=== PATIENT | male | born 1990 | race Two or more races ===

== ENCOUNTER 2020-09-04 03:28 | Emergency (ER) | payer OTHER, SELFPAY ==
[2020-09-04 03:35] VITALS: BP 167/95; PULSE 101; RESP 18; TEMP 37.1; O2SAT 99; BMI 34.0
[2020-09-04 03:52] LABS: MANUAL DIFF FLAG NO
[2020-09-04 03:53] LABS: Basophils Absolute Auto 0.1 X10*3/uL (0.0-0.2); Basophils Percent Auto 0.5 % (0-2); Eosinophils Absolute Auto 0.2 X10*3/uL (0.0-0.4); Eosinophils Percent Auto 1.3 % (0-4); Hematocrit 45.2 % (42-52); Hemoglobin 15.5 g/dl (14.0-18.0); Imm Gran Abs Auto 0.04 X10*3/uL (0.00-0.03); Imm Gran Pct Auto 0.3 % (0.0-0.4); Lymphocytes Absolute Auto 4.5 X10*3/uL (1.2-4.9); Lymphocytes Percent Auto 38.8 % (20-40); Mean Corpuscular HGB Conc 34.3 g/dl (31.0-36.0); Mean Corpuscular Hemoglobin 31.6 pg (27.0-33.0); Mean Corpuscular Volume 92.2 fL (80-98); Mean Platelet Volume 8.8 fL (9.4-12.4); Monocytes Absolute Auto 1.1 X10*3/uL (0.1-1.2); Monocytes Percent Auto 9.4 % (2-11); Neutrophils Absolute Auto 5.7 X10*3/uL (2.0-8.3); Neutrophils Percent Auto 49.7 % (45-73); Platelet Count 388 X10*3/uL (160-400); Red Cell Distribution Width 13.1 % (11.0-16.0); White Blood Count 11.5 X10*3/uL (4.8-10.8)
[2020-09-04 04:01] LABS: Glucose Urine UA NEG (NEG); Leukocyte Esterase Urine NEG (NEG); Nitrite Urine NEG (NEG); PH 6.5 (5.0-8.0); Urine Blood TRACE (NEG); Urine Ketones 5 MG/DL (NEG); Urine Protein TRACE MG/DL (NEG-TRACE)
[2020-09-04 04:02] LABS: Appearance Urine CLEAR; Color Urine YELLOW
[2020-09-04 04:17] LABS: Alanine Aminotransferase 21 U/L (0-40); Albumin Level 4.3 g/dL (3.5-5.0); Alkaline Phosphatase 73 U/L (39-117); Anion Gap 14 (12-20); Aspartate Amino Transferase 12 U/L (5-37); Bilirubin Total 0.3 mg/dL (0.0-1.0); Blood Urea Nitrogen 10 mg/dL (9-16); Calcium 9.5 mg/dL (8.4-10.2); Carbon Dioxide 25 mmol/L (22-29); Chloride 103 mmol/L (96-108); Creatinine Clr Calc Pharmacy 125.9; Estimated Glomerular Filt Rate > 60; Glucose Random 114 mg/dL (60-115); Lipase 47 U/L (8-78); Potassium 3.9 mmol/l (3.3-5.1); Sodium 138 mmol/L (135-145); Total Protein 7.6 g/dL (6.5-8.0)
[2020-09-04 04:20] LABS: Hyaline Casts Urine 0-2 /LPF; Mucus Urine TRACE /LPF; Squamous Epithelial Cell Urine TRACE /LPF; WBC Urine 0 /HPF (0-4)
--- NOTE | 2020-09-04 05:48 | ED_ITS ---
HPI - Abdominal Pain General Chief Complaint: Abdominal Pain Stated Complaint: BLOOD IN STOOL AND VOMIT Time Seen by Provider: 09/04/20 05:47 History of Present Illness HPI narrative: This is a 30-year-old male who presents with sharpand stabbing epigastric discomfort in nature that was relieved by food until he began vomiting. The pain started Thursday evening and was associated with some nausea and then had a few episodes of vomiting with some associated nonbloody diarrhea. Otherwise, he denies any fevers, chills, urinary pain/ burning / frequency. patient's history as reported by him is significant for HIV, but he is followed regularly and states that his counts are normal . Related Data Previous Rx's Medication Instructions Recorded ondansetron HCl [Zofran] 4 mg PO Q8H PRN #7 tab 09/04/20 Allergies Allergy/AdvReac Type Severity Reaction Status Date / Time lorazepam [From ATIVAN] Allergy Unknown SEIZURES Verified 09/04/20 03:35 Review of Systems Review of Systems pertinent positives and negatives as stated in HPI 10 point review of systems is otherwise negative Physical Exam Vital Signs and I&O and Narrative: Vital Signs and I&O: Vital Signs Temp 98.8 F 09/04/20 03:35 Pulse 101 H 09/04/20 03:35 Resp 18 09/04/20 03:35 BP 167/95 H 09/04/20 03:35 Pulse Ox 99 09/04/20 03:35 Intake & Output 09/03/20 09/03/20 09/04/20 06:59 18:59 06:59 Weight 104.326 kg Body Mass Index 34.0 VITAL SIGNS: Reviewed. GENERAL: Well developed, well nourished, in no acute distress. HEAD: Normocephalic/atraumatic, Posterior oropharynx was without edema, erythema or exudate. EYES: PERRLA, Pupils <>, EOMI intact without pain, no nystagmus/pallor/icterus noted EARS: Ext canals without abnormality, TMs non-bulging and non-erythematous NOSE: Nares patent bilateral OROPHARYNX: no oral lesions noted, posterior pharynx clear and non-erythematous without noted tonsillar enlargement/erythema/exudates NECK: Supple, no adenopathy LUNGS: Normal breath sounds. No adventitious sounds or accessory muscle use. SpO2<> CARDIOVASCULAR: Regular rate and rhythm without noted murmurs, no JVD or lower extremity edema. ABDOMEN: obese, Soft, mild tenderness to palpation over the epigastric, non-distended with bowel sounds. No rigidity. No guarding. No palpable masses or hernias noted MUSCULOSKELETAL: No tenderness, deformities, or effusions noted on gross inspection. EXTREMITIES: No cyanosis, clubbing or edema. SKIN: Inspection of the skin reveals no rashes, ulcerations, jaundice, pallor, or petechiae. NEUROLOGIC: Alert and oriented x 3. Strength and sensation to light touch were grossly intact x 4. Course Course Course Narrative: This is a 30-year-old male with history and clinical present ation consistent with likely gastroenteritis versus less likely pancreatitis or cholecystitis. On review of all investigations this patient has a mild leukocytosis which is likely attributable to stress response from nausea and vomiting and electrolytes are within normal limits. Review of CT scan results negative for acute intra- abdominal findings. All results and findings were discussed with patient at bedside and he will be discharged with a script for Zofran and provided a GI cocktail here in the emergency department. MDM - Abdominal Pain Lab Data Result diagrams: 09/04/20 03:45 09/04/20 03:45 Labs: Lab Results 09/04/20 09/04/20 09/04/20 Range/Units 03:45 03:45 03:45 WBC 11.5 H (4.8-10.8) X10*3/uL RBC 4.90 (4.60-5.80) X10*6/uL Hgb 15.5 (14.0-18.0) g/dl Hct 45.2 (42-52) % MCV 92.2 (80-98) fL MCH 31.6 (27.0-33.0) pg MCHC 34.3 (31.0-36.0) g/dl RDW 13.1 (11.0-16.0) % Plt Count 388 (160-400) X10*3/uL MPV 8.8 L (9.4-12.4) fL Immature Gran % (Auto) 0.3 (0.0-0.4) % Neut % (Auto) 49.7 (45-73) % Lymph % (Auto) 38.8 (20-40) % [place] % (Auto) 9.4 (2-11) % Eos % (Auto) 1.3 (0-4) % Baso % (Auto) 0.5 (0-2) % Neut # (Auto) 5.7 (2.0-8.3) X10*3/uL Lymph # (Auto) 4.5 (1.2-4.9) X10*3/uL [place] # (Auto) 1.1 (0.1-1.2) X10*3/uL Eos # (Auto) 0.2 (0.0-0.4) X10*3/uL Baso # (Auto) 0.1 (0.0-0.2) X10*3/uL Abs Immat Gran (auto) 0.04 H (0.00-0.03) X10*3/uL Absolute Nucleated RBC 0.000 (0.0-0.012) X10*3/uL Nucleated RBC % (auto) 0.0 (0.0-0.2) /100WBC Hold Blue Top SEE NOTE Sodium (135-145) mmol/L Potassium (3.3-5.1) mmol/l Chloride (96-108) mmol/L Carbon Dioxide (22-29) mmol/L Anion Gap (12-20) BUN (9-16) mg/dL Creatinine (0.5-1.4) mg/dL Estim Creat Clear Calc Estimated GFR Random Glucose (60-115) mg/dL Calcium (8.4-10.2) mg/dL Total Bilirubin (0.0-1.0) mg/dL AST (5-37) U/L ALT (0-40) U/L Alkaline Phosphatase (39-117) U/L Total Protein (6.5-8.0) g/dL Albumin (3.5-5.0) g/dL Lipase (8-78) U/L Urine Color YELLOW Urine Appearance CLEAR Urine pH 6.5 (5.0-8.0) Ur Specific [place] 1.020 (1.005-1.025) Urine Protein TRACE (NEG-TRACE) MG/DL Urine Glucose (UA) NEG (NEG) MG/DL Urine Ketones 5 (NEG) MG/DL Urine Blood TRACE (NEG) Urine Nitrite NEG (NEG) Ur Leukocyte Esterase NEG (NEG) Urine RBC 5-9 H (0) /HPF Urine WBC 0 (0-4) /HPF Ur Squamous Epith Cells TRACE /LPF Urine Bacteria NONE /LPF Hyaline Casts 0-2 /LPF Urine Mucus TRACE /LPF 09/04/20 Range/Units 03:45 WBC (4.8-10.8) X10*3/uL RBC (4.60-5.80) X10*6/uL Hgb (14.0-18.0) g/dl Hct (42-52) % MCV (80-98) fL MCH (27.0-33.0) pg MCHC (31.0-36.0) g/dl RDW (11.0-16.0) % Plt Count (160-400) X10*3/uL MPV (9.4-12.4) fL Immature Gran % (Auto) (0.0-0.4) % Neut % (Auto) (45-73) % Lymph % (Auto) (20-40) % [place] % (Auto) (2-11) % Eos % (Auto) (0-4) % Baso % (Auto) (0-2) % Neut # (Auto) (2.0-8.3) X10*3/uL Lymph # (Auto) (1.2-4.9) X10*3/uL [place] # (Auto) (0.1-1.2) X10*3/uL Eos # (Auto) (0.0-0.4) X10*3/uL Baso # (Auto) (0.0-0.2) X10*3/uL Abs Immat Gran (auto) (0.00-0.03) X10*3/uL Absolute Nucleated RBC (0.0-0.012) X10*3/uL Nucleated RBC % (auto) (0.0-0.2) /100WBC Hold Blue Top Sodium 138 (135-145) mmol/L Potassium 3.9 (3.3-5.1) mmol/l Chloride 103 (96-108) mmol/L Carbon Dioxide 25 (22-29) mmol/L Anion Gap 14 (12-20) BUN 10 (9-16) mg/dL Creatinine 1.03 (0.5-1.4) mg/dL Estim Creat Clear Calc 125.9 Estimated GFR > 60 Random Glucose 114 (60-115) mg/dL Calcium 9.5 (8.4-10.2) mg/dL Total Bilirubin 0.3 (0.0-1.0) mg/dL AST 12 (5-37) U/L ALT 21 (0-40) U/L Alkaline Phosphatase 73 (39-117) U/L Total Protein 7.6 (6.5-8.0) g/dL Albumin 4.3 (3.5-5.0) g/dL Lipase 47 (8-78) U/L Urine Color Urine Appearance Urine pH (5.0-8.0) Ur Specific [place] (1.005-1.025) Urine Protein (NEG-TRACE) MG/DL Urine Glucose (UA) (NEG) MG/DL Urine Ketones (NEG) MG/DL Urine Blood (NEG) Urine Nitrite (NEG) Ur Leukocyte Esterase (NEG) Urine RBC (0) /HPF Urine WBC (0-4) /HPF Ur Squamous Epith Cells /LPF Urine Bacteria /LPF Hyaline Casts /LPF Urine Mucus /LPF Discharge Plan Discharge Clinical Impression: Gastroenteritis Patient Disposition: Home, Self-Care Instructions: Gastroenteritis (ED) Additional Instructions: resume all home medications as prescribed. Increase fluid intake, especially water. The patient and/or family acknowledge understanding of results (as applicable), diagnosis, treatment plan, need for follow up, and symptoms that should prompt a return to the emergency room. Prescriptions: New ondansetron HCl [Zofran] 4 mg tablet 4 mg PO Q8H PRN (Reason: nausea and vomiting) Qty: 7 RF: 0 Referrals: Pearl Reyna MD [Primary Care Provider] - 2 days ( for further follow-up regarding your gastroenteritis) [facility] Past Medical History Source: nursing notes reviewed Social History Social History Advance Directives: No Advance Directives Information Provided: No
--- NOTE | 2020-09-04 05:55 | CT_ITS ---
EXAMINATION: CT ABDOMEN AND PELVIS WITHOUT CONTRAST CLINICAL INFORMATION: Abdominal pain COMPARISON: Report from 05/11/2020 TECHNIQUE: Multidetector volumetric imaging was performed from the superior aspect of the liver through the pubic symphysis. Sagittal and coronal reformatted images were obtained on the technologist's workstation. This CT examination was performed using dose optimization techniques as appropriate, variously including the following: *Automated exposure control *Adjustment of mA and/or kV according to patient size (this includes techniques or standardized protocols for targeted exams where dose is matched to indication/reason for exam; i.e. extremities or head) *Use of iterative reconstruction technique DLP: 797 mGy-cm FINDINGS: LUNG BASES: The visualized lung bases are unremarkable. LIVER, GALLBLADDER, AND BILIARY TREE: The liver is normal in size, shape, and attenuation. No focal hepatic lesion or biliary ductal dilatation is present. The gallbladder is unremarkable with no evidence of radiopaque gallstones, gallbladder wall thickening, or obvious pericholecystic inflammatory changes. PANCREAS: Unremarkable. SPLEEN: Unremarkable. ADRENAL GLANDS: Unremarkable. KIDNEYS AND URETERS: The kidneys are normal in size, shape, and attenuation. No hydronephrosis or hydroureter. There is a left lower pole 0.2 cm calculus is 10 cm from the posterior axillary line. No perinephric stranding. BLADDER: Decompressed and not well assessed. GASTROINTESTINAL TRACT: The stomach is distended without wall thickening. Normal caliber small bowel. No obstruction. The appendix is not seen. No colonic wall thickening or inflammatory change. No free air or free fluid. ABDOMINAL WALL: No significant hernia is appreciated. LYMPH NODES: Normal. VASCULAR: Unremarkable. PELVIC VISCERA: The prostate and seminal vesicles are unremarkable. OSSEOUS STRUCTURES: No acute or suspicious osseous abnormality. IMPRESSION: No acute finding of the abdomen or pelvis. No inflammatory changes. No hydronephrosis. Tiny nonobstructing left lower pole renal calculus.
[2020-09-04] MEDS: 0.9 % Sodium Chloride 1,000 ML 999 ML IVCONT (06:22)
[2020-09-04 07:24] VITALS: BP 136/84; PULSE 85; RESP 16; O2SAT 99
== END 2020-09-04 07:25 | disposition home or self-care (01) ==
PROVIDERS: Emergency Provider Student in an Organized Health Care Education/Training Program; PCP Internal Medicine
DX: K52.9 Noninfective gastroenteritis and colitis, unspecified (principal); Z79.899 Other long term (current) drug therapy
CPT/HCPCS: 36415; 74176; 80053; 81001; 81003; 83690; 85025; 99283; 99284

== ENCOUNTER 2020-11-20 11:55 | Observation (INO) | payer OTHER, SELFPAY ==
--- NOTE | 2020-11-20 12:00 | ED.NEUROSD ---
HPI - Neuro Symptoms/Deficit General Chief Complaint: Weakness Stated Complaint: facial numbness and droop Time Seen by Provider: 11/20/20 12:00 Source: patient Mode of arrival: ambulatory Limitations: no limitations History of Present Illness HPI Narrative: 30-year-old male with a past medical history of HIV on Biktarvy, high cholesterol, hypertension (not on medications), CVA here with right sided facial numbness, weakness and PUCKETT. Patient tells me yesterday he had a generalized headache all day but otherwise felt well. He went to bed at 04:00 this morning. When he woke up at 09:00 he noticed right-sided facial weakness and right-sided facial numbness, and right tongue numbness. The patient tells me several years ago in [place] he had a cva with right-sided weakness in his arm and leg only. He tells me he was admitted to the hospital for approximately 2 weeks. He tells me they could not find out what caused the stroke. He did have residual weakness for 6-7 months which improved with physical therapy. He does still have some residual weakness although very mild. He told me that he thinks that the weakness on his right side might be slightly worsened today but he is unsure. No vision changes, photophobia, nausea, vomiting, dizziness, speech difficulty. He denies h/o migranes. of note, the patient tells me he does have a history of HIV and is intermittently compliant with his Biktarvy. He tells me he has had some sinus congestion and pressure for the last few weeks with nasal drainage. He did have a URI 3 weeks ago and had a low grade temp (max 100F) during this time. Tested negative for COVID. Still has sinus pressure/congestion/pain, no recent fever. No trauma or injury. Onset (ago): hour(s) Last Observed Normal: 04:00 Location: right face Severity: mild Quality: weak and numb Relieving factors: none Exacerbating factors: none Context: sudden onset On Anticoagulants: No Associated symptoms: headaches Treatments Prior to Arrival: none Related Data Home Medications Medication Instructions Recorded Confirmed albuterol sulfate [ProAir HFA] 2 puff INHALATION QID PRN 11/20/20 11/20/20 azelastine 2 spray INTRANASAL BID 11/20/20 11/20/20 [id number] ala 1 tab PO DAILY 11/20/20 11/20/20 cetirizine 10 mg PO DAILY PRN 11/20/20 11/20/20 fluticasone propionate [Flonase] 2 spray INTRANASAL DAILY 11/20/20 11/20/20 pantoprazole [Protonix] 40 mg PO BID 11/20/20 11/20/20 sumatriptan succinate 25 mg PO Q2-4H PRN 11/20/20 11/20/20 valacyclovir 1,000 mg PO DAILY 11/20/20 11/20/20 Allergies Allergy/AdvReac Type Severity Reaction Status Date / Time lorazepam [From ATIVAN] Allergy Unknown SEIZURES Verified 09/04/20 03:35 Review of Systems Review of Systems: Yes all other systems are reviewed and are negative Constitutional: Constitutional: Reports no additional constitutional complaints, Denies body ache(s), Denies chills, Denies fever(s), Reports headache(s) and Reports weakness Eyes: Eyes: Reports no additional eye complaints and Denies change in vision ENT: Reports system reviewed and no additional complaints, except as documented, Denies dizziness, Reports headache(s), Denies nasal congestion, Denies nasal discharge, Denies neck pain, Reports sinus pain and Reports sinus pressure Cardiovascular: Cardiovascular: Reports no additional cardiovascular complaints, Denies chest pain, Denies leg edema and Denies dyspnea Respiratory: Respiratory: Reports no additional respiratory complaints, Denies cough and Denies dyspnea Gastrointestinal: Gastrointestinal: Reports no additional gastrointestinal complaints, Denies abdominal pain, Denies diarrhea, Denies nausea and Denies vomiting Genitourinary: Genitourinary: Denies urinary incontinence Musculoskeletal: Musculoskeletal: Reports no additional musculoskeletal complaints, Denies back pain, Denies arthralgias, Denies joint swelling, Denies neck pain, Denies numbness and Denies tingling Integumentary/Breasts: Skin/Breast: Reports system reviewed and no additional complaints, except as docu and Denies rash Neurologic: Reports system reviewed and no additional complaints, except as documented, Denies Abnormal speech present, Denies dizziness, Reports headache(s), Denies numbness, Denies tingling and Reports weakness PMFSH Past Medical History Attestation statement: The following information was validated with the patient. Medical History (Updated 11/20/20 @ 15:52 by Lori Parekh NP) CVA (cerebral vascular accident) High cholesterol Hypertension Social History Social History Alcohol intake: never Smoking Status: Current every day smoker Smoked in Last 30 Days: Yes Use of substances other than those prescribed or required for medical reasons: No Advance Directives: No Advance Directives Information Provided: Yes Physical Exam Vital Signs: Vital Signs: Last Vital Signs Temp 98.1 F 11/20/20 18:00 Pulse 80 11/20/20 18:00 Resp 18 11/20/20 18:00 BP 143/85 H 11/20/20 18:00 Pulse Ox 97 11/20/20 18:00 Body Mass Index 35.4 Const: General: cooperative, healthy appearing, comfortable and no acute distress Orientation/consciousness: patient oriented x3 Limitations: no limitations HENMT: Head: Yes normal to inspection Ears: hearing grossly normal bilaterally General nose exam: Normal external nose present Face and sinus: Yes normal facial exam Mouth: Normal oral and palatal mucosa present Throat: Yes posterior oropharynx normal Eyes: General: appearance normal, both eyes and all related structures Visual Mayer: normal visual mayer by confrontation Alignment and Position: alignment normal Periorbital: periorbital findings normal Eyelids: Yes eyelids normal Conjunctivae: conjunctivae normal Sclerae: sclerae normal Corneas: corneas normal Pupils: Equal, round and reactive pupils present EOM: EOMs intact bilaterally Neck: Neck: Yes normal visual inspection Chest: Chest palpation & inspection: normal inspection of the chest Resp: Effort & Inspection: normal respiratory effort Auscultation: clear to auscultation bilaterally Cardio: Rate: regular rate Rhythm: regular rhythm Peripheral pulses: Peripheral pulses 2+ throughout GI: Inspection: Yes normal to inspection Palpation (GI): Soft to palpation and nontender Auscultation: normal bowel sounds Back/Spine/Pelvis: Thoracic/Lumbar Spine: thoracic and lumbar spine normal to inspection Skin: General skin exam: no rashes or lesions noted Neuro: Other: 5/5 strength in the upper extremities, 5/5 strength in LLE. 4/5 RLE. Normal sensation to all extremities. R sided facial droop, reported decreased sensation along V3 dermatome of the face. tongue is midline General: patient oriented x3 Cranial nerves: Yes Equal, round and reactive pupils present, Yes Bilaterally intact EOM present and Yes Midline tongue present Cognition (Neuro): normal cognition Speech: No Abnormal speech present Gait exam (Neuro): Normal gait present Deep tendon reflexes (DTR's): Right patellar reflex intensity grade: 3+, Left patellar reflex intensity grade: 3+, Right ankle reflex intensity grade: 3+ and Left ankle reflex intensity grade: 3+ Coordination: [id number] test normal, [id number] test normal and tandem gait normal Extrem: General: Yes normal to inspection Course Course Course Narrative: 30 yo male with past medical history of CVA with right sided weakness, HIV on biktarvey, HLD, HTN not on medications, tobacco use here generalized PUCKETT since yesterday and waking up at 9am with right sided facial/tongue numbness and weakness, right lower leg weakness (unsure if acute or chronic). Last known well normal 4am. NIH 3 on arrival. Outside of TPA window. Will need CT head, labs, EKG. Will likely need admission. 1330-Initial CT head negative. Discussed with attending Dr Brice. Will check CTA head/neck, plan for MRI and admission. 1545-CTA negative. Will need further imaging. MRI ordered. Due to history will need admission and likely Neurology consultation. D/w with Lilly CRESPO who accepted admission. MDM - Neuro Symptoms/Deficit MDM Narrative Medical decision making narrative: CVA, complex migraine, ICH vs mass, bells palsy Less likely ICH or mass with negative CT head. Could consider CVA however atypical symptoms (i.e associated headache). If CVA not TPA candidate as outside TPA window. May be complex migraine. Medical Records Attestation: I reviewed the patient's medical records. Lab Data Attestation: I reviewed the patient's lab results. Result diagrams: 11/20/20 12:47 11/20/20 12:47 Labs: Lab Results 11/20/20 11/20/20 11/20/20 Range/Units 12:30 12:47 12:47 WBC 10.2 (4.8-10.8) X10*3/uL RBC 4.80 (4.60-5.80) X10*6/uL Hgb 14.8 (14.0-18.0) g/dl Hct 43.9 (42-52) % MCV 91.5 (80-98) fL MCH 30.8 (27.0-33.0) pg MCHC 33.7 (31.0-36.0) g/dl RDW 12.9 (11.0-16.0) % Plt Count 358 (160-400) X10*3/uL MPV 9.0 L (9.4-12.4) fL Immature Gran % (Auto) 0.2 (0.0-0.4) % Neut % (Auto) 52.8 (45-73) % Lymph % (Auto) 37.2 (20-40) % Mellette % (Auto) 7.3 (2-11) % Eos % (Auto) 1.9 (0-4) % Baso % (Auto) 0.6 (0-2) % Lymph # (Auto) 3.8 (1.2-4.9) X10*3/uL Mellette # (Auto) 0.7 (0.1-1.2) X10*3/uL Eos # (Auto) 0.2 (0.0-0.4) X10*3/uL Baso # (Auto) 0.1 (0.0-0.2) X10*3/uL Abs Immat Gran (auto) 0.02 (0.00-0.03) X10*3/uL Absolute Neuts (auto) 5.4 (2.0-8.3) X10*3/uL Absolute Nucleated RBC 0.000 (0.0-0.012) X10*3/uL Nucleated RBC % (auto) 0.0 (0.0-0.2) /100WBC PT 12.8 (10.8-13.0) SEC INR 1.1 (0.9-1.1) APTT 35.5 (24.1-38.0) SEC Sodium (135-145) mmol/L Potassium (3.3-5.1) mmol/l Chloride (96-108) mmol/L Carbon Dioxide (22-29) mmol/L Anion Gap (12-20) BUN (9-16) mg/dL Creatinine (0.5-1.4) mg/dL Estim Creat Clear Calc Estimated GFR POC Glucose 98 (60-115) mg/dL Random Glucose (60-115) mg/dL Calcium (8.4-10.2) mg/dL Phosphorus (2.7-4.5) mg/dL Magnesium (1.6-2.6) mg/dL Total Creatine Kinase (38-174) U/L Troponin I High Sens (<3.5-35.0) ng/L COVID-19 ([facility]) (Negative) COVID-19 Clin Com 11/20/20 11/20/20 11/20/20 Range/Units 12:47 12:47 15:37 WBC (4.8-10.8) X10*3/uL RBC (4.60-5.80) X10*6/uL Hgb (14.0-18.0) g/dl Hct (42-52) % MCV (80-98) fL MCH (27.0-33.0) pg MCHC (31.0-36.0) g/dl RDW (11.0-16.0) % Plt Count (160-400) X10*3/uL MPV (9.4-12.4) fL Immature Gran % (Auto) (0.0-0.4) % Neut % (Auto) (45-73) % Lymph % (Auto) (20-40) % Mellette % (Auto) (2-11) % Eos % (Auto) (0-4) % Baso % (Auto) (0-2) % Lymph # (Auto) (1.2-4.9) X10*3/uL Mellette # (Auto) (0.1-1.2) X10*3/uL Eos # (Auto) (0.0-0.4) X10*3/uL Baso # (Auto) (0.0-0.2) X10*3/uL Abs Immat Gran (auto) (0.00-0.03) X10*3/uL Absolute Neuts (auto) (2.0-8.3) X10*3/uL Absolute Nucleated RBC (0.0-0.012) X10*3/uL Nucleated RBC % (auto) (0.0-0.2) /100WBC PT (10.8-13.0) SEC INR (0.9-1.1) APTT (24.1-38.0) SEC Sodium 142 (135-145) mmol/L Potassium 4.2 (3.3-5.1) mmol/l Chloride 107 (96-108) mmol/L Carbon Dioxide 27 (22-29) mmol/L Anion Gap 12 (12-20) BUN 10 (9-16) mg/dL Creatinine 0.92 (0.5-1.4) mg/dL Estim Creat Clear Calc 144.0 Estimated GFR > 60 POC Glucose (60-115) mg/dL Random Glucose 97 (60-115) mg/dL Calcium 9.3 (8.4-10.2) mg/dL Phosphorus 4.3 (2.7-4.5) mg/dL Magnesium 2.0 (1.6-2.6) mg/dL Total Creatine Kinase 64 (38-174) U/L Troponin I High Sens < 3.5 (<3.5-35.0) ng/L COVID-19 ([facility]) Negative (Negative) COVID-19 Clin Com See Note Imaging Data CT scan - head: Attestation: I personally reviewed and interpreted this imaging study as follows: Radiologist's impression: EXAMINATION: CT HEAD WITHOUT CONTRAST CLINICAL INFORMATION: Right-sided facial numbness/through COMPARISON: Previous exam November 2007 TECHNIQUE: Contiguous axial imaging was performed from the skull base to vertex without intravenous administration of contrast. This CT examination was performed using dose optimization techniques as appropriate, variously including the following: *Automated exposure control *Adjustment of mA and/or kV according to patient size (this includes techniques or standardized protocols for targeted exams where dose is matched to indication/reason for exam; i.e. extremities or head) *Use of iterative reconstruction technique DLP: 871 mGy-cm FINDINGS: There is no evidence of acute intracranial hemorrhage or territorial infarction. No abnormal mass effect or midline shift is seen. Haider to white matter differentiation is well preserved. No extra-axial fluid collections are identified. The ventricles are normal in size. There is no abnormal attenuation within the brain parenchyma. The osseous structures and soft tissues are normal. The mastoid air cells and visualized portions of the paranasal sinuses are well aerated. CT/CT head/brain wo con IMPRESSION: No acute intracranial pathology. cta head/neck : Attestation: I personally reviewed and interpreted this imaging study as follows: Radiologist's impression: EXAMINATION: CT ANGIOGRAM NECK WITH CONTRAST CT ANGIOGRAM BRAIN WITH CONTRAST CLINICAL INFORMATION: Right facial numbness/facial droop/headache. Rule out CVA. COMPARISON: Head CT performed just prior. TECHNIQUE: Test bolus sequences followed by intravenous administration 70 mL of Omnipaque 350. Helical imaging was performed in the axial plane from the thoracic inlet to the skull vertex. Delayed postcontrast imaging of the head was also performed. The data was processed at the radiologic technologist mammogram workstation for generation of MIP sequences. Angled MIPs and volume rendered reformatted images were also generated at an offline 3D workstation. Stenoses are assessed in accordance with NASCET criteria unless otherwise indicated. This CT examination was performed using dose optimization techniques as appropriate, variously including the following: *Automated exposure control *Adjustment of mA and/or kV according to patient size (this includes techniques or standardized protocols for targeted exams where dose is matched to indication/reason for exam; i.e. extremities or head) *Use of iterative reconstruction technique DLP: 1721 mGy-cm FINDINGS: Head CT: On the postcontrast images, there is no intracranial hemorrhage, extra-axial collection, mass effect, or territorial infarction. No enhancing lesion is seen. The dural venous sinuses demonstrate normal enhancement. The ventricles are normal in size without hydrocephalus. No extracranial abnormality is noted. Neck CTA: There is a three-vessel left-sided aortic arch with no significant stenosis of the great vessel origins. The common and internal carotid arteries are normal in course and caliber. Both vertebral arteries are widely patent throughout their extracranial cervical course. Head CTA: No intracranial aneurysm is seen. The intracranial internal carotid arteries appear normal. The anterior cerebral artery, anterior communicating artery, and middle cerebral arteries appear normal. The intradural vertebral arteries and basilar artery appear normal. The posterior cerebral arteries appear normal. There is a normal right posterior communicating artery. There is disposition of the left THERAPIST PHYSICAL. Non-vascular findings: The upper lungs are clear. No suspicious lymphadenopathy is seen within the neck. CT/CT angio head neck IMPRESSION: The major head or neck arteries appear patent without significant stenosis or occlusion. No acute intracranial abnormality is seen. ECG Data Attestation: I personally reviewed and interpreted this ECG as follows: ECG interpretation date: 11/20/20 ECG interpretation time: 12:30 Interpretation: Normal sinus rhythm with a rate of 83, normal MD, normal QRS, normal QT NIH Stroke Scale Internal: Initial- Upon Arrival Time: 12:00 Level of Consciousness: Alert Level of Consciousness Questions: Answers both questions correctly Level of Consciousness Commands: Performs both tasks correctly Best Gaze: Normal Visual: No visual loss Facial Palsy: Minor paralyis Motor Arm (Right): No drift Motor Arm (Left): No drift Motor Leg (Right): Drift Motor Leg (Left): No drift Limb Ataxia: Absent Sensory: Mild to moderate sensory loss Best Language: No aphasia Dysarthia: Normal Extinction and Inattention: No abnormality Score: 3 Discharge Plan Discharge Clinical Impression: Facial droop Patient Disposition: Admitted As Inpatient Interventions: Admission Worksheet (ED) Last Done: 11/20/20 17:50 Discharge Date/Time: 11/20/20 17:51
[2020-11-20 12:01] VITALS: BP 145/97; PULSE 90; RESP 16; TEMP 36.8; O2SAT 98; BMI 35.4
--- NOTE | 2020-11-20 12:11 | ECG_ITS ---
Test Reason : WEAKNESS Blood Pressure : / mmHG Vent. Rate : 083 BPM Atrial Rate : 083 BPM P-R Int : 156 ms QRS Dur : 084 ms QT Int : 374 ms P-R-T Axes : 042 035 019 degrees QTc Int : 439 ms Normal sinus rhythm Normal ECG When compared with ECG of 17-APR-2020 22:21, No significant change was found Referred By: Lori Parekh Electronically Signed By:JOHN BEGUM MD
--- NOTE | 2020-11-20 12:12 | CT_ITS ---
EXAMINATION: CT HEAD WITHOUT CONTRAST CLINICAL INFORMATION: Right-sided facial numbness/through COMPARISON: Previous exam November 2007 TECHNIQUE: Contiguous axial imaging was performed from the skull base to vertex without intravenous administration of contrast. This CT examination was performed using dose optimization techniques as appropriate, variously including the following: *Automated exposure control *Adjustment of mA and/or kV according to patient size (this includes techniques or standardized protocols for targeted exams where dose is matched to indication/reason for exam; i.e. extremities or head) *Use of iterative reconstruction technique DLP: 871 mGy-cm FINDINGS: There is no evidence of acute intracranial hemorrhage or territorial infarction. No abnormal mass effect or midline shift is seen. Haider to white matter differentiation is well preserved. No extra-axial fluid collections are identified. The ventricles are normal in size. There is no abnormal attenuation within the brain parenchyma. The osseous structures and soft tissues are normal. The mastoid air cells and visualized portions of the paranasal sinuses are well aerated. CT/CT head/brain wo con IMPRESSION: No acute intracranial pathology.
[2020-11-20 12:37] LABS: Glucose, Whole Blood 98 mg/dL (60-115)
[2020-11-20] MEDS: Metoclopramide HCl 10 MG/2 ML VIAL IVPUSH (12:48)
[2020-11-20] MEDS: diphenhydrAMINE HCL 50 MG/ML VIAL 25 MG IVPUSH (12:48)
[2020-11-20 12:54] LABS: Basophils Absolute Auto 0.1 X10*3/uL (0.0-0.2); Basophils Percent Auto 0.6 % (0-2); Eosinophils Absolute Auto 0.2 X10*3/uL (0.0-0.4); Eosinophils Percent Auto 1.9 % (0-4); Hematocrit 43.9 % (42-52); Hemoglobin 14.8 g/dl (14.0-18.0); Imm Gran Abs Auto 0.02 X10*3/uL (0.00-0.03); Imm Gran Pct Auto 0.2 % (0.0-0.4); Lymphocytes Absolute Auto 3.8 X10*3/uL (1.2-4.9); Lymphocytes Percent Auto 37.2 % (20-40); MANUAL DIFF FLAG NO; Mean Corpuscular HGB Conc 33.7 g/dl (31.0-36.0); Mean Corpuscular Hemoglobin 30.8 pg (27.0-33.0); Mean Corpuscular Volume 91.5 fL (80-98); Monocytes Absolute Auto 0.7 X10*3/uL (0.1-1.2); Monocytes Percent Auto 7.3 % (2-11); Neutrophils Absolute Auto 5.4 X10*3/uL (2.0-8.3); Neutrophils Percent Auto 52.8 % (45-73); Platelet Count 358 X10*3/uL (160-400); Red Cell Distribution Width 12.9 % (11.0-16.0); White Blood Count 10.2 X10*3/uL (4.8-10.8)
[2020-11-20 13:05] LABS: INTERNATIONAL NORM RATIO 1.1 (0.9-1.1); Prothrombin Time 12.8 SEC (10.8-13.0)
[2020-11-20 13:07] LABS: Partial Thromboplastin Time 35.5 SEC (24.1-38.0)
[2020-11-20 13:24] LABS: Anion Gap 12 (12-20); Blood Urea Nitrogen 10 mg/dL (9-16); Calcium 9.3 mg/dL (8.4-10.2); Carbon Dioxide 27 mmol/L (22-29); Chloride 107 mmol/L (96-108); Estimated Glomerular Filt Rate > 60; Glucose Random 97 mg/dL (60-115); Phosphorus 4.3 mg/dL (2.7-4.5); Potassium 4.2 mmol/l (3.3-5.1); Sodium 142 mmol/L (135-145)
[2020-11-20 13:30] LABS: Troponin-I High Sensitivity < 3.5 ng/L (<3.5-35.0)
--- NOTE | 2020-11-20 13:35 | CT_ITS ---
EXAMINATION: CT ANGIOGRAM NECK WITH CONTRAST CT ANGIOGRAM BRAIN WITH CONTRAST CLINICAL INFORMATION: Right facial numbness/facial droop/headache. Rule out CVA. COMPARISON: Head CT performed just prior. TECHNIQUE: Test bolus sequences followed by intravenous administration 70 mL of Omnipaque 350. Helical imaging was performed in the axial plane from the thoracic inlet to the skull vertex. Delayed postcontrast imaging of the head was also performed. The data was processed at the registered vascular technologist (rvt) workstation for generation of MIP sequences. Angled MIPs and volume rendered reformatted images were also generated at an offline 3D workstation. Stenoses are assessed in accordance with NASCET criteria unless otherwise indicated. This CT examination was performed using dose optimization techniques as appropriate, variously including the following: *Automated exposure control *Adjustment of mA and/or kV according to patient size (this includes techniques or standardized protocols for targeted exams where dose is matched to indication/reason for exam; i.e. extremities or head) *Use of iterative reconstruction technique DLP: 1721 mGy-cm FINDINGS: Head CT: On the postcontrast images, there is no intracranial hemorrhage, extra-axial collection, mass effect, or territorial infarction. No enhancing lesion is seen. The dural venous sinuses demonstrate normal enhancement. The ventricles are normal in size without hydrocephalus. No extracranial abnormality is noted. Neck CTA: There is a three-vessel left-sided aortic arch with no significant stenosis of the great vessel origins. The common and internal carotid arteries are normal in course and caliber. Both vertebral arteries are widely patent throughout their extracranial cervical course. Head CTA: No intracranial aneurysm is seen. The intracranial internal carotid arteries appear normal. The anterior cerebral artery, anterior communicating artery, and middle cerebral arteries appear normal. The intradural vertebral arteries and basilar artery appear normal. The posterior cerebral arteries appear normal. There is a normal right posterior communicating artery. There is disposition of the left ADAPTED PHYSICAL EDUCATION AIDE. Non-vascular findings: The upper lungs are clear. No suspicious lymphadenopathy is seen within the neck. CT/CT angio head neck IMPRESSION: The major head or neck arteries appear patent without significant stenosis or occlusion. No acute intracranial abnormality is seen.
[2020-11-20 14:17] VITALS: BP 140/90; PULSE 73; RESP 15; O2SAT 97
[2020-11-20] MEDS: iohexoL 350 MG/ML 100 ML INFUS..BTL IV (15:02)
--- NOTE | 2020-11-20 15:30 | MR_ITS ---
EXAMINATION: MR BRAIN WITHOUT CONTRAST CLINICAL INFORMATION: Right-sided facial droop. Right leg weakness. COMPARISON: CTA head and neck from 11/20/2020. TECHNIQUE: MRI of the brain was obtained using routine sequences without contrast. FINDINGS: No focal restricted diffusion is demonstrated to suggest acute or subacute cerebral ischemia. No evidence of acute or chronic hemorrhagic products on heme-sensitive imaging. Few nonspecific scattered T2 FLAIR hyperintensities within the bifrontal white matter. No additional parenchymal signal abnormalities. The ventricles are normal in morphology and size. No abnormal mass effect. No midline shift. Normal appearance of the pituitary gland. No abnormalities of the posterior fossa with normal appearance of the brainstem and cerebellum. Normal positioning of the cerebellar tonsils. Normal arterial and venous vascular flow voids are present. Normal, homogeneous marrow signal. Mild mucosal thickening of the paranasal sinuses. No signal abnormalities within the mastoids. MR/MR head/brain wo con IMPRESSION: 1. No acute intracranial abnormalities. 2. Minimal nonspecific white matter changes.
[2020-11-20 16:04] LABS: COVID-19 Test Negative (Negative)
[2020-11-20 16:37] VITALS: BP 132/95; PULSE 80; RESP 16; O2SAT 97
--- NOTE | 2020-11-20 17:21 | P.EN_ITS ---
Event Note Date of Service: 11/20/20 Event Note: Admission note the patient was seen and evaluated with Lilly Oseguera NP. I agree with her note, assessment and plan with the following. In summary, a 30 years old male with PMH of HIV on Biktarvy, HLD, HTN, migraine, reported HX of CVA who presents to the hospital complaining of right-sided facial numbness, weakness and droop. The patient reports that he has been going through sinus congestion for the last few days but starting yesterday he noticed significant headache that was not relieved by his home medications with no reported nausea, vomiting, fever, chills or photophobia. This morning he noticed some right-sided facial droop and numbness. In the emergency head CT scan, CTA of head and neck with no acute findings. He reports his symptoms improved when the emergency. Plan to do MRI Right-sided facial droop Could be secondary to migraine, Mota's palsy, less likely stroke Pending MRI next To get Neurology evaluation the morning depending on findings Rest of evaluations by FIRE CHIEF'S AIDE note.
[2020-11-20 18:00] VITALS: BP 143/85; PULSE 80; RESP 18; TEMP 36.7; O2SAT 97
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
[2020-11-20 19:31] VITALS: BP 152/90; PULSE 77; RESP 18; TEMP 36.8; O2SAT 96
[2020-11-20 19:54] VITALS: RESP 18
[2020-11-20] MEDS: Enoxaparin Sodium 40 MG/0.4 ML SYRINGE SUBCUT (20:15)
[2020-11-21] VITALS: BP 144/90; PULSE 86; RESP 20; TEMP 36.8; O2SAT 96
[2020-11-21] MEDS: 0.9 % Sodium Chloride Flush 3 ML SYRINGE IVFLUSH ×2 (00:47→08:44)
[2020-11-21] MEDS: SUMAtriptan succinate 25 MG TABLET PO (03:30)
[2020-11-21 03:54] VITALS: BP 146/80; PULSE 75; RESP 18; TEMP 36.8; O2SAT 99
[2020-11-21] MEDS: Omeprazole 20 MG CAPSULE.DR PO (05:51)
[2020-11-21 06:34] LABS: MANUAL DIFF FLAG NO
[2020-11-21 06:52] LABS: Basophils Absolute Auto 0.1 X10*3/uL (0.0-0.2); Basophils Percent Auto 0.7 % (0-2); Eosinophils Absolute Auto 0.2 X10*3/uL (0.0-0.4); Eosinophils Percent Auto 1.7 % (0-4); Hematocrit 44.6 % (42-52); Hemoglobin 14.8 g/dl (14.0-18.0); Imm Gran Abs Auto 0.03 X10*3/uL (0.00-0.03); Imm Gran Pct Auto 0.3 % (0.0-0.4); Lymphocytes Absolute Auto 4.6 X10*3/uL (1.2-4.9); Lymphocytes Percent Auto 46.3 % (20-40); Mean Corpuscular HGB Conc 33.2 g/dl (31.0-36.0); Mean Corpuscular Hemoglobin 30.7 pg (27.0-33.0); Mean Corpuscular Volume 92.5 fL (80-98); Mean Platelet Volume 9.7 fL (9.4-12.4); Monocytes Absolute Auto 0.8 X10*3/uL (0.1-1.2); Monocytes Percent Auto 7.8 % (2-11); Neutrophils Absolute Auto 4.3 X10*3/uL (2.0-8.3); Neutrophils Percent Auto 43.2 % (45-73); Platelet Count 386 X10*3/uL (160-400); Red Blood Count 4.82 X10*6/uL (4.60-5.80); Red Cell Distribution Width 12.8 % (11.0-16.0)
[2020-11-21 07:21] VITALS: BP 139/89; PULSE 73; RESP 18; TEMP 36.4; O2SAT 96
[2020-11-21 07:55] LABS: Anion Gap 15 (12-20); Blood Urea Nitrogen 11 mg/dL (9-16); Carbon Dioxide 25 mmol/L (22-29); Chloride 104 mmol/L (96-108); Cholesterol 220 mg/dL; Creatinine Clr Calc Pharmacy 142.5; Estimated Glomerular Filt Rate > 60; Glucose Random 78 mg/dL (60-115); Potassium 4.6 mmol/l (3.3-5.1); Sodium 139 mmol/L (135-145); Triglycerides 430 mg/dL
[2020-11-21 07:56] VITALS: BP 139/89; PULSE 73; O2SAT 96
[2020-11-21 08:11] LABS: HDL Cholesterol 25 mg/dL
[2020-11-21] MEDS: Acetaminophen 325 MG TABLET 650 MG PO (08:47)
--- NOTE | 2020-11-21 09:26 | P.CNNE_ITS ---
History of Present Illness Data of Consult Service Date: 11/21/20 Primary Care Provider: Pearl Reyna MD 30 years old man with underlying history of HIV disease and remote history of seizure disorder and also history of right-sided facial weakness in 2017 came to hospital stating that his facial weakness was worsening and he was having difficulty drinking with a straw. He was also having a headache. This morning he was feeling somewhat better. He denied any recent cold or flu-like illness for Review of Systems Constitutional: Constitutional: Reports headache(s) and Reports weakness ENT: Denies dizziness and Reports headache(s) Musculoskeletal: Musculoskeletal: Denies numbness and Denies tingling Neurologic: Reports system reviewed and no additional complaints, except as documented, Denies Abnormal speech present, Denies dizziness, Reports headache(s), Denies numbness, Denies tingling and Reports weakness PMFSH Past Medical History Medical History CVA (cerebral vascular accident) High cholesterol Hypertension Social History Social History Household Members: Friend(s) Housing: Apartment Do you presently have visiting nurse or other home services: No Alcohol intake: never Smoking Status: Current every day smoker Tobacco Type: Cigarette Packs Per Day: 0.5 Cigarettes Per Day: 10.0 Years Smoked: 14 Smoked in Last 30 Days: Yes Patient Interested in Nicotine Replacement: Yes Patient Given Instructions on How to Stop Smoking: Yes Date Education Initiated: 11/20/20 Second Hand Smoke Exposure: No Use of substances other than those prescribed or required for medical reasons: No Substance Use Type: Marijuana Substance Use Frequency: Occasionally Last Used Substance Other:: last month Currently Displaying Signs/Symptoms of Drug Intoxication Withdrawal: No Any prior treatment program specific to substance use: No Have you been hit, kicked, punched, or otherwise hurt by someone within the past year? If so, by whom?: No Do you feel safe in your current relationship?: Yes Is there a partner from a previous relationship who is making you feel unsafe no w?: No Are you made to feel afraid or neglected: No Advance Directives: No Advance Directives Information Provided: Yes Do you have thoughts of harming others: None Do you have a plan to hurt others: No Plan Recently lost weight without trying: No Meds Allergies Allergy/AdvReac Type Severity Reaction Status Date / Time lorazepam [From ATIVAN] Allergy Unknown SEIZURES Verified 09/04/20 03:35 Home Medications Medication Instructions Recorded Confirmed Type albuterol sulfate [ProAir HFA] 2 puff INHALATION QID PRN 11/20/20 11/20/20 History azelastine 2 spray INTRANASAL BID 11/20/20 11/20/20 History nxgspojkg-cjgsxrsq-wulavpz ala 1 tab PO DAILY 11/20/20 11/20/20 History cetirizine 10 mg PO DAILY PRN 11/20/20 11/20/20 History fluticasone propionate [Flonase] 2 spray INTRANASAL DAILY 11/20/20 11/20/20 History pantoprazole [Protonix] 40 mg PO BID 11/20/20 11/20/20 History sumatriptan succinate 25 mg PO Q2-4H PRN 11/20/20 11/20/20 History valacyclovir 1,000 mg PO DAILY 11/20/20 11/20/20 History Physical Exam Vital Signs: Vital Signs: Last Vital Signs Temp 97.5 F 11/21/20 07:21 Pulse 73 11/21/20 07:56 Resp 18 11/21/20 07:21 BP 139/89 11/21/20 07:56 Pulse Ox 96 11/21/20 07:56 Body Mass Index 35.4 He was alert and awake with normal spontaneity of speech fluency comprehension and affect. There was mild peripheral type right-sided facial weakness. Pupils were equal and reactive to light and extraocular muscles were intact. Visual golden are full to threat. There was no pronator drift. Deep tendon reflexes were absent with flexor plantars. He was moderately obese. Speech was normal. Neuro: Speech: No Abnormal speech present Results Labs CBC & Chem 7: 11/21/20 05:45 11/21/20 05:45 Labs: Short CBC 11/20/20 11/21/20 Range/Units 12:47 05:45 WBC 10.2 10.0 (4.8-10.8) X10*3/uL Hgb 14.8 14.8 (14.0-18.0) g/dl Hct 43.9 44.6 (42-52) % Plt Count 358 386 (160-400) X10*3/uL BMP 11/20/20 11/21/20 12:47 05:45 Sodium 142 139 Potassium 4.2 4.6 Chloride 107 104 Carbon Dioxide 27 25 BUN 10 11 Creatinine 0.92 0.93 Calcium 9.3 9.0 Cardiac Enzymes 11/20/20 Range/Units 12:47 Total Creatine Kinase 64 (38-174) U/L His CTA of brain and neck and MRI of brain did not reveal any significant pathology, acute or chronic. 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 He was educated about this condition and the fact that sometimes if patient was under stress weakness could seem worse. Otherwise I do not recommend any further intervention.
--- NOTE | 2020-11-21 10:06 | MHC.CM.PN ---
CM met with patient at the bedside who reports he is independent and lives with friends. Patient does not have a HCP and declines filling one out today after education. Discussed discharge plan, home no services. Patient has his own car in parking lot. OBS notice given. CM will continue to follow patient for discharge needs.
--- NOTE | 2020-11-21 11:27 | MHC.CM.PN ---
Patient will be discharging home today no services. Patient has his own car in parking lot. Nurse aware.
--- NOTE | 2020-12-15 12:12 | P.DS_ITS ---
DS: Providers Provider Date of Service: 12/15/20 Date of admission: 11/20/20 16:39 Primary care physician: Pearl Reyna MD Consults: 11/20/20 18:41 Consult to Neurology Routine Consulting Provider: [facility] Reason for consultation: FACIAL NUMBNESS, WEAKNESS Has provider been notified: No DS: Diagnosis Discharge Diagnosis (1) Facial droop: Status: Acute (2) H/O Mota's palsy: Status: Acute DS: Medications Discharge Medications Home Medications: Home Medications Medication Instructions Recorded Confirmed albuterol sulfate [ProAir HFA] 2 puff INHALATION QID PRN 11/20/20 11/20/20 azelastine 2 spray INTRANASAL BID 11/20/20 11/20/20 hsghavjqb-enjxcoho-paxdibn ala 1 tab PO DAILY 11/20/20 11/20/20 cetirizine 10 mg PO DAILY PRN 11/20/20 11/20/20 fluticasone propionate 2 spray INTRANASAL DAILY 11/20/20 11/20/20 pantoprazole [Protonix] 40 mg PO BID 11/20/20 11/20/20 sumatriptan succinate 25 mg PO Q2-4H PRN 11/20/20 11/20/20 valacyclovir 1,000 mg PO DAILY 11/20/20 11/20/20 Previous Rx's Medication Instructions Recorded gabapentin 200 mg PO BEDTIME #60 cap 11/21/20 DS: Summary Hospital Course Hospital Course: Admission note HPI A 30-year-old man presenting to the ER with complaints of right-sided weakness and facial droop. He reports that last evening he started to feel his face numb and felt like it was drooping. He went to bed and woke up and continued to feel the same symptoms, decided to come to the ER to be evaluated. He reports that in 2016 or 2016, he was told that he may have had a TIA or stroke while in [place]. Brain CT today does not show any previous stroke or acute infarction. He did state that during this hospitalization in [place] for a possible stroke, he was hospitalized for approximately 2 weeks and he had some residual weakness for 6 to 7 months, which he reported improved with physical therapy. He denied any chest pain, shortness of breath, visual changes, dizziness, syncope, fever, chills. He did report some headache that started last night and continued today and just reported that over the last for several days, he thought that he had a sinus infection. He does have a history of HIV and has not been completely compliant with his HIV medication. He tells me that he does not take it every day. Also has a history of smoking. In the ER, his labs are all within acceptable limits. COVID-19 negative. Vital signs have been stable. Head and neck CTA showed no significant stenosis or occlusion and no acute intracranial abnormalities seen. In the ER, he received a dose of Reglan and Benadryl. He will be admitted and will be placed on observation for question of TIA versus stroke. Hospital course The patient was admitted to the hospital and had a brain CT , I would CTA, brain MRI which all were negative for acute findings. He was evaluated by neurologist who believe his symptoms are secondary to chronic Mota's palsy and exacerbated with stress. No further investigation needed. Patient was discharged home on his current home medications. Time Spent with Patient Time attestation: Total time spent providing and/or coordinating discharge services: Discharge coordination time: Greater than 30 minutes Quality: Stroke Pt Provided Written Stroke Discharge Instructions: Patient given written information Physical Exam Vital Signs: Vital Signs: Last Vital Signs Temp 97.5 F 11/21/20 07:21 Pulse 73 11/21/20 07:56 Resp 18 11/21/20 07:21 BP 139/89 11/21/20 07:56 Pulse Ox 96 11/21/20 07:56 Body Mass Index 35.4 Constitutional : Alert, oriented, not in distress Neck : Normal inspection, Supple Cardiovascular : RRR, S1 S2, no lower extremity edema Respiratory : Good bilateral air entry, no crackles, wheezes or rhonchi Gastrointestinal: soft, lax, Normal bowel sounds, Non tender Skin : Warm/Dry, No rash Neurological : Alert & oriented x3, mild right-sided facial droop, no other focal findings DS: Data Data Completed and Pending Labs on day of discharge: Laboratory Tests 11/20/20 11/20/20 11/20/20 12:30 12:47 12:47 WBC 10.2 RBC 4.80 Hgb 14.8 Hct 43.9 MCV 91.5 MCH 30.8 MCHC 33.7 RDW 12.9 Plt Count 358 MPV 9.0 L Immature Gran % (Auto) 0.2 Neut % (Auto) 52.8 Lymph % (Auto) 37.2 [place] % (Auto) 7.3 Eos % (Auto) 1.9 Baso % (Auto) 0.6 Lymph # (Auto) 3.8 [place] # (Auto) 0.7 Eos # (Auto) 0.2 Baso # (Auto) 0.1 Abs Immat Gran (auto) 0.02 Absolute Neuts (auto) 5.4 Absolute Nucleated RBC 0.000 Nucleated RBC % (auto) 0.0 PT 12.8 INR 1.1 APTT 35.5 Sodium Potassium Chloride Carbon Dioxide Anion Gap BUN Creatinine Estim Creat Clear Calc Estimated GFR POC Glucose 98 Random Glucose Calcium Phosphorus Magnesium Total Creatine Kinase Troponin I High Sens Triglycerides Cholesterol LDL Cholesterol, Calc HDL Cholesterol COVID-19 ([facility]) COVID-19 Clin Com 11/20/20 11/20/20 11/20/20 12:47 12:47 15:37 WBC RBC Hgb Hct MCV MCH MCHC RDW Plt Count MPV Immature Gran % (Auto) Neut % (Auto) Lymph % (Auto) [place] % (Auto) Eos % (Auto) Baso % (Auto) Lymph # (Auto) [place] # (Auto) Eos # (Auto) Baso # (Auto) Abs Immat Gran (auto) Absolute Neuts (auto) Absolute Nucleated RBC Nucleated RBC % (auto) PT INR APTT Sodium 142 Potassium 4.2 Chloride 107 Carbon Dioxide 27 Anion Gap 12 BUN 10 Creatinine 0.92 Estim Creat Clear Calc 144.0 Estimated GFR > 60 POC Glucose Random Glucose 97 Calcium 9.3 Phosphorus 4.3 Magnesium 2.0 Total Creatine Kinase 64 Troponin I High Sens < 3.5 Triglycerides Cholesterol LDL Cholesterol, Calc HDL Cholesterol COVID-19 ([facility]) Negative COVID-19 Clin Com See Note 11/21/20 11/21/20 05:45 05:45 WBC 10.0 RBC 4.82 Hgb 14.8 Hct 44.6 MCV 92.5 MCH 30.7 MCHC 33.2 RDW 12.8 Plt Count 386 MPV 9.7 Immature Gran % (Auto) 0.3 Neut % (Auto) 43.2 L Lymph % (Auto) 46.3 H [place] % (Auto) 7.8 Eos % (Auto) 1.7 Baso % (Auto) 0.7 Lymph # (Auto) 4.6 [place] # (Auto) 0.8 Eos # (Auto) 0.2 Baso # (Auto) 0.1 Abs Immat Gran (auto) 0.03 Absolute Neuts (auto) 4.3 Absolute Nucleated RBC 0.000 Nucleated RBC % (auto) 0.0 PT INR APTT Sodium 139 Potassium 4.6 Chloride 104 Carbon Dioxide 25 Anion Gap 15 BUN 11 Creatinine 0.93 Estim Creat Clear Calc 142.5 Estimated GFR > 60 POC Glucose Random Glucose 78 Calcium 9.0 Phosphorus Magnesium Total Creatine Kinase Troponin I High Sens Triglycerides 430 Cholesterol 220 LDL Cholesterol, Calc TNP HDL Cholesterol 25 COVID-19 ([facility]) COVID-19 Clin Com Discharge Plan Discharge Patient Disposition: Home, Self-Care Referrals: Pearl Reyna MD [Primary Care Provider] - Discharge Medications: New gabapentin 100 mg capsule 200 mg PO BEDTIME Qty: 60 RF: 0 Continued cetirizine 10 mg Tablet 10 mg PO DAILY PRN (Reason: Allergic Symptoms) RF: 0 valacyclovir 1 gram Tablet 1,000 mg PO DAILY RF: 0 sumatriptan succinate 25 mg Tablet 25 mg PO Q2-4H PRN (Reason: Migraine Headache) RF: 0 pantoprazole [Protonix] 40 mg Tablet,Delayed Release (Dr/Ec) 40 mg PO BID RF: 0 pijbvsjzp-ohcismmj-kmofkxx ala 50-200-25 mg Tablet 1 tab PO DAILY RF: 0 albuterol sulfate [ProAir HFA] 90 mcg/actuation Hfa Aerosol Inhaler 2 puff INHALATION QID PRN (Reason: Shortness Of Breath) RF: 0 fluticasone propionate 50 mcg/actuation [place],Suspension 2 spray INTRANASAL DAILY RF: 0 azelastine 0.15 % (205.5 mcg) [place],Non-Aerosol 2 spray INTRANASAL BID RF: 0 Discharge Orders: Discharge Order (Routine); Ordered 11/21/20 Ordered By: Yamile Preciado Diet: advance to usual diet Activity on Discharge: As tolerated Discharge Date/Time: 11/21/20 11:40 Visit Report Forms: Patient Portal Discharge page Care Plan Goals: Read below Health Concerns: Read below Plan of Treatment: For evaluation of right-sided facial weakness and numbness. Images of your brain include CT scan, MRI were negative for any acute findings. You were evaluated by neurologist who recommended no further evaluation as it seems to be chronic and exacerbated by recent migraine attack and sinus infection. To use gabapentin at bedtime for the neuropathy pain
== END 2020-11-21 11:40 | disposition home or self-care (01) ==
LOC: HO.ED 15:52 → HO.IMC 18:06
PROVIDERS: Nurse Practitioner Acute Care; Nurse Practitioner Family; Admitting Provider Student in an Organized Health Care Education/Training Program; Emergency Provider Emergency Medicine; PCP Internal Medicine; Visit Provider Student in an Organized Health Care Education/Training Program
DX: R29.810 Facial weakness (principal); I63.9 Cerebral infarction, unspecified; R47.02 Dysphasia; G40.909 Epilepsy, unspecified, not intractable, without status epilepticus; B20 Human immunodeficiency virus [HIV] disease; R51.9 Headache, unspecified; E78.00 Pure hypercholesterolemia, unspecified; I10 Essential (primary) hypertension; F17.210 Nicotine dependence, cigarettes, uncomplicated; Z20.828 Contact with and (suspected) exposure to other viral communicable diseases; Z88.8 Allergy status to other drugs, medicaments and biological substances; Z79.899 Other long term (current) drug therapy
CPT/HCPCS: 36415; 70450; 70496; 70498; 70551; 80048; 80061; 82550; 82947; 83735; 84100; 84484; 85025; 85610; 85730; 87635; 93005; 96372; 96374; 96375; 97161; 97165; 99219; 99285; J1200; J1650; J2765; Q9967

== ENCOUNTER 2021-12-24 10:32 | Emergency (ER) | payer OTHER, SELFPAY ==
--- NOTE | 2021-12-24 10:33 | ECG_ITS ---
Test Reason : chest pain Blood Pressure : / mmHG Vent. Rate : 080 BPM Atrial Rate : 080 BPM P-R Int : 154 ms QRS Dur : 082 ms QT Int : 378 ms P-R-T Axes : 049 041 019 degrees QTc Int : 435 ms Normal sinus rhythm Normal ECG When compared with ECG of 20-NOV-2020 12:30, No significant change was found Referred By: Generic ED Physician Electronically Signed By:JOHN BEGUM MD
[2021-12-24 10:34] VITALS: BP 157/90; PULSE 79; RESP 19; TEMP 36.1; O2SAT 99; BMI 38.4
== END 2021-12-24 12:39 | disposition left against medical advice (07) ==
PROVIDERS: Emergency Provider Emergency Medicine
DX: R07.89 Other chest pain (principal); M79.601 Pain in right arm
CPT/HCPCS: 93005; 99283

== ENCOUNTER 2022-01-02 21:02 | Emergency (ER) | payer OTHER, SELFPAY ==
--- NOTE | ~2022-01-02 | CT_ITS ---
EXAMINATION: CT ABDOMEN AND PELVIS WITH CONTRAST CLINICAL INFORMATION: Right upper quadrant and epigastric pain COMPARISON: 09/04/2020 TECHNIQUE: Multidetector volumetric images were obtained from the superior aspect of the liver through the pubic symphysis following administration 85 mL of Omnipaque 350 intravenous contrast. Sagittal and coronal reformatted images were obtained on the technologist's workstation. Oral contrast: No This CT examination was performed using dose optimization techniques as appropriate, variously including the following: *Automated exposure control *Adjustment of mA and/or kV according to patient size (this includes techniques or standardized protocols for targeted exams where dose is matched to indication/reason for exam; i.e. extremities or head) *Use of iterative reconstruction technique DLP: 863 mGy-cm FINDINGS: LUNG BASES: The visualized lung bases are unremarkable. LIVER, GALLBLADDER, AND BILIARY TREE: The liver is normal in size, shape, and attenuation. No focal hepatic lesion or biliary ductal dilatation is present. Gallbladder appears somewhat contracted. PANCREAS: Unremarkable. SPLEEN: Unremarkable. ADRENAL GLANDS: Unremarkable. KIDNEYS AND URETERS: Bilateral nephrograms are symmetric. No hydronephrosis or obstructing calculus bilaterally. Tiny bilateral lower pole renal calculi are noted. BLADDER: Collapsed and not adequately evaluated. GASTROINTESTINAL TRACT: No evidence of bowel obstruction or significant wall thickening. The appendix is unremarkable. No free fluid or free air is seen. ABDOMINAL WALL: Small bilateral fat-containing inguinal hernias are noted. LYMPH NODES: Normal. VASCULAR: Unremarkable. PELVIC VISCERA: Unremarkable. OSSEOUS STRUCTURES: Unremarkable. CT/CT abdomen pelvis w con IMPRESSION: No acute findings identified in the abdomen/pelvis. Fleischner guidelines were followed.
[2022-01-02 21:10] VITALS: BP 140/85; PULSE 94; RESP 20; TEMP 35.8; O2SAT 96; BMI 39.2
--- NOTE | 2022-01-02 21:42 | ECG_ITS ---
Test Reason : abd pain Blood Pressure : / mmHG Vent. Rate : 088 BPM Atrial Rate : 088 BPM P-R Int : 152 ms QRS Dur : 086 ms QT Int : 354 ms P-R-T Axes : 106 034 -22 degrees QTc Int : 428 ms Normal sinus rhythm Inferior infarct , age undetermined Abnormal ECG When compared with ECG of 24-DEC-2021 10:32, T wave inversion more evident in Inferior leads Referred By: Halle Harris Electronically Signed By:CARY LONGO
--- NOTE | 2022-01-02 21:45 | ED_ITS ---
HPI - Abdominal Pain General Chief Complaint: Abdominal Pain Stated Complaint: Kidney stone pain Time Seen by Provider: 01/02/22 21:08 Source: patient Mode of arrival: ambulatory Limitations: no limitations History of Present Illness HPI narrative: Patient comes to emergency room complaining of right upper quadrant pain for about a week. Patient states that for the last 2 days, the pain has been getting much worse, drinking coca cola exacerbates the pain. Patient also c/o diarrhea, nausea, no vomiting. Related Data Home Medications Medication Instructions Recorded Confirmed albuterol sulfate 90 2 puff INHALATION QID PRN 11/20/20 11/20/20 mcg/actuation aerosol inhaler (ProAir HFA) azelastine 205.5 mcg (0.15 %) 2 spray INTRANASAL BID 11/20/20 11/20/20 nasal spray bictegravir 50 1 tab PO DAILY 11/20/20 11/20/20 mg-emtricitabine 200 mg-tenofovir alafenam 25 mg tablet cetirizine 10 mg tablet 10 mg PO DAILY PRN 11/20/20 11/20/20 fluticasone propionate 50 2 spray INTRANASAL DAILY 11/20/20 11/20/20 mcg/actuation nasal spray,suspension pantoprazole 40 mg 40 mg PO BID 11/20/20 11/20/20 tablet,delayed release (Protonix) sumatriptan succinate 25 mg 25 mg PO Q2-4H PRN 11/20/20 11/20/20 tablet valacyclovir 1 gram tablet 1,000 mg PO DAILY 11/20/20 11/20/20 Previous Rx's Medication Instructions Recorded gabapentin 100 mg capsule 200 mg PO BEDTIME #60 cap 11/21/20 sucralfate 1 gram tablet 1 g PO BID #60 tab 01/03/22 Allergies Allergy/AdvReac Type Severity Reaction Status Date / Time lorazepam [From ATIVAN] Allergy Unknown SEIZURES Verified 09/04/20 03:35 Review of Systems Review of Systems Constitutional : No Weight loss, No Fever, No Chills, No Night Sweats, No Fatigue, No Malaise ENT/Mouth : No Hearing loss, No Ear Pain, No Nasal Congestion, No Sinus Pain, No Hoarseness, No sore throat, No Rhinorrhea, No Swallowing Difficulty Eyes: No Eye Pain, No Swelling, No Redness, No Foreign Body, No Discharge, No Vision Changes Cardiovascular : No Chest Pain, No SOB, No Dyspnea on Exertion, No Orthopnea, No Edema, No Palpitations Respiratory : No Cough, No Sputum, No Wheezing, No Smoke Exposure, No Dyspnea Gastrointestinal : Complaining of Nausea, No Vomiting, complaining of diarrhea, complaining of right upper quadrant pain Genitourinary : no irregular bleeding, No Dysuria, No Urinary Frequency, No Hematuria, No Urinary Incontinence, No Urgency, No Flank Pain, No Urinary Flow Changes, No Hesitancy Musculoskeletal : No joint pain, No Myalgias, No Joint Swelling Skin : No Skin Lesions, No rash Neuro : No Weakness, No Numbness, No Paresthesias, No Loss of Consciousness, No Dizziness, No Headache Psych : No Anxiety/Panic, No Depression, No SI/HI/AH/VH, No Social Issues, Heme/Lymph: No Bruising, No Bleeding,No Lymphadenopathy Endocrine : No Polyuria, No Polydipsia, No Temperature Intolerance Physical Exam Verdana 4l Vital Signs: Verdana 4d Verdana 4d Vital Signs: Verdana 4d Verdana 4Bd Last Vital Signs Verdana 4d Sales Training Coordinator New 4d Sales Training Coordinator New 4d Temp 96.5 F L 01/02/22 21:10 Sales Training Coordinator New 4d Pulse 94 01/02/22 21:10 Sales Training Coordinator New 4d Resp 20 01/02/22 21:10 BP 140/85 H 01/02/22 21:10 Pulse Ox 96 01/02/22 21:10 BMI result Body Mass Index 39.2 Const: Other: Appearance: Alert. Oriented X3. No acute distress. Well-appearing Eyes: Pupils equal, round and reactive to light. ENT: Pharynx normal. Neck: Normal inspection. Neck supple. No lymph nodes noted. No crepitus CVS: Normal heart rate and rhythm. Pulses normal. Normal S1 and S2 Respiratory: No respiratory distress. Breath sounds normal. No Wheezing. No rales Abdomen: Soft , mild tenderness to palpation in epigastric and right upper quadrant, negative Anderson sign Skin: Skin warm and dry. Normal skin color. Normal skin turgor. Extremities: No lower extremity edema. No Lacerations. No Rash Neuro: Oriented X 3. No motor deficit. No sensory deficit. Moving all extermities. No slurred speech. Course Course Course Narrative: I discussed the labs and imaging with the patient, it is likely that patient has gastritis versus peptic ulcer disease versus duodenitis. Patient states that in the past he has had multiple treatments for gastritis. I discussed with the patient that he will likely need an upper endoscopy MDM - Abdominal Pain Lab Data Result diagrams: 01/02/22 21:54 01/02/22 21:54 Labs: Lab Results 01/02/22 01/02/22 01/02/22 Range/Units 21:54 21:54 21:54 WBC 9.8 (4.8-10.8) X10*3/uL RBC 4.71 (4.60-5.80) X10*6/uL Hgb 14.5 (14.0-18.0) g/dl Hct 42.6 (42.0-52.0) % MCV 90.4 (80.0-98.0) fL MCH 30.8 (27.0-33.0) pg MCHC 34.0 (31.0-36.0) g/dl RDW 13.3 (11.0-16.0) % Plt Count 363 (160-400) X10*3/uL MPV 9.1 L (9.4-12.4) fL Immature Gran % (Auto) 0.2 (0.0-0.4) % Neut % (Auto) 59.5 (45-73) % Lymph % (Auto) 32.3 (20-40) % Esmeralda % (Auto) 6.1 (2-11) % Eos % (Auto) 1.1 (0-4) % Baso % (Auto) 0.8 (0-2) % Lymph # (Auto) 3.2 (1.2-4.9) X10*3/uL Esmeralda # (Auto) 0.6 (0.1-1.2) X10*3/uL Eos # (Auto) 0.1 (0.0-0.4) X10*3/uL Baso # (Auto) 0.1 (0.0-0.2) X10*3/uL Abs Immat Gran (auto) 0.02 (0.00-0.03) X10*3/uL Absolute Neuts (auto) 5.8 (2.0-8.3) x10*3/uL Absolute Nucleated RBC 0.000 (0.0-0.012) X10*3/uL Nucleated RBC % (auto) 0.0 (0.0-0.2) /100WBC Sodium 142 (135-145) mmol/L Potassium 4.2 (3.3-5.1) mmol/L Chloride 110 H (96-108) mmol/L Carbon Dioxide 23 (22-29) mmol/L Anion Gap 13 (12-20) BUN 11 (9-16) mg/dL Creatinine 0.84 (0.5-1.4) mg/dL Estim Creat Clear Calc 164.6 Estimated GFR > 60 Random Glucose 88 (60-115) mg/dL Calcium 9.9 D (8.4-10.2) mg/dL Total Bilirubin 0.4 (0.0-1.0) mg/dL Direct Bilirubin 0.2 (0.0-0.5) mg/dL AST 26 D (5-37) U/L ALT 40 (0-40) U/L Alkaline Phosphatase 58 D (39-117) U/L Total Protein 7.9 (6.5-8.0) g/dL Albumin 4.4 (3.5-5.0) g/dL Lipase 25 (8-78) U/L Urine Color Urine Appearance Urine pH (5.0-8.0) Ur Specific [place] (1.005-1.025) Urine Protein (NEG-TRACE) MG/DL Urine Glucose (UA) (NEG) MG/DL Urine Ketones (NEG) MG/DL Urine Blood (NEG) Urine Nitrite (NEG) Ur Leukocyte Esterase (NEG) COVID-19 ([facility]) Negative (Negative) COVID-19 Clin Com See Note 01/02/22 Range/Units 21:54 WBC (4.8-10.8) X10*3/uL RBC (4.60-5.80) X10*6/uL Hgb (14.0-18.0) g/dl Hct (42.0-52.0) % MCV (80.0-98.0) fL MCH (27.0-33.0) pg MCHC (31.0-36.0) g/dl RDW (11.0-16.0) % Plt Count (160-400) X10*3/uL MPV (9.4-12.4) fL Immature Gran % (Auto) (0.0-0.4) % Neut % (Auto) (45-73) % Lymph % (Auto) (20-40) % Esmer[place]da % (Auto) (2-11) % Eos % (Auto) (0-4) % Baso % (Auto) (0-2) % Lymph # (Auto) (1.2-4.9) X10*3/uL [place] # (Auto) (0.1-1.2) X10*3/uL Eos # (Auto) (0.0-0.4) X10*3/uL Baso # (Auto) (0.0-0.2) X10*3/uL Abs Immat Gran (auto) (0.00-0.03) X10*3/uL Absolute Neuts (auto) (2.0-8.3) x10*3/uL Absolute Nucleated RBC (0.0-0.012) X10*3/uL Nucleated RBC % (auto) (0.0-0.2) /100WBC Sodium (135-145) mmol/L Potassium (3.3-5.1) mmol/L Chloride (96-108) mmol/L Carbon Dioxide (22-29) mmol/L Anion Gap (12-20) BUN (9-16) mg/dL Creatinine (0.5-1.4) mg/dL Estim Creat Clear Calc Estimated GFR Random Glucose (60-115) mg/dL Calcium (8.4-10.2) mg/dL Total Bilirubin (0.0-1.0) mg/dL Direct Bilirubin (0.0-0.5) mg/dL AST (5-37) U/L ALT (0-40) U/L Alkaline Phosphatase (39-117) U/L Total Protein (6.5-8.0) g/dL Albumin (3.5-5.0) g/dL Lipase (8-78) U/L Urine Color YELLOW Urine Appearance CLEAR Urine pH 6.0 (5.0-8.0) Ur Specific [place] >= 1.030 H (1.005-1.025) Urine Protein NEG (NEG-TRACE) MG/DL Urine Glucose (UA) NEG (NEG) MG/DL Urine Ketones NEG (NEG) MG/DL Urine Blood NEG (NEG) Urine Nitrite NEG (NEG) Ur Leukocyte Esterase NEG (NEG) COVID-19 ([facility]) (Negative) COVID-19 Clin Com ECG Data Attestation: I personally reviewed and interpreted this ECG as follows: (Normal sinus rhythm, heart rate 88, no ST segment depression or elevation, nonspecific T-wave inversion in lead 3, QTC 428) Discharge Plan Discharge Clinical Impression: Gastritis Patient Disposition: Home, Self-Care Instructions: Gastritis (ED), Diet for Stomach Ulcers and Gastritis (ED) Additional Instructions: Please follow-up with your primary care physician tomorrow. If you have any wor sening or new symptoms, please return to the emergency room or call 911 Prescriptions: New sucralfate 1 gram tablet 1 g PO BID Qty: 60 0RF No Action cetirizine 10 mg Tablet 10 mg PO DAILY PRN (Reason: Allergic Symptoms) 0RF valacyclovir 1 gram Tablet 1,000 mg PO DAILY 0RF Rx Instructions: LAST FILLED 10/15 sumatriptan succinate 25 mg Tablet 25 mg PO Q2-4H PRN (Reason: Migraine Headache) 0RF pantoprazole [Protonix] 40 mg Tablet,Delayed Release (Dr/Ec) 40 mg PO BID 0RF bfldbtctp-ssbimtfg-ghumsyy ala 50-200-25 mg Tablet 1 tab PO DAILY 0RF albuterol sulfate [ProAir HFA] 90 mcg/actuation Hfa Aerosol Inhaler 2 puff INHALATION QID PRN (Reason: Shortness Of Breath) 0RF fluticasone propionate 50 mcg/actuation [place],Suspension 2 spray INTRANASAL DAILY 0RF azelastine 0.15 % (205.5 mcg) [place],Non-Aerosol 2 spray INTRANASAL BID 0RF gabapentin 100 mg capsule 200 mg PO BEDTIME Qty: 60 0RF PMFSH Past Medical History Medical History (Updated 01/03/22 @ 00:10 by Halle Harris MD) CVA (cerebral vascular accident) H/O Mota's palsy High cholesterol HIV (human immunodeficiency virus infection) Hypertension Kidney stone Social History Social History Household Members: Friend(s) Housing: Apartment Do you presently have visiting nurse or other home services: No Alcohol intake: never Cigarette Packs Per Day: 0.5 Cigarettes Per Day: 10.0 Years Smoked: 14 Second Hand Smoke Exposure: No Substance Use Type: Marijuana Advance Directives: No Advance Directives Information Provided: Yes service: No Current occupational status: employed
[2022-01-02 22:11] LABS: Appearance Urine CLEAR; Color Urine YELLOW; Glucose Urine UA NEG (NEG); Leukocyte Esterase Urine NEG (NEG); Nitrite Urine NEG (NEG); Specific Gravity - Urine >= 1.030 (1.005-1.025); Urine Blood NEG (NEG); Urine Ketones NEG (NEG); Urine Protein NEG (NEG-TRACE)
[2022-01-02 22:15] LABS: MANUAL DIFF FLAG NO
[2022-01-02 22:17] LABS: Basophils Absolute Auto 0.1 X10*3/uL (0.0-0.2); Basophils Percent Auto 0.8 % (0-2); Eosinophils Absolute Auto 0.1 X10*3/uL (0.0-0.4); Eosinophils Percent Auto 1.1 % (0-4); Hematocrit 42.6 % (42.0-52.0); Hemoglobin 14.5 g/dl (14.0-18.0); Imm Gran Abs Auto 0.02 X10*3/uL (0.00-0.03); Imm Gran Pct Auto 0.2 % (0.0-0.4); Lymphocytes Absolute Auto 3.2 X10*3/uL (1.2-4.9); Lymphocytes Percent Auto 32.3 % (20-40); Mean Corpuscular Hemoglobin 30.8 pg (27.0-33.0); Mean Corpuscular Volume 90.4 fL (80.0-98.0); Mean Platelet Volume 9.1 fL (9.4-12.4); Monocytes Absolute Auto 0.6 X10*3/uL (0.1-1.2); Monocytes Percent Auto 6.1 % (2-11); Neutrophils Absolute Auto 5.8 x10*3/uL (2.0-8.3); Neutrophils Percent Auto 59.5 % (45-73); Platelet Count 363 X10*3/uL (160-400); Red Blood Count 4.71 X10*6/uL (4.60-5.80); Red Cell Distribution Width 13.3 % (11.0-16.0); White Blood Count 9.8 X10*3/uL (4.8-10.8)
[2022-01-02 22:24] LABS: COVID-19 Test Negative (Negative); IDNOW Serial# 55D5AD1C
[2022-01-02 22:40] LABS: Alanine Aminotransferase 40 U/L (0-40); Albumin Level 4.4 g/dL (3.5-5.0); Alkaline Phosphatase 58 U/L (39-117); Anion Gap 13 (12-20); Aspartate Amino Transferase 26 U/L (5-37); Bilirubin Direct 0.2 mg/dL (0.0-0.5); Bilirubin Total 0.4 mg/dL (0.0-1.0); Blood Urea Nitrogen 11 mg/dL (9-16); Calcium 9.9 mg/dL (8.4-10.2); Carbon Dioxide 23 mmol/L (22-29); Chloride 110 mmol/L (96-108); Creatinine Clr Calc Pharmacy 164.6; Estimated Glomerular Filt Rate > 60; Glucose Random 88 mg/dL (60-115); Lipase 25 U/L (8-78); Potassium 4.2 mmol/L (3.3-5.1); Sodium 142 mmol/L (135-145); Total Protein 7.9 g/dL (6.5-8.0)
[2022-01-02] MEDS: iohexoL 350 MG/ML 100 ML INFUS..BTL 85 ML IV (23:19)
[2022-01-03] MEDS: Calcium Carbonate 750 MG TAB.CHEW 1500 MG PO (00:28)
[2022-01-03] MEDS: Sucralfate 1 GM TABLET PO (00:29)
== END 2022-01-03 00:34 | disposition home or self-care (01) ==
PROVIDERS: Emergency Provider Emergency Medicine; PCP Internal Medicine
DX: K29.70 Gastritis, unspecified, without bleeding (principal); Z20.822 Contact with and (suspected) exposure to COVID-19; B20 Human immunodeficiency virus [HIV] disease; I10 Essential (primary) hypertension; E78.5 Hyperlipidemia, unspecified; F17.200 Nicotine dependence, unspecified, uncomplicated; F12.90 Cannabis use, unspecified, uncomplicated
CPT/HCPCS: 36415; 74177; 80048; 80076; 81003; 83690; 85025; 87635; 93005; 99283; 99284; Q9967

== ENCOUNTER 2022-03-25 01:10 | Emergency (ER) | payer OTHER, SELFPAY ==
--- NOTE | ~2022-03-25 | CT_ITS ---
EXAMINATION: CT HEAD WITHOUT CONTRAST (STROKE PROTOCOL) CLINICAL INFORMATION: Stroke protocol. Facial droop and word finding difficulty. COMPARISON: MRI brain 11/20/2020. CT head and CT angiography head 11/20/2020. TECHNIQUE: Contiguous axial imaging was performed from the skull base to vertex without intravenous administration of contrast. This CT examination was performed using dose optimization techniques as appropriate, variously including the following: *Automated exposure control *Adjustment of mA and/or kV according to patient size (this includes techniques or standardized protocols for targeted exams where dose is matched to indication/reason for exam; i.e. extremities or head) *Use of iterative reconstruction technique DLP: 862 mGy-cm FINDINGS: No intrarenal hemorrhage, tumors or acute infarcts are noted. The ventricles and sulci are normal in size and configuration. No focal parenchymal lesions of the brain identified. The orbits and globes are normal in appearance. CT/CT head for stroke IMPRESSION: No acute intracranial abnormalities. This critical result was discussed with Dr. Conroy at 1:37 AM hours on 03/25/2022.. It was ascertained that the content and urgency of the report was understood at the time of direct communication.
--- NOTE | ~2022-03-25 | CT_ITS ---
EXAMINATION: CTA NECK WITH CONTRAST (STROKE) CTA BRAIN WITH CONTRAST (STROKE) CLINICAL INFORMATION: Right facial weakness and difficulty word finding. COMPARISON: CT head 03/25/2022, MRI brain 11/20/2020, CT angiography head and neck 11/20/2020. TECHNIQUE: CTA of the head and neck was performed in the axial plane from the mediastinum to the skull vertex using 71 mL Omnipaque 350 intravenous contrast. Additional reformatted multiplanar images including maximum intensity projection MIP images are generated on the CT workstation. This CT examination was performed using dose optimization techniques as appropriate, variously including the following: *Automated exposure control *Adjustment of mA and/or kV according to patient size (this includes techniques or standardized protocols for targeted exams where dose is matched to indication/reason for exam; i.e. extremities or head) *Use of iterative reconstruction technique Stenoses are made with reference to the NASCET criteria unless otherwise specified. DLP: 786 mGy-cm FINDINGS: The degree of stenosis determined by criteria similar to NASCET. Brain: Delayed IV contrast-enhanced CT the head: The ventricles and sulci are normal in size and configuration. No intracranial hemorrhage, tumors or acute infarcts noted. No focal parenchymal lesions the brain visualized. No abnormal enhancement the brain parenchyma. Normal appearance of the orbits and globes. CT angiography neck: Conventional branching anatomy of the great vessels in relation to the transverse aorta is noted. The carotid bulbs are patent. The vertebral arteries are codominant. No occlusions, stenoses or dissections are noted within the visualized cervical carotid and vertebral artery systems. CT angiography head: type origin of the left posterior cerebral artery is noted. A right posterior communicating artery is identified. No large vessel intracranial occlusions are visualized. No intracranial aneurysms are noted. The visualized lung apices are clear. The thyroid is grossly normal. No gross cervical lymphadenopathy identified. No gross cervical arthropathic changes are noted. CT/CT angio head neck stroke IMPRESSION: IV contrast-enhanced CT the head: *No acute intracranial abnormalities. CT angiography head: *No large vessel intracranial occlusions. CT angiography neck: *Patent cervical carotid and vertebral artery systems. Patent carotid bulbs.
--- NOTE | 2022-03-25 01:13 | ED.WEAKNESS ---
HPI - Weakness General Chief complaint: Stroke Stated complaint: ?stroke Time Seen by Provider: 03/25/22 01:12 Source: patient Mode of arrival: ambulatory Limitations: no limitations History of Present Illness HPI Narrative: Patient with prior stroke. Now with facial palsy and difficulty speaking, arm heaviness. The symptoms started 17 hours ago. MD Complaint: focal weakness Onset (ago): hour(s) Duration: constant Location: RLE and face Severity: mild Quality: tingling and numbness Related Data Home Medications Medication Instructions Recorded Confirmed albuterol sulfate 90 mcg/actuation 2 puff INHALATION QID PRN 11/20/20 11/20/20 aerosol inhaler (ProAir HFA) azelastine 205.5 mcg (0.15 %) 2 spray INTRANASAL BID 11/20/20 11/20/20 nasal spray bictegravir 50 mg-emtricitabine 1 tab PO DAILY 11/20/20 11/20/20 200 mg-tenofovir alafenam 25 mg tablet cetirizine 10 mg tablet 10 mg PO DAILY PRN 11/20/20 11/20/20 fluticasone propionate 50 2 spray INTRANASAL DAILY 11/20/20 11/20/20 mcg/actuation nasal spray,suspension pantoprazole 40 mg tablet,delayed 40 mg PO BID 11/20/20 11/20/20 release (Protonix) sumatriptan succinate 25 mg tablet 25 mg PO Q2-4H PRN 11/20/20 11/20/20 valacyclovir 1 gram tablet 1,000 mg PO DAILY 11/20/20 11/20/20 Previous Rx's Medication Instructions Recorded gabapentin 100 mg capsule 200 mg PO BEDTIME #60 cap 11/21/20 sucralfate 1 gram tablet 1 g PO BID #60 tab 01/03/22 Allergies Allergy/AdvReac Type Severity Reaction Status Date / Time lorazepam [From ATIVAN] Allergy Unknown SEIZURES Verified 09/04/20 03:35 Review of Systems Neurologic: Denies Sensory deficit (Neuro) [facility] Past Medical History Medical History (Updated 03/25/22 @ 03:12 by Jose Conroy MD) CVA (cerebral vascular accident) H/O Mota's palsy High cholesterol HIV (human immunodeficiency virus infection) Hypertension Kidney stone Social History Social History Household Members: Friend(s) Housing: Apartment Do you presently have visiting nurse or other home services: No Alcohol intake: current Patient Tobacco Use Status: Former Tobacco user Cigarette Packs Per Day: 0.5 Cigarettes Per Day: 10.0 Years Smoked: 14 Second Hand Smoke Exposure: No Use of substances other than those prescribed or required for medical reasons: No Substance Use Type: Marijuana Advance Directives: No service: No Current occupational status: employed Physical Exam Vital Signs: Vital Signs: Last Vital Signs Temp 97.8 F 03/25/22 02:53 Pulse 86 03/25/22 02:53 Resp 17 03/25/22 02:53 BP 129/74 03/25/22 02:53 Pulse Ox 97 03/25/22 02:53 BMI result Body Mass Index 39.1 Const: General: healthy appearing Nutritional Appearance: average body habitus Orientation/consciousness: oriented to person and patient oriented x3 Limitations: no limitations HEENT: Head: Yes normal to inspection Ears: external ears normal General nose exam: Normal external nose present Mouth: Normal oral and palatal mucosa present and oropharynx normal Throat: Yes posterior oropharynx normal Eyes: General: appearance normal, both eyes and all related structures Neck: Other: supple Neck: Yes normal visual inspection Chest: Chest palpation & inspection: normal inspection of the chest Resp: Auscultation: clear to auscultation bilaterally Cardio: Jugular venous distension: no JVD Rate: regular rate Rhythm: regular rhythm Heart sounds: S1 normal heart sound present and S2 normal heart sound present GI: Inspection: Yes normal to inspection Palpation (GI): Soft to palpation, nontender and No hepatosplenomegaly present Auscultation: normal bowel sounds : General: Yes no CVA tenderness Back/Spine/Pelvis: Back: no CVA tenderness Skin: General skin exam: no rashes or lesions noted Neuro: Other: slight right facial General: oriented to person and patient oriented x3 Motor exam (neuro): 5/5 motor strength present throughout Sensory Exam: No Sensory deficit (Neuro) Extrem: General: Yes normal to inspection Psych: Appearance: grossly normal NIH Stroke Scale Internal: Initial- Upon Arrival Level of Consciousness: Alert Level of Consciousness Questions: Answers both questions correctly Level of Consciousness Commands: Performs both tasks correctly Best Gaze: Normal Visual: No visual loss Facial Palsy: Minor paralyis Motor Arm (Right): No drift Motor Arm (Left): No drift Motor Leg (Right): No drift Motor Leg (Left): No drift Limb Ataxia: Absent Sensory: Normal Best Language: Mild to moderate aphasia Dysarthia: Normal Extinction and Inattention: No abnormality Score: 2 Course Reevaluation(s) Reevaluation #1: old consult by Dr. Tran states that he has evidence of facial palsy but no old stroke. he had the same presentation in 2019 and there was no indication that he had a stroke. Today CTA and CT with no evidence of old stroke. Will dc home Time: 03:11 MDM - Weakness Lab Data Result diagrams: 03/25/22 01:43 03/25/22 01:43 Labs: Lab Results 03/25/22 03/25/22 03/25/22 Range/Units 01:43 01:43 01:43 WBC 9.3 (4.8-10.8) X10*3/uL RBC 4.94 (4.60-5.80) X10*6/uL Hgb 14.9 (14.0-18.0) g/dl Hct 43.9 (42.0-52.0) % MCV 88.9 (80.0-98.0) fL MCH 30.2 (27.0-33.0) pg MCHC 33.9 (31.0-36.0) g/dl RDW 13.3 (11.0-16.0) % Plt Count 409 H (160-400) X10*3/uL MPV 8.9 L (9.4-12.4) fL Immature Gran % (Auto) 0.2 (0.0-0.4) % Neut % (Auto) 44.0 L (45-73) % Lymph % (Auto) 45.4 H (20-40) % [place] % (Auto) 8.8 (2-11) % Eos % (Auto) 1.2 (0-4) % Baso % (Auto) 0.4 (0-2) % Lymph # (Auto) 4.2 (1.2-4.9) X10*3/uL [place] # (Auto) 0.8 (0.1-1.2) X10*3/uL Eos # (Auto) 0.1 (0.0-0.4) X10*3/uL Baso # (Auto) 0.0 (0.0-0.2) X10*3/uL Abs Immat Gran (auto) 0.02 (0.00-0.03) X10*3/uL Absolute Neuts (auto) 4.1 (2.0-8.3) x10*3/uL Absolute Nucleated RBC 0.000 (0.0-0.012) X10*3/uL Nucleated RBC % (auto) 0.0 (0.0-0.2) /100WBC PT 12.2 (9.9-13.0) SEC INR 1.1 (0.9-1.1) APTT 36.0 (24.1-38.0) SEC Sodium 140 (135-145) mmol/L Potassium 4.3 (3.3-5.1) mmol/L Chloride 106 (96-108) mmol/L Carbon Dioxide 26 (22-29) mmol/L Anion Gap 12 (12-20) BUN 12 (9-16) mg/dL Creatinine 1.06 (0.5-1.4) mg/dL Estim Creat Clear Calc 130.4 Estimated GFR > 60 POC Glucose (60-115) mg/dL Random Glucose 158 H D (60-115) mg/dL Calcium 9.6 (8.4-10.2) mg/dL Total Creatine Kinase 106 D (38-174) U/L Troponin I High Sens (<3.5-35.0) ng/L 03/25/22 03/25/22 Range/Units 01:43 01:58 WBC (4.8-10.8) X10*3/uL RBC (4.60-5.80) X10*6/uL Hgb (14.0-18.0) g/dl Hct (42.0-52.0) % MCV (80.0-98.0) fL MCH (27.0-33.0) pg MCHC (31.0-36.0) g/dl RDW (11.0-16.0) % Plt Count (160-400) X10*3/uL MPV (9.4-12.4) fL Immature Gran % (Auto) (0.0-0.4) % Neut % (Auto) (45-73) % Lymph % (Auto) (20-40) % [place] % (Auto) (2-11) % Eos % (Auto) (0-4) % Baso % (Auto) (0-2) % Lymph # (Auto) (1.2-4.9) X10*3/uL [place] # (Auto) (0.1-1.2) X10*3/uL Eos # (Auto) (0.0-0.4) X10*3/uL Baso # (Auto) (0.0-0.2) X10*3/uL Abs Immat Gran (auto) (0.00-0.03) X10*3/uL Absolute Neuts (auto) (2.0-8.3) x10*3/uL Absolute Nucleated RBC (0.0-0.012) X10*3/uL Nucleated RBC % (auto) (0.0-0.2) /100WBC PT (9.9-13.0) SEC INR (0.9-1.1) APTT (24.1-38.0) SEC Sodium (135-145) mmol/L Potassium (3.3-5.1) mmol/L Chloride (96-108) mmol/L Carbon Dioxide (22-29) mmol/L Anion Gap (12-20) BUN (9-16) mg/dL Creatinine (0.5-1.4) mg/dL Estim Creat Clear Calc Estimated GFR POC Glucose 157 H (60-115) mg/dL Random Glucose (60-115) mg/dL Calcium (8.4-10.2) mg/dL Total Creatine Kinase (38-174) U/L Troponin I High Sens < 3.5 (<3.5-35.0) ng/L Imaging Data CT scan - head: Radiologist's impression: no acute stroke seen on head CT CT angio head and neck: Radiologist's impression: CT/CT angio head? neck stroke IMPRESSION: IV contrast-enhanced CT the head: *No acute intracranial abnormalities. ? CT angiography head: *No large vessel intracranial occlusions. ? CT angiography neck: *Patent cervical carotid and vertebral artery systems. Patent carotid bulbs. ? Discharge Plan Discharge Clinical Impression: H/O Mota's palsy Patient Disposition: Home, Self-Care Instructions: Mota Palsy (ED) Prescriptions: No Action cetirizine 10 mg Tablet 10 mg PO DAILY PRN (Reason: Allergic Symptoms) 0RF valacyclovir 1 gram Tablet 1,000 mg PO DAILY 0RF Rx Instructions: LAST FILLED 10/15 sumatriptan succinate 25 mg Tablet 25 mg PO Q2-4H PRN (Reason: Migraine Headache) 0RF pantoprazole [Protonix] 40 mg Tablet,Delayed Release (Dr/Ec) 40 mg PO BID 0RF vvxltrntu-gqxiwopg-kniljvo ala 50-200-25 mg Tablet 1 tab PO DAILY 0RF albuterol sulfate [ProAir HFA] 90 mcg/actuation Hfa Aerosol Inhaler 2 puff INHALATION QID PRN (Reason: Shortness Of Breath) 0RF fluticasone propionate 50 mcg/actuation [place],Suspension 2 spray INTRANASAL DAILY 0RF azelastine 0.15 % (205.5 mcg) [place],Non-Aerosol 2 spray INTRANASAL BID 0RF gabapentin 100 mg capsule 200 mg PO BEDTIME Qty: 60 0RF sucralfate 1 gram tablet 1 g PO BID Qty: 60 0RF Referrals: Physician,Unknown J [Primary Care Provider] - 10 days
--- NOTE | 2022-03-25 01:15 | ECG_ITS ---
Test Reason : ?STROKE Blood Pressure : / mmHG Vent. Rate : 089 BPM Atrial Rate : 089 BPM P-R Int : 160 ms QRS Dur : 078 ms QT Int : 364 ms P-R-T Axes : 045 045 027 degrees QTc Int : 442 ms Normal sinus rhythm Normal ECG When compared with ECG of 02-JAN-2022 21:45, No significant changes seen Referred By: Jose Conroy Electronically Signed By:CARY LONGO
[2022-03-25 01:48] VITALS: BMI 39.1
[2022-03-25 01:56] LABS: Basophils Percent Auto 0.4 % (0-2); Eosinophils Absolute Auto 0.1 X10*3/uL (0.0-0.4); Eosinophils Percent Auto 1.2 % (0-4); Hematocrit 43.9 % (42.0-52.0); Hemoglobin 14.9 g/dl (14.0-18.0); Imm Gran Abs Auto 0.02 X10*3/uL (0.00-0.03); Imm Gran Pct Auto 0.2 % (0.0-0.4); Lymphocytes Absolute Auto 4.2 X10*3/uL (1.2-4.9); Lymphocytes Percent Auto 45.4 % (20-40); MANUAL DIFF FLAG NO; Mean Corpuscular HGB Conc 33.9 g/dl (31.0-36.0); Mean Corpuscular Hemoglobin 30.2 pg (27.0-33.0); Mean Corpuscular Volume 88.9 fL (80.0-98.0); Mean Platelet Volume 8.9 fL (9.4-12.4); Monocytes Absolute Auto 0.8 X10*3/uL (0.1-1.2); Monocytes Percent Auto 8.8 % (2-11); Neutrophils Absolute Auto 4.1 x10*3/uL (2.0-8.3); Platelet Count 409 X10*3/uL (160-400); Red Blood Count 4.94 X10*6/uL (4.60-5.80); Red Cell Distribution Width 13.3 % (11.0-16.0); White Blood Count 9.3 X10*3/uL (4.8-10.8)
[2022-03-25] MEDS: iohexoL 350 MG/ML 100 ML INFUS..BTL 70 ML IV (02:00)
[2022-03-25 02:03] LABS: INTERNATIONAL NORM RATIO 1.1 (0.9-1.1); Prothrombin Time 12.2 SEC (9.9-13.0)
[2022-03-25 02:05] LABS: Glucose, Whole Blood 157 mg/dL (60-115)
[2022-03-25 02:06] LABS: Stroke Lab Use COMPLETE
[2022-03-25 02:07] VITALS: BP 132/78
[2022-03-25 02:18] LABS: Anion Gap 12 (12-20); Blood Urea Nitrogen 12 mg/dL (9-16); Calcium 9.6 mg/dL (8.4-10.2); Carbon Dioxide 26 mmol/L (22-29); Chloride 106 mmol/L (96-108); Creatinine Clr Calc Pharmacy 130.4; Estimated Glomerular Filt Rate > 60; Glucose Random 158 mg/dL (60-115); Potassium 4.3 mmol/L (3.3-5.1); Sodium 140 mmol/L (135-145)
--- NOTE | 2022-03-25 02:18 | PC.NURSE ---
At 0109 pt walked into the ed waiting room while this rn was in the waiting area and pt was brought back to room 4. Dr Conroy informed that there was a potential stroke in room 4. rn made aware and tech. waiting further orders for stroke protocol by Dr Conroy.
[2022-03-25 02:21] LABS: Troponin-I High Sensitivity < 3.5 ng/L (<3.5-35.0)
[2022-03-25 02:22] VITALS: BP 128/72
[2022-03-25 02:53] VITALS: BP 129/74; PULSE 86; RESP 17; TEMP 36.6; O2SAT 97
--- NOTE | 2022-03-25 03:22 | PC.NURSE ---
Shayan arrived to bed 4 from the waiting room for evaluation of R sided facial droop, numbness to his tongue, weird feeling with ambulating and R sided headache. On arrival gait steady, he is alert and oriented x 3, he makes eye contact with RNDONA, speech clear and appropriate. There is mild R sided facial droop, speech seems mildly slurred. he ambulates independently and with steady gait. No nausea or vomiting. No unilateral weakness. Immediately upon arrival to bed 4 pt was greeted and assessed by Dr Conroy who ordered CT studies and pt then went direct to CT where, inbeween scans, I obtained IV access (and labs) and pt was able to have CTA. He returned to bed 4, remained alert and oriented x 3 and has been discharged. He verbalized an understanding of all DC orders and amulated out of the ED independently and with steady gait.
[2022-03-25 11:36] LABS: Prothrombin Time Whole Bld POC 13.2 sec (11.1-13.5); ~PT, ~INR - Anti Coag Clinic 1.1 (0.9-1.1)
== END 2022-03-25 03:37 | disposition home or self-care (01) ==
PROVIDERS: Emergency Provider Emergency Medicine
DX: G51.0 Bell's palsy (principal); I10 Essential (primary) hypertension; Z21 Asymptomatic human immunodeficiency virus [HIV] infection status; Z86.73 Personal history of transient ischemic attack (TIA), and cerebral infarction without residual deficits
CPT/HCPCS: 36415; 70450; 70496; 70498; 80048; 82550; 82947; 84484; 85025; 85610; 85730; 93005; 99285; Q9967

== ENCOUNTER 2022-05-13 00:25 | Emergency (ER) | payer OTHER, SELFPAY ==
[2022-05-13 00:27] VITALS: BP 187/138; PULSE 102; O2SAT 97
--- NOTE | 2022-05-13 00:28 | ED.SEIZURE ---
HPI - Seizure General Chief Complaint: Anxiety Stated Complaint: seizure Time Seen by Provider: 05/13/22 00:28 Source: patient Mode of arrival: ambulatory Limitations: no limitations History of Present Illness HPI Narrative: Patient history of anxiety disorder HIV with the anxiety induced seizures brought by ambulance for increased stress in similar episode of nonepileptic seizure lasted for few minutes no postictal no tongue bite no head injury Related Data Home Medications Medication Instructions Recorded Confirmed albuterol sulfate 90 mcg/actuation 2 puff inhalation QID PRN 11/20/20 11/20/20 aerosol inhaler (ProAir HFA) Shortness Of Breath azelastine 205.5 mcg (0.15 %) 2 spray intranasal BID 11/20/20 11/20/20 nasal spray bictegravir 50 mg-emtricitabine 1 tab PO DAILY 11/20/20 11/20/20 200 mg-tenofovir alafenam 25 mg tablet cetirizine 10 mg tablet 10 mg PO DAILY PRN Allergic 11/20/20 11/20/20 Symptoms fluticasone propionate 50 2 spray intranasal DAILY 11/20/20 11/20/20 mcg/actuation nasal spray,suspension pantoprazole 40 mg tablet,delayed 40 mg PO BID 11/20/20 11/20/20 release (Protonix) sumatriptan succinate 25 mg tablet 25 mg PO Q2-4H PRN Migraine 11/20/20 11/20/20 Headache valacyclovir 1 gram tablet 1,000 mg PO DAILY 11/20/20 11/20/20 Previous Rx's Medication Instructions Recorded gabapentin 100 mg capsule 200 mg PO BEDTIME #60 caps 11/21/20 sucralfate 1 gram tablet 1 g PO BID #60 tabs 01/03/22 lorazepam 1 mg tablet (Ativan) 1 mg PO DAILY PRN anxiety #14 tabs 05/13/22 Allergies Allergy/AdvReac Type Severity Reaction Status Date / Time No Known Allergies Allergy Verified 05/13/22 00:37 Review of Systems Review of Systems: Yes all other systems are reviewed and are negative PMFSH Past Medical History Medical History CVA (cerebral vascular accident) High cholesterol HIV (human immunodeficiency virus infection) Hypertension Kidney stone Social History Social History Household Members: Friend(s) Housing: Apartment Do you presently have visiting nurse or other home services: No Alcohol intake: current Patient Tobacco Use Status: Former Tobacco user Cigarette Packs Per Day: 0.5 Cigarettes Per Day: 10.0 Years Smoked: 14 Second Hand Smoke Exposure: No Substance Use Type: Marijuana Advance Directives: No service: No Current occupational status: employed Physical Exam Vital Signs: Vital Signs: Last Vital Signs Temp 97.6 F 05/13/22 00:38 Pulse 95 05/13/22 00:38 Resp 16 05/13/22 00:38 BP 158/97 H 05/13/22 00:38 Pulse Ox 95 05/13/22 00:38 O2 Del Method 05/13/22 00:38 BMI result Body Mass Index 36.9 Appearance: Alert. Oriented X3. Anxious Eyes: PERRLA, No Nystagmus ENT: Pharynx normal. Oral Mucosa moist no tongue bite Neck: Normal inspection. Neck supple. CVS: Normal heart rate and rhythm. Pulses normal. Respiratory: No respiratory distress. Equal air entry bilateral, no wheezing/rales/rhonchi Abdomen: Soft and nontender. Bowel sounds are present, no mass palpable, no CVA tenderness Skin: Skin warm and dry. Normal skin color. Normal skin turgor. Extremities: No lower extremity edema. No calf tenderness Neuro: Oriented X 3. No motor deficit. No sensory deficit.No cerebellar signs , cranial nerves II-XII intact MDM - Seizure MDM Narrative Medical decision making narrative: Patient feeling much better will discharge patient home for pseudoseizures secondary to anxiety Discharge Plan Discharge Clinical Impression: Psychogenic nonepileptic seizure Patient Disposition: Home, Self-Care Instructions: Nonepileptic Seizures (ED) Additional Instructions: Take Ativan for anxiety as prescribed and follow with PCP as needed Prescriptions: New lorazepam [Ativan] 1 mg tablet 1 mg PO DAILY PRN (Reason: anxiety) Qty: 14 0RF No Action cetirizine 10 mg Tablet 10 mg PO DAILY PRN (Reason: Allergic Symptoms) valacyclovir 1 gram Tablet 1,000 mg PO DAILY Rx Instructions: LAST FILLED 10/15 sumatriptan succinate 25 mg Tablet 25 mg PO Q2-4H PRN (Reason: Migraine Headache) pantoprazole [Protonix] 40 mg Tablet,Delayed Release (Dr/Ec) 40 mg PO BID lvxialmob-tpvuqkfx-hoyovuy ala 50-200-25 mg Tablet 1 tab PO DAILY albuterol sulfate [ProAir HFA] 90 mcg/actuation Hfa Aerosol Inhaler 2 puff INHALATION QID PRN (Reason: Shortness Of Breath) fluticasone propionate 50 mcg/actuation [place],Suspension 2 spray INTRANASAL DAILY azelastine 0.15 % (205.5 mcg) [place],Non-Aerosol 2 spray INTRANASAL BID gabapentin 100 mg capsule 200 mg PO BEDTIME Qty: 60 0RF sucralfate 1 gram tablet 1 g PO BID Qty: 60 0RF
[2022-05-13 00:38] VITALS: BP 158/97; PULSE 95; RESP 16; TEMP 36.4; O2SAT 95; BMI 36.9
[2022-05-13] MEDS: LORazepam 2 MG/ML VIAL IM (00:54)
== END 2022-05-13 02:18 | disposition home or self-care (01) ==
PROVIDERS: Emergency Provider Internal Medicine
DX: R56.9 Unspecified convulsions (principal); F41.9 Anxiety disorder, unspecified; B20 Human immunodeficiency virus [HIV] disease; I10 Essential (primary) hypertension; E78.5 Hyperlipidemia, unspecified; Z86.73 Personal history of transient ischemic attack (TIA), and cerebral infarction without residual deficits
CPT/HCPCS: 96372; 99282; 99284; J2060

== ENCOUNTER 2022-08-30 12:48 | Emergency (ER) | payer OTHER, SELFPAY ==
[2022-08-30 13:08] VITALS: BP 145/95; PULSE 93; RESP 18; TEMP 36.9; O2SAT 100; BMI 40.6
--- NOTE | 2022-08-30 13:16 | ECG_ITS ---
Test Reason : CHEST PAIN Blood Pressure : / mmHG Vent. Rate : 091 BPM Atrial Rate : 091 BPM P-R Int : 154 ms QRS Dur : 088 ms QT Int : 366 ms P-R-T Axes : 049 047 037 degrees QTc Int : 450 ms Normal sinus rhythm Normal ECG When compared with ECG of 25-MAR-2022 01:57, No significant change was found Referred By: Generic ED Physician Electronically Signed By:SARA GOMEZ
== END 2022-08-30 16:16 | disposition left against medical advice (07) ==
PROVIDERS: Emergency Provider Emergency Medicine; PCP Internal Medicine
DX: R07.9 Chest pain, unspecified (principal); B20 Human immunodeficiency virus [HIV] disease; Z86.69 Personal history of other diseases of the nervous system and sense organs
CPT/HCPCS: 93005; 99283

== ENCOUNTER 2022-12-31 08:07 | Emergency (ER) | payer OTHER, SELFPAY ==
--- NOTE | ~2022-12-31 | CT_ITS ---
EXAMINATION: CT SOFT TISSUE NECK WITH CONTRAST CLINICAL INFORMATION: Left dental infection, facial swelling COMPARISON: CTA head and neck 03/25/2022 TECHNIQUE: Following the administration of 70 mL of Omnipaque 350 intravenous contrast, helical imaging was performed in the axial plane with generation of coronal and sagittal reformatted images. This CT examination was performed using dose optimization techniques as appropriate, variously including the following: *Automated exposure control. *Adjustment of mA and/or kV according to patient size (this includes techniques or standardized protocols for targeted exams where dose is matched to indication/reason for exam; i.e. extremities or head). *Use of iterative reconstruction technique. DLP: 1045 mGy-cm. FINDINGS: Nasopharynx/skull base: Moderate volume adenoidal tonsillar tissue is within normal limits for age and likely reactive. Trace mucosal disease within the right greater than left alveolar recesses. The mastoid air cells are well aerated. The temporomandibular joints are normal. Suprahyoid neck: There is a periodontal lucency associated with the left mandibular first molar tooth with erosion of the overlying buccal cortex (image 42, series 2). There is asymmetric soft tissue swelling and phlegmonous changes of the overlying left gingivobuccal soft tissues, asymmetric thickening of the left platysma muscle with cellulitis of the overlying subcutaneous fat. No discrete drainable odontogenic abscess within the limitations of dental streak artifact, which partially obscures assessment. There is also a carious right maxillary first premolar tooth. The bilateral salivary glands are normal. Lobulated soft tissue along the base of tongue partially effacing the vallecula, probably lingual tonsillar hypertrophy. Infrahyoid neck: The vocal cords are adducted the time of imaging limiting assessment of the glottis. Unremarkable appearance of the hypopharynx. Thyroid: The thyroid gland appears diffusely enlarged though homogeneous. Lymph nodes: Several reactive lately prominent left level 2A and left level 1B lymph nodes. Lung apices: The partially visualized lung apices are clear. Vascular structures: Normal enhancement of the cervical vascular structures. Osseous structures: No suspicious osseous lesion. Other: The imaged portions of the brain parenchyma are unremarkable. Normal enhancement of the imaged intracranial vascular structures. CT/CT soft tissue neck w IV con IMPRESSION: Periodontal disease associated with the left mandibular first molar tooth with erosion of the overlying buccal cortex (image 42, series 2). There is asymmetric soft tissue swelling and phlegmonous changes of the overlying left gingivobuccal soft tissues, asymmetric thickening of the left platysma muscle, and cellulitis of the overlying subcutaneous fat. No discrete drainable odontogenic abscess within the limitations of dental streak artifact. Several reactive lately prominent left level 2A and left level 1B lymph nodes. Carious right maxillary first premolar tooth.
[2022-12-31 08:08] VITALS: BP 165/111; PULSE 97; RESP 18; TEMP 36.7; O2SAT 96; BMI 39.1
--- NOTE | 2022-12-31 08:28 | ED_ITS ---
HPI - Dental/Oral General Chief complaint: Dental/Oral Stated complaint: Dental pain Time Seen by Provider: 12/31/22 08:21 Source: patient Mode of arrival: ambulatory Limitations: no limitations History of Present Illness HPI Narrative: Patient is a 32-year-old male presents to the emergency department with concern for dental infection. Patient reports that he was evaluated by his primary care provider 12/25/2022 and was given a prescription for amoxicillin, yesterday he was evaluated by his dental provider, advised to continue taking the amoxicillin, was advised that due to the extent of infection he would require referral to maxillofacial surgeon. He states that he does not have an appointment however until April. He continues to take the antibiotics as prescribed, however he reports the pain to be severe and intolerable. He is now also experiencing increased left facial swelling, with pain extending down beneath the jaw on the left side. Denies associated fevers, chills is, neck pain, neck stiffness, headache, dizziness, chest pain, shortness of breath, difficulty breathing nausea, vomiting. Teeth map: 1. dental fracture and decay with swelling and erythema Related Data Home Medications Medication Instructions Recorded Confirmed albuterol sulfate 90 mcg/actuation 2 puff inhalation QID PRN 11/20/20 11/20/20 aerosol inhaler (ProAir HFA) Shortness Of Breath azelastine 205.5 mcg (0.15 %) 2 spray intranasal BID 11/20/20 11/20/20 nasal spray bictegravir 50 mg-emtricitabine 1 tab PO DAILY 11/20/20 11/20/20 200 mg-tenofovir alafenam 25 mg tablet cetirizine 10 mg tablet 10 mg PO DAILY PRN Allergic 11/20/20 11/20/20 Symptoms fluticasone propionate 50 2 spray intranasal DAILY 11/20/20 11/20/20 mcg/actuation nasal spray,suspension pantoprazole 40 mg tablet,delayed 40 mg PO BID 11/20/20 11/20/20 release (Protonix) sumatriptan succinate 25 mg tablet 25 mg PO Q2-4H PRN Migraine 11/20/20 11/20/20 Headache valacyclovir 1 gram tablet 1,000 mg PO DAILY 11/20/20 11/20/20 Previous Rx's Medication Instructions Recorded gabapentin 100 mg capsule 200 mg PO BEDTIME #60 caps 11/21/20 sucralfate 1 gram tablet 1 g PO BID #60 tabs 01/03/22 lorazepam 1 mg tablet (Ativan) 1 mg PO DAILY PRN anxiety #14 tabs 05/13/22 amoxicillin 875 mg-potassium 1 tab PO BID #14 tabs 12/31/22 clavulanate 125 mg tablet ibuprofen 600 mg tablet 600 mg PO Q8H PRN pain #30 tabs 12/31/22 Allergies Allergy/AdvReac Type Severity Reaction Status Date / Time No Known Allergies Allergy Verified 05/13/22 00:37 Review of Systems Review of Systems: Constitutional : No Fever, No Chills, No changes in PO intake, No difficulty speaking,? no recent dental procedure, no heat or cold intolerance while eating, no recent face trauma, ENT/Mouth : No swallowing difficulty, no change in voice, positive jaw pain, positive facial swelling, no drooling, no trismus, no bleeding, no throat swelling, no lacerations, no tongue swelling, gum swelling, Eyes: No Eye Pain, No periorbital Swelling Cardiovascular : No Chest Pain, No SOB Respiratory : No Cough, No Sputum, No Wheezing, No Smoke Exposure, No Dyspnea Gastrointestinal : No Nausea, No Vomiting, No Diarrhea Genitourinary : No Dysuria Musculoskeletal : No Myalgias Skin : No rash, no facial swelling or redness, Neuro : No Weakness, No Numbness, No Headache Yes all other systems are reviewed and are negative [facility] Past Medical History Attestation statement: The following information was validated with the patient. Source: old records reviewed Medical History CVA (cerebral vascular accident) H/O Mota's palsy High cholesterol HIV (human immunodeficiency virus infection) Hypertension Kidney stone Social History Social History Household Members: Friend(s) Housing: Apartment Do you presently have visiting nurse or other home services: No Alcohol intake: current Patient Tobacco Use Status: Former Tobacco user Cigarette Packs Per Day: 0.5 Cigarettes Per Day: 10.0 Years Smoked: 14 Second Hand Smoke Exposure: No Substance Use Type: Marijuana Advance Directives: No Advance Directives Information Provided: No service: No Current occupational status: employed Physical Exam Vital Signs: Vital Signs: Last Vital Signs Temp 98.3 F 02/01/23 12:19 Pulse 83 12/31/22 12:19 Resp 18 12/31/22 12:19 BP 144/94 H 12/31/22 12:19 Pulse Ox 98 12/31/22 12:19 O2 Del Method 12/31/22 12:19 BMI result Body Mass Index 39.1 Appearance: Alert. Oriented X3. No acute distress. Head: Normal external exam. Normocephalic. Atraumatic. Eyes: PERRLA. EOMI. Conjunctiva and sclera normal. Eyelids normal. ENT: EAC normal. TM's Normal. Pharynx normal. Uvula midline. Moist mucous membranes.? ?No trismus noted.? No drooling noted.? No muffled voice noted. No mastoid tenderness Dentition:? Patient with poor dentition throughout with multiple old fractured teeth with multiple dental caries.? Left lower Gingiva erythematous, with swelling, without obvious abscess. Buccal swelling.? No fluctuance.? Not consistent with peritonsillar abscess.? No salivary duct obstruction noted. Neck: Normal inspection. Neck supple. FROM. No adenopathy. Thyroid Normal. No meningeal signs. No neck mass noted.? Trachea midline. CVS: Normal heart rate and rhythm. Heart sound normal. No murmurs noted. Pulses normal throughout. Respiratory: No respiratory distress. Painless inspiration. Breath sounds normal. No wheezes/rales/rhonchi noted. Chest nontender. ?No accessory muscle usage noted or decreased air movement noted. Back:? Full range of motion noted. Skin: Skin warm and dry.? Normal skin color.? Normal skin turgor. No rashes/lesions/lacerations noted. Extremities: Extremities exhibit normal range of motion.? Extremities nontender. Neuro: Oriented X 3.? No motor deficit.? No sensory deficit.? Reflexes normal. Course Reevaluation(s) Reevaluation #1: CBC reveals mild leukocytosis with left shift. CMP is overall unremarkable. CT soft tissue of the neck without evidence of discrete drainable abscess, appears consistent with dental infection/cellulitis. At this time does not appear consistent with deeper space infection, Mark's angina. At this time, feel that patient is stable for discharge, will transition from amoxicillin to Augmentin, received prescription for tramadol 4 days ago, advised continued use of this medication as needed for severe pain. Patient advised to continue outpatient follow-up with primary care/dental provider. All questions were answered. Departed in stable condition. Medications Administered Discontinued Medications Generic Name Dose Route Start Last Admin Trade Name Olinda PRN Reason Stop Dose Admin Sodium Chloride 1,000 mls @ 999 mls/hr 12/31/22 08:45 12/31/22 11:59 Ns IV 12/31/22 09:45 Infused .Q1H1M MEHDI Infusion Iohexol 100 ml 12/31/22 11:16 12/31/22 11:16 Iohexol 350 Mg/Ml 100 Ml Infus..Btl IV 12/31/22 11:17 70 ml ONCE ONE Administration Ketorolac Tromethamine 30 mg 12/31/22 08:34 12/31/22 08:46 Ketorolac Tromethamine 30 Mg/Ml Vial IVPUSH 12/31/22 08:35 30 mg ONCE ONE Administration Oxycodone HCl 5 mg 12/31/22 08:34 12/31/22 08:46 Oxycodone Hcl Immed Release 5 Mg Tablet PO 12/31/22 08:35 5 mg ONCE ONE Administration Medical Decision Making Medical Decision Making [facility] Narrative: Patient is a 32-year-old male with reported past medical history of CVA, Mota's palsy, hyperlipidemia, DJD, hypertension presenting to emergency department for evaluation of dental pain in the setting of diagnosed with dental infection, reported compliance with amoxicillin as prescribed. Currently awaiting appointment with maxillofacial surgeon. At the time of my examination he is overall well-appearing, afebrile without tachycardia tachypnea or hypoxia. He is however noted to be hypertensive, this may be in response pain. Will obtain CBC, CMP, CT soft tissue of the neck for further evaluation. Patient to receive 1 L normal saline IV, ketorolac IV for pain, and oxycodone orally for pain. Disposition pending results. Differential Diagnosis Differential Diagnoses: The differential diagnosis associated with the presentation includes (Dental abscess, parapharyngeal space infection; peritonsillar/parapharyngeal/retropharyngeal, orofacial space infection, Mark's angina, osteomyelitis, alveolar osteitis, acute pulpitis) Lab Data [facility] Lab Attestation statement: I reviewed the patient's lab results. 12/31/22 08:43 12/31/22 10:02 Labs: Lab Results 12/31/22 12/31/22 Range/Units 08:43 10:02 WBC 13.2 H (4.8-10.8) X10*3/uL RBC 5.35 (4.60-5.80) X10*6/uL Hgb 16.2 (14.0-18.0) g/dl Hct 47.3 (42.0-52.0) % MCV 88.4 (80.0-98.0) fL MCH 30.3 (27.0-33.0) pg MCHC 34.2 (31.0-36.0) g/dl RDW 12.8 (11.0-16.0) % Plt Count 418 H (160-400) X10*3/uL MPV 8.6 L (9.4-12.4) fL Immature Gran % (Auto) 0.3 (0.0-0.4) % Neut % (Auto) 64.4 (45-73) % Lymph % (Auto) 26.5 (20-40) % [place] % (Auto) 7.5 (2-11) % Eos % (Auto) 0.8 (0-4) % Baso % (Auto) 0.5 (0-2) % Lymph # (Auto) 3.5 (1.2-4.9) X10*3/uL [place] # (Auto) 1.0 (0.1-1.2) X10*3/uL Eos # (Auto) 0.1 (0.0-0.4) X10*3/uL Baso # (Auto) 0.1 (0.0-0.2) X10*3/uL Abs Immat Gran (auto) 0.04 H (0.00-0.03) X10*3/uL Absolute Neuts (auto) 8.5 H (2.0-8.3) x10*3/uL Absolute Nucleated RBC 0.000 (0.0-0.012) X10*3/uL Nucleated RBC % (auto) 0.0 (0.0-0.2) /100WBC Sodium 136 (135-145) mmol/L Potassium 4.1 (3.3-5.1) mmol/L Chloride 105 (96-108) mmol/L Carbon Dioxide 24 (22-29) mmol/L Anion Gap 11 L (12-20) BUN 8 L (9-16) mg/dL Creatinine 0.83 (0.5-1.4) mg/dL Estim Creat Clear Calc 165.0 Estimated GFR > 60 Random Glucose 131 H (60-115) mg/dL Calcium 8.8 D (8.4-10.2) mg/dL Total Bilirubin 0.5 (0.0-1.0) mg/dL AST 21 (5-37) U/L ALT 37 (0-40) U/L Alkaline Phosphatase 68 (39-117) U/L Total Protein 6.9 (6.5-8.0) g/dL Albumin 4.0 (3.5-5.0) g/dL Independent Interpretation I performed an independent interpretation of an: CT Scan Radiology Impression Discussion of test interpretation with radiology: I have reviewed the radiologist's reading. Radiologist Impression: CT/CT soft tissue neck w IV con IMPRESSION: ? Periodontal disease associated with the left mandibular first molar tooth with erosion of the overlying buccal cortex (image 42, series 2). There is asymmetric soft tissue swelling and phlegmonous changes of the overlying left gingivobuccal soft tissues, asymmetric thickening of the left platysma muscle, and cellulitis of the overlying subcutaneous fat. No discrete drainable odontogenic abscess within the limitations of dental streak artifact. ? Several reactive lately prominent left level 2A and left level 1B lymph nodes. ? Carious right maxillary first premolar tooth. Prescription Management I considered prescription management with: Pain Medication and Antibiotic Discharge Plan Discharge Clinical Impression: Dental infection Patient Disposition: Home, Self-Care Additional Instructions: A prescription for Augmentin was sent to your pharmacy, please begin taking this in place of the amoxicillin. You can take ibuprofen 200 mg, 3 tablets (600mg) every 6-8 hours as needed for pain, in addition to Tylenol 500 mg, 2 tablets (1,000mg) every 4-6 hours as needed for pain, but not to exceed 3 doses daily (3,000mg).? You will need to contact your primary care provider/dental provider to arrange for appropriate outpatient follow-up. You may return back to the emergency department with any new or worsening symptoms or concerns. Prescriptions: New amoxicillin-pot clavulanate 875-125 mg tablet 1 tab PO BID Qty: 14 0RF ibuprofen 600 mg tablet 600 mg PO Q8H PRN (Reason: pain) Qty: 30 0RF No Action cetirizine 10 mg Tablet 10 mg PO DAILY PRN (Reason: Allergic Symptoms) valacyclovir 1 gram Tablet 1,000 mg PO DAILY Rx Instructions: LAST FILLED 10/15 sumatriptan succinate 25 mg Tablet 25 mg PO Q2-4H PRN (Reason: Migraine Headache) pantoprazole [Protonix] 40 mg Tablet,Delayed Release (Dr/Ec) 40 mg PO BID ipfvctslg-kstmaaoc-oipitqn ala 50-200-25 mg Tablet 1 tab PO DAILY albuterol sulfate [ProAir HFA] 90 mcg/actuation Hfa Aerosol Inhaler 2 puff INHALATION QID PRN (Reason: Shortness Of Breath) fluticasone propionate 50 mcg/actuation [place],Suspension 2 spray INTRANASAL DAILY azelastine 0.15 % (205.5 mcg) [place],Non-Aerosol 2 spray INTRANASAL BID gabapentin 100 mg capsule 200 mg PO BEDTIME Qty: 60 0RF sucralfate 1 gram tablet 1 g PO BID Qty: 60 0RF lorazepam [Ativan] 1 mg tablet 1 mg PO DAILY PRN (Reason: anxiety) Qty: 14 0RF Referrals: Pearl Reyna MD [Primary Care Provider] - Stand Alone Forms: Work/School Release Interventions: ED Discharge Assessment Last Done: 12/31/22 12:37 Discharge Date/Time: 12/31/22 12:38
--- OUTSIDE RECORDS SUMMARY | 2022-12-31 08:34 | XMS_ITS | Continuity of Care Document ---
:1990 Author Organization [facility] Address [address] [place] [address]- Care Team Providers Name Role Phone Pearl Reyna MD Primary Care Physician Encounter [facility] [id number] Date(s): 06/27/22 - 07/27/[address] [address]- Attending Physician: John Clark Admitting Physician: AdmJohn valero Referring Physician: AdmtrJohn Allergies, Adverse Reactions, Alerts Substance Reaction Severity Status Rocephin1 rash Resolved abacavir2 Active Ziagen HLA B5701 positive Active Complera allergic to the rilpirivine componant of Active Complera-tolerates truvada 1Not allergic. Tolerated cefpodoxime 10/2017 (prescribed at [facility]) as well as ceftriaxone IM (administered in clinic 07/28/2018)2positive HLA B5701 Immunizations Given and Recorded Vaccine Date Status Refusal Reason SARS-CoV-2 (COVID-19) mRNA BNT-162b2 vac1 07/08/21 Given SARS-CoV-2 (COVID-19) mRNA BNT-162b2 vac2 06/10/21 Record ed SARS-CoV-2 (COVID-19) mRNA BNT-162b2 vac 05/27/21 Recorde d Human Papillomavirus Vaccine 01/11/16 Given pneumococcal 13-valent vaccine 12/06/15 Given tetanus/diphtheria/pertussis, acel(Tdap) 12/06/15 Given tetanus-diphtheria toxoids (Td) 06/30/13 Given hepatitis B adult vaccine 06/23/13 Given Hepatitis A Adult Vaccine 06/23/13 Given Not Given Vaccine Date Status Refusal Reason pneumococcal 23-valent vaccine 02/28/14 Not Given P atient Refuses pneumococcal 23-valent vaccine 01/24/14 Not Given P atient Refuses 1Result Comment: diluted w/ normal saline lot number [id number] expires Result Comment: Received in [place] Medications amitriptyline 10 mg oral tablet 20 mg, 2, tablet, By Mouth, Daily at bedtime, New medication to prevent migraines. Causes sleepiness- take before bed ., # 30 tablet, Refills 0, Tot. Refills 0, Maintenance, 09/04/21 12:35:00 EDT, Route to Pharmacy Electronically, [facility]... Start Date: 09/04/21 Status: Orderedazelastine nasal 0.15% spray 2 sprays, Nares, Both, 2 times a day, PRN for allergy symptoms, # 30 mL, 5 Refills, Maintenance, 01/23/21 14:38:00 EST, [place], [facility], 2 sprays Nares, Both 2 times a day,PRN:for allergy symptoms, 175, cm, 02/25/20 12:28:00 EDT, He... Start Date: 01/23/21 Status: Orderedbeclomethasone 0.042 mg/inh nasal spray 1 sprays, Nares, Both, 2 times a day, in each nostril, # 25 Gm, 5 Refills, Maintenance, 12/21/19 14:09:00 EST, [facility], d/c fluconasol, 1 sprays Nares, Both 2 times a day,Instr:in each nostril, 175, cm, 07/04/19 15:37:00 EDT, Heigh... Start Date: 12/21/19 Status: OrderedBiktarvy oral tablet 1 tablet, By Mouth, Daily, # 30 tablet, 11 Refills, Maintenance, 03/27/22 13:37:00 EDT, Tablet, [facility], Partial fill upon patient request if the prescription is for a schedule II opioid drug., 1 tablet By Mouth Daily, 175, cm, 12/... Start Date: 03/27/22 Status: OrderedColace sodium 100 mg oral capsule 100 mg, 1, capsule, By Mouth, 2 times a day, PRN, # 60 capsule, Refills 3, Tot. Refills 3, Maintenance, for constipation, 12/02/17 13:58:38, Route to Pharmacy Electronically, [id number], [facility] Start Date: 12/02/17 Status: Ordereddiclofenac sodium 75 mg oral delayed release tablet 1 tablet = 75 mg, By Mouth, 2 times a day, # 28 tablet, 0 Refills, Maintenance, 08/13/21 18:06:00 EDT, [facility] Tablet, Partial fill upon patient request if the prescription is for a schedule II opioid drug. Start Date: 08/13/21 Stop Date: 08/27/21 Status: Orderedfexofenadine 180 mg oral tablet 1 tablet = 180 mg, By Mouth, Daily, Instead of cetirizine (Zyrtec). For allergies., # 30 tablet, 5 Refills, Maintenance, 02/12/21 11:54:00 EDT, Tablet, [facility], Partial fill upon patient request if the prescription is for a schedu... Start Date: 02/12/21 Status: OrderedFlomax 0.4 mg oral capsule 0.4 mg, 1, capsule, By Mouth, Daily, To help kidney stone pass, # 30 capsule, Refills 1, Tot. Refills 1, Maintenance, 04/15/22 13:06:00 EDT, Route to Pharmacy Electronically, [facility], 175, cm, 11/19/21 10:53:00 EST, Height Start Date: 04/15/22 Status: Orderedibuprofen 800 mg oral tablet 800 mg, 1, tablet, By Mouth, Daily, As needed for migraine and kidney stone pain. do not use daily, it will make migraine worse, # 30 tablet, Refills 3, Tot. Refills 3, Maintenance, 05/23/22 17:46:00 EDT, Route to Pharmacy Electronically, [facility]... Start Date: 05/23/22 Status: OrderedNarcan 4 mg/0.1 mL nasal spray = 4 mg, Nares, Both, Once, In case of overdose: spray in nose, call 911, repeat every 2 mins as needed, # 2 each, 5 Refills, Soft Stop, 12/28/19 9:06:00 EST, [facility]/pharmacy #[id number], 175, cm, 07/04/19 15:37:00 EDT, Height, 109.9, kg, 07/01/19 10:09:00 EDT,... Start Date: 12/28/19 Status: Orderedpantoprazole 40 mg oral delayed release tablet 1 tablet = 40 mg, By Mouth, 2 times a day, Take up to 2 times a day; only as needed for acid reflux/heartburn, # 60 tablet, 11 Refills, Maintenance, 11/19/21 11:18:00 EST, [facility] Tablet, 175, cm, 11/19/2110:53:00 EST, Height Start Date: 11/19/21 Status: OrderedProAir HFA 90 mcg/inh inhalation aerosol with adapter 2, puffs, Inhalation, Every 4 hours, PRN, # 8.5 Gm, Refills 11, Tot. Refills 11, Maintenance, 12/27/19 14:05:00 EST, Aerosol, Route to Pharmacy Electronically, [id number]_[id number], [facility], 175, cm, 07/04/19 15:37:00 EDT, Height, 109.... Start Date: 12/27/19 Status: Orderedsucralfate 1 gm oral tablet 1 Gm, 1, tablet, By Mouth, 4 times a day, # 120 tablet, Refills 3, Tot. Refills 3, Maintenance, 12/19/21 13:28:00 EST, Route to Pharmacy Electronically, [facility], Partial fill upon patient request if the prescription is for a schedu... Start Date: 12/19/21 Status: OrderedtraZODone 150 mg oral tablet 1 tablet = 150 mg, By Mouth, Daily at bedtime, For sleep., # 30 tablet, 11 Refills, Maintenance, 06/27/22 12:36:00 EDT, Tablet, [facility], Partial fill upon patient request if the prescription is for a schedule II opioid drug., 175,... Start Date: 06/27/22 Status: Orderedtriamcinolone 0.1% topical cream 1 application, Topically, 2 times a day, apply a thin film to affected area in armpit, # 80 Gm, 2 Refills, Maintenance, 11/19/21 11:29:00 EST, [place], [facility], Partial fill upon patient request if the prescription is for a schedule... Start Date: 11/19/21 Status: OrderedTylenol 325 mg oral tablet 650 mg, 2, tablet, By Mouth, Every 4 hours, PRN, # 120 tablet, Refills 0, Tot. Refills 0, Maintenance, for fever, 02/15/20 13:30:00 EDT, Route to Pharmacy Electronically, [facility]/pharmacy #[id number], 175, cm, 07/04/19 15:37:00 EDT, Height, 109.9, kg, 07/01/19... Start Date: 02/15/20 Status: OrderedZithromax 250 mg oral tablet 2 tablet = 500 mg, By Mouth, Once, # 2 tablet, 0 Refills, Soft Stop, 03/05/22 15:02:00 EDT, Tablet, [facility], Partial fill upon patient request if the prescription is for a schedule II opioid drug., 175, cm, 11/19/21 10:53:00 EST, H... Start Date: 03/05/22 Status: Ordered Problem List Condition Effective Dates Status Health Status Informant Anxiety about health(Confirmed) Active Severe dysplasia of anal Active canal(Confirmed)1 Chronic rhinitis(Confirmed) Active Pseudoseizures(Confirmed) Active Epigastric pain(Confirmed) Active Chronic GERD(Confirmed) Active Insomnia(Confirmed) Active Kidney stones, mixed calcium Active oxalate(Confirmed) Obese class II(Confirmed) Active Overweight(Confirmed) Active Pharyngitis(Confirmed) Active Post traumatic stress disorder Active (PTSD)(Confirmed) Major depressive disorder, Active recurrent(Confirmed) Urethritis(Confirmed)2 Active 1per histology 01/30/[id number] urethritis sx without e/o inflammation (UA repeatedly negative) or infection (GC/CT repeatedly negative; negative trich, negative mycoplasma genitalium) Social History Social History Type Response Smoking Status Current every day smoker entered on: 11/09/17 Sex Care Team PersonnelName: Pearl Reyna MD Address: [address] [place] [address]
--- OUTSIDE RECORDS SUMMARY | 2022-12-31 08:34 | XMS_ITS | Continuity of Care Document ---
:1990 Author Organization [facility] Address [address] [place] [address]- Care Team Providers Name Role Phone Maribell REEDER, Pearl Primary Care Physician Encounter [facility] Date(s): 08/16/21 - 09/15/[address] [address]- Allergies, Adverse Reactions, Alerts Substance Reaction Severity Status Rocephin1 rash Resolved abacavir2 Active Ziagen HLA B5701 positive Active Complera allergic to the rilpirivine componant of Active Complera-tolerates truvada 1Not allergic. Tolerated cefpodoxime 10/2017 (prescribed at [facility] ED) as well as ceftriaxone IM (administered in clinic 07/28/2018)2positive HLA B5701 Immunizations Given and Recorded Vaccine Date Status Refusal Reason SARS-CoV-2 (COVID-19) mRNA BNT-162b2 vac1 07/08/21 Given SARS-CoV-2 (COVID-19) mRNA BNT-162b2 vac2 06/10/21 Record ed Human Papillomavirus Vaccine 01/11/16 Given pneumococcal 13-valent [...] Comment: diluted w/ normal saline lot number [id number] expires Result Comment: Received in [place] Medications amitriptyline 10 mg oral tablet 20 mg, 2, tablet, By Mouth, Daily at bedtime, New medication to prevent migraines. Causes sleepiness- take before bed ., # 30 tablet, Refills 0, Tot. Refills 0, Maintenance, 09/04/21 12:35:00 EDT, Route to Pharmacy Electronically, [facility]... Start Date: 09/04/21 Status: Orderedazelastine nasal 0.15% spray 2 sprays, Nares, Both, 2 times a day, PRN for allergy symptoms, # 30 mL, 5 Refills, Maintenance, 01/23/21 14:38:00 EST, [place], [facility], 2 sprays Nares, Both 2 times a day,PRN:for allergy symptoms, 175, cm, 02/25/20 12:28:00 EDT, He... Start Date: 01/23/21 Status: Orderedbeclomethasone 0.042 mg/inh nasal spray 1 sprays, Nares, Both, 2 times a day, in each nostril, # 25 Gm, 5 Refills, Maintenance, 12/21/19 14:09:00 EST, [facility], d/c fluconasol, 1 sprays Nares, Both 2 times a day,Instr:in each nostril, 175, cm, 07/04/19 15:37:00 EDT, Heigh... Start Date: 12/21/19 Status: OrderedBiktarvy By Mouth, Daily, Pt is taking Biktarvy; he has supply at home., 0 Refills, Maintenance, 02/12/21 11:52:00 EDT, Partial fill upon patient request if the prescription is for a schedule II opioid drug. Start Date: 02/12/21 Status: OrderedbuPROPion 300 mg/24 hours (XL) oral tablet, extended release 1 tablet = 300 mg, By Mouth, Every 24 hours, # 30 tablet, 11 Refills, Maintenance, 12/21/19 14:10:00EST, [facility], note dose change, 175, cm, 07/04/19 15:37:00 EDT, Height, 109.9, kg, 07/01/19 10:09:00 EDT, Dry Weight Start Date: 12/21/19 Status: OrderedColace sodium 100 mg oral capsule 100 mg, 1, capsule, By Mouth, 2 times a day, PRN, # 60 capsule, Refills 3, Tot. Refills 3, Maintenance, for constipation, 12/02/17 13:58:38, Route to Pharmacy Electronically, NCPDP_[id number], [facility] Start Date: 12/02/17 Status: Ordereddiclofenac [...] 5 Refills, Maintenance, 02/12/21 11:54:00 EDT, Tablet, [facility], Partial fill upon patient request if the prescription is for a schedu... Start Date: 02/12/21 Status: OrderedFlonase 50 mcg/inh nasal spray 2 sprays, Nares, Both, Daily in AM, # 16 Gm, 5 Refills, Maintenance, 06/20/20 8:34:00 EDT, [place], [facility], 2 sprays Nares, Both Daily in AM,x14 days, 175, cm, 02/25/20 12:28:00 EDT,Height, 109.9, kg, 07/01/19 10:09:00 EDT, Dry Weight Start Date: 06/20/20 Stop Date: 09/12/20 Status: OrderedFlovent HFA 110 mcg/inh inhalation aerosol 2 puffs, Inhalation, 2 times a day, # 12 Gm, 0 Refills, Maintenance, 03/16/20 14:12:00 EDT, Aerosol,[facility], 175, cm, 02/25/20 12:28:00 EDT, Height, 109.9, kg, 07/01/19 10:09:00 EDT, Dry Weight Start Date: 03/16/20 Status: Orderedibuprofen 800 mg oral tablet 800 mg, 1, tablet, By Mouth, Daily, As needed for migraine and kidney stone pain. do not use daily, it will make migraine worse, # 30 tablet, Refills 2, Tot. Refills 2, Maintenance, 09/04/21 12:34:00 EDT, Route to Pharmacy Electronically, [facility] Start Date: 09/04/21 Status: OrderedNarcan 4 mg/0.1 mL nasal spray = 4 mg, Nares, Both, Once, In case of overdose: spray in nose, call 911, repeat every 2 mins as needed, # 2 each, 5 Refills, Soft Stop, 12/28/19 9:06:00 EST, [facility]/pharmacy #[id number], 175, cm, 07/04/19 15:37:00 EDT, Height, 109.9, kg, 07/01/19 10:09:00 EDT,... Start Date: 12/28/19 Status: Orderedpantoprazole 40 mg oral delayed release tablet 1 tablet = 40 mg, By Mouth, 2 times a day, Take up to 2 times a day; only as needed for acid reflux/heartburn, # 60 tablet, 11 Refills, Maintenance, 10/15/20 16:11:00 EST, CR Tablet, 175, cm, 02/25/2012:28:00 EDT, Height, 109.9, kg, 07/01/19 10:09:0... Start Date: 10/15/20 Status: Orderedprazosin 1 mg oral capsule 1 mg, 1, capsule, By Mouth, Daily at bedtime, New med for sleep/nightmares. Start 1mg at bedtime. Ifnot too drowsy, increase after 1 wk to 2mg at bedtime. (In addition to trazodone)., # 60 capsule, Refills 5, Tot. Refills 5, Maintenance, 02/12/21... Start Date: 02/12/21 Status: OrderedProAir HFA 90 mcg/inh inhalation aerosol with adapter 2, puffs, Inhalation, Every 4 hours, PRN, # 8.5 Gm, Refills 11, Tot. Refills 11, Maintenance, 12/27/19 14:05:00 EST, Aerosol, Route to Pharmacy Electronically, NCPDP_[id number], [facility], 175, cm, 07/04/19 15:37:00 EDT, Height, 109.... Start Date: 12/27/19 Status: OrderedtraZODone 150 mg oral tablet 1 tablet = 150 mg, By Mouth, Daily at bedtime, For sleep., # 30 tablet, 5 Refills, Maintenance, 09/04/21 12:32:00 EDT, Tablet, [facility], Partial fill upon patient request if the prescription is for a schedule II opioid drug., 175, c... Start Date: 09/04/21 Status: OrderedTylenol 325 mg oral tablet 650 mg, 2, tablet, By Mouth, Every 4 hours, PRN, # 120 tablet, Refills 0, Tot. Refills 0, Maintenance, for fever, 02/15/20 13:30:00 EDT, Route to Pharmacy Electronically, [facility]/pharmacy #[id number], 175, cm, 07/04/19 15:37:00 EDT, Height, 109.9, kg, 07/01/19... Start Date: 02/15/20 Status: Ordered Problem List Condition Effective Dates Status Health Status Informant Severe dysplasia of anal Active canal(Confirmed)1 Chronic rhinitis(Confirmed) Active Pseudoseizures(Confirmed) Active Epigastric pain(Confirmed) Active Insomnia(Confirmed) Active Kidney stones, mixed calcium Active oxalate(Confirmed) Overweight(Confirmed) Active Care Management [facility], Roberta Albarran Active (Confirmed) Post traumatic stress disorder Active (PTSD)(Confirmed) Urethritis(Confirmed)2 Active 1per histology 01/30/[id number] urethritis sx without e/o inflammation (UA repeatedly negative) or infection (GC/CT repeatedly negative; negative trich, negative mycoplasma genitalium) Social History Social History Type Response Smoking Status Current every day smoker entered on: 11/09/17 Sex
--- OUTSIDE RECORDS SUMMARY | 2022-12-31 08:34 | XMS_ITS | Continuity of Care Document ---
:1990 Author Organization [facility] Address [address] [place] [address]- Care Team Providers Name Role Phone Pearl Reyna MD Primary Care Physician Encounter [facility] Date(s): 02/25/20 - 03/06/20 [facility] [address] [place] [address]- [facility] Attending Physician: John Clark Admitting Physician: John Clark Referring Physician: AdmJohn valero Allergies, Adverse Reactions, Alerts Substance Reaction Severity Status Complera allergic to the rilpirivine componant of Active Complera-tolerates truvada Rocephin1 rash Resolved Ziagen HLA B5701 positive Active 1Not allergic. Tolerated cefpodoxime 10/2017 (prescribed at [facility]) as well as ceftriaxone IM (administered in clinic 07/28/2018) Immunizations Given and Recorded Vaccine Date Status Refusal Reason Human Papillomavirus Vaccine 01/11/16 Given pneumococcal 13-valent vaccine 12/06/15 Given tetanus/diphtheria/pertussis, acel(Tdap) 12/06/15 Given tetanus-diphtheria toxoids (Td) 06/30/13 Given hepatitis B adult vaccine 06/23/13 Given Hepatitis A Adult Vaccine 06/23/13 Given Not Given Vaccine Date Status Refusal Reason pneumococcal 23-valent vaccine 02/28/14 Not Given P atient Refuses pneumococcal 23-valent vaccine 01/24/14 Not Given P atient Refuses Medications azelastine nasal 0.15% spray 2 sprays, Nares, Both, 2 times a day, PRN for allergy symptoms, # 30 mL, 5 Refills, Maintenance, 12/27/19 14:06:00 EST, [place], [facility], 2 sprays Nares, Both 2 times a day,PRN:for allergy symptoms, 175, cm, 07/04/19 15:37:00 EDT, He... Start Date: 12/27/19 Status: Orderedbeclomethasone 0.042 mg/inh nasal spray 1 sprays, Nares, Both, 2 times a day, in each nostril, # 25 Gm, 5 Refills, Maintenance, 12/21/19 14:09:00 EST, [facility], d/c fluconasol, 1 sprays Nares, Both 2 times a day,Instr:in each nostril, 175, cm, 07/04/19 15:37:00 EDT, Heigh... Start Date: 12/21/19 Status: OrderedBiktarvy oral tablet 1 tablet, By Mouth, Daily, # 30 tablet, 11 Refills, Maintenance, 12/21/19 14:09:00 EST, Tablet, [facility], 1 tablet By Mouth Daily, 175, cm, 07/04/19 15:37:00 EDT, Height, 109.9, kg, 07/01/19 10:09:00 EDT, Dry Weight Start Date: 12/21/19 Status: OrderedbuPROPion 300 mg/24 hours (XL) oral tablet, extended release 1 tablet = 300 mg, By Mouth, Every 24 hours, # 30 tablet, 11 Refills, Maintenance, 12/21/19 14:10:00EST, [facility], note dose change, 175, cm, 07/04/19 15:37:00 EDT, Height, 109.9, kg, 07/01/19 10:09:00 EDT, Dry Weight Start Date: 12/21/19 Status: OrderedColace sodium 100 mg oral capsule 100 mg, 1, capsule, By Mouth, 2 times a day, PRN, # 60 capsule, Refills 3, Tot. Refills 3, Maintenance, for constipation, 12/02/17 13:58:38, Route to Pharmacy Electronically, NCPDP_[id number], [facility] Start Date: 12/02/17 Status: OrderedFlomax 0.4 mg oral capsule 0.4 mg, 1, capsule, By Mouth, Daily, # 15 capsule, Refills 0, Tot. Refills 0, Maintenance, 02/24/19 18:22:00 EDT, Print Requisition Start Date: 02/24/19 Status: OrderedhydrOXYzine hydrochloride 25 mg oral tablet 1 tablet = 25 mg, By Mouth, 4 times a day, PRN for anxiety, # 40 tablet, 0 Refills, Maintenance, 02/15/20 13:29:00 EDT, Tablet[id number] 175, cm, 07/04/19 15:37:00 EDT, Height, 109.9, kg, 07/01/19 10:09:00 EDT, Dry Weight Start Date: 02/15/20 Status: Orderedibuprofen 800 mg oral tablet 800 mg, 1, tablet, By Mouth, 2 times a day, not to exceed 3200 mg/day As needed for migraine and kiendye stone pain., # 30 tablet, Refills 2, Tot. Refills 2, Maintenance, 12/21/19 14:10:00 EST, Route to Pharmacy Electronically, [facility]... Start Date: 12/21/19 Status: OrderedNarcan 4 mg/0.1 mL nasal spray = 4 mg, Nares, Both, Once, In case of overdose: spray in nose, call 911, repeat every 2 mins as needed, # 2 each, 5 Refills, Soft Stop, 12/28/19 9:06:00 EST, [id number], 175, cm, 07/04/19 15:37:00 EDT, Height, 109.9, kg, 07/01/19 10:09:00 EDT,... Start Date: 12/28/19 Status: OrderedProAir HFA 90 mcg/inh inhalation aerosol with adapter 2, puffs, Inhalation, Every 4 hours, PRN, # 8.5 Gm, Refills 11, Tot. Refills 11, Maintenance, 12/27/19 14:05:00 EST, Aerosol, Route to Pharmacy Electronically, NCPDP_[id number], [facility], 175, cm, 07/04/19 15:37:00 EDT, Height, 109.... Start Date: 12/27/19 Status: OrderedSUMAtriptan 25 mg oral tablet 1 tablet = 25 mg, By Mouth, Daily, PRN for migraine headache, may repeat dose after 2 hours up to a maximum of 2, # 9 tablet, 11 Refills, Maintenance, 12/21/19 14:11:00 EST, Tablet, [facility], 175, cm, 07/04/19 15:37:00 EDT, Height,... Start Date: 12/21/19 Status: OrderedTylenol 325 mg oral tablet 650 mg, 2, tablet, By Mouth, Every 4 hours, PRN, # 120 tablet, Refills 0, Tot. Refills 0, Maintenance, for fever, 02/15/20 13:30:00 EDT, Route to Pharmacy Electronically, [facility]/pharmacy #[id number], 175, cm, 07/04/19 15:37:00 EDT, Height, 109.9, kg, 07/01/19... Start Date: 02/15/20 Status: OrderedZyrTEC 10 mg oral tablet 1 tablet = 10 mg, By Mouth, Daily, as needed for seasonal allergies, # 30 tablet, 5 Refills, Maintenance, 12/21/19 14:10:00 EST, Tablet, [facility], 175, cm, 07/04/19 15:37:00 EDT, Height, 109.9, kg, 07/01/19 10:09:00 EDT, Dry Weight Start Date: 12/21/19 Stop Date: 06/18/20 Status: Ordered Problem List Condition Effective Dates Status Health Status Informant Severe dysplasia of anal Active canal(Confirmed)1 Passage of loose stools(Confirmed) Active Pseudoseizures(Confirmed) Active Epigastric pain(Confirmed) Active H/O hypospadias(Confirmed) Active H/O nausea(Confirmed) Active Kidney stones, mixed calcium Active oxalate(Confirmed) Post traumatic stress disorder Active (PTSD)(Confirmed) Urethritis(Confirmed)2 Active 1per histology 01/30/[id number] urethritis sx without e/o inflammation (UA repeatedly negative) or infection (GC/CT repeatedly negative; negative trich, negative mycoplasma genitalium) Social History Social History Type Response Smoking Status Current every day smoker entered on: 11/09/17 Sex
--- OUTSIDE RECORDS SUMMARY | 2022-12-31 08:34 | XMS_ITS | Continuity of Care Document ---
:1990 Author Organization [facility] Address [address] [place] [address]- Care Team Providers Name Role Phone Pearl Reyna MD Primary Care Physician Encounter [facility] Date(s): 10/07/20 - 11/06/[address] [address]- Allergies, Adverse Reactions, Alerts Substance Reaction Severity Status Rocephin1 rash Resolved Ziagen HLA B5701 positive Active Complera allergic to the rilpirivine componant of Active Complera-tolerates truvada 1Not allergic. Tolerated cefpodoxime 10/2017 (prescribed at [facility] ED) as well as ceftriaxone IM [...] symptoms, # 30 mL, 5 Refills, Maintenance, 06/20/20 8:33:00 EDT, [place], [facility], 2 sprays Nares, Both 2 times a day,PRN:for allergy symptoms, 175, cm, 02/25/20 12:28:00 EDT, Hei... Start Date: 06/20/20 Status: Orderedbeclomethasone 0.042 mg/inh nasal spray 1 sprays, Nares, Both, 2 times a day, in each nostril, # 25 Gm, 5 Refills, Maintenance, 12/21/19 14:09:00 EST, [facility], d/c fluconasol, 1 sprays Nares, Both 2 times a day,Instr:in each nostril, 175, cm, 07/04/19 15:37:00 EDT, Heigh... Start Date: 12/21/19 Status: OrderedBiktarvy oral tablet 1 tablet, By Mouth, Daily, # 30 tablet, 11 Refills, Maintenance, 12/21/19 14:09:00 EST, Tablet, [facility], 1 tablet By Mouth Daily, 175, cm, 07/04/19 15:37:00 EDT, Height, 109.9, kg, 07/01/19 10:09:00 EDT, Dry Weight Start Date: 12/21/19 Status: OrderedbuPROPion 300 mg/24 hours (XL) oral tablet, extended release 1 tablet = 300 mg, By Mouth, Every 24 hours, # 30 tablet, 11 Refills, Maintenance, 12/21/19 14:10:00EST, [facility], note dose change, 175, cm, 07/04/19 15:37:00 EDT, Height, 109.9, kg, 07/01/19 10:09:00 EDT, Dry Weight Start Date: 12/21/19 Status: OrderedColace sodium 100 mg oral capsule 100 mg, 1, capsule, By Mouth, 2 times a day, PRN, # 60 capsule, Refills 3, Tot. Refills 3, Maintenance, for constipation, 12/02/17 13:58:38, Route to Pharmacy Electronically, NCPDP_[id number], [facility] Start Date: 12/02/17 Status: OrderedFlomax 0.4 mg oral capsule 0.4 mg, 1, capsule, By Mouth, Daily, To help kidney stone pass, # 15 capsule, Refills 0, Tot. Refills 0, Maintenance, 05/10/20 16:01:00 EDT, Route to Pharmacy Electronically, [facility], 175, cm, 02/25/20 12:28:00 EDT, Height, 109.9,... Start Date: 05/10/20 Status: OrderedFlonase 50 mcg/inh nasal spray 2 sprays, Nares, Both, Daily in AM, # 16 Gm, 5 Refills, Maintenance, 06/20/20 8:34:00 EDT, [place], [facility], 2 sprays Nares, Both Daily in AM,x14 days, 175, cm, 02/25/20 12:28:00 EDT,Height, 109.9, kg, 07/01/19 10:09:00 EDT, Dry Weight Start Date: 06/20/20 Stop Date: 09/12/20 Status: OrderedFlovent HFA 110 mcg/inh inhalation aerosol 2 puffs, Inhalation, 2 times a day, # 12 Gm, 0 Refills, Maintenance, 03/16/20 14:12:00 EDT, [place],[facility], 175, cm, 02/25/20 12:28:00 EDT, Height, 109.9, kg, 07/01/19 10:09:00 EDT, Dry Weight Start Date: 03/16/20 Status: OrderedhydrOXYzine hydrochloride 25 mg oral tablet 1 tablet = 25 mg, By Mouth, 4 times a day, PRN for anxiety, # 40 tablet, 0 Refills, Maintenance, 02/15/20 13:29:00 EDT, Tablet, [facility]/pharmacy #[id number], 175, cm, 07/04/19 15:37:00 EDT, Height, 109.9, kg, 07/01/19 10:09:00 EDT, Dry Weight Start Date: 02/15/20 Status: Orderedibuprofen 800 mg oral tablet 800 mg, 1, tablet, By Mouth, 2 times a day, not to exceed 2400 mg/day As needed for migraine and kiendye stone pain., # 30 tablet, Refills 2, Tot. Refills 2, Maintenance, 08/20/20 13:32:00 EDT, Route to Pharmacy Electronically, [facility]... Start Date: 08/20/20 Status: OrderedNarcan 4 mg/0.1 mL nasal spray = 4 mg, Nares, Both, Once, In case of overdose: spray in nose, call 911, repeat every 2 mins as needed, # 2 each, 5 Refills, Soft Stop, 12/28/19 9:06:00 EST, [id number], 175, cm, 07/04/19 15:37:00 EDT, Height, 109.9, kg, 07/01/19 10:09:00 EDT,... Start Date: 12/28/19 Status: OrderedoxyCODONE 5 mg oral tablet 5 mg, 1, tablet, By Mouth, 3 times a day, PRN, for kidney stone [place] Pat Checked, # 15 tablet, Refills0, Tot. Refills 0, Maintenance, as needed for pain, 05/10/20 16:04:00 EDT, Route to Pharmacy Electronically, [facility], Partial fi... Start Date: 05/10/20 Status: Orderedpantoprazole 40 mg oral delayed release tablet 1 tablet = 40 mg, By Mouth, 2 times a day, Take up to 2 times a day; only as needed for acid reflux/heartburn, # 60 tablet, 11 Refills, Maintenance, 10/15/20 16:11:00 EST, [facility] Tablet, 175, cm, 02/25/2012:28:00 EDT, Height, 109.9, kg, 07/01/19 10:09:0... Start Date: 10/15/20 Status: OrderedProAir HFA 90 mcg/inh inhalation aerosol with adapter 2, puffs, Inhalation, Every 4 hours, PRN, # 8.5 Gm, Refills 11, Tot. Refills 11, Maintenance, 12/27/19 14:05:00 EST, Aerosol, Route to Pharmacy Electronically, NCPDP_[id number], [facility], 175, cm, 07/04/19 15:37:00 EDT, Height, 109.... Start Date: 12/27/19 Status: OrderedSUMAtriptan 25 mg oral tablet 1 tablet = 25 mg, By Mouth, Daily, PRN for migraine headache, may repeat dose after 2 hours up to a maximum of 2, # 9 tablet, 11 Refills, Maintenance, 12/21/19 14:11:00 EST, Tablet, [facility], 175, cm, 07/04/19 15:37:00 EDT, Height,... Start Date: 12/21/19 Status: OrderedTylenol 325 mg oral tablet 650 mg, 2, tablet, By Mouth, Every 4 hours, PRN, # 120 tablet, Refills 0, Tot. Refills 0, Maintenance, for fever, 02/15/20 13:30:00 EDT, Route to Pharmacy Electronically, [facility]/pharmacy #[id number], 175, cm, 07/04/19 15:37:00 EDT, Height, 109.9, kg, 07/01/19... Start Date: 02/15/20 Status: OrderedZyrTEC 10 mg oral tablet 1 tablet = 10 mg, By Mouth, Daily, as needed for seasonal allergies, # 30 tablet, 5 Refills, Maintenance, 12/21/19 14:10:00 EST, Tablet, [facility], 175, cm, 07/04/19 15:37:00 EDT, Height, [...] disorder Active (PTSD)(Confirmed) Urethritis(Confirmed)2 Active 1per histology 01/30/[id number] urethritis sx without e/o inflammation (UA repeatedly negative) or infection (GC/CT repeatedly negative; negative trich, negative mycoplasma genitalium) Social History Social History Type Response Smoking Status Current every day smoker entered on: 11/09/17 Sex
--- OUTSIDE RECORDS SUMMARY | 2022-12-31 08:35 | XMS_ITS | Continuity of Care Document ---
:1990 Author Organization [facility] Address [address] [place] [address]- Care Team Providers Name Role Phone Maribell REEDER, Pearl Primary Care Physician Encounter [facility] Date(s): 11/01/21 - 12/01/[address] [address]- Allergies, Adverse Reactions, Alerts Substance Reaction Severity Status Rocephin1 rash Resolved abacavir2 Active Ziagen HLA B5701 positive Active Complera allergic to the rilpirivine componant of Active Complera-tolerates truvada 1Not allergic. Tolerated cefpodoxime 10/2017 (prescribed at [facility] ED) as well as ceftriaxone IM [...] Comment: diluted w/ normal saline lot number [id number] expires Result Comment: Received in [place] Medications amitriptyline 10 mg oral tablet 20 mg, 2, tablet, By Mouth, Daily at bedtime, New medication to prevent migraines. Causes sleepiness- take before bed ., # 30 tablet, Refills 0, Tot. Refills 0, Maintenance, 09/04/21 12:35:00 EDT, Route to Pharmacy Electronically, [facility] Start Date: 09/04/21 Status: Orderedazelastine nasal 0.15% spray 2 sprays, Nares, Both, 2 times a day, PRN for allergy symptoms, # 30 mL, 5 Refills, Maintenance, 01/23/21 14:38:00 EST, [place], [facility], 2 sprays Nares, Both 2 times a day,PRN:for allergy symptoms, 175, cm, 02/25/20 12:28:00 EDT, He... Start Date: 01/23/21 Status: Orderedbeclomethasone 0.042 mg/inh nasal spray 1 sprays, Nares, Both, 2 times a day, in each nostril, # 25 Gm, 5 Refills, Maintenance, 12/21/19 14:09:00 EST, [facility], d/c fluconasol, 1 sprays Nares, Both 2 times a day,Instr:in each nostril, 175, cm, 07/04/19 15:37:00 EDT, [place]... Start Date: 12/21/19 Status: OrderedBiktarvy By Mouth, Daily, Pt is taking Biktarvy; he has supply at home., 0 Refills, Maintenance, 02/12/21 11:52:00 EDT, Partial fill upon patient request if the prescription is for a schedule II opioid drug. Start Date: 02/12/21 Status: OrderedColace sodium 100 mg oral capsule 100 mg, 1, capsule, By Mouth, 2 times a day, PRN, # 60 capsule, Refills 3, Tot. Refills 3, Maintenance, for constipation, 12/02/17 13:58:38, Route to Pharmacy Electronically, NCPDP_[id number], [facility] Start Date: 12/02/17 Status: Ordereddiclofenac [...] 5 Refills, Maintenance, 02/12/21 11:54:00 EDT, Tablet, [facility], Partial fill upon patient request if the prescription is for a schedu... Start Date: 02/12/21 Status: OrderedFlonase 50 mcg/inh nasal spray 2 sprays, Nares, Both, Daily in AM, # 16 Gm, 5 Refills, Maintenance, 06/20/20 8:34:00 EDT, [place], [facility], 2 sprays Nares, Both Daily in AM,x14 days, 175, cm, 02/25/20 12:28:00 EDT,Height, 109.9, kg, 07/01/19 10:09:00 EDT, Dry Weight Start Date: 06/20/20 Stop Date: 09/12/20 Status: OrderedFlovent HFA 110 mcg/inh inhalation aerosol 2 puffs, Inhalation, 2 times a day, # 12 Gm, 0 Refills, Maintenance, 03/16/20 14:12:00 EDT, Aerosol,[facility], 175, cm, 02/25/20 12:28:00 EDT, [...] 09/04/21 12:34:00 EDT, Route to Pharmacy Electronically, [facility]... Start Date: 09/04/21 Status: OrderedNarcan 4 mg/0.1 mL nasal spray = 4 mg, Nares, Both, Once, In case of overdose: spray in nose, call 911, repeat every 2 mins as needed, # 2 each, 5 Refills, Soft Stop, 12/28/19 9:06:00 EST, [facility]/pharmacy #[id number], 175, cm, 07/04/19 15:37:00 EDT, Height, [...] 14:05:00 EST, Aerosol, Route to Pharmacy Electronically, NCPDP_[id number], [facility], 175, cm, 07/04/19 15:37:00 EDT, Height, 109.... Start Date: 12/27/19 Status: OrderedtraZODone 150 mg oral tablet 1 tablet = 150 mg, By Mouth, Daily at bedtime, For sleep., # 30 tablet, 5 Refills, Maintenance, 09/04/21 12:32:00 EDT, Tablet, [facility], Partial fill upon patient request if the prescription is for a schedule II opioid drug., 175, c... Start Date: 09/04/21 Status: Orderedtriamcinolone 0.1% topical cream 1 application, Topically, 2 times a day, apply a thin film to affected area in armpit, # 80 Gm, 2 Refills, Maintenance, 11/19/21 11:29:00 EST, [place], [facility], Partial fill upon patient request if the prescription is for a schedule... Start Date: 11/19/21 Status: OrderedTylenol 325 mg oral tablet 650 mg, 2, tablet, By Mouth, Every 4 hours, PRN, # 120 tablet, Refills 0, Tot. Refills 0, Maintenance, for fever, 02/15/20 13:30:00 EDT, Route to Pharmacy Electronically, [facility]/pharmacy #[id number], 175, cm, 07/04/19 15:37:00 EDT, Height, 109.9, kg, 07/01/19... Start Date: 02/15/20 Status: Ordered Problem List Condition Effective Dates Status Health Status Informant Severe dysplasia of anal Active canal(Confirmed)1 Chronic rhinitis(Confirmed) Active Pseudoseizures(Confirmed) Active Epigastric pain(Confirmed) Active Insomnia(Confirmed) Active Kidney stones, mixed calcium Active oxalate(Confirmed) Obese class II(Confirmed) Active Overweight(Confirmed) Active Post traumatic stress disorder Active (PTSD)(Confirmed) Major depressive disorder, Active recurrent(Confirmed) Urethritis(Confirmed)2 Active 1per histology 01/30/[id number] urethritis sx without e/o inflammation (UA repeatedly negative) or infection (GC/CT repeatedly negative; negative trich, negative mycoplasma genitalium) Social History Social History Type Response Smoking Status Current every day smoker entered on: 11/09/17 Sex
--- OUTSIDE RECORDS SUMMARY | 2022-12-31 08:35 | XMS_ITS | Continuity of Care Document ---
:1990 Author Organization [facility] Address [address] [place] [address]- Care Team Providers Name Role Phone Pearl Reyna MD Primary Care Physician Encounter [facility] Date(s): 04/17/22 - 05/22/[address] [address]- Attending Physician: Not on Staff, Attending MD Allergies, Adverse Reactions, Alerts Substance Reaction Severity Status Rocephin1 rash Resolved abacavir2 Active Ziagen HLA B5701 positive Active Complera allergic to the rilpirivine componant of Active Complera-tolerates truvada 1Not allergic. Tolerated cefpodoxime 10/2017 (prescribed at [facility]) as well as ceftriaxone IM (administered [...] Comment: diluted w/ normal saline lot number [id number] expires Result Comment: Received in [place] Medications amitriptyline 10 mg oral tablet 20 mg, 2, tablet, By Mouth, Daily at bedtime, New medication to prevent migraines. Causes sleepiness- take before bed ., # 30 tablet, Refills 0, Tot. Refills 0, Maintenance, 09/04/21 12:35:00 EDT, Route to Pharmacy Electronically, [facility]... Start Date: 09/04/21 Status: Orderedazelastine nasal 0.15% spray 2 sprays, Nares, Both, 2 times a day, PRN for allergy symptoms, # 30 mL, 5 Refills, Maintenance, 01/23/21 14:38:00 EST, [place], [facility], 2 sprays Nares, Both 2 times a day,PRN:for allergy symptoms, 175, cm, 02/25/20 12:28:00 EDT, He... Start Date: 01/23/21 Status: Orderedbeclomethasone 0.042 mg/inh nasal spray 1 sprays, Nares, Both, 2 times a day, in each nostril, # 25 Gm, 5 Refills, Maintenance, 12/21/19 14:09:00 EST, [facility], d/c fluconasol, 1 sprays Nares, Both 2 times a day,Instr:in each nostril, 175, cm, 07/04/19 15:37:00 EDT, [place]... Start Date: 12/21/19 Status: OrderedBiktarvy oral tablet 1 tablet, By Mouth, Daily, # 30 tablet, 11 Refills, Maintenance, 03/27/22 13:37:00 EDT, Tablet, [facility], Partial fill upon patient request if the prescription is for a schedule II opioid drug., 1 tablet By Mouth Daily, 175, cm, 12/... Start Date: 03/27/22 Status: OrderedColace sodium 100 mg oral capsule 100 mg, 1, capsule, By Mouth, 2 times a day, PRN, # 60 capsule, Refills 3, Tot. Refills 3, Maintenance, for constipation, 12/02/17 13:58:38, [id number] Start Date: 12/02/17 Status: [...] 5 Refills, Maintenance, 02/12/21 11:54:00 EDT, Tablet, [facility], Partial fill upon patient request if the prescription is for a schedu... Start Date: 02/12/21 Status: OrderedFlomax 0.4 mg oral capsule 0.4 mg, 1, capsule, By Mouth, Daily, To help kidney stone pass, # 30 capsule, Refills 1, Tot. Refills 1, Maintenance, 04/15/22 13:06:00 EDT, Route to Pharmacy Electronically, [facility], 175, cm, 11/19/21 10:53:00 EST, Height Start Date: 04/15/22 Status: Orderedibuprofen 800 mg oral tablet 800 mg, 1, tablet, By Mouth, Daily, As needed for migraine and kidney stone pain. do not use daily, it will make migraine worse, # 30 tablet, Refills 2, Tot. Refills 2, Maintenance, 09/04/21 12:34:00 EDT, Route to Pharmacy Electronically, [facility]... Start Date: 09/04/21 Status: OrderedNarcan 4 mg/0.1 mL nasal spray = 4 mg, Nares, Both, Once, In case of overdose: spray in nose, call 911, repeat every 2 mins as needed, # 2 each, 5 Refills, Soft Stop, 12/28/19 9:06:00 EST, [facility]/pharmacy #[id number], 175, cm, 07/04/19 15:37:00 EDT, [...] 14:05:00 EST, Aerosol, Route to Pharmacy Electronically, MAPDP_[id number], [facility], 175, cm, 07/04/19 15:37:00 EDT, Height, 109.... Start Date: 12/27/19 Status: Orderedsucralfate 1 gm oral tablet 1 Gm, 1, tablet, By Mouth, 4 times a day, # 120 tablet, Refills 3, Tot. Refills 3, Maintenance, 12/19/21 13:28:00 EST, Route to Pharmacy Electronically, [facility], Partial fill upon patient request if the prescription is for a schedu... Start Date: 12/19/21 Status: OrderedtraZODone 150 mg oral tablet 1 tablet = 150 mg, By Mouth, Daily at bedtime, For sleep., # 30 tablet, 5 Refills, Maintenance, 09/04/21 12:32:00 EDT, Tablet, [facility], Partial fill upon patient request if the prescription is for a schedule II opioid drug., 175, c... Start Date: 09/04/21 Status: Orderedtriamcinolone 0.1% topical cream 1 application, Topically, 2 times a day, apply a thin film to affected area in armpit, # 80 Gm, 2 Refills, Maintenance, 11/19/21 11:29:00 EST, [place], [facility], Partial fill upon patient request if the prescription is for a schedule... Start Date: 11/19/21 Status: OrderedTylenol 325 mg oral tablet 650 mg, 2, tablet, By Mouth, Every 4 hours, PRN, # 120 tablet, Refills 0, Tot. Refills 0, Maintenance, for fever, 02/15/20 13:30:00 EDT, Route to Pharmacy Electronically, [facility]/pharmacy #[id number], 175, cm, 07/04/19 15:37:00 EDT, Height, 109.9, kg, 07/01/19... Start Date: 02/15/20 Status: OrderedZithromax 250 mg oral tablet 2 tablet = 500 mg, By Mouth, Once, # 2 tablet, 0 Refills, Soft Stop, 03/05/22 15:02:00 EDT, Tablet, [facility], Partial fill upon patient request [...] disorder, Active recurrent(Confirmed) Urethritis(Confirmed)2 Active 1per histology 01/30/[id number] urethritis sx without e/o inflammation (UA repeatedly negative) or infection (GC/CT repeatedly negative; negative trich, negative mycoplasma genitalium) Social History Social History Type Response Smoking Status Current every day smoker entered on: 11/09/17 Sex
--- OUTSIDE RECORDS SUMMARY | 2022-12-31 08:35 | XMS_ITS | Continuity of Care Document ---
:1990 Author Organization [facility] Address [address] [place] [address]- Care Team Providers Name Role Phone Pearl Reyna MD Primary Care Physician Encounter [facility] [id number] Date(s): 12/28/19 - 01/07/[address] [address]- [facility] Attending Physician: John Clark Admitting Physician: John Clark Referring Physician: AdmtrJohn Allergies, Adverse Reactions, Alerts Substance Reaction Severity Status Rocephin1 rash Resolved Ziagen HLA B5701 positive Active Complera allergic to the rilpirivine componant of Active Complera-tolerates truvada 1Not allergic. Tolerated cefpodoxime 10/2017 (prescribed at [facility] ED) as well as ceftriaxone IM [...] mL, 5 Refills, Maintenance, 12/27/19 14:06:00 EST, [place], [facility], 2 sprays Nares, Both 2 times a day,PRN:for allergy symptoms, 175, cm, 07/04/19 15:37:00 EDT, He... Start Date: 12/27/19 Status: Orderedbeclomethasone 0.042 mg/inh nasal spray 1 sprays, Nares, Both, 2 times a day, in each nostril, # 25 Gm, 5 Refills, Maintenance, 12/21/19 14:09:00 EST, [facility], d/c fluconasol, 1 sprays Nares, Both 2 times a day,Instr:in each nostril, 175, cm, 07/04/19 15:37:00 EDT, Heigh... Start Date: 12/21/19 Status: OrderedBiktarvy oral tablet 1 tablet, By Mouth, Daily, # 30 tablet, 11 Refills, Maintenance, 12/21/19 14:09:00 EST, Tablet, [facility], 1 tablet By Mouth Daily, 175, cm, 07/04/19 15:37:00 EDT, Height, 109.9, kg, 07/01/19 10:09:00 EDT, Dry Weight Start Date: 12/21/19 Status: OrderedbuPROPion 300 mg/24 hours (XL) oral tablet, extended release 1 tablet = 300 mg, By Mouth, Every 24 hours, # 30 tablet, 11 Refills, Maintenance, 12/21/19 14:10:00EST, [facility], note dose change, 175, cm, 07/04/19 15:37:00 EDT, Height, 109.9, kg, 07/01/19 10:09:00 EDT, Dry Weight Start Date: 12/21/19 Status: OrderedColace sodium 100 mg oral capsule 100 mg, 1, capsule, By Mouth, 2 times a day, PRN, # 60 capsule, Refills 3, Tot. Refills 3, Maintenance, for constipation, 12/02/17 13:58:38, Route to Pharmacy Electronically, NCPDP_[id number], [facility] Start Date: 12/02/17 Status: OrderedFlomax 0.4 mg oral capsule 0.4 mg, 1, capsule, By Mouth, Daily, # 15 capsule, Refills 0, Tot. Refills 0, Maintenance, 02/24/19 18:22:00 EDT, Print Requisition Start Date: 02/24/19 Status: Orderedibuprofen 800 mg oral tablet 800 mg, 1, tablet, By Mouth, 2 times a day, not to exceed 3200 mg/day As needed for migraine and kiendye stone pain., # 30 tablet, Refills 2, Tot. Refills 2, Maintenance, 12/21/19 14:10:00 EST, Route to Pharmacy Electronically, [facility]... Start Date: 12/21/19 Status: OrderedNarcan 4 mg/0.1 mL nasal spray = 4 mg, Nares, Both, Once, In case of overdose: spray in nose, call 911, repeat every 2 mins as needed, # 2 each, 5 Refills, Soft Stop, 12/28/19 9:06:00 EST, [facility]/pharmacy #[id number], 175, cm, 07/04/19 15:37:00 EDT, Height, 109.9, kg, 07/01/19 10:09:00 EDT,... Start Date: 12/28/19 Status: OrderedProAir HFA 90 mcg/inh inhalation aerosol with adapter 2, puffs, Inhalation, Every 4 hours, PRN, # 8.5 Gm, Refills 11, Tot. Refills 11, Maintenance, 12/27/19 14:05:00 EST, Aerosol, Route to Pharmacy Electronically, OKPDP_[id number], [facility], 175, cm, 07/04/19 15:37:00 EDT, Height, 109.... Start Date: 12/27/19 Status: OrderedSUMAtriptan 25 mg oral tablet 1 tablet = 25 mg, By Mouth, Daily, PRN for migraine headache, may repeat dose after 2 hours up to a maximum of 2, # 9 tablet, 11 Refills, Maintenance, 12/21/19 14:11:00 EST, Tablet, [facility], 175, cm, 07/04/19 15:37:00 EDT, Height,... Start Date: 12/21/19 Status: OrderedZyrTEC 10 mg oral tablet 1 tablet = 10 mg, By Mouth, Daily, as needed for seasonal allergies, # 30 tablet, 5 Refills, Maintenance, 12/21/19 14:10:00 EST, Tablet, [facility], 175, cm, 07/04/19 15:37:00 [...] disorder Active (PTSD)(Confirmed) Urethritis(Confirmed)2 Active 1per histology 01/30/[id number] urethritis sx without e/o inflammation (UA repeatedly negative) or infection (GC/CT repeatedly negative; negative trich, negative mycoplasma genitalium) Social History Social History Type Response Smoking Status Current every day smoker entered on: 11/09/17 Sex
--- OUTSIDE RECORDS SUMMARY | 2022-12-31 08:35 | XMS_ITS | Continuity of Care Document ---
:1990 Author Organization [facility] Address [address] [place] [address]- Care Team Providers Name Role Phone Pearl Reyna MD Primary Care Physician Encounter [facility] [place] Date(s): 05/23/22 - 06/25/[address] [address]- Attending Physician: Not on Staff, Attending MD Allergies, Adverse Reactions, Alerts Substance Reaction Severity Status Rocephin1 rash Resolved abacavir2 Active Ziagen HLA B5701 positive Active Complera allergic to the rilpirivine componant of Active Complera-tolerates truvada 1Not allergic. Tolerated cefpodoxime 10/2017 (prescribed at [facility] ED) as well as ceftriaxone IM [...] Comment: diluted w/ normal saline lot number [id number] expires Result Comment: Received in [place] Medications amitriptyline 10 mg oral tablet 20 mg, 2, tablet, By Mouth, Daily at bedtime, New medication to prevent migraines. Causes sleepiness- take before bed ., # 30 tablet, Refills 0, Tot. Refills 0, Maintenance, 09/04/21 12:35:00 EDT, Route to Pharmacy Electronically, [facility]... Start Date: 09/04/21 Status: Orderedazelastine nasal 0.15% spray 2 sprays, Nares, Both, 2 times a day, PRN for allergy symptoms, # 30 mL, 5 Refills, Maintenance, 01/23/21 14:38:00 EST, [place], [facility], 2 sprays Nares, Both 2 times a day,PRN:for allergy symptoms, 175, cm, 02/25/20 12:28:00 EDT, He... Start Date: 01/23/21 Status: Orderedbeclomethasone 0.042 mg/inh nasal spray 1 sprays, Nares, Both, 2 times a day, in each nostril, # 25 Gm, 5 Refills, Maintenance, 12/21/19 14:09:00 EST, [facility], d/c fluconasol, 1 sprays Nares, Both 2 times a day,Instr:in each nostril, 175, cm, 07/04/19 15:37:00 EDT, [place]... Start Date: 12/21/19 Status: OrderedBiktarvy oral tablet 1 tablet, By Mouth, Daily, # 30 tablet, 11 Refills, Maintenance, 03/27/22 13:37:00 EDT, Tablet, [facility], Partial fill upon patient request if the prescription is for a schedule II opioid drug., 1 tablet By Mouth Daily, 175, cm, 12/... Start Date: 03/27/22 Status: OrderedColace sodium 100 mg oral capsule 100 mg, 1, capsule, By Mouth, 2 times a day, PRN, # 60 capsule, Refills 3, Tot. Refills 3, Maintenance, for constipation, 12/02/17 13:58:38, [id number] Start Date: 12/02/17 Status: Ordereddiclofenac [...] Refills, Maintenance, 02/12/21 11:54:00 EDT, Tablet, [facility], Partial fill upon patient request if the prescription is for a schedu... Start Date: 02/12/21 Status: OrderedFlomax 0.4 mg oral capsule 0.4 mg, 1, capsule, By Mouth, Daily, To help kidney stone pass, # 30 capsule, Refills 1, Tot. Refills 1, Maintenance, 04/15/22 13:06:00 EDT, Route to Pharmacy Electronically, [facility], 175, cm, 11/19/21 10:53:00 EST, Height Start Date: 04/15/22 Status: Orderedibuprofen 800 mg oral tablet 800 mg, 1, tablet, By Mouth, Daily, As needed for migraine and kidney stone pain. do not use daily, it will make migraine worse, # 30 tablet, Refills 3, Tot. Refills 3, Maintenance, 05/23/22 17:46:00 EDT, Route to Pharmacy Electronically, [facility]... Start Date: 05/23/22 Status: OrderedNarcan 4 mg/0.1 mL nasal spray = 4 mg, Nares, Both, Once, In case of overdose: spray in nose, call 911, repeat every 2 mins as needed, # 2 each, 5 Refills, Soft Stop, 12/28/19 9:06:00 EST, [facility]/pharmacy #[id number], 175, cm, 07/04/19 15:37:00 EDT, [...] 14:05:00 EST, Aerosol, Route to Pharmacy Electronically, NMPDP_[id number], [facility], 175, cm, 07/04/19 15:37:00 EDT, Height, 109.... Start Date: 12/27/19 Status: Orderedsucralfate 1 gm oral tablet 1 Gm, 1, tablet, By Mouth, 4 times a day, # 120 tablet, Refills 3, Tot. Refills 3, Maintenance, 12/19/21 13:28:00 EST, Route to Pharmacy Electronically, [facility], Partial fill upon patient request if the prescription is for a schedu... Start Date: 12/19/21 Status: OrderedtraZODone 150 mg oral tablet 1 tablet = 150 mg, By Mouth, Daily at bedtime, For sleep., # 30 tablet, 11 Refills, Maintenance, 05/23/22 17:45:00 EDT, Tablet, [facility], Partial fill upon patient request if the prescription is for a schedule II opioid drug., 175,... Start Date: 05/23/22 Status: Orderedtriamcinolone 0.1% topical cream 1 application, Topically, 2 times a day, apply a thin film to affected area in armpit, # 80 Gm, 2 Refills, Maintenance, 11/19/21 11:29:00 EST, Cream, [facility], Partial fill upon patient request if the prescription is for a schedule... Start Date: 11/19/21 Status: OrderedTylenol 325 mg oral tablet 650 mg, 2, tablet, By Mouth, Every 4 hours, PRN, # 120 tablet, Refills 0, Tot. Refills 0, Maintenance, for fever, 02/15/20 13:30:00 EDT, Route to Pharmacy Electronically, [facility]/pharmacy #[id number], 175, cm, 07/04/19 15:37:00 EDT, Height, 109.9, kg, 07/01/19... Start Date: 02/15/20 Status: OrderedZithromax 250 mg oral tablet 2 tablet = 500 mg, By Mouth, Once, # 2 tablet, 0 Refills, Soft Stop, 03/05/22 15:02:00 EDT, Tablet, [facility], Partial fill upon patient request [...] disorder, Active recurrent(Confirmed) Urethritis(Confirmed)2 Active 1per histology 01/30/[id number] urethritis sx without e/o inflammation (UA repeatedly negative) or infection (GC/CT repeatedly negative; negative trich, negative mycoplasma genitalium) Social History Social History Type Response Smoking Status Current every day smoker entered on: 11/09/17 Sex
--- OUTSIDE RECORDS SUMMARY | 2022-12-31 08:35 | XMS_ITS | Continuity of Care Document ---
:1990 Author Organization [facility] Address [address] [place] [address]- Care Team Providers Name Role Phone Pearl Reyna MD Primary Care Physician Encounter [facility] Date(s): 04/11/22 - 05/11/[address] [address]- Allergies, Adverse Reactions, Alerts Substance Reaction Severity Status Rocephin1 rash Resolved abacavir2 Active Ziagen HLA B5701 positive Active Complera allergic to the rilpirivine componant of Active Complera-tolerates truvada 1Not allergic. Tolerated cefpodoxime 10/2017 (prescribed at [facility] ED) as well as ceftriaxone IM (administered [...] Comment: diluted w/ normal saline lot number [id number] expires Result Comment: Received in [place] Medications amitriptyline 10 mg oral tablet 20 mg, 2, tablet, By Mouth, Daily at bedtime, New medication to prevent migraines. Causes sleepiness- take before bed ., # 30 tablet, Refills 0, Tot. Refills 0, Maintenance, 09/04/21 12:35:00 EDT, Route to Pharmacy Electronically, [facility]... Start Date: 09/04/21 Status: Orderedazelastine nasal 0.15% spray 2 sprays, Nares, Both, 2 times a day, PRN for allergy symptoms, # 30 mL, 5 Refills, Maintenance, 01/23/21 14:38:00 EST, [place], [facility], 2 sprays Nares, Both 2 times a day,PRN:for allergy symptoms, 175, cm, 02/25/20 12:28:00 EDT, He... Start Date: 01/23/21 Status: Orderedbeclomethasone 0.042 mg/inh nasal spray 1 sprays, Nares, Both, 2 times a day, in each nostril, # 25 Gm, 5 Refills, Maintenance, 12/21/19 14:09:00 EST, [facility], d/c fluconasol, 1 sprays Nares, Both 2 times a day,Instr:in each nostril, 175, cm, 07/04/19 15:37:00 EDT, Heigh... Start Date: 12/21/19 Status: OrderedBiktarvy oral tablet 1 tablet, By Mouth, Daily, # 30 tablet, 11 Refills, Maintenance, 03/27/22 13:37:00 EDT, Tablet, [facility], Partial fill upon patient request if the prescription is for a schedule II opioid drug., 1 tablet By Mouth Daily, 175, cm, 12/... Start Date: 03/27/22 Status: OrderedColace sodium 100 mg oral capsule 100 mg, 1, capsule, By Mouth, 2 times a day, PRN, # 60 capsule, Refills 3, Tot. Refills 3, Maintenance, for constipation, 12/02/17 13:58:38, Route to Pharmacy Electronically, INPDP_[id number], [facility] Start Date: 12/02/17 [...] 5 Refills, Maintenance, 02/12/21 11:54:00 EDT, Tablet, [facility], Partial fill upon patient request if the prescription is for a schedu... Start Date: 02/12/21 Status: OrderedFlomax 0.4 mg oral capsule 0.4 mg, 1, capsule, By Mouth, Daily, To help kidney stone pass, # 30 capsule, Refills 1, Tot. Refills 1, Maintenance, 04/15/22 13:06:00 EDT, Route to Pharmacy Electronically, [facility], 175, cm, 11/19/21 10:53:00 EST, Height Start Date: 04/15/22 Status: Orderedibuprofen 800 mg oral tablet 800 mg, 1, tablet, By Mouth, Daily, As needed for migraine and kidney stone pain. do not use daily, it will make migraine worse, # 30 tablet, Refills 2, Tot. Refills 2, Maintenance, 09/04/21 12:34:00 EDT, Route to Pharmacy Electronically, [facility]... Start Date: 09/04/21 Status: OrderedNarcan 4 mg/0.1 mL nasal spray = 4 mg, Nares, Both, Once, In case of overdose: spray in nose, call 911, repeat every 2 mins as needed, # 2 each, 5 Refills, Soft Stop, 12/28/19 9:06:00 EST, [facility]/pharmacy #[id number], 175, cm, 07/04/19 15:37:00 EDT, [...] 14:05:00 EST, Aerosol, Route to Pharmacy Electronically, INPDP_[id number], [facility], 175, cm, 07/04/19 15:37:00 EDT, Height, 109.... Start Date: 12/27/19 Status: Orderedsucralfate 1 gm oral tablet 1 Gm, 1, tablet, By Mouth, 4 times a day, # 120 tablet, Refills 3, Tot. Refills 3, Maintenance, 12/19/21 13:28:00 EST, Route to Pharmacy Electronically, [facility], Partial fill upon patient request if the prescription is for a schedu... Start Date: 12/19/21 Status: OrderedtraZODone 150 mg oral tablet 1 tablet = 150 mg, By Mouth, Daily at bedtime, For sleep., # 30 tablet, 5 Refills, Maintenance, 09/04/21 12:32:00 EDT, Tablet, [facility], Partial fill upon patient request if the prescription is for a schedule II opioid drug., 175, c... Start Date: 09/04/21 Status: Orderedtriamcinolone 0.1% topical cream 1 application, Topically, 2 times a day, apply a thin film to affected area in armpit, # 80 Gm, 2 Refills, Maintenance, 11/19/21 11:29:00 EST, [place], [facility], Partial fill upon patient request if the prescription is for a schedule... Start Date: 11/19/21 Status: OrderedTylenol 325 mg oral tablet 650 mg, 2, tablet, By Mouth, Every 4 hours, PRN, # 120 tablet, Refills 0, Tot. Refills 0, Maintenance, for fever, 02/15/20 13:30:00 EDT, Route to Pharmacy Electronically, [facility]/pharmacy #[id number], 175, cm, 07/04/19 15:37:00 EDT, Height, 109.9, kg, 07/01/19... Start Date: 02/15/20 Status: OrderedZithromax 250 mg oral tablet 2 tablet = 500 mg, By Mouth, Once, # 2 tablet, 0 Refills, Soft Stop, 03/05/22 15:02:00 EDT, Tablet, [facility], Partial fill upon patient [...] disorder, Active recurrent(Confirmed) Urethritis(Confirmed)2 Active 1per histology 01/30/[id number] urethritis sx without e/o inflammation (UA repeatedly negative) or infection (GC/CT repeatedly negative; negative trich, negative mycoplasma genitalium) Social History Social History Type Response Smoking Status Current every day smoker entered on: 11/09/17 Sex
--- OUTSIDE RECORDS SUMMARY | 2022-12-31 08:35 | XMS_ITS | Continuity of Care Document ---
:1990 Author Organization [facility] Address [address] [place] [address]- Care Team Providers Name Role Phone Pearl Reyna MD Primary Care Physician Encounter [facility] [id number] Date(s): 08/22/22 - 09/21/[address] [address]- Attending Physician: John Clark Admitting Physician: AdmJohn valero Referring Physician: AdmtrJohn Allergies, Adverse Reactions, Alerts Substance Reaction Severity Status Rocephin1 rash Resolved abacavir2 Active Ziagen HLA B5701 positive Active Complera allergic to the rilpirivine componant of Active Complera-tolerates truvada 1Not allergic. Tolerated cefpodoxime 10/2017 (prescribed at [facility] ED) as well as ceftriaxone IM [...] Comment: diluted w/ normal saline lot number [id number] expires Result Comment: Received in [place] Medications amitriptyline 10 mg oral tablet 20 mg, 2, tablet, By Mouth, Daily at bedtime, New medication to prevent migraines. Causes sleepiness- take before bed ., # 30 tablet, Refills 0, Tot. Refills 0, Maintenance, 09/04/21 12:35:00 EDT, Route to Pharmacy Electronically, [facility]... Start Date: 09/04/21 Status: Orderedazelastine nasal 0.15% spray 2 sprays, Nares, Both, 2 times a day, PRN for allergy symptoms, # 30 mL, 5 Refills, Maintenance, 01/23/21 14:38:00 EST, [place], [facility], 2 sprays Nares, Both 2 times a day,PRN:for allergy symptoms, 175, cm, 02/25/20 12:28:00 EDT, He... Start Date: 01/23/21 Status: Orderedbeclomethasone 0.042 mg/inh nasal spray 1 sprays, Nares, Both, 2 times a day, in each nostril, # 25 Gm, 5 Refills, Maintenance, 12/21/19 14:09:00 EST, [facility], d/c fluconasol, 1 sprays Nares, Both 2 times a day,Instr:in each nostril, 175, cm, 07/04/19 15:37:00 EDT, Heigh... Start Date: 12/21/19 Status: OrderedBiktarvy oral tablet 1 tablet, By Mouth, Daily, # 30 tablet, 11 Refills, Maintenance, 03/27/22 13:37:00 EDT, Tablet, [facility], Partial fill upon patient request if the prescription is for a schedule II opioid drug., 1 tablet By Mouth Daily, 175, cm, 12/... Start Date: 03/27/22 Status: OrderedColace sodium 100 mg oral capsule 100 mg, 1, capsule, By Mouth, 2 times a day, PRN, # 60 capsule, Refills 3, Tot. Refills 3, Maintenance, for constipation, 12/02/17 13:58:38, Route to Pharmacy Electronically, [id number], [facility] Start Date: 12/02/17 Status: Ordereddiclofenac [...] 5 Refills, Maintenance, 02/12/21 11:54:00 EDT, Tablet, [facility], Partial fill upon patient request if the prescription is for a schedu... Start Date: 02/12/21 Status: OrderedFlomax 0.4 mg oral capsule 0.4 mg, 1, capsule, By Mouth, Daily, To help kidney stone pass, # 30 capsule, Refills 1, Tot. Refills 1, Maintenance, 04/15/22 13:06:00 EDT, Route to Pharmacy Electronically, [facility], 175, cm, 11/19/21 10:53:00 EST, Height Start Date: 04/15/22 Status: Orderedibuprofen 800 mg oral tablet 800 mg, 1, tablet, By Mouth, Daily, As needed for migraine and kidney stone pain. do not use daily, it will make migraine worse, # 30 tablet, Refills 3, Tot. Refills 3, Maintenance, 05/23/22 17:46:00 EDT, Route to Pharmacy Electronically, [facility]... Start Date: 05/23/22 Status: OrderedNarcan 4 mg/0.1 mL nasal spray = 4 mg, Nares, Both, Once, In case of overdose: spray in nose, call 911, repeat every 2 mins as needed, # 2 each, 5 Refills, Soft Stop, 12/28/19 9:06:00 EST, [id number], 175, cm, 07/04/19 15:37:00 EDT, Height, 109.9, kg, 07/01/19 10:09:00 EDT,... Start Date: 12/28/19 Status: Orderedondansetron 4 mg oral tablet 1 tablet = 4 mg, By Mouth, Daily, for 30 days, Take as needed for nausea associated with medications, # 30 tablet, 1 Refills, Acute 10/14/22 10:34:00 EST, 08/15/22 10:34:00 EDT, [facility], Partial fill upon patient request if the pre... Start Date: 08/15/22 Stop Date: 10/14/22 Status: Orderedpantoprazole 40 mg oral delayed release tablet 1 tablet = 40 mg, By Mouth, 2 times a day, Take up to 2 times a day; only as needed for acid reflux/heartburn, # 60 tablet, 11 Refills, Maintenance, 11/19/21 11:18:00 EST, CR Tablet, 175, cm, 11/19/2110:53:00 EST, Height Start Date: 11/19/21 Status: OrderedPaxlovid 150 mg-100 mg oral tablet See Instructions, 300mg nirmaltrelvir (two 150mg tablets) with 100mg ritonavir (one tablet). All 3 tablets taken together twice daily for 5 days, with or without food, # 30 tablet, 0 Refills, Maintenance, 08/18/22 14:16:00 EDT, [facility]... Start Date: 08/18/22 Status: OrderedProAir HFA 90 mcg/inh inhalation aerosol with adapter 2, puffs, Inhalation, Every 4 hours, PRN, # 8.5 Gm, Refills 11, Tot. Refills 11, Maintenance, 08/18/22 14:17:00 EDT, Aerosol, Route to Pharmacy Electronically, [id number]_[id number], [facility], 175, cm, 11/19/21 10:53:00 EST, Height Start Date: 08/18/22 Status: Orderedsucralfate 1 gm oral tablet 1 Gm, 1, tablet, By Mouth, 4 times a day, # 120 tablet, Refills 3, Tot. Refills 3, Maintenance, 12/19/21 13:28:00 EST, Route to Pharmacy Electronically, [facility], Partial fill upon patient request if the prescription is for a schedu... Start Date: 12/19/21 Status: OrderedtraZODone 150 mg oral tablet 1 tablet = 150 mg, By Mouth, Daily at bedtime, For sleep., # 30 tablet, 11 Refills, Maintenance, 06/27/22 12:36:00 EDT, Tablet, [facility], Partial fill upon patient request if the prescription is for a schedule II opioid drug., 175,... Start Date: 06/27/22 Status: Orderedtriamcinolone 0.1% topical cream 1 application, Topically, 2 times a day, apply a thin film to affected area in armpit, # 80 Gm, 2 Refills, Maintenance, 11/19/21 11:29:00 EST, Cream, [facility], Partial fill upon patient request if the prescription is for a schedule... Start Date: 11/19/21 Status: OrderedTylenol 325 mg oral tablet 650 mg, 2, tablet, By Mouth, Every 4 hours, PRN, # 120 tablet, Refills 0, Tot. Refills 0, Maintenance, for fever, 02/15/20 13:30:00 EDT, Route to Pharmacy Electronically, [id number], 175, cm, 07/04/19 15:37:00 EDT, Height, 109.9, kg, 07/01/19... Start Date: 02/15/20 Status: OrderedZithromax 250 mg oral tablet 2 tablet = 500 mg, By Mouth, Once, # 2 tablet, 0 Refills, Soft Stop, 03/05/22 15:02:00 EDT, Tablet, [facility], Partial fill upon patient request if the prescription is for a schedule II opioid drug., 175, cm, 11/19/21 10:53:00 EST, H... 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 Chronic rhinitis Confirmed Active COVID-192 Confirmed Active Pseudoseizures Confirmed Active Epigastric pain Confirmed Active Chronic GERD Confirmed Active Insomnia Confirmed Active Kidney stones, mixed Confirmed Active calcium oxalate Obese class II Confirmed Active Overweight Confirmed Active Pharyngitis Confirmed Active Post traumatic stress Confirmed Active disorder (PTSD) Major depressive Confirmed Active disorder, recurrent Urethritis3 Confirmed Active 1per histology 01/30/201530086izvq testing on 08/17/2022 and 08/18/2022 by patient [id number] urethritis sx without e/o inflammation (UA repeatedly negative) or infection (GC/CT repeatedly negative; negative trich, negative mycoplasma genitalium) Social History Social History Type Response Smoking Status Current every day smoker entered on: 11/09/17 Sex Patient Care team information PersonnelName: Pearl Reyna MD Address: Address: [address] [place] [address]
--- OUTSIDE RECORDS SUMMARY | 2022-12-31 08:35 | XMS_ITS | Continuity of Care Document ---
:1990 Author Organization [facility] De Ayana Address [address] [place] [address]- Care Team Providers Name Role Phone Pearl Reyna MD Primary Care Physician Encounter [facility] [id number] Date(s): 07/03/22 - 08/02/22 [facility] [address]- Attending Physician: John Clark Admitting Physician: John Clark Referring Physician: AdmtrJohn Allergies, Adverse Reactions, Alerts Substance Reaction Severity Status Rocephin1 rash Resolved abacavir2 Active Ziagen HLA B5701 positive Active Complera allergic to the rilpirivine componant of Active Complera-tolerates truvada 1Not allergic. Tolerated cefpodoxime 10/2017 (prescribed at [facility] ED) as well as ceftriaxone IM [...] Comment: diluted w/ normal saline lot number [id number] expires Result Comment: Received in [place] Medications amitriptyline 10 mg oral tablet 20 mg, 2, tablet, By Mouth, Daily at bedtime, New medication to prevent migraines. Causes sleepiness- take before bed ., # 30 tablet, Refills 0, Tot. Refills 0, Maintenance, 09/04/21 12:35:00 EDT, Route to Pharmacy Electronically, [facility]... Start Date: 09/04/21 Status: Orderedazelastine nasal 0.15% spray 2 sprays, Nares, Both, 2 times a day, PRN for allergy symptoms, # 30 mL, 5 Refills, Maintenance, 01/23/21 14:38:00 EST, [place], [facility], 2 sprays Nares, Both 2 times a day,PRN:for allergy symptoms, 175, cm, 02/25/20 12:28:00 EDT, He... Start Date: 01/23/21 Status: Orderedbeclomethasone 0.042 mg/inh nasal spray 1 sprays, Nares, Both, 2 times a day, in each nostril, # 25 Gm, 5 Refills, Maintenance, 12/21/19 14:09:00 EST, [facility], d/c fluconasol, 1 sprays Nares, Both 2 times a day,Instr:in each nostril, 175, cm, 07/04/19 15:37:00 EDT, Heigh... Start Date: 12/21/19 Status: OrderedBiktarvy oral tablet 1 tablet, By Mouth, Daily, # 30 tablet, 11 Refills, Maintenance, 03/27/22 13:37:00 EDT, Tablet, [facility], Partial fill upon patient request if the prescription is for a schedule II opioid drug., 1 tablet By Mouth Daily, 175, cm, 12/... Start Date: 03/27/22 Status: OrderedColace sodium 100 mg oral capsule 100 mg, 1, capsule, By Mouth, 2 times a day, PRN, # 60 capsule, Refills 3, Tot. Refills 3, Maintenance, for constipation, 12/02/17 13:58:38, Route to Pharmacy Electronically, [id number], [facility] Start Date: 12/02/17 Status: Ordereddiclofenac [...] 5 Refills, Maintenance, 02/12/21 11:54:00 EDT, Tablet, [facility], Partial fill upon patient request if the prescription is for a schedu... Start Date: 02/12/21 Status: OrderedFlomax 0.4 mg oral capsule 0.4 mg, 1, capsule, By Mouth, Daily, To help kidney stone pass, # 30 capsule, Refills 1, Tot. Refills 1, Maintenance, 04/15/22 13:06:00 EDT, Route to Pharmacy Electronically, [facility], 175, cm, 11/19/21 10:53:00 EST, Height Start Date: 04/15/22 Status: Orderedibuprofen 800 mg oral tablet 800 mg, 1, tablet, By Mouth, Daily, As needed for migraine and kidney stone pain. do not use daily, it will make migraine worse, # 30 tablet, Refills 3, Tot. Refills 3, Maintenance, 05/23/22 17:46:00 EDT, Route to Pharmacy Electronically, [facility]... Start Date: 05/23/22 Status: OrderedNarcan 4 mg/0.1 mL nasal spray = 4 mg, Nares, Both, Once, In case of overdose: spray in nose, call 911, repeat every 2 mins as needed, # 2 each, 5 Refills, Soft Stop, 12/28/19 9:06:00 EST, [facility]/pharmacy #[id number], 175, cm, 08/05/19 15:37:00 EDT, Height, 109.9, kg, 07/01/19 10:09:00 [...] 14:05:00 EST, Aerosol, Route to Pharmacy Electronically, [id number], [facility], 175, cm, 07/04/19 15:37:00 EDT, Height, 109.... Start Date: 12/27/19 Status: Orderedsucralfate 1 gm oral tablet 1 Gm, 1, tablet, By Mouth, 4 times a day, # 120 tablet, Refills 3, Tot. Refills 3, Maintenance, 12/19/21 13:28:00 EST, Route to Pharmacy Electronically, [facility], Partial fill upon patient request if the prescription is for a schedu... Start Date: 12/19/21 Status: OrderedtraZODone 150 mg oral tablet 1 tablet = 150 mg, By Mouth, Daily at bedtime, For sleep., # 30 tablet, 11 Refills, Maintenance, 06/27/22 12:36:00 EDT, Tablet, [facility], Partial fill upon patient request if the prescription is for a schedule II opioid drug., 175,... Start Date: 06/27/22 Status: Orderedtriamcinolone 0.1% topical cream 1 application, Topically, 2 times a day, apply a thin film to affected area in armpit, # 80 Gm, 2 Refills, Maintenance, 11/19/21 11:29:00 EST, [place], [facility], Partial fill upon patient request if the prescription is for a schedule... Start Date: 11/19/21 Status: OrderedTylenol 325 mg oral tablet 650 mg, 2, tablet, By Mouth, Every 4 hours, PRN, # 120 tablet, Refills 0, Tot. Refills 0, Maintenance, for fever, 02/15/20 13:30:00 EDT, Route to Pharmacy Electronically, [facility]/pharmacy #[id number], 175, cm, 07/04/19 15:37:00 EDT, Height, 109.9, kg, 07/01/19... Start Date: 02/15/20 Status: OrderedZithromax 250 mg oral tablet 2 tablet = 500 mg, By Mouth, Once, # 2 tablet, 0 Refills, Soft Stop, 03/05/22 15:02:00 EDT, Tablet, [facility], Partial fill upon patient request [...] disorder, Active recurrent(Confirmed) Urethritis(Confirmed)2 Active 1per histology 01/30/[id number] urethritis sx without e/o inflammation (UA repeatedly negative) or infection (GC/CT repeatedly negative; negative trich, negative mycoplasma genitalium) Social History Social History Type Response Smoking Status Current every day smoker entered on: 11/09/17 Sex Care Team PersonnelName: Pearl Reyna MD Address: [address] [place] [address]
--- OUTSIDE RECORDS SUMMARY | 2022-12-31 08:35 | XMS_ITS | Continuity of Care Document ---
:1990 Author Organization [facility] Address [address] [place] [address]- Care Team Providers Name Role Phone Maribell REEDER, Pearl Primary Care Physician Encounter [facility] Date(s): 11/29/21 - 12/29/[address] [address]- Allergies, Adverse Reactions, Alerts Substance Reaction Severity Status Rocephin1 rash Resolved abacavir2 Active Ziagen HLA B5701 positive Active Complera allergic to the rilpirivine componant of Active Complera-tolerates truvada 1Not allergic. Tolerated cefpodoxime 10/2017 (prescribed at [facility] ED) as well as ceftriaxone IM (administered [...] Comment: diluted w/ normal saline lot number [id number] expires Result Comment: Received in [place] Medications amitriptyline 10 mg oral tablet 20 mg, 2, tablet, By Mouth, Daily at bedtime, New medication to prevent migraines. Causes sleepiness- take before bed ., # 30 tablet, Refills 0, Tot. Refills 0, Maintenance, 09/04/21 12:35:00 EDT, Route to Pharmacy Electronically, [facility]... Start Date: 09/04/21 Status: Orderedazelastine nasal 0.15% spray 2 sprays, Nares, Both, 2 times a day, PRN for allergy symptoms, # 30 mL, 5 Refills, Maintenance, 01/23/21 14:38:00 EST, [place], [facility], 2 sprays Nares, Both 2 times a day,PRN:for allergy symptoms, 175, cm, 02/25/20 12:28:00 EDT, He... Start Date: 01/23/21 Status: Orderedbeclomethasone 0.042 mg/inh nasal spray 1 sprays, Nares, Both, 2 times a day, in each nostril, # 25 Gm, 5 Refills, Maintenance, 12/21/19 14:09:00 EST, [facility], d/c fluconasol, 1 sprays Nares, Both 2 times a day,Instr:in each nostril, 175, cm, 07/04/19 15:37:00 EDT, [place]... Start Date: 12/21/19 Status: OrderedBiktarvy By Mouth, [...] constipation, 12/02/17 13:58:38, Route to Pharmacy Electronically, [id number]_[id number], [facility] Start Date: 12/02/17 Status: Ordereddiclofenac sodium [...] 5 Refills, Maintenance, 02/12/21 11:54:00 EDT, Tablet, [facility], Partial fill upon patient request if the prescription is for a schedu... Start Date: 02/12/21 Status: OrderedFlonase 50 mcg/inh nasal spray 2 sprays, Nares, Both, Daily in AM, # 16 Gm, 5 Refills, Maintenance, 06/20/20 8:34:00 EDT, [place], [facility], 2 sprays Nares, Both Daily in AM,x14 days, 175, cm, 02/25/20 12:28:00 EDT,Height, 109.9, kg, 07/01/19 10:09:00 EDT, Dry Weight Start Date: 06/20/20 Stop Date: 09/12/20 Status: OrderedFlovent HFA 110 mcg/inh inhalation aerosol 2 puffs, Inhalation, 2 times a day, # 12 Gm, 0 Refills, Maintenance, 03/16/20 14:12:00 EDT, Aerosol,[facility], 175, cm, 02/25/20 12:28:00 [...] 12:34:00 EDT, Route to Pharmacy Electronically, [facility] Start Date: 09/04/21 Status: OrderedNarcan 4 mg/0.1 mL nasal spray = 4 mg, Nares, Both, Once, In case of overdose: spray in nose, call 911, repeat every 2 mins as needed, # 2 each, 5 Refills, Soft Stop, 12/28/19 9:06:00 EST, [facility]/pharmacy #[id number], 175, cm, 07/04/19 15:37:00 EDT, Height, [...] 14:05:00 EST, Aerosol, Route to Pharmacy Electronically, NCPDP_[id number], [facility], 175, cm, 07/04/19 15:37:00 EDT, Height, 109.... Start Date: 12/27/19 Status: Orderedsucralfate 1 gm oral tablet 1 Gm, 1, tablet, By Mouth, 4 times a day, # 120 tablet, Refills 3, Tot. Refills 3, Maintenance, 12/19/21 13:28:00 EST, Route to Pharmacy Electronically, [facility], Partial fill upon patient request if the prescription is for a schedu... Start Date: 12/19/21 Status: OrderedtraZODone 150 mg oral tablet 1 tablet = 150 mg, By Mouth, Daily at bedtime, For sleep., # 30 tablet, 5 Refills, Maintenance, 09/04/21 12:32:00 EDT, Tablet, [facility], Partial fill upon patient request if the prescription is for a schedule II opioid drug., 175, c... Start Date: 09/04/21 Status: Orderedtriamcinolone 0.1% topical cream 1 application, Topically, 2 times a day, apply a thin film to affected area in armpit, # 80 Gm, 2 Refills, Maintenance, 11/19/21 11:29:00 EST, [place], [facility], Partial fill upon patient request if the prescription is for a schedule... Start Date: 11/19/21 Status: OrderedTylenol 325 mg oral tablet 650 mg, 2, tablet, By Mouth, Every 4 hours, PRN, # 120 tablet, Refills 0, Tot. Refills 0, Maintenance, for fever, 02/15/20 13:30:00 EDT, Route to Pharmacy Electronically, [facility]/pharmacy #[id number], 175, cm, 07/04/19 15:37:00 EDT, Height, [...] disorder, Active recurrent(Confirmed) Urethritis(Confirmed)2 Active 1per histology 01/30/[id number] urethritis sx without e/o inflammation (UA repeatedly negative) or infection (GC/CT repeatedly negative; negative trich, negative mycoplasma genitalium) Social History Social History Type Response Smoking Status Current every day smoker entered on: 11/09/17 Sex
--- OUTSIDE RECORDS SUMMARY | 2022-12-31 08:35 | XMS_ITS | Continuity of Care Document ---
:1990 Author Organization [facility] Address [address] [place] [address]- Care Team Providers Name Role Phone Pearl Reyna MD Primary Care Physician Encounter [facility] Date(s): 09/09/22 - 10/09/[address] [address]- Allergies, Adverse Reactions, Alerts Substance Reaction Severity Status Complera allergic to the rilpirivine componant of Active Complera-tolerates truvada Rocephin1 rash Resolved abacavir2 Active Ziagen HLA B5701 positive Active 1Not allergic. Tolerated cefpodoxime 10/2017 (prescribed at [facility] ED) as well as ceftriaxone IM (administered [...] Comment: diluted w/ normal saline lot number [id number] expires Result Comment: Received in [place] Medications amitriptyline 10 mg oral tablet 20 [...] mL, 5 Refills, Maintenance, 01/23/21 14:38:00 EST, [place], [facility], 2 sprays [...] constipation, 12/02/17 13:58:38, Route to Pharmacy Electronically, AZPDP_[id number], [facility] Start Date: 12/02/17 Status: Ordereddiclofenac [...] 5 Refills, Maintenance, 02/12/21 11:54:00 EDT, Tablet, [facility], Partial fill upon patient [...] 05/23/22 17:46:00 EDT, Route to Pharmacy Electronically, [facility]... Start Date: 05/23/22 Status: OrderedNarcan 4 mg/0.1 mL nasal spray = 4 mg, Nares, Both, Once, In case of overdose: spray in nose, call 911, repeat every 2 mins as needed, # 2 each, 5 Refills, Soft Stop, 12/28/19 9:06:00 EST, [facility]/pharmacy #[id number], 175, cm, 07/04/19 15:37:00 EDT, Height, 109.9, kg, 07/01/19 10:09:00 EDT,... Start Date: 12/28/19 Status: Orderedondansetron 4 mg oral tablet 1 tablet = 4 mg, By Mouth, Daily, for 30 days, Take as needed for nausea associated with medications, # 30 tablet, 1 Refills, Acute 10/14/22 10:34:00 EST, 08/15/22 10:34:00 EDT, [facility], Partial fill upon patient [...] tablet, 0 Refills, Maintenance, 08/18/22 14:16:00 EDT, [facility]... Start Date: 08/18/22 Status: OrderedProAir HFA 90 mcg/inh inhalation aerosol with adapter 2, puffs, Inhalation, Every 4 hours, PRN, # 8.5 Gm, Refills 11, Tot. Refills 11, Maintenance, 08/18/22 14:17:00 EDT, Aerosol, Route to Pharmacy Electronically, AZPDP_[id number], [facility], 175, cm, 11/19/21 10:53:00 EST, Height Start Date: 08/18/22 Status: Orderedsucralfate 1 gm oral tablet 1 Gm, 1, tablet, By Mouth, 4 times a day, # 120 tablet, Refills 3, Tot. Refills 3, Maintenance, 12/19/21 13:28:00 EST, Route to Pharmacy Electronically, [facility], Partial fill upon patient request if the prescription is for a schedu... Start Date: 12/19/21 Status: OrderedtraZODone 150 mg oral tablet 1 tablet = 150 mg, By Mouth, Daily at bedtime, For sleep., # 30 tablet, 11 Refills, Maintenance, 06/27/22 12:36:00 EDT, Tablet, [facility], Partial fill upon patient request if the prescription is for a schedule II opioid drug., 175,... Start Date: 06/27/22 Status: Orderedtriamcinolone 0.1% topical cream 1 application, Topically, 2 times a day, apply a thin film to affected area in armpit, # 80 Gm, 2 Refills, Maintenance, 11/19/21 11:29:00 EST, [place], [facility], Partial fill upon patient request if the prescription is for a schedule... Start Date: 11/19/21 Status: OrderedTylenol 325 mg oral tablet 650 mg, 2, tablet, By Mouth, Every 4 hours, PRN, # 120 tablet, Refills 0, Tot. Refills 0, Maintenance, for fever, 02/15/20 13:30:00 EDT, Route to Pharmacy Electronically, [facility]/pharmacy #[id number], 175, cm, 07/04/19 15:37:00 [...] disorder, recurrent Urethritis3 Confirmed Active 1per histology 01/30/201580635kmaw testing on 08/17/2022 and 08/18/2022 by patient [id number] urethritis sx without e/o inflammation (UA repeatedly negative) or infection (GC/CT repeatedly negative; negative trich, negative mycoplasma genitalium) Social History Social History Type Response Smoking Status Current every day smoker entered on: 11/09/17 Sex Patient Care team information Care Team PersonnelName: Jean RN, Eleonora Position: [facility] RN Member Role: Primary Care Nurse Name: Pearl Reyna MD Position: [facility] Primary Care Physician Member Role: PCP Address: Address: [address] [place] [address]- Care Team Related PersonsName: KAITLYN COVARRUBIAS Name: ASHLYN LONG Address: home [address] [place] [address] Name: NO, ONE AT THIS TIME Name: WADE SABILLON
--- OUTSIDE RECORDS SUMMARY | 2022-12-31 08:35 | XMS_ITS | Continuity of Care Document ---
:1990 Author Organization [facility] Address [address] [place] [address]- Care Team Providers Name Role Phone Pearl Reyna MD Primary Care Physician Encounter [facility] Date(s): 04/14/22 - 05/14/[address] [address]- Allergies, Adverse Reactions, Alerts Substance Reaction Severity Status abacavir1 Active Complera allergic to the rilpirivine componant of Active Complera-tolerates truvada Rocephin2 rash Resolved Ziagen HLA B5701 positive Active 1positive HLA U20050Taz allergic. Tolerated cefpodoxime 10/2017 (prescribed at [facility] ED) as well as ceftriaxone IM [...] Comment: diluted w/ normal saline lot number [id number] expires Result Comment: Received in [place] Medications amitriptyline 10 mg oral tablet 20 mg, 2, tablet, By Mouth, Daily at bedtime, New medication to prevent migraines. Causes sleepiness- take before bed ., # 30 tablet, Refills 0, Tot. Refills 0, Maintenance, 09/04/21 12:35:00 EDT, Route to Pharmacy Electronically, [facility]... Start Date: 09/04/21 Status: Orderedazelastine nasal 0.15% spray 2 sprays, Nares, Both, 2 times a day, PRN for allergy symptoms, # 30 mL, 5 Refills, Maintenance, 01/23/21 14:38:00 EST, [place], [facility], 2 sprays Nares, Both 2 times a day,PRN:for allergy symptoms, 175, cm, 02/25/20 12:28:00 EDT, He... Start Date: 01/23/21 Status: Orderedbeclomethasone 0.042 mg/inh nasal spray 1 sprays, Nares, Both, 2 times a day, in each nostril, # 25 Gm, 5 Refills, Maintenance, 12/21/19 14:09:00 EST, [facility], d/c fluconasol, 1 sprays Nares, Both 2 times a day,Instr:in each nostril, 175, cm, 07/04/19 15:37:00 EDT, Heigh... Start Date: 12/21/19 Status: OrderedBiktarvy oral tablet 1 tablet, By Mouth, Daily, # 30 tablet, 11 Refills, Maintenance, 03/27/22 13:37:00 EDT, Tablet, [facility], Partial fill upon patient [...] constipation, 12/02/17 13:58:38, Route to Pharmacy Electronically, [id number], [facility] Start Date: 12/02/17 Status: [...] 5 Refills, Maintenance, 02/12/21 11:54:00 EDT, Tablet, [facility], Partial fill upon patient request if the prescription is for a schedu... Start Date: 02/12/21 Status: OrderedFlomax 0.4 mg oral capsule 0.4 mg, 1, capsule, By Mouth, Daily, To help kidney stone pass, # 30 capsule, Refills 1, Tot. Refills 1, Maintenance, 04/15/22 13:06:00 EDT, Route to Pharmacy Electronically, [facility], 175, cm, 11/19/21 10:53:00 EST, Height Start Date: 04/15/22 Status: Orderedibuprofen 800 mg oral tablet 800 mg, 1, tablet, By Mouth, Daily, As needed for migraine and kidney stone pain. do not use daily, it will make migraine worse, # 30 tablet, Refills 2, Tot. Refills 2, Maintenance, 09/04/21 12:34:00 EDT, Route to Pharmacy Electronically, [facility] Start Date: 09/04/21 Status: OrderedNarcan 4 mg/0.1 mL nasal spray = 4 mg, Nares, Both, Once, In case of overdose: spray in nose, call 911, repeat every 2 mins as needed, # 2 each, 5 Refills, Soft Stop, 12/28/19 9:06:00 EST, [facility]/pharmacy #[id number], 175, cm, 07/04/19 15:37:00 EDT, Height, [...] 14:05:00 EST, Aerosol, Route to Pharmacy Electronically, [id number], [facility], 175, cm, 07/04/19 15:37:00 EDT, Height, 109.... Start Date: 12/27/19 Status: Orderedsucralfate 1 gm oral tablet 1 Gm, 1, tablet, By Mouth, 4 times a day, # 120 tablet, Refills 3, Tot. Refills 3, Maintenance, 12/19/21 13:28:00 EST, Route to Pharmacy Electronically, [facility], Partial fill upon patient request if the prescription is for a schedu... Start Date: 12/19/21 Status: OrderedtraZODone 150 mg oral tablet 1 tablet = 150 mg, By Mouth, Daily at bedtime, For sleep., # 30 tablet, 5 Refills, Maintenance, 09/04/21 12:32:00 EDT, Tablet, [facility], Partial fill upon patient request if the prescription is for a schedule II opioid drug., 175, c... Start Date: 09/04/21 Status: Orderedtriamcinolone 0.1% topical cream 1 application, Topically, 2 times a day, apply a thin film to affected area in armpit, # 80 Gm, 2 Refills, Maintenance, 11/19/21 11:29:00 EST, [place], [facility], Partial fill upon patient request if the prescription is for a schedule... Start Date: 11/19/21 Status: OrderedTylenol 325 mg oral tablet 650 mg, 2, tablet, By Mouth, Every 4 hours, PRN, # 120 tablet, Refills 0, Tot. Refills 0, Maintenance, for fever, 02/15/20 13:30:00 EDT, Route to Pharmacy Electronically, [facility]/pharmacy #[id number], 175, cm, 07/04/19 15:37:00 EDT, Height, 109.9, kg, 07/01/19... Start Date: 02/15/20 Status: OrderedZithromax 250 mg oral tablet 2 tablet = 500 mg, By Mouth, Once, # 2 tablet, 0 Refills, Soft Stop, 03/05/22 15:02:00 EDT, Tablet, [facility], Partial fill upon patient [...] disorder, Active recurrent(Confirmed) Urethritis(Confirmed)2 Active 1per histology 01/30/[id number] urethritis sx without e/o inflammation (UA repeatedly negative) or infection (GC/CT repeatedly negative; negative trich, negative mycoplasma genitalium) Social History Social History Type Response Smoking Status Current every day smoker entered on: 11/09/17 Sex
--- OUTSIDE RECORDS SUMMARY | 2022-12-31 08:35 | XMS_ITS | Continuity of Care Document ---
:1990 Author Organization [facility] Address [address] [place] [address]- Care Team Providers Name Role Phone Pearl Reyna MD Primary Care Physician Encounter [facility] Date(s): 03/05/20 - 03/12/[address] [address]- [facility] Attending Physician: Not on Staff, Attending MD Allergies, Adverse Reactions, Alerts Substance Reaction Severity Status Rocephin1 rash Resolved Ziagen HLA [id number] positive Active Complera allergic to the rilpirivine componant of Active Complera-tolerates truvada 1Not allergic. Tolerated cefpodoxime 10/2017 (prescribed at [facility] ED) as well as ceftriaxone IM [...] mL, 5 Refills, Maintenance, 12/27/19 14:06:00 EST, [place], [facility], 2 sprays Nares, Both 2 times a day,PRN:for allergy symptoms, 175, cm, 07/04/19 15:37:00 EDT, He... Start Date: 12/27/19 Status: Orderedbeclomethasone 0.042 mg/inh nasal spray 1 sprays, Nares, Both, 2 times a day, in each nostril, # 25 Gm, 5 Refills, Maintenance, 12/21/19 14:09:00 EST, [facility], d/c fluconasol, 1 sprays Nares, Both 2 times a day,Instr:in each nostril, 175, cm, 07/04/19 15:37:00 EDT, Heigh... Start Date: 12/21/19 Status: OrderedBiktarvy oral tablet 1 tablet, By Mouth, Daily, # 30 tablet, 11 Refills, Maintenance, 12/21/19 14:09:00 EST, Tablet, [facility], 1 tablet By Mouth Daily, 175, cm, 07/04/19 15:37:00 EDT, Height, 109.9, kg, 07/01/19 10:09:00 EDT, Dry Weight Start Date: 12/21/19 Status: OrderedbuPROPion 300 mg/24 hours (XL) oral tablet, extended release 1 tablet = 300 mg, By Mouth, Every 24 hours, # 30 tablet, 11 Refills, Maintenance, 12/21/19 14:10:00EST, [facility], note dose change, 175, cm, 07/04/19 15:37:00 EDT, Height, 109.9, kg, 07/01/19 10:09:00 EDT, Dry Weight Start Date: 12/21/19 Status: OrderedColace sodium 100 mg oral capsule 100 mg, 1, capsule, By Mouth, 2 times a day, PRN, # 60 capsule, Refills 3, Tot. Refills 3, Maintenance, for constipation, 12/02/17 13:58:38, Route to Pharmacy Electronically, [id number], [facility] Start Date: 12/02/17 Status: OrderedFlomax 0.4 [...] 0 Refills, Maintenance, 02/15/20 13:29:00 EDT, [id number] 175, cm, 07/04/19 15:37:00 EDT, Height, 109.9, kg, 07/01/19 10:09:00 EDT, Dry Weight Start Date: 02/15/20 Status: Orderedibuprofen 800 mg oral tablet 800 mg, 1, tablet, By Mouth, 2 times a day, not to exceed 3200 mg/day As needed for migraine and kiendye stone pain., # 30 tablet, Refills 2, Tot. Refills 2, Maintenance, 12/21/19 14:10:00 EST, Route to Pharmacy Electronically, [facility]... Start Date: 12/21/19 Status: OrderedNarcan [...] 14:05:00 EST, Aerosol, Route to Pharmacy Electronically, CAPDP_[id number], [facility], 175, cm, 07/04/19 15:37:00 EDT, Height, 109.... Start Date: 12/27/19 Status: OrderedSUMAtriptan 25 mg oral tablet 1 tablet = 25 mg, By Mouth, Daily, PRN for migraine headache, may repeat dose after 2 hours up to a maximum of 2, # 9 tablet, 11 Refills, Maintenance, 12/21/19 14:11:00 EST, Tablet, [facility], 175, cm, 07/04/19 15:37:00 EDT, [...] 5 Refills, Maintenance, 12/21/19 14:10:00 EST, Tablet, [facility], 175, cm, 07/04/19 15:37:00 EDT, [...] disorder Active (PTSD)(Confirmed) Urethritis(Confirmed)2 Active 1per histology 01/30/[id number] urethritis sx without e/o inflammation (UA repeatedly negative) or infection (GC/CT repeatedly negative; negative trich, negative mycoplasma genitalium) Social History Social History Type Response Smoking Status Current every day smoker entered on: 11/09/17 Sex
[2022-12-31] MEDS: Ketorolac Tromethamine 30 MG/ML VIAL IVPUSH (08:46)
[2022-12-31] MEDS: oxyCODONE HCl Immed Release 5 MG TABLET PO (08:46)
[2022-12-31 08:49] LABS: MANUAL DIFF FLAG NO
[2022-12-31] MEDS: 0.9 % Sodium Chloride 1,000 ML 999 ML IV (08:49)
[2022-12-31 08:51] LABS: Basophils Absolute Auto 0.1 X10*3/uL (0.0-0.2); Basophils Percent Auto 0.5 % (0-2); Eosinophils Absolute Auto 0.1 X10*3/uL (0.0-0.4); Eosinophils Percent Auto 0.8 % (0-4); Hematocrit 47.3 % (42.0-52.0); Hemoglobin 16.2 g/dl (14.0-18.0); Imm Gran Abs Auto 0.04 X10*3/uL (0.00-0.03); Imm Gran Pct Auto 0.3 % (0.0-0.4); Lymphocytes Absolute Auto 3.5 X10*3/uL (1.2-4.9); Lymphocytes Percent Auto 26.5 % (20-40); Mean Corpuscular HGB Conc 34.2 g/dl (31.0-36.0); Mean Corpuscular Hemoglobin 30.3 pg (27.0-33.0); Mean Corpuscular Volume 88.4 fL (80.0-98.0); Mean Platelet Volume 8.6 fL (9.4-12.4); Monocytes Percent Auto 7.5 % (2-11); Neutrophils Absolute Auto 8.5 x10*3/uL (2.0-8.3); Neutrophils Percent Auto 64.4 % (45-73); Platelet Count 418 X10*3/uL (160-400); Red Blood Count 5.35 X10*6/uL (4.60-5.80); Red Cell Distribution Width 12.8 % (11.0-16.0); White Blood Count 13.2 X10*3/uL (4.8-10.8)
[2022-12-31 10:39] LABS: Alanine Aminotransferase 37 U/L (0-40); Alkaline Phosphatase 68 U/L (39-117); Anion Gap 11 (12-20); Aspartate Amino Transferase 21 U/L (5-37); Bilirubin Total 0.5 mg/dL (0.0-1.0); Blood Urea Nitrogen 8 mg/dL (9-16); Calcium 8.8 mg/dL (8.4-10.2); Carbon Dioxide 24 mmol/L (22-29); Chloride 105 mmol/L (96-108); Estimated Glomerular Filt Rate > 60; Glucose Random 131 mg/dL (60-115); Potassium 4.1 mmol/L (3.3-5.1); Sodium 136 mmol/L (135-145); Total Protein 6.9 g/dL (6.5-8.0)
[2022-12-31] MEDS: iohexoL 350 MG/ML 100 ML INFUS..BTL IV (11:16)
[2022-12-31 12:19] VITALS: BP 144/94; PULSE 83; RESP 18; TEMP 36.8; O2SAT 98
== END 2022-12-31 12:38 | disposition home or self-care (01) ==
PROVIDERS: Nurse Practitioner Family; Emergency Provider Student in an Organized Health Care Education/Training Program; PCP Internal Medicine
DX: K04.7 Periapical abscess without sinus (principal); M54.2 Cervicalgia; Z79.899 Other long term (current) drug therapy
CPT/HCPCS: 36415; 70491; 80053; 85025; 96361; 96374; 99283; 99284; J1885; Q9967

== ENCOUNTER 2023-07-22 15:54 | Emergency (ER) | payer OTHER, SELFPAY ==
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
[2023-07-22 16:25] VITALS: BP 167/107; PULSE 105; RESP 18; TEMP 36.1; O2SAT 96; BMI 39.9
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
--- OUTSIDE RECORDS SUMMARY | 2023-07-22 17:09 | XMS_ITS | Continuity of Care Document ---
Author Name Unknown Organization [facility] Address [address] [place] [address]- Care Team Providers Care Commercial Credit Lead Name Role Phone Pearl Reyna MD Primary Care Physician Encounter [facility] Date(s): 12/30/22 - 01/29/[address] [address]- Allergies, Adverse Reactions, Alerts Substance Reaction Severity Status Complera allergic to the rilp irivine componant of Complera-tolerates truvada Active Rocephin 1 rash Resolved abacavir 2 Active Ziagen HLA B5701 positive Active 1Not allergic. Tolerated cefpodoxime 10/2017 (prescribed at [facility] ED) as well as ceftriaxone IM (administered in clinic 07/28/2018) 2positive HLA B5701 Immunizations Given and Recorded Vaccine Date Status Refusal Reason SARS-CoV-2 (COVID-19) mRNA BNT-162b2 vac 1 07/08/21 Given SARS-CoV-2 (COVID-19) mRNA BNT-162b2 vac 2 06/10/21 Recorded SARS-CoV-2 (COVID-19) mRNA BNT-162b2 vac 05/27/21 Recorded Human Papillomavirus Vaccine 01/11/16 Given pneumococcal 13-valent vaccine 12/06/15 Given tetanus/diphtheria/pertussis, acel(Tdap) 12/06/15 Given tetanus-diphtheria toxoids (Td) 06/30/13 Given hepatitis B adult vaccine 06/23/13 Given Hepatitis A Adult Vaccine 06/23/13 Given Not Given Vaccine Date Status Refusal Reason pneumococcal 23-valent vaccine 02/28/14 Not Given Patient Refuses pneumococcal 23-valent vaccine 01/24/14 Not Given Patient Refuses 1Result Comment: diluted w/ normal saline lot number [id number] expires 02/27/2023 2Result Comment: Received in [place] Medications azelastine nasal 0.15% spray 2 sprays, Nares, Both, 2 times a day, PRN for allergy symptoms, # 30 mL, 5 Refills, Maintenance, 01/23/21 14:38:00 EST, [place], [facility], 2 sprays Nares, Both 2 times a day,PRN:for allergy symptoms, 175, cm, 02/25/20 12:28:00 EDT, He... Start Date: 01/23/21 Status: Ordered beclomethasone 0.042 mg/inh nasal spray 1 sprays, Nares, Both, 2 times a day, in each nostril, # 25 Gm, 5 Refills, Maintenance, 12/21/19 14:09:00 EST, [facility], d/c fluconasol, 1 sprays Nares, Both 2 times a day,Instr:ineach nostril, 175, cm, 07/04/19 15:37:00 EDT, Heigh... Start Date: 12/21/19 Status: Ordered Biktarvy oral tablet 1 tablet, By Mouth, Daily, # 30 tablet, 11 Refills, Maintenance, 03/27/22 13:37:00 EDT, Tablet, [facility], Partial fill upon patient request if the prescription is for a schedule IIopioid drug., 1 tablet By Mouth Daily, 175, cm, /... Start Date: 03/27/22 Status: Ordered diclofenac sodium 75 mg oral delayed release tablet 1 tablet = 75 mg, By Mouth, 2 times a day, # 28 tablet, 0 Refills, Maintenance, 08/13/21 18:06:00 EDT, EC Tablet, Partial fill upon patient request if the prescription is for a schedule II opioid drug. Start Date: 08/13/21 Stop Date: 08/27/21 Status: Ordered fexofenadine 180 mg oral tablet 1 tablet = 180 mg, By Mouth, Daily, Instead of cetirizine (Zyrtec). For allergies., # 30 tablet, 5 Refills, Maintenance, 02/12/21 11:54:00 EDT, Tablet, [facility], Partial fill upon patient request if the prescription is for a schedu... Start Date: 02/12/21 Status: Ordered Flomax 0.4 mg oral capsule 0.4 mg, 1, capsule, By Mouth, Daily, To help kidney stone pass, # 30 capsule, Refills 1, Tot. Refills 1, Maintenance, 12/25/22 12:52:00 EST, Route to Pharmacy Electronically, [facility], 175, cm, 12/25/22 12:08:00 EST, Height Start Date: 12/25/22 Status: Ordered ibuprofen 800 mg oral tablet 800 mg, 1, tablet, By Mouth, Daily, As needed for migraine and kidney stone pain. do not use daily,it will make migraine worse, # 30 tablet, Refills 3, Tot. Refills 3, Maintenance, 11/04/22 12:41:00EST, Route to Pharmacy Electronically, [facility] Start Date: 11/04/22 Status: Ordered Narcan 4 mg/0.1 mL nasal spray = 4 mg, Nares, Both, Once, In case of overdose: spray in nose, call 911, repeat every 2 mins as needed, # 2 each, 5 Refills, Soft Stop, 12/28/19 9:06:00 EST, [facility]/pharmacy #[id number], 175, cm, 07/04/19 15:37:00 EDT, Height, 109.9, kg, 07/01/19 10:09:00 EDT,... Start Date: 12/28/19 Status: Ordered pantoprazole 40 mg oral delayed release tablet 1 tablet = 40 mg, By Mouth, 2 times a day, Take up to 2 times a day; only as needed for acid reflux/ heartburn, # 60 tablet, 11 Refills, Maintenance, 11/19/21 11:18:00 EST, CR Tablet, 175, cm, 11/19/21 10:53:00 EST, Height Start Date: 11/19/21 Status: Ordered ProAir HFA 90 mcg/inh inhalation aerosol with adapter 2, puffs, Inhalation, Every 4 hours, PRN, # 8.5 Gm, Refills 11, Tot. Refills 11, Maintenance, 08/18/22 14:17:00 EDT, Aerosol, Route to Pharmacy Electronically, [id number]_[id number], [facility], 175, cm, 11/19/21 10:53:00 EST, Height Start Date: 08/18/22 Status: Ordered sucralfate 1 gm oral tablet 1 Gm, 1, tablet, By Mouth, 4 times a day, # 120 tablet, Refills 3, Tot. Refills 3, Maintenance, 12/19/21 13:28:00 EST, Route to Pharmacy Electronically, [facility], Partial fill uponpatient request if the prescription is for a schedu... Start Date: 12/19/21 Status: Ordered traZODone 150 mg oral tablet 1 tablet = 150 mg, By Mouth, Daily at bedtime, For sleep., # 30 tablet, 0 Refills, Maintenance, 11/04/22 12:49:00 EST, Tablet, [facility]/pharmacy #[id number], Partial fill upon patient request if the prescription is for a schedule II opioid drug., 175, cm, ... Start Date: 11/04/22 Status: Ordered triamcinolone 0.1% topical cream 1 application, Topically, 2 times a day, apply a thin film to affected area in armpit, # 80 Gm, 2 Refills, Maintenance, 11/19/21 11:29:00 EST, [place], [facility], Partial fill upon patient request if the prescription is for a schedule... Start Date: 11/19/21 Status: Ordered Tylenol 325 mg oral tablet 650 mg, 2, tablet, By Mouth, Every 4 hours, PRN, # 120 tablet, Refills 0, Tot. Refills 0, Maintenance, for fever, 02/15/20 13:30:00 EDT, Route to Pharmacy Electronically, [facility]/pharmacy #[id number], 175, cm,07/04/19 15:37:00 EDT, Height, 109.9, kg, 07/01/19... Start Date: 02/15/20 Status: Ordered ZyrTEC-D 5 mg-120 mg oral tablet, extended release 1 tablet, By Mouth, Every 24 hours, # 30 tablet, 2 Refills, Maintenance, 10/15/22 9:16:00 EST, ER Tablet, [facility], Partial fill upon patient request if the prescription is for a schedule II opioid drug., 1 tablet By Mouth Every 24... Start Date: 10/15/22 Stop Date: 01/13/23 Status: Ordered Problem List Condition Confirmation Course Effective Dates Status H ealth Status Informant Anxiety about health Confirmed Active Severe dysplasia of anal canal 1 Confirmed Active Chronic rhinitis Confirmed Active COVID-19 2 Confirmed Active Pseudoseizures Confirmed Active Epigastric pain Confirmed Active Chronic GERD Confirmed Active Insomnia Confirmed Active Kidney stones, mixed calcium oxalate Confirmed Active Overweight Confirmed Active Pharyngitis Confirmed Active Post traumatic stress disorder (PTSD) Confirmed Active Major depressive disorder, recurrent Confirmed Active Severe obesity Confirmed Active Urethritis 3 Confirmed Active 1per histology 01/30/2015 2home testing on 08/17/2022 and 08/18/2022 by patient statement 3persistent urethritis sx without e/o inflammation (UA repeatedly negative) or infection (GC/CT repeatedly negative; negative trich, negative mycoplasma genitalium) Social History Social History Type Response Smoking Status Current every day okalexa entered on: 11/09/17 Sex Patient Care team information Care Team Personnel Name: Pearl Reyna MD Position: [facility] Primary Care Physician Member Role: PCP Address: Address: [address] [place] [address]- Care Team Related Persons Name: KAITLYN COVARRUBIAS Name: ASHLYN LONG Address: home [address] [place] [address] Name: NO, ONE AT THIS TIME Name: WADE SABILLON
--- OUTSIDE RECORDS SUMMARY | 2023-07-22 17:09 | XMS_ITS | Continuity of Care Document ---
Author Name Unknown Organization [facility] Address [address] [place] [address]- Care Team Providers Care Environmental Associate Name Role Phone Pearl Reyna MD Primary Care Physician Encounter [facility] Date(s): 03/04/23 - 04/03/23 [facility] [address] [place] [address]- Attending Physician: John Clark Admitting Physician: John Clark Referring Physician: AdmtrJohn Allergies, Adverse Reactions, Alerts Substance Reaction Severity Status Rocephin 1 rash Resolved abacavir 2 Active Ziagen HLA B5701 positive Active Complera allergic to the rilp irivine componant of Complera-tolerates truvada Active 1Not allergic. Tolerated cefpodoxime 10/2017 (prescribed at [facility] ED) as well [...] Comment: diluted w/ normal saline lot number [id number] expires 02/27/2023 2Result Comment: Received in [place] Medications albuterol 0.083% inhalation solution 3 mL = 2.5 mg, Neb, Every 6 hours, PRN as needed for wheezing, # 90 mL, 6 Refills, Maintenance, 02/09/23 11:31:00 EDT, Solution, [facility], Partial fill upon patient request if the prescription is for a schedule II opioid drug., 175,... Start Date: 02/09/23 Status: Ordered azelastine nasal 0.15% spray 2 sprays, Nares, Both, 2 times a day, PRN for allergy symptoms, # 30 mL, 5 Refills, Maintenance, 01/23/21 14:38:00 EST, [place], [facility], 2 sprays Nares, Both 2 times a day,PRN:for allergy symptoms, 175, cm, 02/25/20 12:28:00 EDT, He... Start Date: 01/23/21 Status: Ordered beclomethasone 0.042 mg/inh nasal spray 1 sprays, Nares, Both, 2 times a day, in each nostril, # 25 Gm, 5 Refills, Maintenance, 12/21/19 14:09:00 EST, [facility], d/c fluconasol, 1 sprays Nares, Both 2 times a day,Instr:ineach nostril, 175, cm, 07/04/19 15:37:00 EDT, Heigh... Start Date: 12/21/19 Status: Ordered Biktarvy oral tablet 1 tablet, By Mouth, Daily, # 30 tablet, 11 Refills, Maintenance, 03/27/22 13:37:00 EDT, Tablet, [facility], Partial fill upon patient request if the prescription is for a schedule IIopioid drug., 1 tablet By Mouth Daily, 175, cm, 12/... Start Date: 03/27/22 Status: Ordered diclofenac sodium [...] 12/25/22 12:52:00 EST, Route to Pharmacy Electronically, [facility], 175, cm, 12/25/22 12:08:00 EST, [...] 10:09:00 EDT,... Start Date: 12/28/19 Status: Ordered Nebulizer machine Nebulizer machine, See Instructions, # 1 each, Refills 0, Tot. Refills 0, Maintenance, J45. 41 Fax to [employer], 02/11/23 14:58:00 EDT, Supply Start Date: 02/11/23 Status: Ordered pantoprazole 40 mg oral delayed [...] 14:17:00 EDT, Aerosol, Route to Pharmacy Electronically, NJPDP_[id number], [facility], 175, cm, 11/19/21 10:53:00 EST, Height Start Date: 08/18/22 Status: Ordered sucralfate 1 gm oral tablet 1 Gm, 1, tablet, By Mouth, 4 times a day, # 120 tablet, Refills 3, Tot. Refills 3, Maintenance, 12/19/21 13:28:00 EST, Route to Pharmacy Electronically, [facility], Partial fill uponpatient request if the prescription is for a schedu... Start Date: 12/19/21 Status: Ordered traZODone 150 mg oral tablet 1 tablet = 150 mg, By Mouth, Daily at bedtime, For sleep., # 30 tablet, 0 Refills, Maintenance, 11/04/22 12:49:00 EST, Tablet, [facility]/pharmacy #[id number], Partial fill upon patient request if the prescription is for a schedule II opioid drug., 175, cm, ... Start Date: 11/04/22 Status: Ordered triamcinolone 0.1% topical cream 1 application, Topically, 2 times a day, apply a thin film to affected area in armpit, # 80 Gm, 2 Refills, Maintenance, 11/19/21 11:29:00 EST, Cream, [facility], Partial fill upon patient request if the prescription is for a schedule... Start Date: 11/19/21 Status: Ordered Tylenol 325 mg oral tablet 650 mg, 2, tablet, By Mouth, Every 4 hours, PRN, # 120 tablet, Refills 0, Tot. Refills 0, Maintenance, for fever, 02/15/20 13:30:00 EDT, Route to Pharmacy Electronically, [facility]/pharmacy #[id number], 175, cm,07/04/19 15:37:00 EDT, Height, 109.9, kg, 07/01/19... Start Date: 02/15/20 Status: Ordered ZyrTEC-D 5 mg-120 mg oral tablet, extended release 1 tablet, By Mouth, Every 24 hours, # 30 tablet, 2 Refills, Maintenance, 10/15/22 9:16:00 EST, ER Tablet, [facility], [...] Type Response Smoking Status Current every day sm faisal entered on: 11/09/17 Sex Patient Care team information Care Team Personnel Name: Pearl Reyna MD Position: [facility] Primary Care Physician Member Role: PCP Address: Address: [address] [place] [address]- Care Team Related Persons Name: GILBERTONERIS OCHOASUS Name: ASHLYN LONG Address: home [address] [place] [address] Name: NO, ONE AT THIS TIME Name: WADE SABILLON
--- OUTSIDE RECORDS SUMMARY | 2023-07-22 17:10 | XMS_ITS | Continuity of Care Document ---
Author Name Unknown Organization [facility] Address [address] [place] [address]- Care Team Providers Care Agricultural Equipment Sales Engineer Name Role Phone Pearl Reyna MD Primary Care Physician Encounter [facility] Date(s): 05/29/23 - 06/28/[address] [address]- Allergies, Adverse Reactions, Alerts Substance Reaction Severity Status Rocephin 1 rash Resolved abacavir 2 Active Ziagen HLA B5701 positive Active Complera allergic to the rilp irivine componant of Complera-tolerates truvada Active 1Not allergic. Tolerated cefpodoxime 10/2017 (prescribed at [facility] ED) as well as ceftriaxone IM [...] Not Given Patient Refuses pneumococcal 23-valent vaccine 2/25/14 Not Given Patient Refuses 1Result Comment: diluted w/ normal saline lot number [id number] expires 02/27/2023 2Result Comment: Received in [place] Medications albuterol 0.083% inhalation solution 3 mL = 2.5 mg, Neb, Every 6 hours, PRN as needed for wheezing, # 90 mL, 6 Refills, Maintenance, 02/09/23 11:31:00 EDT, Solution, [facility], Partial fill upon patient request if the prescription is for a schedule II opioid drug., 175,... Start Date: 02/09/23 Status: Ordered azelastine nasal 0.15% spray 2 sprays, Nares, Both, 2 times a day, PRN for allergy symptoms, # 30 mL, 5 Refills, Maintenance, 01/23/21 14:38:00 EST, [place], [facility], 2 sprays Nares, Both 2 times a day,PRN:for allergy symptoms, 175, cm, 02/25/20 12:28:00 EDT, He... Start Date: 01/23/21 Status: Ordered beclomethasone 0.042 mg/inh nasal spray 1 sprays, Nares, Both, 2 times a day, in each nostril, # 25 Gm, 5 Refills, Maintenance, 12/21/19 14:09:00 EST, [facility], d/c fluconasol, 1 sprays Nares, Both 2 times a day,Instr:ineach nostril, 175, cm, 07/04/19 15:37:00 EDT, [place]... Start Date: 12/21/19 Status: Ordered Biktarvy oral tablet 1 tablet, By Mouth, Daily, # 30 tablet, 5 Refills, Maintenance, 04/23/23 9:23:00 EDT, Tablet, [facility], 1 tablet By Mouth Daily, 175, cm, 04/23/23 9:01:00 EDT, Height Start Date: 04/23/23 Status: Ordered clonazePAM 0.5 mg oral tablet See Instructions, 1-2 tablets by mouth daily as needed for anxiety/ panic. Dispense: #45 per 30d. ALEE Parikh Checked, appropriate, # 45 tablet, 2 Refills, Maintenance, 05/08/23 16:32:00 EDT, Tablet, [facility], Partial fill upon patien... Start Date: 05/08/23 Status: Ordered diclofenac sodium 75 mg oral delayed release tablet 1 tablet = 75 mg, By Mouth, 2 times a day, # 28 tablet, 0 Refills, Maintenance, 08/13/21 18:06:00 EDT, EC Tablet, Partial fill upon patient request if the prescription is for a schedule II opioid drug. Start Date: 08/13/21 Stop Date: 08/27/21 Status: Ordered Effexor XR 75 mg oral capsule, extended release 75 mg, 1, capsule, By Mouth, Daily, do not crush or chew., # 30 capsule, Refills 1, Tot. Refills 1,Maintenance, 04/23/23 9:29:00 EDT, Route to Pharmacy Electronically, [facility], 175, cm, 04/23/23 9:01:00 EDT, Height Start Date: 04/23/23 Status: Ordered fexofenadine 180 mg oral tablet 1 tablet = 180 mg, By Mouth, Daily, Instead of cetirizine (Zyrtec). For allergies., # 30 tablet, 5 Refills, Maintenance, 02/12/21 11:54:00 EDT, Tablet, [facility], Partial fill upon patient request if the prescription is for a schedu... Start Date: 02/12/21 Status: Ordered Flomax 0.4 mg oral capsule 0.4 mg, 1, capsule, By Mouth, Daily, To help kidney stone pass, # 30 capsule, Refills 1, Tot. Refills 1, Maintenance, 05/08/23 16:34:00 EDT, Route to Pharmacy Electronically, [facility], 175, cm, 04/23/23 9:43:00 EDT, Height Start Date: 05/08/23 Status: Ordered ibuprofen 800 mg oral tablet [...] 5 Refills, Soft Stop, 12/28/19 9:06:00 EST, [facility]/pharmacy #[id number], 175, cm, 07/04/19 15:37:00 EDT, Height, 109.9, kg, 07/01/19 10:09:00 EDT,... Start Date: 12/28/19 Status: Ordered Nebulizer machine Nebulizer machine, See Instructions, # 1 each, Refills 0, Tot. Refills 0, Maintenance, J45. 41 Fax to [employer], 02/11/23 14:58:00 EDT, Supply Start Date: 02/11/23 Status: Ordered pantoprazole 40 mg oral delayed release tablet 1 tablet = 40 mg, By Mouth, Daily, take daily - 30 min before breakfast, # 30 tablet, 3 Refills, Maintenance, 04/23/23 9:20:00 EDT, CR Tablet, 175, cm, 04/23/23 9:01:00 EDT, Height Start Date: 04/23/23 Stop Date: 08/21/23 Status: Ordered ProAir HFA 90 mcg/inh inhalation aerosol with adapter 2, puffs, Inhalation, Every 4 hours, PRN, # 8.5 Gm, Refills 11, Tot. Refills 11, Maintenance, 08/18/22 14:17:00 EDT, Aerosol, Route to Pharmacy Electronically, [id number]_[id number], [facility], 175, cm, 11/19/21 10:53:00 EST, Height Start Date: 08/18/22 Status: Ordered sucralfate 1 gm oral tablet 1 Gm, 1, tablet, By Mouth, 4 times a day, # 120 tablet, Refills 3, Tot. Refills 3, Maintenance, 12/19/21 13:28:00 EST, Route to Pharmacy Electronically, [facility], Partial fill uponpatient request if the prescription is for a schedu... Start Date: 12/19/21 Status: Ordered traZODone 150 mg oral tablet 1 tablet = 150 mg, By Mouth, Daily at bedtime, For sleep., # 30 tablet, 3 Refills, Maintenance, 04/23/23 9:24:00 EDT, Tablet, [facility], Partial fill upon patient request if the prescription is for a schedule II opioid drug., 175, cm... Start Date: 04/23/23 Status: Ordered triamcinolone 0.1% topical cream 1 application, Topically, 2 times a day, apply a thin film to affected area in armpit, # 80 Gm, 2 Refills, Maintenance, 11/19/21 11:29:00 EST, Cream, [facility], Partial fill upon patient request if the prescription is for a schedule... Start Date: 11/19/21 Status: Ordered Tylenol 325 mg oral tablet 650 mg, 2, tablet, By Mouth, Every 4 hours, PRN, # 120 tablet, Refills 0, Tot. Refills 0, Maintenance, for fever, 02/15/20 13:30:00 EDT, Route to Pharmacy Electronically, [facility]/pharmacy #[id number], 175, cm,07/04/19 15:37:00 EDT, Height, 109.9, kg, 07/01/19... Start Date: 02/15/20 Status: Ordered ZyrTEC-D 5 mg-120 mg oral tablet, extended release 1 tablet, By Mouth, Every 24 hours, # 30 tablet, 2 Refills, Maintenance, 10/15/22 9:16:00 EST, ER Tablet, [facility], Partial fill upon patient request [...] Type Response Smoking Status Current every day mike faisal entered on: 11/09/17 Sex Patient Care team information Care Team Personnel Name: Pearl Reyna MD Position: S Physician - Primary Care Member Role: PCP Address: Address: [address] [place] [address]- Care Team Related Persons Name: KAITLYN COVARRUBIAS Name: ASHLYN LONG Address: home [address] [place] [address] Name: NO, ONE AT THIS TIME Name: WADE SABILLON
--- OUTSIDE RECORDS SUMMARY | 2023-07-22 17:10 | XMS_ITS | Continuity of Care Document ---
Author Name Unknown Organization [facility] Address [address] [place] [address]- Care Team Providers Care Real Estate Sales Manager Name Role Phone Pearl Reyna MD Primary Care Physician Encounter [facility] Date(s): 02/11/23 - 03/13/[address] [address]- Allergies, Adverse Reactions, Alerts Substance Reaction Severity Status Rocephin 1 rash Resolved abacavir 2 Active Ziagen HLA B5701 positive Active Complera allergic to the rilp irivine componant of Complera-tolerates truvada Active 1Not allergic. Tolerated cefpodoxime 10/2017 (prescribed at [facility] ED) as well as ceftriaxone IM (administered [...] Comment: diluted w/ normal saline lot number [id number] expires 02/27/2023 2Result Comment: Received in [place] Medications albuterol 0.083% inhalation solution 3 mL = 2.5 mg, Neb, Every 6 hours, PRN as needed for wheezing, # 90 mL, 6 Refills, Maintenance, 02/09/23 11:31:00 EDT, Solution, [facility], Partial fill upon patient request if the prescription is for a schedule II opioid drug., 175,... Start Date: 02/09/23 Status: Ordered azelastine nasal 0.15% spray 2 sprays, Nares, Both, 2 times a day, PRN for allergy symptoms, # 30 mL, 5 Refills, Maintenance, 01/23/21 14:38:00 EST, [place], [facility], 2 sprays Nares, Both 2 times a day,PRN:for allergy symptoms, 175, cm, 02/25/20 12:28:00 EDT, He... Start Date: 01/23/21 Status: Ordered beclomethasone 0.042 mg/inh nasal spray 1 sprays, Nares, Both, 2 times a day, in each nostril, # 25 Gm, 5 Refills, Maintenance, 12/21/19 14:09:00 EST, [facility], d/c fluconasol, 1 sprays Nares, Both 2 times a day,Instr:ineach nostril, 175, cm, 07/04/19 15:37:00 EDT, [place]... Start Date: 12/21/19 Status: Ordered Biktarvy oral tablet 1 tablet, By Mouth, Daily, # 30 tablet, 11 Refills, Maintenance, 03/27/22 13:37:00 EDT, Tablet, [facility], Partial fill upon patient request [...] 5 Refills, Maintenance, 02/12/21 11:54:00 EDT, Tablet, [facility], Partial fill upon patient request if the prescription is for a schedu... Start Date: 02/12/21 Status: Ordered Flomax 0.4 mg oral capsule 0.4 mg, 1, capsule, By Mouth, Daily, To help kidney stone pass, # 30 capsule, Refills 1, Tot. Refills 1, Maintenance, 12/25/22 12:52:00 EST, Route to Pharmacy Electronically, [facility], 175, cm, 12/25/22 12:08:00 [...] Refills 0, Maintenance, J45. 41 Fax to [facility], 02/11/23 14:58:00 EDT, Supply Start Date: 02/11/23 [...] 14:17:00 EDT, Aerosol, Route to Pharmacy Electronically, [id number], [facility], 175, cm, 11/19/21 10:53:00 EST, Height Start Date: 08/18/22 Status: Ordered sucralfate 1 gm oral tablet 1 Gm, 1, tablet, By Mouth, 4 times a day, # 120 tablet, Refills 3, Tot. Refills 3, Maintenance, 12/19/21 13:28:00 EST, Route to Pharmacy Electronically, [facility], Partial fill uponpatient request if the prescription is for a schedu... Start Date: 12/19/21 Status: Ordered traZODone 150 mg oral tablet 1 tablet = 150 mg, By Mouth, Daily at bedtime, For sleep., # 30 tablet, 0 Refills, Maintenance, 11/04/22 12:49:00 EST, Tablet, [facility]/pharmacy #[id number], Partial fill upon patient request if the prescription is for a schedule II opioid drug., 175, cm, 11/19/... Start Date: 11/04/22 Status: Ordered triamcinolone 0.1% topical cream 1 application, Topically, 2 times a day, apply a thin film to affected area in armpit, # 80 Gm, 2 Refills, Maintenance, 11/19/21 11:29:00 EST, [place], [facility], Partial fill upon patient request if the prescription is for a schedule... Start Date: 11/19/21 Status: Ordered Tylenol 325 mg oral tablet 650 mg, 2, tablet, By Mouth, Every 4 hours, PRN, # 120 tablet, Refills 0, Tot. Refills 0, Maintenance, for fever, 02/15/20 13:30:00 EDT, Route to Pharmacy Electronically, [facility]/pharmacy #[id number], 175, cm,07/04/19 15:37:00 EDT, Height, 109.9, kg, 07/01/19... Start Date: 02/15/20 Status: Ordered ZyrTEC-D 5 mg-120 mg oral tablet, extended release 1 tablet, By Mouth, Every 24 hours, # 30 tablet, 2 Refills, Maintenance, 10/15/22 9:16:00 EST, ER Tablet, [facility], Partial fill upon patient [...] Response Smoking Status Current every day mike malone entered on: 11/09/17 Sex Patient Care team information Care Team Personnel Name: Pearl Reyna MD Position: [facility] Primary Care Physician Member Role: PCP Address: Address: [address] [place] [address]- Care Team Related Persons Name: KAITLYN COVARRUBIAS Name: ASHLYN LONG Address: home [address] [place] [address] Name: NO, ONE AT THIS TIME Name: WADE SABILLON
--- OUTSIDE RECORDS SUMMARY | 2023-07-22 17:10 | XMS_ITS | Continuity of Care Document ---
Author Name Unknown Organization [facility] Address [address] [place] [address]- Care Team Providers Care Heavy Threader Name Role Phone Pearl Reyna MD Primary Care Physician Encounter [facility] [id number] Date(s): 12/25/22 - 01/24/[address] [address]- Attending Physician: John Clark Admitting Physician: John Clark Referring Physician: AdmtrJohn Allergies, Adverse Reactions, Alerts Substance Reaction Severity Status Complera allergic to the rilp irivine componant of Complera-tolerates truvada Active Rocephin 1 rash Resolved abacavir 2 Active Ziagen HLA B5701 positive Active 1Not allergic. Tolerated cefpodoxime 10/2017 (prescribed at [facility] ED) as well as ceftriaxone [...] Comment: diluted w/ normal saline lot number [id number] expires 02/27/2023 2Result Comment: Received in [place] Medications azelastine nasal 0.15% spray 2 sprays, Nares, Both, 2 times a day, PRN for allergy symptoms, # 30 mL, 5 Refills, Maintenance, 01/23/21 14:38:00 EST, [place], [facility], 2 sprays Nares, Both 2 times a day,PRN:for allergy symptoms, 175, cm, 02/25/20 12:28:00 EDT, He... Start Date: 01/23/21 Status: Ordered beclomethasone 0.042 mg/inh nasal spray 1 sprays, Nares, Both, 2 times a day, in each nostril, # 25 Gm, 5 Refills, Maintenance, 12/21/19 14:09:00 EST, [facility], d/c fluconasol, 1 sprays Nares, Both 2 times a day,Instr:ineach nostril, 175, cm, 07/04/19 15:37:00 EDT, [place]... Start Date: 12/21/19 Status: Ordered Biktarvy oral tablet 1 tablet, By Mouth, Daily, # 30 tablet, 11 Refills, Maintenance, 03/27/22 13:37:00 EDT, Tablet, [facility], Partial fill upon patient request [...] Refills, Maintenance, 02/12/21 11:54:00 EDT, Tablet, [facility], Partial fill upon patient request if the prescription is for a schedu... Start Date: 02/12/21 Status: Ordered Flomax 0.4 mg oral capsule 0.4 mg, 1, capsule, By Mouth, Daily, To help kidney stone pass, # 30 capsule, Refills 1, Tot. Refills 1, Maintenance, 12/25/22 12:52:00 EST, Route to Pharmacy Electronically, [facility], 175, cm, 12/25/22 12:08:00 [...] 14:17:00 EDT, Aerosol, [id number], 175, cm, 11/19/21 10:53:00 EST, Height Start Date: 08/18/22 Status: Ordered sucralfate 1 gm oral tablet 1 Gm, 1, tablet, By Mouth, 4 times a day, # 120 tablet, Refills 3, Tot. Refills 3, Maintenance, 12/19/21 13:28:00 EST, Route to Pharmacy Electronically, [facility], Partial fill uponpatient request if the prescription is for a schedu... Start Date: 12/19/21 Status: Ordered traZODone 150 mg oral tablet 1 tablet = 150 mg, By Mouth, Daily at bedtime, For sleep., # 30 tablet, 0 Refills, Maintenance, 11/04/22 12:49:00 EST, Tablet, [facility]/pharmacy #[id number], Partial fill upon patient request if the prescription is for a schedule II opioid drug., 175, cm, 11/19/... Start Date: 11/04/22 Status: Ordered triamcinolone 0.1% topical cream 1 application, Topically, 2 times a day, apply a thin film to affected area in armpit, # 80 Gm, 2 Refills, Maintenance, 11/19/21 11:29:00 EST, [place], [facility], Partial fill upon patient request if the prescription is for a schedule... Start Date: 11/19/21 Status: Ordered Tylenol 325 mg oral tablet 650 mg, 2, tablet, By Mouth, Every 4 hours, PRN, # 120 tablet, Refills 0, Tot. Refills 0, Maintenance, for fever, 02/15/20 13:30:00 EDT, Route to Pharmacy Electronically, [facility]/pharmacy #[id number], 175, cm,07/04/19 15:37:00 EDT, Height, 109.9, kg, 07/01/19... Start Date: 02/15/20 Status: Ordered ZyrTEC-D 5 mg-120 mg oral tablet, extended release 1 tablet, By Mouth, Every 24 hours, # 30 tablet, 2 Refills, Maintenance, 10/15/22 9:16:00 EST, ER Tablet, [facility], Partial fill upon patient [...] day sm faisal entered on: 11/09/17 Sex Note * Event Display: Non Lab Results Authored Date: * Event Display: Non Lab Results Authored Date: * Event Display: Laboratory Result Scanned Authored Date: Patient Care team information Care Team Personnel Name: Pearl Reyna MD Position: [facility] Primary Care Physician Member Role: PCP Address: Address: [address] [place] [address]- Care Team Related Persons Name: KAITLYN COVARRUBIAS Name: ASHLYN LNOG Address: home [address] [place] [address] Name: NO, ONE AT THIS TIME Name: WADE SABILLON
--- OUTSIDE RECORDS SUMMARY | 2023-07-22 17:10 | XMS_ITS | Continuity of Care Document ---
Author Name Unknown Organization [facility] Address [address] [place] [address]- Care Team Providers Care Soft Work Wrapper Examiner Name Role Phone Pearl Reyna MD Primary Care Physician Encounter [facility] Date(s): 07/12/21 - 08/11/[address] [address]- Allergies, Adverse Reactions, Alerts Substance Reaction Severity Status Rocephin 1 rash Resolved Ziagen HLA B5701 positive Active Complera allergic to the rilp irivine componant of Complera-tolerates truvada Active 1Not allergic. Tolerated cefpodoxime 10/2017 (prescribed at [facility] ED) as well as ceftriaxone IM (administered in clinic 07/28/2018) Immunizations Given and Recorded Vaccine Date Status Refusal Reason SARS-CoV-2 (COVID-19) mRNA BNT-162b2 vac 1 07/08/21 Given SARS-CoV-2 (COVID-19) mRNA BNT-162b2 vac 2 06/10/21 Recorded Human Papillomavirus Vaccine 01/11/16 Given pneumococcal 13-valent vaccine 12/06/15 Given tetanus/diphtheria/pertussis, acel(Tdap) 12/06/15 Given tetanus-diphtheria toxoids (Td) 06/30/13 Given hepatitis B adult vaccine 06/23/13 Given Hepatitis A Adult Vaccine 06/23/13 Given Not Given Vaccine Date Status Refusal Reason pneumococcal 23-valent vaccine 02/28/14 Not Given Patient Refuses pneumococcal 23-valent vaccine 01/24/14 Not Given Patient Refuses 1Result Comment: diluted w/ normal saline lot number [id number] expires 02/27/2023 2Result Comment: Received in [place] Medications azelastine nasal 0.15% spray 2 sprays, Nares, Both, 2 times a day, PRN for allergy symptoms, # 30 mL, 5 Refills, Maintenance, 01/23/21 14:38:00 EST, [place], [facility], 2 sprays Nares, Both 2 times a day,PRN:for allergy symptoms, 175, cm, 02/25/20 12:28:00 EDT, He... Start Date: 01/23/21 Status: Ordered beclomethasone 0.042 mg/inh nasal spray 1 sprays, Nares, Both, 2 times a day, in each nostril, # 25 Gm, 5 Refills, Maintenance, 12/21/19 14:09:00 EST, [facility], d/c fluconasol, 1 sprays Nares, Both 2 times a day,Instr:ineach nostril, 175, cm, 07/04/19 15:37:00 EDT, Heigh... Start Date: 12/21/19 Status: Ordered Biktarvy By Mouth, Daily, Pt is taking Biktarvy; he has supply at home., 0 Refills, Maintenance, 02/12/21 11:52:00 EDT, Partial fill upon patient request if the prescription is for a schedule II opioid drug. Start Date: 02/12/21 Status: Ordered buPROPion 300 mg/24 hours (XL) oral tablet, extended release 1 tablet = 300 mg, By Mouth, Every 24 hours, # 30 tablet, 11 Refills, Maintenance, 12/21/19 14:10:00 EST, [facility], note dose change, 175, cm, 07/04/19 15:37:00 EDT, Height, 109.9,kg, 07/01/19 10:09:00 EDT, Dry Weight Start Date: 12/21/19 Status: Ordered Colace sodium 100 mg oral capsule 100 mg, 1, capsule, By Mouth, 2 times a day, PRN, # 60 capsule, Refills 3, Tot. Refills 3, Maintenance, for constipation, 12/02/17 13:58:38, Route to Pharmacy Electronically, NCPDP_[id number], [facility] Start Date: 12/02/17 Status: Ordered fexofenadine 180 mg oral tablet 1 tablet = 180 mg, By Mouth, Daily, Instead of cetirizine (Zyrtec). For allergies., # 30 tablet, 5 Refills, Maintenance, 02/12/21 11:54:00 EDT, Tablet, [facility], Partial fill upon patient request if the prescription is for a schedu... Start Date: 02/12/21 Status: Ordered Flonase 50 mcg/inh nasal spray 2 sprays, Nares, Both, Daily in AM, # 16 Gm, 5 Refills, Maintenance, 06/20/20 8:34:00 EDT, [place], [facility], 2 sprays Nares, Both Daily in AM,x14 days, 175, cm, 02/25/20 12:28:00 EDT, Height, 109.9, kg, 07/01/19 10:09:00 EDT, Dry Weight Start Date: 06/20/20 Stop Date: 09/12/20 Status: Ordered Flovent HFA 110 mcg/inh inhalation aerosol 2 puffs, Inhalation, 2 times a day, # 12 Gm, 0 Refills, Maintenance, 03/16/20 14:12:00 EDT, Aerosol, [facility], 175, cm, 02/25/20 12:28:00 EDT, Height, 109.9, kg, 07/01/19 10:09:00 EDT, Dry Weight Start Date: 03/16/20 Status: Ordered ibuprofen 800 mg oral tablet 800 mg, 1, tablet, By Mouth, Daily, As needed for migraine and kidney stone pain. do not use daily,it will make migraine worse, # 30 tablet, Refills 5, Tot. Refills 5, Maintenance, 02/12/21 11:50:00EDT, Route to Pharmacy Electronically, [facility]... Start Date: 02/12/21 Status: Ordered Narcan 4 mg/0.1 mL nasal spray = 4 mg, Nares, Both, Once, In case of overdose: spray in nose, call 911, repeat every 2 mins as needed, # 2 each, 5 Refills, Soft Stop, 12/28/19 9:06:00 EST, [facility]/pharmacy #[id number], 175, cm, 07/04/19 15:37:00 EDT, Height, 109.9, kg, 07/01/19 10:09:00 EDT,... Start Date: 12/28/19 Status: Ordered pantoprazole 40 mg oral delayed release tablet 1 tablet = 40 mg, By Mouth, 2 times a day, Take up to 2 times a day; only as needed for acid reflux/ heartburn, # 60 tablet, 11 Refills, Maintenance, 10/15/20 16:11:00 EST, [place] Tablet, 175, cm, 02/25/20 12:28:00 EDT, Height, 109.9, kg, 07/01/19 10:09:0... Start Date: 10/15/20 Status: Ordered prazosin 1 mg oral capsule 1 mg, 1, capsule, By Mouth, Daily at bedtime, New med for sleep/nightmares. Start 1mg at bedtime. If not too drowsy, increase after 1 wk to 2mg at bedtime. (In addition to trazodone)., # 60 capsule, Refills 5, Tot. Refills 5, Maintenance, 02/12/21... Start Date: 02/12/21 Status: Ordered ProAir HFA 90 mcg/inh inhalation aerosol with adapter 2, puffs, Inhalation, Every 4 hours, PRN, # 8.5 Gm, Refills 11, Tot. Refills 11, Maintenance, 12/27/19 14:05:00 EST, Aerosol, Route to Pharmacy Electronically, NCPDP_[id number], [facility], 175, cm, 07/04/19 15:37:00 EDT, Height, 109.... Start Date: 12/27/19 Status: Ordered traZODone 150 mg oral tablet 1 tablet = 150 mg, By Mouth, Daily at bedtime, For sleep. Dose increased 02/12/21, # 30 tablet, 5 Refills, Maintenance, 02/12/21 11:48:00 EDT, Tablet, [facility], Partial fill upon patient request if the prescription is for a schedule... Start Date: 02/12/21 Status: Ordered Tylenol 325 mg oral tablet 650 mg, 2, tablet, By Mouth, Every 4 hours, PRN, # 120 tablet, Refills 0, Tot. Refills 0, Maintenance, for fever, 02/15/20 13:30:00 EDT, Route to Pharmacy Electronically, [facility] #[id number], 175, cm,07/04/19 15:37:00 EDT, Height, 109.9, kg, 07/01/19... 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 Chronic rhinitis(Confirmed) Active Pseudoseizures(Confirmed) Active Epigastric pain(Confirmed) Active Insomnia(Confirmed) Active Kidney stones, mixed calcium oxalate(Confirmed) Active Overweight(Confirmed) Active Post traumatic stress disord er (PTSD)(Confirmed) Active Urethritis(Confirmed) 2 Active 1per histology 01/30/2015 2persistent urethritis sx without e/o inflammation (UA repeatedly negative) or infection (GC/CT repeatedly negative; negative trich, negative mycoplasma genitalium) Social History Social History Type Response Smoking Status Current every day mike malone entered on: 11/09/17 Sex
--- OUTSIDE RECORDS SUMMARY | 2023-07-22 17:10 | XMS_ITS | Continuity of Care Document ---
Author Name Unknown Organization [facility] Address [address] [place] [address]- Care Team Providers Care Roof Bolter Helper Name Role Phone Maribell REEDER, Pearl Primary Care Physician Encounter [facility] Date(s): 08/13/21 - 08/20/21 [facility] [address] [place] [address]- Attending Physician: Angela Segal MD Referring Physician: Pearl Reyna MD Allergies, Adverse Reactions, Alerts Substance Reaction Severity Status Rocephin 1 rash Resolved Ziagen HLA B5701 positive Active Complera allergic to the rilp irivine componant of Complera-tolerates truvada Active 1Not allergic. Tolerated cefpodoxime 10/2017 (prescribed at [facility]) as well as ceftriaxone IM [...] Comment: diluted w/ normal saline lot number [id number] expires 02/27/2023 2Result Comment: Received in [place] Medications azelastine nasal 0.15% spray 2 sprays, Nares, Both, 2 times a day, PRN for allergy symptoms, # 30 mL, 5 Refills, Maintenance, 01/23/21 14:38:00 EST, [place], [facility], 2 sprays Nares, Both 2 times a day,PRN:for allergy symptoms, 175, cm, 02/25/20 12:28:00 EDT, He... Start Date: 01/23/21 Status: Ordered beclomethasone 0.042 mg/inh nasal spray 1 sprays, Nares, Both, 2 times a day, in each nostril, # 25 Gm, 5 Refills, Maintenance, 12/21/19 14:09:00 EST, [facility], d/c fluconasol, 1 sprays [...] tablet, 11 Refills, Maintenance, 12/21/19 14:10:00 EST, [facility], note dose change, 175, cm, 07/04/19 15:37:00 EDT, Height, 109.9,kg, 07/01/19 10:09:00 EDT, Dry Weight Start Date: 12/21/19 Status: Ordered Colace sodium 100 mg oral capsule 100 mg, 1, capsule, By Mouth, 2 times a day, PRN, # 60 capsule, Refills 3, Tot. Refills 3, Maintenance, for constipation, 12/02/17 13:58:38, Route to Pharmacy Electronically, NCPDP_[id number], [facility] Start Date: 12/02/17 Status: Ordered diclofenac sodium 75 mg oral [...] 5 Refills, Maintenance, 02/12/21 11:54:00 EDT, Tablet, [facility], Partial fill upon patient request if the prescription is for a schedu... Start Date: 02/12/21 Status: Ordered Flonase 50 mcg/inh nasal spray 2 sprays, Nares, Both, Daily in AM, # 16 Gm, 5 Refills, Maintenance, 06/20/20 8:34:00 EDT, [place], [facility], 2 sprays Nares, Both Daily in AM,x14 days, 175, cm, 02/25/20 12:28:00 EDT, Height, 109.9, kg, 07/01/19 10:09:00 EDT, Dry Weight Start Date: 06/20/20 Stop Date: 09/12/20 Status: Ordered Flovent HFA 110 mcg/inh inhalation aerosol 2 puffs, Inhalation, 2 times a day, # 12 Gm, 0 Refills, Maintenance, 03/16/20 14:12:00 EDT, Aerosol, [facility], 175, cm, 02/25/20 12:28:00 EDT, Height, 109.9, kg, 07/01/19 10:09:00 EDT, Dry Weight Start Date: 03/16/20 Status: Ordered ibuprofen 800 mg oral tablet 800 mg, 1, tablet, By Mouth, Daily, As needed for migraine and kidney stone pain. do not use daily,it will make migraine worse, # 30 tablet, Refills 5, Tot. Refills 5, Maintenance, 02/12/21 11:50:00EDT, Route to Pharmacy Electronically, [facility]... Start Date: 02/12/21 Status: Ordered Narcan 4 mg/0.1 mL nasal spray = 4 mg, Nares, Both, Once, In case of overdose: spray in nose, call 911, repeat every 2 mins as needed, # 2 each, 5 Refills, Soft Stop, 12/28/19 9:06:00 EST, [facility]/pharmacy #[id number], 175, cm, 07/04/19 15:37:00 [...] 14:05:00 EST, Aerosol, Route to Pharmacy Electronically, NCPDP_[id number], [facility], 175, cm, 07/04/19 15:37:00 EDT, Height, 109.... Start Date: 12/27/19 Status: Ordered traZODone 150 mg oral tablet 1 tablet = 150 mg, By Mouth, Daily at bedtime, For sleep. Dose increased 02/12/21, # 30 tablet, 5 Refills, Maintenance, 02/12/21 11:48:00 EDT, Tablet, [facility], Partial fill upon patient request if the prescription is for a schedule... Start Date: 02/12/21 Status: Ordered Tylenol 325 mg oral tablet 650 mg, 2, tablet, By Mouth, Every 4 hours, PRN, # 120 tablet, Refills 0, Tot. Refills 0, Maintenance, for fever, 02/15/20 13:30:00 EDT, Route to Pharmacy Electronically, [facility]/pharmacy #[id number], 175, cm,07/04/19 15:37:00 EDT, [...] repeatedly negative; negative trich, negative mycoplasma genitalium) Vital Signs Most recent to oldest [Reference Range]: 1 Height 175 cm (08/13/21 5:46 PM) Oxygen Saturation [94-100 %] 95 % (08/13/21 5:46 PM) Pulse Rate [55-90 bpm] 95 bpm *H* (08/13/21 5:46 PM) Blood Pressure [90-138/55-84 mm Hg] 125/ 97mm Hg (08/13/21 5:46 PM) Respiratory Rate [16-30 br/min] 20 br/mi n (08/13/21 5:46 PM) Temperature [96.8-100.4 DegF] 97.7 DegF (08/13/21 5:46 PM) Mode of Delivery (Oxygen) Room air (08/13/21 5:46 PM) Blood pressure sites Arm, right (08/13/21 5:46 PM) Temperature Route Temporal (08/13/21 5:46 PM) Social History Social History Type Response Smoking Status Current every day mike malone entered on: 12/11/17 Sex
--- OUTSIDE RECORDS SUMMARY | 2023-07-22 17:10 | XMS_ITS | Continuity of Care Document ---
Author Name Unknown Organization [facility] Address [address] [place] [address]- Care Team Providers Care Banking Pin Adjuster Name Role Phone Pearl Reyna MD Primary Care Physician Encounter [facility] Date(s): 05/28/23 - 06/27/[address] [address]- Allergies, Adverse Reactions, Alerts Substance Reaction Severity Status Rocephin 1 rash Resolved abacavir 2 Active Ziagen HLA B5701 positive Active Complera allergic to the rilp irivine componant of Complera-tolerates truvada Active 1Not allergic. Tolerated cefpodoxime 10/2017 (prescribed at [facility]) as well as ceftriaxone IM [...] Comment: diluted w/ normal saline lot number [id number] expires 02/27/2023 2Result Comment: Received in [place] Medications albuterol 0.083% inhalation solution 3 mL = 2.5 mg, Neb, Every 6 hours, PRN as needed for wheezing, # 90 mL, 6 Refills, Maintenance, 02/09/23 11:31:00 EDT, Solution, [facility], Partial fill upon patient request if the prescription is for a schedule II opioid drug., 175,... Start Date: 02/09/23 Status: Ordered azelastine nasal 0.15% spray 2 sprays, Nares, Both, 2 times a day, PRN for allergy symptoms, # 30 mL, 5 Refills, Maintenance, 01/23/21 14:38:00 EST, [place], [facility], 2 sprays Nares, Both 2 times a day,PRN:for allergy symptoms, 175, cm, 02/25/20 12:28:00 EDT, He... Start Date: 01/23/21 Status: Ordered beclomethasone 0.042 mg/inh nasal spray 1 sprays, Nares, Both, 2 times a day, in each nostril, # 25 Gm, 5 Refills, Maintenance, 12/21/19 14:09:00 EST, [facility], d/c fluconasol, 1 sprays Nares, Both 2 times a day,Instr:ineach nostril, 175, cm, 07/04/19 15:37:00 EDT, [place]ie... Start Date: 12/21/19 Status: Ordered Biktarvy oral tablet 1 tablet, By Mouth, Daily, # 30 tablet, 5 Refills, Maintenance, 04/23/23 9:23:00 EDT, Tablet, [facility], 1 tablet By Mouth Daily, 175, cm, 04/23/23 9:01:00 EDT, Height Start Date: 04/23/23 Status: Ordered clonazePAM 0.5 mg oral tablet See Instructions, 1-2 tablets by mouth daily as needed for anxiety/ panic. Dispense: #45 per 30d. ALEE Parikh Checked, appropriate, # 45 tablet, 2 Refills, Maintenance, 05/08/23 16:32:00 EDT, Tablet, [facility], Partial fill upon patien... Start [...] 04/23/23 9:29:00 EDT, Route to Pharmacy Electronically, [facility], 175, cm, 04/23/23 9:01:00 EDT, Height Start Date: 04/23/23 Status: Ordered fexofenadine 180 mg oral tablet 1 tablet = 180 mg, By Mouth, Daily, Instead of cetirizine (Zyrtec). For allergies., # 30 tablet, 5 Refills, Maintenance, 02/12/21 11:54:00 EDT, Tablet, [facility], Partial fill upon patient request if the prescription is for a schedu... Start Date: 02/12/21 Status: Ordered Flomax 0.4 mg oral capsule 0.4 mg, 1, capsule, By Mouth, Daily, To help kidney stone pass, # 30 capsule, Refills 1, Tot. Refills 1, Maintenance, 05/08/23 16:34:00 EDT, Route to Pharmacy Electronically, [facility], 175, cm, 04/23/23 9:43:00 EDT, [...] Soft Stop, 12/28/19 9:06:00 EST, [facility]/pharmacy #[id number], 175, cm, 07/04/19 15:37:00 EDT, Height, 109.9, kg, 07/01/19 10:09:00 EDT,... Start Date: 12/28/19 Status: Ordered Nebulizer machine Nebulizer machine, See Instructions, # 1 each, Refills 0, Tot. Refills 0, Maintenance, J45. 41 Fax to [employer], 02/11/23 14:58:00 EDT, Supply Start Date: 02/11/23 [...] 14:17:00 EDT, Aerosol, Route to Pharmacy Electronically, [id number], [facility], 175, cm, 11/19/21 10:53:00 EST, Height Start Date: 08/18/22 Status: Ordered sucralfate 1 gm oral tablet 1 Gm, 1, tablet, By Mouth, 4 times a day, # 120 tablet, Refills 3, Tot. Refills 3, Maintenance, 12/19/21 13:28:00 EST, Route to Pharmacy Electronically, [facility], Partial fill uponpatient request if the prescription is for a schedu... Start Date: 12/19/21 Status: Ordered traZODone 150 mg oral tablet 1 tablet = 150 mg, By Mouth, Daily at bedtime, For sleep., # 30 tablet, 3 Refills, Maintenance, 04/23/23 9:24:00 EDT, Tablet, [facility], Partial fill upon patient request if the prescription is for a schedule II opioid drug., 175, cm... Start Date: 04/23/23 Status: Ordered triamcinolone 0.1% topical cream 1 application, Topically, 2 times a day, apply a thin film to affected area in armpit, # 80 Gm, 2 Refills, Maintenance, 11/19/21 11:29:00 EST, [place], [facility], Partial fill upon patient request if the prescription is for a schedule... Start Date: 11/19/21 Status: Ordered Tylenol 325 mg oral tablet 650 mg, 2, tablet, By Mouth, Every 4 hours, PRN, # 120 tablet, Refills 0, Tot. Refills 0, Maintenance, for fever, 02/15/20 13:30:00 EDT, Route to Pharmacy Electronically, [facility]/pharmacy #[id number], 175, cm,07/04/19 15:37:00 EDT, Height, 109.9, kg, 07/01/19... Start Date: 02/15/20 Status: Ordered ZyrTEC-D 5 mg-120 mg oral tablet, extended release 1 tablet, By Mouth, Every 24 hours, # 30 tablet, 2 Refills, Maintenance, 10/15/22 9:16:00 EST, ER Tablet, [facility], Partial fill upon patient request [...] Primary Care Member Role: PCP Address: Address: [address] [place] [address]- Care Team Related Persons Name: KAITLYN COVARRUBIAS Name: ASHLYN LONG Address: home [address] [place] [address] Name: NO, ONE AT THIS TIME Name: WADE SABILLON
--- OUTSIDE RECORDS SUMMARY | 2023-07-22 17:11 | XMS_ITS | Continuity of Care Document ---
Author Name Unknown Organization [facility] Address [address] [place] [address]- Care Team Providers Care Goodyear Welter Name Role Phone Pearl Reyna MD Primary Care Physician Encounter [facility] Date(s): 04/23/23 - 06/20/[address] [address]- Attending Physician: Pearl Reyna MD Admitting Physician: Pearl Reyna MD Allergies, Adverse Reactions, [...] Comment: diluted w/ normal saline lot number [id number] expires 02/27/2023 2Result Comment: Received in [place] Medications albuterol 0.083% inhalation solution 3 mL = 2.5 mg, Neb, Every 6 hours, PRN as needed for wheezing, # 90 mL, 6 Refills, Maintenance, 02/09/23 11:31:00 EDT, Solution, [facility], Partial fill upon patient request if the prescription is for a schedule II opioid drug., 175,... Start Date: 02/09/23 Status: Ordered azelastine nasal 0.15% spray 2 sprays, Nares, Both, 2 times a day, PRN for allergy symptoms, # 30 mL, 5 Refills, Maintenance, 01/23/21 14:38:00 EST, [place], [facility], 2 sprays Nares, Both 2 times a day,PRN:for allergy symptoms, 175, cm, 02/25/20 12:28:00 EDT, He... Start Date: 01/23/21 Status: Ordered beclomethasone 0.042 mg/inh nasal spray 1 sprays, Nares, Both, 2 times a day, in each nostril, # 25 Gm, 5 Refills, Maintenance, 12/21/19 14:09:00 EST, [facility], d/c fluconasol, 1 sprays Nares, Both 2 times a day,Instr:ineach nostril, 175, cm, 07/04/19 15:37:00 EDT, Heigh... Start Date: 12/21/19 Status: Ordered Biktarvy oral tablet 1 tablet, By Mouth, Daily, # 30 tablet, 5 Refills, Maintenance, 04/23/23 9:23:00 EDT, Tablet, [facility], 1 tablet By Mouth Daily, 175, cm, 04/23/23 9:01:00 EDT, Height Start Date: 04/23/23 Status: Ordered clonazePAM 0.5 mg oral tablet See Instructions, 1-2 tablets by mouth daily as needed for anxiety/ panic. Dispense: #45 per 30d. ALEE Parikh Checked, appropriate, # 45 tablet, 2 Refills, Maintenance, 05/08/23 16:32:00 EDT, Tablet, [facility], Partial fill upon patien... Start Date: [...] 04/23/23 9:29:00 EDT, Route to Pharmacy Electronically, [facility], 175, cm, 04/23/23 9:01:00 EDT, Height Start Date: 04/23/23 Status: Ordered fexofenadine 180 mg oral tablet 1 tablet = 180 mg, By Mouth, Daily, Instead of cetirizine (Zyrtec). For allergies., # 30 tablet, 5 Refills, Maintenance, 02/12/21 11:54:00 EDT, Tablet, [facility], Partial fill upon patient request if the prescription is for a schedu... Start Date: 02/12/21 Status: Ordered Flomax 0.4 mg oral capsule 0.4 mg, 1, capsule, By Mouth, Daily, To help kidney stone pass, # 30 capsule, Refills 1, Tot. Refills 1, Maintenance, 05/08/23 16:34:00 EDT, Route to Pharmacy Electronically, [facility], 175, cm, 04/23/23 9:43:00 EDT, [...] 5 Refills, Soft Stop, 12/28/19 9:06:00 EST, [facility]/pharmacy #[id number], 175, cm, 07/04/19 15:37:00 EDT, Height, 109.9, kg, 07/01/19 10:09:00 EDT,... Start Date: 12/28/19 Status: Ordered Nebulizer machine Nebulizer machine, See Instructions, # 1 each, Refills 0, Tot. Refills 0, Maintenance, J45. 41 Fax to [employer], 02/11/23 14:58:00 EDT, Supply Start Date: 02/11/23 [...] 14:17:00 EDT, Aerosol, Route to Pharmacy Electronically, [id number]_[id number], [facility], 175, cm, 11/19/21 10:53:00 EST, Height Start Date: 08/18/22 Status: Ordered sucralfate 1 gm oral tablet 1 Gm, 1, tablet, By Mouth, 4 times a day, # 120 tablet, Refills 3, Tot. Refills 3, Maintenance, 12/19/21 13:28:00 EST, Route to Pharmacy Electronically, [facility], Partial fill uponpatient request if the prescription is for a schedu... Start Date: 12/19/21 Status: Ordered traZODone 150 mg oral tablet 1 tablet = 150 mg, By Mouth, Daily at bedtime, For sleep., # 30 tablet, 3 Refills, Maintenance, 04/23/23 9:24:00 EDT, Tablet, [facility], Partial fill upon patient request if the prescription is for a schedule II opioid drug., 175, cm... Start Date: 04/23/23 Status: Ordered triamcinolone 0.1% topical cream 1 application, Topically, 2 times a day, apply a thin film to affected area in armpit, # 80 Gm, 2 Refills, Maintenance, 11/19/21 11:29:00 EST, Cream, [facility], Partial fill upon patient request if the prescription is for a schedule... Start Date: 11/19/21 Status: Ordered Tylenol 325 mg oral tablet 650 mg, 2, tablet, By Mouth, Every 4 hours, PRN, # 120 tablet, Refills 0, Tot. Refills 0, Maintenance, for fever, 02/15/20 13:30:00 EDT, Route to Pharmacy Electronically, [facility]/pharmacy #[id number], 175, cm,07/04/19 15:37:00 EDT, Height, 109.9, kg, 07/01/19... Start Date: 02/15/20 Status: Ordered ZyrTEC-D 5 mg-120 mg oral tablet, extended release 1 tablet, By Mouth, Every 24 hours, # 30 tablet, 2 Refills, Maintenance, 10/15/22 9:16:00 EST, ER Tablet, [facility], Partial fill upon patient [...] Primary Care Member Role: PCP Address: Address: [address] [place] [address]- Care Team Related Persons Name: KAITLYN COVARRUBIAS Name: ASHLYN LONG Address: home [address] [place] [address] Name: NO, ONE AT THIS TIME Name: WADE SABILLON
--- OUTSIDE RECORDS SUMMARY | 2023-07-22 17:11 | XMS_ITS | Continuity of Care Document ---
Author Name Unknown Organization [facility] Address [address] [place] [address]- Care Team Providers Care Force Variation Equipment Tender Name Role Phone Pearl Reyna MD Primary Care Physician Encounter [facility] Date(s): 06/27/22 - 07/27/[address] [address]- Allergies, Adverse Reactions, Alerts Substance Reaction Severity Status Rocephin 1 rash Resolved abacavir 2 Active Ziagen HLA B5701 positive Active Complera allergic to the rilp irivine componant of Complera-tolerates truvada Active 1Not allergic. Tolerated cefpodoxime 10/2017 (prescribed at [facility]) as well as ceftriaxone IM (administered [...] Comment: diluted w/ normal saline lot number [id number] expires 02/27/2023 2Result Comment: Received in [place] Medications amitriptyline 10 mg oral tablet 20 mg, 2, tablet, By Mouth, Daily at bedtime, New medication to prevent migraines. Causes sleepiness - take before bed ., # 30 tablet, Refills 0, Tot. Refills 0, Maintenance, 09/04/21 12:35:00 EDT, Route to Pharmacy Electronically, [facility]... Start Date: 09/04/21 Status: Ordered azelastine nasal 0.15% spray 2 sprays, Nares, Both, 2 times a day, PRN for allergy symptoms, # 30 mL, 5 Refills, Maintenance, 01/23/21 14:38:00 EST, [place], [facility], 2 sprays Nares, Both 2 times a day,PRN:for allergy symptoms, 175, cm, 02/25/20 12:28:00 EDT, He... Start Date: 01/23/21 Status: Ordered beclomethasone 0.042 mg/inh nasal spray 1 sprays, Nares, Both, 2 times a day, in each nostril, # 25 Gm, 5 Refills, Maintenance, 12/21/19 14:09:00 EST, [facility], d/c fluconasol, 1 sprays Nares, Both 2 times a day,Instr:ineach nostril, 175, cm, 07/04/19 15:37:00 EDT, [place]... Start Date: 12/21/19 Status: Ordered Biktarvy oral tablet 1 tablet, By Mouth, Daily, # 30 tablet, 11 Refills, Maintenance, 03/27/22 13:37:00 EDT, Tablet, [facility], Partial fill upon patient request if the prescription is for a schedule IIopioid drug., 1 tablet By Mouth Daily, 175, cm, 12/... Start Date: 03/27/22 Status: Ordered Colace sodium 100 mg oral capsule 100 mg, 1, capsule, By Mouth, 2 times a day, PRN, # 60 capsule, Refills 3, Tot. Refills 3, Maintenance, for constipation, 12/02/17 13:58:38, Route to Pharmacy Electronically, NCPDP_[id number], [facility] Start Date: 12/02/17 Status: Ordered diclofenac [...] 5 Refills, Maintenance, 02/12/21 11:54:00 EDT, Tablet, [facility], Partial fill upon patient request if the prescription is for a schedu... Start Date: 02/12/21 Status: Ordered Flomax 0.4 mg oral capsule 0.4 mg, 1, capsule, By Mouth, Daily, To help kidney stone pass, # 30 capsule, Refills 1, Tot. Refills 1, Maintenance, 04/15/22 13:06:00 EDT, Route to Pharmacy Electronically, [facility], 175, cm, 11/19/21 10:53:00 EST, Height Start Date: 04/15/22 Status: Ordered ibuprofen 800 mg oral tablet 800 mg, 1, tablet, By Mouth, Daily, As needed for migraine and kidney stone pain. do not use daily,it will make migraine worse, # 30 tablet, Refills 3, Tot. Refills 3, Maintenance, 05/23/22 17:46:00EDT, Route to Pharmacy Electronically, [facility]... Start Date: 05/23/22 Status: Ordered Narcan 4 mg/0.1 mL nasal [...] 14:05:00 EST, Aerosol, Route to Pharmacy Electronically, CAPDP_[id number], [facility], 175, cm, 07/04/19 15:37:00 EDT, Height, 109.... Start Date: 12/27/19 Status: Ordered sucralfate 1 gm oral tablet 1 Gm, 1, tablet, By Mouth, 4 times a day, # 120 tablet, Refills 3, Tot. Refills 3, Maintenance, 12/19/21 13:28:00 EST, Route to Pharmacy Electronically, [facility], Partial fill uponpatient request if the prescription is for a schedu... Start Date: 12/19/21 Status: Ordered traZODone 150 mg oral tablet 1 tablet = 150 mg, By Mouth, Daily at bedtime, For sleep., # 30 tablet, 11 Refills, Maintenance, 06/27/22 12:36:00 EDT, Tablet, [facility], Partial fill upon patient request if the prescription is for a schedule II opioid drug., 175,... Start Date: 06/27/22 Status: Ordered triamcinolone 0.1% topical cream 1 application, Topically, 2 times a day, apply a thin film to affected area in armpit, # 80 Gm, 2 Refills, Maintenance, 11/19/21 11:29:00 EST, Cream, [facility], Partial fill upon patient request if the prescription is for a schedule... Start Date: 11/19/21 Status: Ordered Tylenol 325 mg oral tablet 650 mg, 2, tablet, By Mouth, Every 4 hours, PRN, # 120 tablet, Refills 0, Tot. Refills 0, Maintenance, for fever, 02/15/20 13:30:00 EDT, Route to Pharmacy Electronically, [facility]/pharmacy #[id number], 175, cm,07/04/19 15:37:00 EDT, Height, 109.9, kg, 07/01/19... Start Date: 02/15/20 Status: Ordered Zithromax 250 mg oral tablet 2 tablet = 500 mg, By Mouth, Once, # 2 tablet, 0 Refills, Soft Stop, 03/05/22 15:02:00 EDT, Tablet,[facility], Partial fill upon patient request if the prescription is for a schedule II opioid drug., 175, cm, 11/19/21 10:53:00 EST, H... Start Date: 03/05/22 Status: Ordered Problem List Condition Effective Dates Status Health Status Inform ant Anxiety about health(Confirmed) Active Severe dysplasia of anal canal(Confirmed) 1 Active Chronic rhinitis(Confirmed) Active Pseudoseizures(Confirmed) Active Epigastric pain(Confirmed) Active Chronic GERD(Confirmed) Active Insomnia(Confirmed) Active Kidney stones, mixed calcium oxalate(Confirmed) Active Obese class II(Confirmed) Active Overweight(Confirmed) Active Pharyngitis(Confirmed) Active Post traumatic stress disord er (PTSD)(Confirmed) Active Major depressive disorder, recurrent(Confirmed) Active Urethritis(Confirmed) 2 Active 1per histology 01/30/2015 2persistent urethritis sx without e/o inflammation (UA repeatedly negative) or infection (GC/CT repeatedly negative; negative trich, negative mycoplasma genitalium) Social History Social History Type Response Smoking Status Current every day mike malone entered on: 11/09/17 Sex Care Team Personnel Name: Pearl Reyna MD Address: [address] [place] [address]
--- OUTSIDE RECORDS SUMMARY | 2023-07-22 17:11 | XMS_ITS | Continuity of Care Document ---
Author Name Unknown Organization [facility] Address [address] [place] [address]- Care Team Providers Care Factorer Name Role Phone Pearl Reyna MD Primary Care Physician [place] [facility] [place]08[place] - 12/12/[address] [address]- Attending Physician: Jason BROWNE, Norma Desai Admitting Physician: Jason BROWNE, Norma Desai Allergies, Adverse Reactions, Alerts Substance Reaction Severity Status Rocephin 1 rash Resolved abacavir 2 Active Ziagen HLA B5701 positive Active Complera allergic to the rilp irivine componant of Complera-tolerates truvada Active 1Not allergic. Tolerated cefpodoxime 10/2017 (prescribed at [facility]) as well as ceftriaxone IM [...] Comment: diluted w/ normal saline lot number [id number] expires 02/27/2023 2Result Comment: Received in [place] Medications amitriptyline 10 mg oral tablet 20 mg, 2, tablet, By Mouth, Daily at bedtime, New medication to prevent migraines. Causes sleepiness - take before bed ., # 30 tablet, Refills 0, Tot. Refills 0, Maintenance, 09/04/21 12:35:00 EDT, Route to Pharmacy Electronically, [facility]... Start Date: 09/04/21 Status: Ordered azelastine nasal 0.15% spray 2 sprays, Nares, Both, 2 times a day, PRN for allergy symptoms, # 30 mL, 5 Refills, Maintenance, 01/23/21 14:38:00 EST, [place], [facility], 2 sprays Nares, Both 2 times a day,PRN:for allergy symptoms, 175, cm, 02/25/20 12:28:00 EDT, He... Start Date: 01/23/21 Status: Ordered beclomethasone 0.042 mg/inh nasal spray 1 sprays, Nares, Both, 2 times a day, in each nostril, # 25 Gm, 5 Refills, Maintenance, 12/21/19 14:09:00 EST, [facility], d/c fluconasol, 1 sprays Nares, Both 2 times a day,Instr:ineach nostril, 175, cm, 07/04/19 15:37:00 EDT, [place]... Start Date: 12/21/19 Status: Ordered Biktarvy By Mouth, Daily, Pt is taking Biktarvy; he has supply at home., 0 Refills, Maintenance, 02/12/21 11:52:00 EDT, Partial fill upon patient request if the prescription is for a schedule II opioid drug. Start Date: 02/12/21 Status: Ordered Colace sodium 100 mg oral capsule 100 mg, 1, capsule, By Mouth, 2 times a day, PRN, # 60 capsule, Refills 3, Tot. Refills 3, Maintenance, for constipation, 12/02/17 13:58:38, Route to Pharmacy Electronically, NCPDP_[id number], [facility] Start Date: 12/02/17 Status: Ordered [...] 5 Refills, Maintenance, 02/12/21 11:54:00 EDT, Tablet, [facility], Partial fill upon patient request if the prescription is for a schedu... Start Date: 02/12/21 Status: Ordered Flonase 50 mcg/inh nasal spray 2 sprays, Nares, Both, Daily in AM, # 16 Gm, 5 Refills, Maintenance, 06/20/20 8:34:00 EDT, [place], [facility], 2 sprays Nares, Both Daily in AM,x14 days, 175, cm, 02/25/20 12:28:00 EDT, Height, 109.9, kg, 07/01/19 10:09:00 EDT, Dry Weight Start Date: 06/20/20 Stop Date: 09/12/20 Status: Ordered Flovent HFA 110 mcg/inh inhalation aerosol 2 puffs, Inhalation, 2 times a day, # 12 Gm, 0 Refills, Maintenance, 03/16/20 14:12:00 EDT, Aerosol, [facility], 175, cm, 02/25/20 12:28:00 EDT, Height, 109.9, kg, 07/01/19 10:09:00 EDT, Dry Weight Start Date: 03/16/20 Status: Ordered ibuprofen 800 mg oral tablet 800 mg, 1, tablet, By Mouth, Daily, As needed for migraine and kidney stone pain. do not use daily,it will make migraine worse, # 30 tablet, Refills 2, Tot. Refills 2, Maintenance, 09/04/21 12:34:00EDT, Route to Pharmacy Electronically, [facility]... Start Date: 09/04/21 Status: Ordered Narcan 4 mg/0.1 mL nasal spray = 4 mg, Nares, Both, Once, In case of overdose: spray in nose, call 911, repeat every 2 mins as needed, # 2 each, 5 Refills, Soft Stop, 12/28/19 9:06:00 EST, [facility]/pharmacy #[id number], 175, cm, 07/04/19 15:37:00 EDT, Height, [...] 14:05:00 EST, Aerosol, Route to Pharmacy Electronically, NCPDP_[id number], [facility], 175, cm, 07/04/19 15:37:00 EDT, Height, 109.... Start Date: 12/27/19 Status: Ordered traZODone 150 mg oral tablet 1 tablet = 150 mg, By Mouth, Daily at bedtime, For sleep., # 30 tablet, 5 Refills, Maintenance, 09/04/21 12:32:00 EDT, Tablet, [facility], Partial fill upon patient request if the prescription is for a schedule II opioid drug., 175, c... Start Date: 09/04/21 Status: Ordered triamcinolone 0.1% topical cream 1 application, Topically, 2 times a day, apply a thin film to affected area in armpit, # 80 Gm, 2 Refills, Maintenance, 11/19/21 11:29:00 EST, [place], [facility], Partial fill upon patient request if the prescription is for a schedule... Start Date: 11/19/21 Status: Ordered Tylenol 325 mg oral tablet 650 mg, 2, tablet, By Mouth, Every 4 hours, PRN, # 120 tablet, Refills 0, Tot. Refills 0, Maintenance, for fever, 02/15/20 13:30:00 EDT, Route to Pharmacy Electronically, [facility]/pharmacy #[id number], 175, cm,07/04/19 15:37:00 EDT, Height, 109.9, kg, 07/01/19... 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 Chronic rhinitis(Confirmed) Active Pseudoseizures(Confirmed) Active Epigastric pain(Confirmed) Active Insomnia(Confirmed) Active Kidney stones, mixed calcium oxalate(Confirmed) Active Obese class II(Confirmed) Active Overweight(Confirmed) Active Post traumatic stress disord [...]
--- OUTSIDE RECORDS SUMMARY | 2023-07-22 17:11 | XMS_ITS | Continuity of Care Document ---
Author Name Unknown Organization [facility] Address [address] [place] [address]- Care Team Providers Care Ship Wirer Name Role Phone Pearl Reyna MD Primary Care Physician [facility] Date[facility]): 01/16/21 - 02/15/[address] [address]- Allergies, Adverse Reactions, Alerts Substance Reaction Severity Status Rocephin 1 rash Resolved Ziagen HLA B5701 positive Active Complera allergic to the rilp irivine componant of Complera-tolerates truvada Active 1Not allergic. Tolerated cefpodoxime 10/2017 (prescribed at [facility] ED) as well as ceftriaxone [...] 23-valent vaccine 01/24/14 Not Given Patient Refuses Medications azelastine nasal 0.15% spray 2 sprays, Nares, Both, 2 times a day, PRN for allergy symptoms, # 30 mL, 5 Refills, Maintenance, 01/23/21 14:38:00 EST, [place], [facility], 2 sprays Nares, Both 2 times a day,PRN:for allergy symptoms, 175, cm, 02/25/20 12:28:00 EDT, He... Start Date: 01/23/21 Status: Ordered beclomethasone 0.042 mg/inh nasal spray 1 sprays, Nares, Both, 2 times a day, in each nostril, # 25 Gm, 5 Refills, Maintenance, 12/21/19 14:09:00 EST, [facility], d/c fluconasol, 1 sprays [...] tablet, 11 Refills, Maintenance, 12/21/19 14:10:00 EST, [facility], note dose change, 175, cm, 07/04/19 15:37:00 EDT, Height, 109.9,kg, 07/01/19 10:09:00 EDT, Dry Weight Start Date: 12/21/19 Status: Ordered Colace sodium 100 mg oral capsule 100 mg, 1, capsule, By Mouth, 2 times a day, PRN, # 60 capsule, Refills 3, Tot. Refills 3, Maintenance, for constipation, 12/02/17 13:58:38, Route to Pharmacy Electronically, NCPDP_[id number], [facility] Start Date: 12/02/17 Status: Ordered fexofenadine 180 mg oral tablet 1 tablet = 180 mg, By Mouth, Daily, Instead of cetirizine (Zyrtec). For allergies., # 30 tablet, 5 Refills, Maintenance, 02/12/21 11:54:00 EDT, [place], [facility], Partial fill upon patient request if the prescription is for a schedu... Start Date: 02/12/21 Status: Ordered Flonase 50 mcg/inh nasal spray 2 sprays, Nares, Both, Daily in AM, # 16 Gm, 5 Refills, Maintenance, 06/20/20 8:34:00 EDT, [place], [facility], 2 sprays Nares, Both Daily in AM,x14 days, 175, cm, 02/25/20 12:28:00 EDT, Height, 109.9, kg, 07/01/19 10:09:00 EDT, Dry Weight Start Date: 06/20/20 Stop Date: 09/12/20 Status: Ordered Flovent HFA 110 mcg/inh inhalation aerosol 2 puffs, Inhalation, 2 times a day, # 12 Gm, 0 Refills, Maintenance, 03/16/20 14:12:00 EDT, [place], [facility], 175, cm, 02/25/20 12:28:00 EDT, Height, 109.9, kg, 07/01/19 10:09:00 EDT, Dry Weight Start Date: 03/16/20 Status: Ordered ibuprofen 800 mg oral tablet 800 mg, 1, tablet, By Mouth, Daily, As needed for migraine and kidney stone pain. do not use daily,it will make migraine worse, # 30 tablet, Refills 5, Tot. Refills 5, Maintenance, 02/12/21 11:50:00EDT, Route to Pharmacy Electronically, [facility]... Start Date: 02/12/21 Status: Ordered [...] 14:05:00 EST, Aerosol, [id number], 175, cm, 07/04/19 15:37:00 EDT, Height, 109.... Start Date: 12/27/19 Status: Ordered traZODone 150 mg oral tablet 1 tablet = 150 mg, By Mouth, Daily at bedtime, For sleep. Dose increased 02/12/21, # 30 tablet, 5 Refills, Maintenance, 02/12/21 11:48:00 EDT, Tablet, [facility], Partial fill upon patient request if the prescription is for a schedule... Start Date: 02/12/21 Status: Ordered Tylenol 325 mg oral tablet 650 mg, 2, tablet, By Mouth, Every 4 hours, PRN, # 120 tablet, Refills 0, Tot. Refills 0, Maintenance, for fever, 02/15/20 13:30:00 EDT, Route to Pharmacy Electronically, [facility]/pharmacy #[id number], 175, cm,07/04/19 15:37:00 EDT, Height, 109.9, kg, [...]
--- OUTSIDE RECORDS SUMMARY | 2023-07-22 17:11 | XMS_ITS | Continuity of Care Document ---
Author Name Unknown Organization [facility] Address [address] [place] [address]- Care Team Providers Care Hepatologist Name Role Phone Pearl Reyna MD Primary Care Physician [facility] Date[facility]s): 09/03/21 - 10/03/[address] [address]- Allergies, Adverse Reactions, Alerts Substance Reaction Severity Status Rocephin 1 rash Resolved abacavir 2 Active Ziagen HLA B5701 positive Active Complera allergic to the rilp irivine componant of Complera-tolerates truvada Active 1Not allergic. Tolerated cefpodoxime 10/2017 (prescribed at [facility] ED) as well as ceftriaxone IM (administered [...] Comment: diluted w/ normal saline lot number [id number] expires 02/27/2023 2Result Comment: Received in [place] Medications amitriptyline 10 mg oral tablet 20 mg, 2, tablet, By Mouth, Daily at bedtime, New medication to prevent migraines. Causes sleepiness - take before bed ., # 30 tablet, Refills 0, Tot. Refills 0, Maintenance, 09/04/21 12:35:00 EDT, Route to Pharmacy Electronically, [facility]... Start Date: 09/04/21 Status: Ordered azelastine nasal 0.15% spray 2 sprays, Nares, Both, 2 times a day, PRN for allergy symptoms, # 30 mL, 5 Refills, Maintenance, 01/23/21 14:38:00 EST, [place], [facility], 2 sprays Nares, Both 2 times a day,PRN:for allergy symptoms, 175, cm, 02/25/20 12:28:00 EDT, He... Start Date: 01/23/21 Status: Ordered beclomethasone 0.042 mg/inh nasal spray 1 sprays, Nares, Both, 2 times a day, in each nostril, # 25 Gm, 5 Refills, Maintenance, 12/21/19 14:09:00 EST, [facility], d/c fluconasol, 1 sprays Nares, Both [...] constipation, 12/02/17 13:58:38, Route to Pharmacy Electronically, NCPDP_[id number], [facility] Start Date: 12/02/17 Status: Ordered diclofenac [...] 5 Refills, Maintenance, 02/12/21 11:54:00 EDT, Tablet, [facility], Partial fill upon patient request if the prescription is for a schedu... Start Date: 02/12/21 Status: Ordered Flonase 50 mcg/inh nasal spray 2 sprays, Nares, Both, Daily in AM, # 16 Gm, 5 Refills, Maintenance, 06/20/20 8:34:00 EDT, [place], [facility], 2 sprays Nares, Both Daily in AM,x14 days, 175, cm, 02/25/20 12:28:00 EDT, Height, 109.9, kg, 07/01/19 10:09:00 EDT, Dry Weight Start Date: 06/20/20 Stop Date: 09/12/20 Status: Ordered Flovent HFA 110 mcg/inh inhalation aerosol 2 puffs, Inhalation, 2 times a day, # 12 Gm, 0 Refills, Maintenance, 03/16/20 14:12:00 EDT, Aeros[place], [facility], 175, cm, 02/25/20 12:28:00 EDT, Height, 109.9, kg, 07/01/19 10:09:00 EDT, Dry Weight Start Date: 03/16/20 Status: Ordered ibuprofen 800 mg oral tablet 800 mg, 1, tablet, By Mouth, Daily, As needed for migraine and kidney stone pain. do not use daily,it will make migraine worse, # 30 tablet, Refills 2, Tot. Refills 2, Maintenance, 09/04/21 12:34:00EDT, Route to Pharmacy Electronically, [facility]... Start Date: 09/04/21 Status: Ordered Narcan 4 mg/0.1 mL nasal spray = 4 mg, Nares, Both, Once, In case of overdose: spray in nose, call 911, repeat every 2 mins as needed, # 2 each, 5 Refills, Soft Stop, 12/28/19 9:06:00 EST, [facility]/pharmacy #[id number], 175, cm, 07/04/19 15:37:00 EDT, Height, 109.9, [...] 07/01/19 10:09:0... Start Date: 10/15/20 Status: Ordered ProAir HFA 90 mcg/inh inhalation aerosol with adapter 2, puffs, Inhalation, Every 4 hours, PRN, # 8.5 Gm, Refills 11, Tot. Refills 11, Maintenance, 12/27/19 14:05:00 EST, Aerosol, Route to Pharmacy Electronically, VTPDP_[id number], [facility], 175, cm, 07/04/19 15:37:00 EDT, Height, 109.... Start Date: 12/27/19 Status: Ordered traZODone 150 mg oral tablet 1 tablet = 150 mg, By Mouth, Daily at bedtime, For sleep., # 30 tablet, 5 Refills, Maintenance, 09/04/21 12:32:00 EDT, Tablet, [facility], Partial fill upon patient request if the prescription is for a schedule II opioid drug., 175, c... Start Date: 09/04/21 Status: Ordered Tylenol 325 mg oral tablet 650 mg, 2, tablet, By Mouth, Every 4 hours, PRN, # 120 tablet, Refills 0, Tot. Refills 0, Maintenance, for fever, 02/15/20 13:30:00 EDT, Route to Pharmacy Electronically, [facility]/pharmacy #[id number], 175, cm,07/04/19 15:37:00 EDT, Height, 109.9, kg, 07/01/19... Start Date: 02/15/20 Status: Ordered venlafaxine 75 mg oral capsule, extended release 75 mg, 1, capsule, By Mouth, Daily in AM, New medication for depression. Take in the morning with food. Do not crush or chew. Pharmacy: OK to substitute tablets if preferred by insurance, # 30 capsule, Refills 0, Tot. Refills 0, Maintenance, 08/31... Start Date: 09/24/21 Status: Ordered Problem List Condition Effective Dates [...]
--- OUTSIDE RECORDS SUMMARY | 2023-07-22 17:11 | XMS_ITS | Continuity of Care Document ---
Author Name Unknown Organization [facility] Address [address] [place] [address]- Care Team Providers Care Aeronautical Engineering Technologist Name Role Phone Pearl Reyna MD Primary Care Physician [facility] Date[facility]s): 09/15/22 - 10/15/[address] [address]- Allergies, Adverse Reactions, Alerts Substance Reaction Severity [...] Comment: diluted w/ normal saline lot number [id number] expires 02/27/2023 2Result Comment: Received in [place] Medications amitriptyline 10 mg oral tablet 20 mg, 2, tablet, By Mouth, Daily at bedtime, New medication to prevent migraines. Causes sleepiness - take before bed ., # 30 tablet, Refills 0, Tot. Refills 0, Maintenance, 09/04/21 12:35:00 EDT, Route to Pharmacy Electronically, [facility]... Start Date: 09/04/21 Status: Ordered azelastine nasal 0.15% spray 2 sprays, Nares, Both, 2 times a day, PRN for allergy symptoms, # 30 mL, 5 Refills, Maintenance, 01/23/21 14:38:00 EST, [place], [facility], 2 sprays Nares, Both 2 times a day,PRN:for allergy symptoms, 175, cm, 02/25/20 12:28:00 EDT, He... Start Date: 01/23/21 Status: Ordered Azithromycin 5 Day Dose Pack 250 mg oral tablet 1 pack/packet, By Mouth, Once, # 6 tablet, 0 Refills, Soft Stop, 10/15/22 9:16:00 EST, Tablet, [facility], Partial fill upon patient request if the prescription is for a schedule II opioid drug., 175, cm, 11/19/21 10:53:00 EST, Height Start Date: 10/15/22 Status: Ordered beclomethasone 0.042 mg/inh nasal spray 1 sprays, Nares, Both, 2 times a day, in each nostril, # 25 Gm, 5 Refills, Maintenance, 12/21/19 14:09:00 EST, [facility], d/c fluconasol, 1 sprays Nares, Both 2 times a day,Instr:ineach nostril, 175, cm, 07/04/19 15:37:00 EDT, [place]... Start Date: 12/21/19 Status: Ordered Biktarvy oral tablet 1 tablet, By Mouth, Daily, # 30 tablet, 11 Refills, Maintenance, 03/27/22 13:37:00 EDT, Tablet, [facility], Partial fill upon patient request if the prescription is for a schedule IIopioid drug., 1 tablet By Mouth Daily, 175, cm, ... Start Date: 03/27/22 Status: Ordered Colace sodium 100 mg oral capsule 100 mg, 1, capsule, By Mouth, 2 times a day, PRN, # 60 capsule, Refills 3, Tot. Refills 3, Maintenance, for constipation, 12/02/17 13:58:38, [id number] Start Date: 12/02/17 Status: [...] 02/12/21 11:54:00 EDT, Tablet, [facility], Partial fill upon patient request if the prescription is for a schedu... Start Date: 02/12/21 Status: Ordered Flomax 0.4 mg oral capsule 0.4 mg, 1, capsule, By Mouth, Daily, To help kidney stone pass, # 30 capsule, Refills 1, Tot. Refills 1, Maintenance, 04/15/22 13:06:00 EDT, Route to Pharmacy Electronically, [facility], 175, cm, 11/19/21 10:53:00 EST, Height Start Date: 04/15/22 Status: Ordered ibuprofen 800 mg oral tablet 800 mg, 1, tablet, By Mouth, Daily, As needed for migraine and kidney stone pain. do not use daily,it will make migraine worse, # 30 tablet, Refills 3, Tot. Refills 3, Maintenance, 05/23/22 17:46:00EDT, Route to Pharmacy Electronically, [facility]... Start Date: 05/23/22 Status: [...] EST, Height Start Date: 11/19/21 Status: Ordered Paxlovid 150 mg-100 mg oral tablet See Instructions, 300mg nirmaltrelvir (two 150mg tablets) with 100mg ritonavir (one tablet). All 3 tablets taken together twice daily for 5 days, with or without food, # 30 tablet, 0 Refills, Maintenance, 08/18/22 14:16:00 EDT, [facility]... Start Date: 08/18/22 Status: Ordered ProAir HFA 90 mcg/inh inhalation aerosol with adapter 2, puffs, Inhalation, Every 4 hours, PRN, # 8.5 Gm, Refills 11, Tot. Refills 11, Maintenance, 08/18/22 14:17:00 EDT, Aerosol, Route to Pharmacy Electronically, ORPDP_[id number], [facility], 175, cm, 11/19/21 10:53:00 EST, Height Start Date: 08/18/22 Status: Ordered sucralfate 1 gm oral tablet 1 Gm, 1, tablet, By Mouth, 4 times a day, # 120 tablet, Refills 3, Tot. Refills 3, Maintenance, 12/19/21 13:28:00 EST, Route to Pharmacy Electronically, [facility], Partial fill uponpatient request if the prescription is for a schedu... Start Date: 12/19/21 Status: Ordered Tessalon Perles 100 mg oral capsule 1 capsule = 100 mg, By Mouth, 3 times a day, PRN as needed for cough, for 10 days, # 30 capsule, 0 Refills, Acute 10/25/22 9:16:00 EST, 10/15/22 9:16:00 EST, Capsule, [facility], Partial fill upon patient request if the prescription i... Start Date: 10/15/22 Stop Date: 10/25/22 Status: Ordered traZODone 150 mg oral tablet 1 tablet = 150 mg, By Mouth, Daily at bedtime, For sleep., # 30 tablet, 11 Refills, Maintenance, 06/27/22 12:36:00 EDT, Tablet, [facility], Partial fill upon patient request if the prescription is for a schedule II opioid drug., 175,... Start Date: 06/27/22 Status: Ordered triamcinolone 0.1% topical cream 1 application, Topically, 2 times a day, apply a thin film to affected area in armpit, # 80 Gm, 2 Refills, Maintenance, 11/19/21 11:29:00 EST, Cream, [facility], Partial fill upon [...] 0 Refills, Soft Stop, 03/05/22 15:02:00 EDT, Tablet,[facility], Partial fill upon patient request if the prescription is for a schedule II opioid drug., 175, cm, 11/19/21 10:53:00 EST, H... Start Date: 03/05/22 Status: Ordered ZyrTEC-D 5 mg-120 mg oral tablet, extended release 1 tablet, By Mouth, Every 24 hours, # 30 tablet, 2 Refills, Maintenance, 10/15/22 9:16:00 EST, ER Tablet, [facility], Partial fill upon [...] Kidney stones, mixed calcium oxalate Confirmed Active Obese class II Confirmed Active Overweight Confirmed Active Pharyngitis Confirmed Active Post traumatic stress disorder (PTSD) Confirmed Active Major depressive disorder, recurrent Confirmed Active Urethritis 3 Confirmed Active 1per histology 01/30/2015 2home testing on 08/17/2022 and 08/18/2022 by patient statement 3persistent urethritis sx without e/o inflammation (UA repeatedly negative) or infection (GC/CT repeatedly negative; negative trich, negative mycoplasma genitalium) Social History Social History Type Response Smoking Status Current every day mike malone entered on: 11/09/17 Sex Patient Care team information Care Team Personnel Name: Eleonora Pena RN Position: [facility] RN Member Role: Primary Care Nurse Name: Pearl Reyna MD Position: [facility] Primary Care Physician Member Role: PCP Address: Address: [address] [place] [address]- Care Team Related Persons Name: KAITLYN COVARRUBIAS Name: ASHLYN LONG Address: home [address] [place] [address] Name: NO, ONE AT THIS TIME Name: WADE SABILLON
--- OUTSIDE RECORDS SUMMARY | 2023-07-22 17:11 | XMS_ITS | Continuity of Care Document ---
Author Name Unknown Organization [facility] Address [address] [place] [address]- Care Team Providers Care Housekeeper Home Name Role Phone Pearl Reyna MD Primary Care Physician [facility]): 05/[facility]23 - 06/05/[address] [address]- Allergies, Adverse Reactions, Alerts Substance Reaction Severity Status Rocephin 1 rash Resolved abacavir 2 Active Ziagen HLA B5701 positive Active Complera allergic to the rilp irivine componant of Complera-tolerates truvada Active 1Not allergic. Tolerated cefpodoxime 10/2017 (prescribed at [facility] ED) as well as ceftriaxone IM (administered [...] Comment: diluted w/ normal saline lot number [id number] expires 02/27/2023 2Result Comment: Received in [place] Medications albuterol 0.083% inhalation solution 3 mL = 2.5 mg, Neb, Every 6 hours, PRN as needed for wheezing, # 90 mL, 6 Refills, Maintenance, 02/09/23 11:31:00 EDT, Solution, [facility], Partial fill upon patient request if the prescription is for a schedule II opioid drug., 175,... Start Date: 02/09/23 Status: Ordered azelastine nasal 0.15% spray 2 sprays, Nares, Both, 2 times a day, PRN for allergy symptoms, # 30 mL, 5 Refills, Maintenance, 01/23/21 14:38:00 EST, [place], [facility], 2 sprays Nares, Both 2 times a day,PRN:for allergy symptoms, 175, cm, 02/25/20 12:28:00 EDT, He... Start Date: 01/23/21 Status: Ordered beclomethasone 0.042 mg/inh nasal spray 1 sprays, Nares, Both, 2 times a day, in each nostril, # 25 Gm, 5 Refills, Maintenance, 12/21/19 14:09:00 EST, [facility], d/c fluconasol, 1 sprays Nares, Both 2 times a day,Instr:ineach nostril, 175, cm, 07/04/19 15:37:00 EDT, Heigh... Start Date: 12/21/19 Status: Ordered Biktarvy oral tablet 1 tablet, By Mouth, Daily, # 30 tablet, 5 Refills, Maintenance, 04/23/23 9:23:00 EDT, Tablet, [facility], 1 tablet By Mouth Daily, 175, cm, 04/23/23 9:01:00 EDT, Height Start Date: 04/23/23 Status: Ordered clonazePAM 0.5 mg oral tablet See Instructions, 1-2 tablets by mouth daily as needed for anxiety/ panic. Dispense: #45 per 30d. ALEE Parikh Checked, appropriate, # 45 tablet, 2 Refills, Maintenance, 05/08/23 16:32:00 EDT, Tablet, [facility], Partial fill upon patien... Start Date: [...] 04/23/23 9:29:00 EDT, Route to Pharmacy Electronically, [facility], 175, cm, 04/23/23 9:01:00 EDT, Height Start Date: 04/23/23 Status: Ordered fexofenadine 180 mg oral tablet 1 tablet = 180 mg, By Mouth, Daily, Instead of cetirizine (Zyrtec). For allergies., # 30 tablet, 5 Refills, Maintenance, 02/12/21 11:54:00 EDT, Tablet, [facility], Partial fill upon patient request if the prescription is for a schedu... Start Date: 02/12/21 Status: Ordered Flomax 0.4 mg oral capsule 0.4 mg, 1, capsule, By Mouth, Daily, To help kidney stone pass, # 30 capsule, Refills 1, Tot. Refills 1, Maintenance, 05/08/23 16:34:00 EDT, Route to Pharmacy Electronically, [facility], 175, cm, 04/23/23 9:43:00 EDT, Height [...] Refills, Soft Stop, 12/28/19 9:06:00 EST, [facility]/pharmacy #[id number], 175, cm, 07/04/19 15:37:00 EDT, Height, 109.9, kg, 07/01/19 10:09:00 EDT,... Start Date: 12/28/19 Status: Ordered Nebulizer machine Nebulizer machine, See Instructions, # 1 each, Refills 0, Tot. Refills 0, Maintenance, J45. 41 Fax to [employer], 02/11/23 14:58:00 EDT, Supply Start Date: 02/11/23 [...] 14:17:00 EDT, Aerosol, Route to Pharmacy Electronically, NCPDP_[id number], [facility], 175, cm, 11/19/21 10:53:00 EST, Height Start Date: 08/18/22 Status: Ordered sucralfate 1 gm oral tablet 1 Gm, 1, tablet, By Mouth, 4 times a day, # 120 tablet, Refills 3, Tot. Refills 3, Maintenance, 12/19/21 13:28:00 EST, Route to Pharmacy Electronically, [facility], Partial fill uponpatient request if the prescription is for a schedu... Start Date: 12/19/21 Status: Ordered traZODone 150 mg oral tablet 1 tablet = 150 mg, By Mouth, Daily at bedtime, For sleep., # 30 tablet, 3 Refills, Maintenance, 04/23/23 9:24:00 EDT, Tablet, [facility], Partial fill upon patient request if the prescription is for a schedule II opioid drug., 175, cm... Start Date: 04/23/23 Status: Ordered triamcinolone 0.1% topical cream 1 application, Topically, 2 times a day, apply a thin film to affected area in armpit, # 80 Gm, 2 Refills, Maintenance, 11/19/21 11:29:00 EST, Cream, [facility], Partial fill upon patient request if the prescription is for a schedule... Start Date: 11/19/21 Status: Ordered Tylenol 325 mg oral tablet 650 mg, 2, tablet, By Mouth, Every 4 hours, PRN, # 120 tablet, Refills 0, Tot. Refills 0, Maintenance, for fever, 02/15/20 13:30:00 EDT, Route to Pharmacy Electronically, [facility]/pharmacy #[id number], 175, cm,07/04/19 15:37:00 EDT, Height, 109.9, kg, 07/01/19... Start Date: 02/15/20 Status: Ordered ZyrTEC-D 5 mg-120 mg oral tablet, extended release 1 tablet, By Mouth, Every 24 hours, # 30 tablet, 2 Refills, Maintenance, 10/15/22 9:16:00 EST, ER Tablet, [facility], Partial fill upon patient request [...] Primary Care Member Role: PCP Address: Address: [address] [place] [address]- Care Team Related Persons Name: KAITLYN COVARRUBIAS Name: ASHLYN LONG Address: home [address] [place] [address] Name: NO, ONE AT THIS TIME Name: WADE SABILLON
--- OUTSIDE RECORDS SUMMARY | 2023-07-22 17:11 | XMS_ITS | Continuity of Care Document ---
Author Name Unknown Organization [facility] Address [address] [place] [address]- Care Team Providers Care Applications Packager Name Role Phone Pearl Reyna MD Primary Care Physician [place] [facility] [id number] Date(s): 03/03/23 - 04/04/[address] [address]- Attending Physician: Not on Staff, Attending MD Allergies, Adverse Reactions, Alerts Substance Reaction Severity Status Ziagen HLA B5701 positive Active Complera allergic to the rilp irivine componant of Complera-tolerates truvada Active Rocephin 1 rash Resolved abacavir 2 Active 1Not allergic. Tolerated cefpodoxime 10/2017 (prescribed at [facility]) as well as ceftriaxone IM [...] Comment: diluted w/ normal saline lot number [id number] expires 02/27/2023 2Result Comment: Received in [place] Medications albuterol 0.083% inhalation solution 3 mL = 2.5 mg, Neb, Every 6 hours, PRN as needed for wheezing, # 90 mL, 6 Refills, Maintenance, 02/09/23 11:31:00 EDT, Solution, [facility], Partial fill upon patient request if the prescription is for a schedule II opioid drug., 175,... Start Date: 02/09/23 Status: Ordered azelastine nasal 0.15% spray 2 sprays, Nares, Both, 2 times a day, PRN for allergy symptoms, # 30 mL, 5 Refills, Maintenance, 01/23/21 14:38:00 EST, [place], [facility], 2 sprays Nares, Both 2 times a day,PRN:for allergy symptoms, 175, cm, 02/25/20 12:28:00 EDT, He... Start Date: 01/23/21 Status: Ordered beclomethasone 0.042 mg/inh nasal spray 1 sprays, Nares, Both, 2 times a day, in each nostril, # 25 Gm, 5 Refills, Maintenance, 12/21/19 14:09:00 EST, [facility], d/c fluconasol, 1 sprays Nares, Both 2 times a day,Instr:ineach nostril, 175, cm, 07/04/19 15:37:00 EDT, [place]... Start Date: 12/21/19 Status: Ordered Biktarvy oral tablet 1 tablet, By Mouth, Daily, # 30 tablet, 11 Refills, Maintenance, 03/27/22 13:37:00 EDT, Tablet, [facility], Partial fill upon patient request if [...] 5 Refills, Maintenance, 02/12/21 11:54:00 EDT, Tablet, [facility], Partial fill upon patient request if the prescription is for a schedu... Start Date: 02/12/21 Status: Ordered Flomax 0.4 mg oral capsule 0.4 mg, 1, capsule, By Mouth, Daily, To help kidney stone pass, # 30 capsule, Refills 1, Tot. Refills 1, Maintenance, 12/25/22 12:52:00 EST, Route to Pharmacy Electronically, [facility], 175, cm, 12/25/22 12:08:00 [...] Refills 0, Maintenance, J45. 41 Fax to [facility], 02/11/23 14:58:00 EDT, Supply Start Date: 02/11/23 [...] 14:17:00 EDT, Aerosol, Route to Pharmacy Electronically, [id number], [facility], 175, cm, 11/19/21 10:53:00 EST, Height Start Date: 08/18/22 Status: Ordered sucralfate 1 gm oral tablet 1 Gm, 1, tablet, By Mouth, 4 times a day, # 120 tablet, Refills 3, Tot. Refills 3, Maintenance, 12/19/21 13:28:00 EST, Route to Pharmacy Electronically, [facility], Partial fill uponpatient request if the prescription is for a schedu... Start Date: 12/19/21 Status: Ordered traZODone 150 mg oral tablet 1 tablet = 150 mg, By Mouth, Daily at bedtime, For sleep., # 30 tablet, 0 Refills, Maintenance, 11/04/22 12:49:00 EST, Tablet, [facility]/pharmacy #[id number], Partial fill upon patient request if the prescription is for a schedule II opioid drug., 175, cm, 11/19/... Start Date: 11/04/22 Status: Ordered triamcinolone 0.1% topical cream 1 application, Topically, 2 times a day, apply a thin film to affected area in armpit, # 80 Gm, 2 Refills, Maintenance, 11/19/21 11:29:00 EST, Cream, [facility], Partial fill upon patient request if the prescription is for a schedule... Start Date: 11/19/21 Status: Ordered Tylenol 325 mg oral tablet 650 mg, 2, tablet, By Mouth, Every 4 hours, PRN, # 120 tablet, Refills 0, Tot. Refills 0, Maintenance, for fever, 02/15/20 13:30:00 EDT, Route to Pharmacy Electronically, [facility]/pharmacy #[id number], 175, cm,07/04/19 15:37:00 EDT, Height, 109.9, kg, 07/01/19... Start Date: 02/15/20 Status: Ordered ZyrTEC-D 5 mg-120 mg oral tablet, extended release 1 tablet, By Mouth, Every 24 hours, # 30 tablet, 2 Refills, Maintenance, 10/15/22 9:16:00 EST, ER Tablet, [facility], Partial fill upon patient [...] Team Personnel Name: Pearl Reyna MD Position: [facility] Primary Care Physician Member Role: PCP Address: Address: [address] [place] [address]- Care Team Related Persons Name: KAITLYN COVARRUBIAS Name: ASHLYN LONG Address: home [address] [place] [address] Name: NO, ONE AT THIS TIME Name: WADE SABILLON
--- OUTSIDE RECORDS SUMMARY | 2023-07-22 17:11 | XMS_ITS | Continuity of Care Document ---
Author Name Unknown Organization [facility] Address [address] [place] [address]- Care Team Providers Care Marine Service Manager Name Role Phone Pearl Reyna MD Primary Care Physician [place] [facility] [place] - 08/02/[address] [address]- Allergies, Adverse Reactions, Alerts Substance Reaction Severity [...] Comment: diluted w/ normal saline lot number [id number] expires 02/27/2023 2Result Comment: Received in [place] Medications amitriptyline 10 mg oral tablet 20 mg, 2, tablet, By Mouth, Daily at bedtime, New medication to prevent migraines. Causes sleepiness - take before bed ., # 30 tablet, Refills 0, Tot. Refills 0, Maintenance, 09/04/21 12:35:00 EDT, Route to Pharmacy Electronically, [facility]... Start Date: 09/04/21 Status: Ordered azelastine nasal 0.15% spray 2 sprays, Nares, Both, 2 times a day, PRN for allergy symptoms, # 30 mL, 5 Refills, Maintenance, 01/23/21 14:38:00 EST, [place], [facility], 2 sprays Nares, Both 2 times a day,PRN:for allergy symptoms, 175, cm, 02/25/20 12:28:00 EDT, He... Start Date: 01/23/21 Status: Ordered beclomethasone 0.042 mg/inh nasal spray 1 sprays, Nares, Both, 2 times a day, in each nostril, # 25 Gm, 5 Refills, Maintenance, 12/21/19 14:09:00 EST, [facility], d/c fluconasol, 1 sprays Nares, Both 2 times a day,Instr:ineach nostril, 175, cm, 07/04/19 15:37:00 EDT, [place]... Start Date: 12/21/19 Status: Ordered Biktarvy oral tablet 1 tablet, By Mouth, Daily, # 30 tablet, 11 Refills, Maintenance, 03/27/22 13:37:00 EDT, Tablet, [facility], Partial fill upon patient request if the prescription is for a schedule IIopioid drug., 1 tablet By Mouth Daily, 175, cm, 12/... Start Date: 03/27/22 Status: Ordered Colace sodium 100 mg oral capsule 100 mg, 1, capsule, By Mouth, 2 times a day, PRN, # 60 capsule, Refills 3, Tot. Refills 3, Maintenance, for constipation, 12/02/17 13:58:38, Route to Pharmacy Electronically, [id number]_[id number], [facility] Start Date: 12/02/17 Status: Ordered diclofenac [...] 5 Refills, Maintenance, 02/12/21 11:54:00 EDT, Tablet, [facility], Partial fill upon patient request if the prescription is for a schedu... Start Date: 02/12/21 Status: Ordered Flomax 0.4 mg oral capsule 0.4 mg, 1, capsule, By Mouth, Daily, To help kidney stone pass, # 30 capsule, Refills 1, Tot. Refills 1, Maintenance, 04/15/22 13:06:00 EDT, Route to Pharmacy Electronically, [facility], 175, cm, 11/19/21 10:53:00 EST, Height Start Date: 04/15/22 Status: Ordered ibuprofen 800 mg oral tablet 800 mg, 1, tablet, By Mouth, Daily, As needed for migraine and kidney stone pain. do not use daily,it will make migraine worse, # 30 tablet, Refills 3, Tot. Refills 3, Maintenance, 05/23/22 17:46:00EDT, Route to Pharmacy Electronically, [facility]... Start Date: 05/23/22 Status: Ordered Narcan 4 mg/0.1 mL nasal spray = 4 mg, Nares, Both, Once, In case of overdose: spray in nose, call 911, repeat every 2 mins as needed, # 2 each, 5 Refills, Soft Stop, 12/28/19 9:06:00 EST, [facility]/pharmacy #[id number], 175, cm, 07/04/19 [...] 14:05:00 EST, Aerosol, Route to Pharmacy Electronically, [id number]_[id number], [facility], 175, cm, 07/04/19 15:37:00 EDT, Height, 109.... Start Date: 12/27/19 Status: Ordered sucralfate 1 gm oral tablet 1 Gm, 1, tablet, By Mouth, 4 times a day, # 120 tablet, Refills 3, Tot. Refills 3, Maintenance, 12/19/21 13:28:00 EST, Route to Pharmacy Electronically, [facility], Partial fill uponpatient request if the prescription is for a schedu... Start Date: 12/19/21 Status: Ordered traZODone 150 mg oral tablet 1 tablet = 150 mg, By Mouth, Daily at bedtime, For sleep., # 30 tablet, 11 Refills, Maintenance, 06/27/22 12:36:00 EDT, Tablet, [facility], Partial fill upon patient request if the prescription is for a schedule II opioid drug., 175,... Start Date: 06/27/22 Status: Ordered triamcinolone 0.1% topical cream 1 application, Topically, 2 times a day, apply a thin film to affected area in armpit, # 80 Gm, 2 Refills, Maintenance, 11/19/21 11:29:00 EST, Cream, [facility], Partial fill upon patient request if the prescription is for a schedule... Start Date: 11/19/21 Status: Ordered Tylenol 325 mg oral tablet 650 mg, 2, tablet, By Mouth, Every 4 hours, PRN, # 120 tablet, Refills 0, Tot. Refills 0, Maintenance, for fever, 02/15/20 13:30:00 EDT, Route to Pharmacy Electronically, [facility]/pharmacy #[id number], 175, cm,07/04/19 15:37:00 EDT, Height, 109.9, kg, 07/01/19... Start Date: 02/15/20 Status: Ordered Zithromax 250 mg oral tablet 2 tablet = 500 mg, By Mouth, Once, # 2 tablet, 0 Refills, Soft Stop, 03/05/22 15:02:00 EDT, Tablet,[facility], Partial fill upon patient [...] Team Personnel Name: Pearl Reyna MD Address: [address] [place] [address]
--- OUTSIDE RECORDS SUMMARY | 2023-07-22 17:11 | XMS_ITS | Continuity of Care Document ---
Author Name Unknown Organization [facility] Address [address] [place] [address]- Care Team Providers Care Upholstery Sewer Name Role Phone Pearl Reyna MD Primary Care Physician Encounter 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 Tolerated cefpodoxime 10/2017 (prescribed at [facility] ED) as well as ceftriaxone [...] mL, 5 Refills, Maintenance, 06/20/20 8:33:00 EDT, [place], [facility], 2 sprays Nares, Both 2 times a day,PRN:for allergy symptoms, 175, cm, 02/25/20 12:28:00 EDT, Hei... Start Date: 06/20/20 Status: Ordered beclomethasone 0.042 mg/inh nasal spray [...] 11 Refills, Maintenance, 12/21/19 14:09:00 EST, Tablet, [facility], 1 tablet By Mouth Daily, 175, cm, 07/04/19 15:37:00 EDT, Height, 109.9, kg, 07/01/19 10:09:00 EDT, Dry Weight Start Date: 12/21/19 Status: Ordered buPROPion 300 mg/24 hours (XL) oral tablet, extended release 1 tablet = 300 mg, By Mouth, Every 24 hours, # 30 tablet, 11 Refills, Maintenance, 12/21/19 14:10:00 EST, [facility], note dose change, 175, cm, 07/04/19 15:37:00 EDT, Height, 109.9,kg, 07/01/19 10:09:00 EDT, Dry Weight Start Date: 12/21/19 Status: Ordered Colace sodium 100 mg oral capsule 100 mg, 1, capsule, By Mouth, 2 times a day, PRN, # 60 capsule, Refills 3, Tot. Refills 3, Maintenance, for constipation, 12/02/17 13:58:38, Route to Pharmacy Electronically, NCPDP_[id number], [facility] Start Date: 12/02/17 Status: Ordered Flomax 0.4 mg oral capsule 0.4 mg, 1, capsule, By Mouth, Daily, To help kidney stone pass, # 15 capsule, Refills 0, Tot. Refills 0, Maintenance, 05/10/20 16:01:00 EDT, Route to Pharmacy Electronically, [facility], 175, cm, 02/25/20 12:28:00 EDT, Height, 109.9,... Start Date: 05/10/20 Status: Ordered Flonase 50 mcg/inh nasal spray 2 sprays, Nares, Both, Daily in AM, # 16 Gm, 5 Refills, Maintenance, 06/20/20 8:34:00 EDT, [place], [facility], 2 sprays Nares, Both Daily in AM,x14 days, 175, cm, 02/25/20 12:28:00 EDT, Height, 109.9, kg, 07/01/19 10:09:00 EDT, Dry Weight Start Date: 06/20/20 Stop Date: 09/12/20 Status: Ordered Flovent HFA 110 mcg/inh inhalation aerosol 2 puffs, Inhalation, 2 times a day, # 12 Gm, 0 Refills, Maintenance, 03/16/20 14:12:00 EDT, Aerosol, [facility], 175, cm, 02/25/20 12:28:00 EDT, Height, 109.9, kg, 07/01/19 10:09:00 EDT, Dry Weight Start Date: 03/16/20 Status: Ordered hydrOXYzine hydrochloride 25 mg oral tablet 1 tablet = 25 mg, By Mouth, 4 times a day, PRN for anxiety, # 40 tablet, 0 Refills, Maintenance, 02/15/20 13:29:00 EDT, Tablet, [facility]/pharmacy #[id number], 175, cm, 07/04/19 15:37:00 EDT, Height, 109.9, kg, 07/01/19 10:09:00 EDT, Dry Weight Start Date: 02/15/20 Status: Ordered ibuprofen 800 mg oral tablet 800 mg, 1, tablet, By Mouth, 2 times a day, not to exceed 2400 mg/day As needed for migraine and kiendye stone pain., # 30 tablet, Refills 2, Tot. Refills 2, Maintenance, 08/20/20 13:32:00 EDT, Routeto Pharmacy Electronically, [facility]... Start Date: 08/20/20 Status: Ordered Narcan 4 mg/0.1 mL nasal spray = 4 mg, Nares, Both, Once, In case of overdose: spray in nose, call 911, repeat every 2 mins as needed, # 2 each, 5 Refills, Soft Stop, 12/28/19 9:06:00 EST, [facility]pharmacy #[id number], 175, cm, 07/04/19 15:37:00 EDT, Height, 109.9, kg, 07/01/19 10:09:00 EDT,... Start Date: 12/28/19 Status: Ordered oxyCODONE 5 mg oral tablet 5 mg, 1, tablet, By Mouth, 3 times a day, PRN, for kidney stone [place] Pat Checked, # 15 tablet, Refills 0, Tot. Refills 0, Maintenance, as needed for pain, 05/10/20 16:04:00 EDT, Route to Pharmacy Electronically, [facility], Partial fi... Start Date: 05/10/20 Status: Ordered pantoprazole 40 mg oral delayed release tablet 1 tablet = 40 mg, By Mouth, 2 times a day, Take up to 2 times a day as needed for acid reflux, # 60tablet, 3 Refills, Maintenance, 05/10/20 16:08:00 EDT, CR Tablet, 175, cm, 02/25/20 12:28:00 EDT, Height, 109.9, kg, 07/01/19 10:09:00 EDT, Dry Weight Start Date: 05/10/20 Status: Ordered ProAir HFA 90 mcg/inh inhalation aerosol with adapter 2, puffs, Inhalation, Every 4 hours, PRN, # 8.5 Gm, Refills 11, Tot. Refills 11, Maintenance, 12/27/19 14:05:00 EST, Aerosol, Route to Pharmacy Electronically, NCPDP_[id number], [facility], 175, cm, 07/04/19 15:37:00 EDT, Height, 109.... Start Date: 12/27/19 Status: Ordered SUMAtriptan 25 mg oral tablet 1 tablet = 25 mg, By Mouth, Daily, PRN for migraine headache, may repeat dose after 2 hours up to amaximum of 2, # 9 tablet, 11 Refills, Maintenance, 12/21/19 14:11:00 EST, Tablet, [facility], 175, cm, 07/04/19 15:37:00 EDT, Height,... Start Date: 12/21/19 Status: Ordered Tylenol 325 mg oral tablet 650 mg, 2, tablet, By Mouth, Every 4 hours, PRN, # 120 tablet, Refills 0, Tot. Refills 0, Maintenance, for fever, 02/15/20 13:30:00 EDT, Route to Pharmacy Electronically, [facility]/pharmacy #[id number], 175, cm,07/04/19 15:37:00 EDT, Height, 109.9, kg, 07/01/19... Start Date: 02/15/20 Status: Ordered valacyclovir 1 gm oral tablet 1 tablet = 1 Gm, By Mouth, Daily, for 5 days, At first sign of outbreak: 1 tablet daily for 5 days.Pharmacy: please dispense #10, # 10 tablet, 11 Refills, Acute 10/13/20 15:08:00 EST, 08/14/20 15:08:00 EDT, Tablet, [facility], 175... Start Date: 08/14/20 Stop Date: 10/13/20 Status: Ordered ZyrTEC 10 mg oral tablet 1 tablet = 10 mg, By Mouth, Daily, as needed for seasonal allergies, # 30 tablet, 5 Refills, Maintenance, 12/21/19 14:10:00 EST, Tablet, [facility], 175, cm, 07/04/19 15:37:00 EDT, Height, 109.9, kg, 07/01/19 10:09:00 EDT, Dry Weight Start Date: 12/21/19 Stop Date: 06/18/20 Status: Ordered Problem List Condition Effective Dates Status Health Status Inform ant Severe dysplasia of anal canal(Confirmed) 1 Active Passage of loose stools(Confirmed) Active Pseudoseizures(Confirmed) Active Epigastric pain(Confirmed) Active H/O hypospadias(Confirmed) Active H/O nausea(Confirmed) Active Kidney stones, mixed calcium oxalate(Confirmed) Active Post traumatic stress disord er (PTSD)(Confirmed) Active Urethritis(Confirmed) 2 Active 1per histology 01/30/2015 2persistent urethritis sx without e/o inflammation (UA repeatedly negative) or infection (GC/CT repeatedly negative; negative trich, negative mycoplasma genitalium) Social History Social History Type Response Smoking Status Current every day mike malone entered on: 11/09/17 Sex
--- OUTSIDE RECORDS SUMMARY | 2023-07-22 17:11 | XMS_ITS | Continuity of Care Document ---
Author Name Unknown Organization [facility] Address [address] [place] [address]- Care Team Providers Care Class B Truck Driver Name Role Phone Pearl Reyna MD Primary Care Physician [place] [facility] [id number] Date(s): 06/27/22 - 08/02/22 [facility] [address]- Attending Physician: Rebeca Orozco MD Admitting Physician: Rebeca Orozco MD Allergies, Adverse Reactions, Alerts Substance Reaction Severity Status Complera allergic to the rilp irivine componant of Complera-tolerates truvada Active Rocephin 1 rash Resolved abacavir 2 Active Ziagen HLA B5701 positive Active 1Not allergic. Tolerated cefpodoxime 10/2017 (prescribed at [facility]) as well as ceftriaxone IM (administered [...] Comment: diluted w/ normal saline lot number [id number] expires 02/27/2023 2Result Comment: Received in [place] Medications amitriptyline 10 mg oral tablet 20 mg, 2, tablet, By Mouth, Daily at bedtime, New medication to prevent migraines. Causes sleepiness - take before bed ., # 30 tablet, Refills 0, Tot. Refills 0, Maintenance, 09/04/21 12:35:00 EDT, Route to Pharmacy Electronically, [facility]... Start Date: 09/04/21 Status: Ordered azelastine nasal 0.15% spray 2 sprays, Nares, Both, 2 times a day, PRN for allergy symptoms, # 30 mL, 5 Refills, Maintenance, 01/23/21 14:38:00 EST, [place], [facility], 2 sprays Nares, [...] constipation, 12/02/17 13:58:38, [id number] Start Date: 12/02/17 Status: Ordered [...] 5 Refills, Maintenance, 02/12/21 11:54:00 EDT, Tablet, [facility], Partial [...] Maintenance, 05/23/22 17:46:00EDT, Route to Pharmacy Electronically, [facility]... Start Date: 05/23/22 Status: Ordered Narcan 4 mg/0.1 mL nasal spray = 4 mg, Nares, Both, Once, In case of overdose: spray in nose, call 911, repeat every 2 mins as needed, # 2 each, 5 Refills, Soft Stop, 12/28/19 9:06:00 EST, [facility]/pharmacy #[id number], 175, cm, 07/04/19 15:37:00 EDT, [...] 14:05:00 EST, Aerosol, Route to Pharmacy Electronically, NCPDP_[id number], [facility], 175, cm, 07/04/19 15:37:00 EDT, Height, 109.... Start Date: 12/27/19 Status: Ordered sucralfate 1 gm oral tablet 1 Gm, 1, tablet, By Mouth, 4 times a day, # 120 tablet, Refills 3, Tot. Refills 3, Maintenance, 12/19/21 13:28:00 EST, Route to Pharmacy Electronically, [facility], Partial fill uponpatient request if the prescription is for a schedu... Start Date: 12/19/21 Status: Ordered traZODone 150 mg oral tablet 1 tablet = 150 mg, By Mouth, Daily at bedtime, For sleep., # 30 tablet, 11 Refills, Maintenance, 06/27/22 12:36:00 EDT, Tablet, [facility], Partial fill upon patient request if the prescription is for a schedule II opioid drug., 175,... Start Date: 06/27/22 Status: Ordered triamcinolone 0.1% topical cream 1 application, Topically, 2 times a day, apply a thin film to affected area in armpit, # 80 Gm, 2 Refills, Maintenance, 11/19/21 11:29:00 EST, Cream, [facility], Partial fill upon patient request if the prescription is for a schedule... Start Date: 11/19/21 Status: Ordered Tylenol 325 mg oral tablet 650 mg, 2, tablet, By Mouth, Every 4 hours, PRN, # 120 tablet, Refills 0, Tot. Refills 0, Maintenance, for fever, 02/15/20 13:30:00 EDT, Route to Pharmacy Electronically, [facility]/pharmacy #[id number], 175, cm,07/04/19 15:37:00 EDT, Height, 109.9, kg, 07/01/19... Start Date: 02/15/20 Status: Ordered Zithromax 250 mg oral tablet 2 tablet = 500 mg, By Mouth, Once, # 2 tablet, 0 Refills, Soft Stop, 03/05/22 15:02:00 EDT, Tablet,[facility], Partial fill upon [...] Team Personnel Name: Pearl Reyna MD Address: [address] [place] [address]
--- OUTSIDE RECORDS SUMMARY | 2023-07-22 17:11 | XMS_ITS | Continuity of Care Document ---
Author Name Unknown Organization [facility] Address [address] [place] [address]- Care Team Providers Care Sausage Stringer Name Role Phone Pearl Reyna MD Primary Care Physician Encounter [facility] Date(s): 09/03/21 - 10/03/[address] [address]- Allergies, Adverse Reactions, Alerts Substance Reaction Severity Status Rocephin 1 rash Resolved abacavir 2 Active Ziagen HLA B5701 positive Active Complera allergic to the rilp irivine componant of Complera-tolerates truvada Active 1Not allergic. Tolerated cefpodoxime 10/2017 (prescribed at [facility] ED) as well as ceftriaxone IM [...] Comment: diluted w/ normal saline lot number [id number] expires 02/27/2023 2Result Comment: Received in [place] Medications amitriptyline 10 mg oral tablet 20 mg, 2, tablet, By Mouth, Daily at bedtime, New medication to prevent migraines. Causes sleepiness - take before bed ., # 30 tablet, Refills 0, Tot. Refills 0, Maintenance, 09/04/21 12:35:00 EDT, Route to Pharmacy Electronically, [facility]... Start Date: 09/04/21 Status: Ordered azelastine nasal 0.15% spray 2 sprays, Nares, Both, 2 times a day, PRN for allergy symptoms, # 30 mL, 5 Refills, Maintenance, 01/23/21 14:38:00 EST, [place], [facility], 2 sprays Nares, Both 2 times a day,PRN:for allergy symptoms, 175, cm, 02/25/20 12:28:00 EDT, He... Start Date: 01/23/21 Status: Ordered beclomethasone 0.042 mg/inh nasal spray 1 sprays, Nares, Both, 2 times a day, in each nostril, # 25 Gm, 5 Refills, Maintenance, 12/21/19 14:09:00 EST, [facility], d/c fluconasol, 1 sprays Nares, [...] constipation, 12/02/17 13:58:38, Route to Pharmacy Electronically, [id number]_[id number], [facility] Start Date: 12/02/17 Status: Ordered diclofenac [...] 5 Refills, Maintenance, 02/12/21 11:54:00 EDT, Tablet, [facility], Partial fill upon patient request if the prescription is for a schedu... Start Date: 02/12/21 Status: Ordered Flonase 50 mcg/inh nasal spray 2 sprays, Nares, Both, Daily in AM, # 16 Gm, 5 Refills, Maintenance, 06/20/20 8:34:00 EDT, [place], [facility], 2 sprays Nares, Both Daily in AM,x14 days, 175, cm, 02/25/20 12:28:00 EDT, Height, 109.9, kg, 07/01/19 10:09:00 EDT, Dry Weight Start Date: 06/20/20 Stop Date: 09/12/20 Status: Ordered Flovent HFA 110 mcg/inh inhalation aerosol 2 puffs, Inhalation, 2 times a day, # 12 Gm, 0 Refills, Maintenance, 03/16/20 14:12:00 EDT, [place], [facility], 175, cm, 02/25/20 12:28:00 EDT, Height, 109.9, kg, 07/01/19 10:09:00 EDT, Dry Weight Start Date: 03/16/20 Status: Ordered ibuprofen 800 mg oral tablet 800 mg, 1, tablet, By Mouth, Daily, As needed for migraine and kidney stone pain. do not use daily,it will make migraine worse, # 30 tablet, Refills 2, Tot. Refills 2, Maintenance, 09/04/21 12:34:00EDT, Route to Pharmacy Electronically, [facility] Start Date: 09/04/21 Status: Ordered Narcan 4 mg/0.1 mL nasal spray = 4 mg, Nares, Both, Once, In case of overdose: spray in nose, call 911, repeat every 2 mins as needed, # 2 each, 5 Refills, Soft Stop, 12/28/19 9:06:00 EST, [facility]/pharmacy #[id number], 175, cm, 07/04/19 15:37:00 EDT, Height, [...] 14:05:00 EST, Aerosol, Route to Pharmacy Electronically, [id number]_[id number], [facility], 175, cm, 07/04/19 15:37:00 EDT, Height, 109.... Start Date: 12/27/19 Status: Ordered traZODone 150 mg oral tablet 1 tablet = 150 mg, By Mouth, Daily at bedtime, For sleep., # 30 tablet, 5 Refills, Maintenance, 09/04/21 12:32:00 EDT, Tablet, [facility], Partial fill upon patient request if the prescription is for a schedule II opioid drug., 175, c... Start Date: 09/04/21 Status: Ordered Tylenol 325 mg oral tablet 650 mg, 2, tablet, By Mouth, Every 4 hours, PRN, # 120 tablet, Refills 0, Tot. Refills 0, Maintenance, for fever, 02/15/20 13:30:00 EDT, Route to Pharmacy Electronically, [facility]/pharmacy #[id number], 175, cm,07/04/19 15:37:00 EDT, Height, 109.9, [...]
--- OUTSIDE RECORDS SUMMARY | 2023-07-22 17:11 | XMS_ITS | Continuity of Care Document ---
Author Name Unknown Organization [facility] Address [address] [place] [address]- Care Team Providers Care Warehouse Specialist Name Role Phone Pearl Reyna MD Primary Care Physician Encounter [facility] [id number] Date(s): 09/24/21 - 10/24/[address] [address]- Attending Physician: John Clark Admitting Physician: John Clark Referring Physician: AdmtrJohn Allergies, Adverse Reactions, Alerts Substance Reaction Severity Status Rocephin 1 rash Resolved abacavir 2 Active Ziagen HLA B5701 positive Active Complera allergic to the rilp irivine componant of Complera-tolerates truvada Active 1Not allergic. Tolerated cefpodoxime 10/2017 (prescribed at [facility] ED) as well as ceftriaxone IM [...] Comment: diluted w/ normal saline lot number [id number] expires 02/27/2023 2Result Comment: Received in [place] Medications amitriptyline 10 mg oral tablet 20 mg, 2, tablet, By Mouth, Daily at bedtime, New medication to prevent migraines. Causes sleepiness - take before bed ., # 30 tablet, Refills 0, Tot. Refills 0, Maintenance, 09/04/21 12:35:00 EDT, Route to Pharmacy Electronically, [facility]... Start Date: 09/04/21 Status: Ordered azelastine nasal 0.15% spray 2 sprays, Nares, Both, 2 times a day, PRN for allergy symptoms, # 30 mL, 5 Refills, Maintenance, 01/23/21 14:38:00 EST, [place], [facility], 2 sprays Nares, Both 2 times a day,PRN:for allergy symptoms, 175, cm, 02/25/20 12:28:00 EDT, He... Start Date: 01/23/21 Status: Ordered beclomethasone 0.042 mg/inh nasal spray 1 sprays, Nares, Both, 2 times a day, in each nostril, # 25 Gm, 5 Refills, Maintenance, 12/21/19 14:09:00 EST, [facility], d/c fluconasol, 1 sprays Nares, [...] constipation, 12/02/17 13:58:38, Route to Pharmacy Electronically, NCPDP_[id number], [facility] Start Date: 12/02/17 Status: [...] 5 Refills, Maintenance, 02/12/21 11:54:00 EDT, Tablet, [facility], Partial fill upon patient request if the prescription is for a schedu... Start Date: 02/12/21 Status: Ordered Flonase 50 mcg/inh nasal spray 2 sprays, Nares, Both, Daily in AM, # 16 Gm, 5 Refills, Maintenance, 06/20/20 8:34:00 EDT, [place], [facility], 2 sprays Nares, Both Daily in AM,x14 days, 175, cm, 02/25/20 12:28:00 EDT, Height, 109.9, kg, 07/01/19 10:09:00 EDT, Dry Weight Start Date: 06/20/20 Stop Date: 09/12/20 Status: Ordered Flovent HFA 110 mcg/inh inhalation aerosol 2 puffs, Inhalation, 2 times a day, # 12 Gm, 0 Refills, Maintenance, 03/16/20 14:12:00 EDT, [place], [facility], 175, cm, 02/25/20 12:28:00 [...] Maintenance, 09/04/21 12:34:00EDT, Route to Pharmacy Electronically, [facility] Start Date: 09/04/21 Status: Ordered Narcan [...] 14:05:00 EST, Aerosol, Route to Pharmacy Electronically, NCPDP_[id number], [facility], 175, cm, 07/04/19 15:37:00 EDT, Height, 109.... Start Date: 12/27/19 Status: Ordered traZODone 150 mg oral tablet 1 tablet = 150 mg, By Mouth, Daily at bedtime, For sleep., # 30 tablet, 5 Refills, Maintenance, 09/04/21 12:32:00 EDT, Tablet, [facility], Partial fill upon patient request if the prescription is for a schedule II opioid drug., 175, c... Start Date: 09/04/21 Status: Ordered Tylenol 325 mg oral tablet 650 mg, 2, tablet, By Mouth, Every 4 hours, PRN, # 120 tablet, Refills 0, Tot. Refills 0, Maintenance, for fever, 02/15/20 13:30:00 EDT, Route to Pharmacy Electronically, [facility]/pharmacy #[id number], 175, cm,07/04/19 15:37:00 EDT, [...]
--- OUTSIDE RECORDS SUMMARY | 2023-07-22 17:11 | XMS_ITS | Continuity of Care Document ---
Author Name Unknown Organization [facility] Address [address] [place] [address]- Care Team Providers Care Service Mechanic Name Role Phone Pearl Reyna MD Primary Care Physician Encounter [facility] ACCT R [id number] Date(s): 04/04/21 - 05/04/[address] [address]- Attending Physician: John Clark Admitting Physician: AdmtrJohn Referring Physician: AdmtrJohn Allergies, Adverse Reactions, Alerts Substance Reaction Severity Status Rocephin 1 rash Resolved Ziagen HLA B5701 positive Active Complera allergic to the rilp irivine componant of Complera-tolerates truvada Active 1Not allergic. Tolerated cefpodoxime 10/2017 (prescribed at [facility] ED) as well as ceftriaxone IM [...] mL, 5 Refills, Maintenance, 01/23/21 14:38:00 EST, [place], [facility], 2 [...] constipation, 12/02/17 13:58:38, Route to Pharmacy Electronically, NCPDP_[id number], [facility] Start Date: 12/02/17 Status: Ordered fexofenadine 180 mg oral tablet 1 tablet = 180 mg, By Mouth, Daily, Instead of cetirizine (Zyrtec). For allergies., # 30 tablet, 5 Refills, Maintenance, 02/12/21 11:54:00 EDT, Tablet, [facility], Partial fill upon patient request if the prescription is for a schedu... Start Date: 02/12/21 Status: Ordered Flonase 50 mcg/inh nasal spray 2 sprays, Nares, Both, Daily in AM, # 16 Gm, 5 Refills, Maintenance, 06/20/20 8:34:00 EDT, [place], [facility], 2 [...] Maintenance, 02/12/21 11:50:00EDT, Route to Pharmacy Electronically, [facility]... Start Date: 02/12/21 Status: Ordered Narcan 4 mg/0.1 mL nasal spray = 4 mg, Nares, Both, Once, In case of overdose: spray in nose, call 911, repeat every 2 mins as needed, # 2 each, 5 Refills, Soft Stop, 12/28/19 9:06:00 EST, [facility]/pharmacy #[id number], 175, cm, 07/04/19 15:37:00 EDT, [...] EST, Aerosol, Route to Pharmacy Electronically, [facility]/NHRMCP_ID-[id number], [facility], 175, cm, 07/04/19 15:37:00 EDT, Height, 109.... Start Date: 12/27/19 Status: Ordered traZODone 150 mg oral tablet 1 tablet = 150 mg, By Mouth, Daily at bedtime, For sleep. Dose increased 02/12/21, # 30 tablet, 5 Refills, Maintenance, 02/12/21 11:48:00 EDT, Tablet, [facility], Partial fill upon patient request if the prescription is for a schedule... Start Date: 02/12/21 Status: Ordered Tylenol 325 mg oral tablet 650 mg, 2, tablet, By Mouth, Every 4 hours, PRN, # 120 tablet, Refills 0, Tot. Refills 0, Maintenance, for fever, 02/15/20 13:30:00 EDT, Route to Pharmacy Electronically, [facility]/pharmacy #[id number], 175, cm,07/04/19 15:37:00 EDT, Height, [...]
--- OUTSIDE RECORDS SUMMARY | 2023-07-22 17:11 | XMS_ITS | Continuity of Care Document ---
Author Name Unknown Organization [facility] Address [address] [place] [address]- Care Team Providers Care Fisher Crab Name Role Phone Pearl Reyna MD Primary Care Physician Encounter [facility] Date(s): 02/25/20 - 03/03/20 [facility] [address] [place] [address]- [facility] Encounter Diagnosis Acute pharyngitis(Discharge Diagnosis) - 02/25/20 Attending Physician: Merrick Maya MD Referring Physician: Pearl Reyna MD Allergies, Adverse Reactions, Alerts Substance Reaction Severity Status Rocephin 1 rash Resolved Ziagen HLA B5701 positive Active Complera allergic to the rilp irivine componant of Complera-tolerates truvada Active 1Not allergic. Tolerated cefpodoxime 10/2017 (prescribed at [facility] ED) as well as ceftriaxone IM [...] vaccine 01/24/14 Not Given Patient Refuses Medications amoxicillin 875 mg oral tablet 1 tablet = 875 mg, By Mouth, Every 12 hours, for 10 days, # 20 tablet, 0 Refills, Acute 03/06/20 12:44:00 EDT, 02/25/20 12:44:00 EDT, Tablet, [facility]/pharmacy #[id number], 175, cm, 02/25/20 12:28:00 EDT, Height, 109.9, kg, 07/01/19 10:09:00 EDT, Dry Weight Start Date: 02/25/20 Stop Date: 03/06/20 Status: Ordered azelastine nasal 0.15% spray 2 sprays, Nares, Both, 2 times a day, PRN for allergy symptoms, # 30 mL, 5 Refills, Maintenance, 12/27/19 14:06:00 EST, [place], [facility], 2 sprays Nares, Both 2 times a day,PRN:for allergy symptoms, 175, cm, 07/04/19 15:37:00 EDT, He... Start Date: 12/27/19 Status: Ordered beclomethasone 0.042 mg/inh nasal spray 1 sprays, Nares, Both, 2 times a day, in each nostril, # 25 Gm, 5 Refills, Maintenance, 12/21/19 14:09:00 EST, [facility], d/c fluconasol, 1 sprays Nares, Both 2 times a day,Instr:ineach nostril, 175, cm, 07/04/19 15:37:00 EDT, Heigh... Start Date: 12/21/19 Status: Ordered Biktarvy oral tablet 1 tablet, By Mouth, Daily, # 30 tablet, 11 Refills, Maintenance, 12/21/19 14:09:00 EST, Tablet, [facility], 1 tablet By Mouth Daily, 175, cm, 07/04/19 15:37:00 EDT, Height, 109.9, kg, 07/01/19 10:09:00 EDT, Dry Weight Start Date: 12/21/19 Status: Ordered buPROPion 300 mg/24 hours (XL) oral tablet, extended release 1 tablet = 300 mg, By Mouth, Every 24 hours, # 30 tablet, 11 Refills, Maintenance, 12/21/19 14:10:00 EST, [facility], note dose change, 175, cm, 07/04/19 15:37:00 EDT, Height, 109.9,kg, 07/01/19 10:09:00 EDT, Dry Weight Start Date: 12/21/19 Status: Ordered Colace sodium 100 mg oral capsule 100 mg, 1, capsule, By Mouth, 2 times a day, PRN, # 60 capsule, Refills 3, Tot. Refills 3, Maintenance, for constipation, 12/02/17 13:58:38, Route to Pharmacy Electronically, IDPDP_[id number], [facility] Start Date: 12/02/17 Status: Ordered Flomax 0.4 mg oral capsule 0.4 mg, 1, capsule, By Mouth, Daily, # 15 capsule, Refills 0, Tot. Refills 0, Maintenance, 02/24/1918:22:00 EDT, Print Requisition Start Date: 02/24/19 Status: Ordered hydrOXYzine hydrochloride 25 mg oral tablet 1 tablet = 25 mg, By Mouth, 4 times a day, PRN for anxiety, # 40 tablet, 0 Refills, Maintenance, 02/15/20 13:29:00 EDT, Tablet, [facility]/pharmacy #[id number], 175, cm, 07/04/19 15:37:00 EDT, Height, 109.9, kg, 07/01/19 10:09:00 EDT, Dry Weight Start Date: 02/15/20 Status: Ordered ibuprofen 800 mg oral tablet 800 mg, 1, tablet, By Mouth, 2 times a day, not to exceed 3200 mg/day As needed for migraine and kiendye stone pain., # 30 tablet, Refills 2, Tot. Refills 2, Maintenance, 12/21/19 14:10:00 [facility]... Start Date: 12/21/19 Status: Ordered Narcan 4 mg/0.1 mL nasal spray = 4 mg, Nares, Both, Once, In case of overdose: spray in nose, call 911, repeat every 2 mins as needed, # 2 each, 5 Refills, Soft Stop, 12/28/19 9:06:00 EST, [facility]/pharmacy #[id number], 175, cm, 07/04/19 15:37:00 EDT, Height, 109.9, kg, 07/01/19 10:09:00 EDT,... Start Date: 12/28/19 Status: Ordered ProAir HFA 90 mcg/inh inhalation aerosol with adapter 2, puffs, Inhalation, Every 4 hours, PRN, # 8.5 Gm, Refills 11, Tot. Refills 11, Maintenance, 12/27/19 14:05:00 EST, Aerosol, Route to Pharmacy Electronically, IDPDP_[id number], [facility], 175, cm, 07/04/19 15:37:00 EDT, Height, 109.... Start Date: 12/27/19 Status: Ordered SUMAtriptan 25 mg oral tablet 1 tablet = 25 mg, By Mouth, Daily, PRN for migraine headache, may repeat dose after 2 hours up to amaximum of 2, # 9 tablet, 11 Refills, Maintenance, 12/21/19 14:11:00 EST, Tablet, [facility], 175, cm, 07/04/19 15:37:00 EDT, Height,... Start Date: 12/21/19 Status: Ordered Tylenol 325 mg oral tablet 650 mg, 2, tablet, By Mouth, Every 4 hours, PRN, # 120 tablet, Refills 0, Tot. Refills 0, Maintenance, for fever, 02/15/20 13:30:00 EDT, Route to Pharmacy Electronically, [facility]/pharmacy #[id number], 175, cm,07/04/19 15:37:00 EDT, Height, 109.9, kg, 07/01/19... Start Date: 02/15/20 Status: Ordered ZyrTEC 10 mg oral tablet 1 tablet = 10 mg, By Mouth, Daily, as needed for seasonal allergies, # 30 tablet, 5 Refills, Maintenance, 12/21/19 14:10:00 EST, Tablet, [facility], 175, cm, 07/04/19 15:37:00 [...] repeatedly negative; negative trich, negative mycoplasma genitalium) Diagnosis Diagnosis Type Effective Dates Health Status Clinical Service Informant Acute pharyngitis Discharge Diagnosis 02/25/20 Vital Signs Most recent to oldest [Reference Range]: 1 Height 175 cm (02/25/20 12:28 PM) Oxygen Saturation [94-100 %] 97 % (02/25/20 12:28 PM) Pulse Rate [55-90 bpm] 99 bpm *H* (02/25/20 12:28 PM) Blood Pressure [90-138/55-84 mm Hg] 140/ 90mm Hg *H* (02/25/20 12:28 PM) Respiratory Rate [16-30 br/min] 18 br/mi n (02/25/20 12:28 PM) Temperature [96.8-100.4 DegF] 98.4 DegF (02/25/20 12:28 PM) Mode of Delivery (Oxygen) Room air (02/25/20 12:28 PM) Blood pressure sites Arm, right (02/25/20 12:28 PM) Temperature Route Oral (02/25/20 12:28 PM) Social History Social History Type Response Smoking Status Current every day mike malone entered on: 11/09/17 Sex
--- OUTSIDE RECORDS SUMMARY | 2023-07-22 17:11 | XMS_ITS | Continuity of Care Document ---
Author Name Unknown Organization [facility] Address [address] [place] [address]- Care Team Providers Care Repairer Helper Name Role Phone Pearl Reyna MD Primary Care Physician Encounter [facility] Date(s): 04/11/22 - 05/11/[address] [address]- Allergies, Adverse Reactions, Alerts Substance Reaction Severity Status Rocephin 1 rash Resolved abacavir 2 Active Ziagen HLA B5701 positive Active Complera allergic to the rilp irivine componant of Complera-tolerates truvada Active 1Not allergic. Tolerated cefpodoxime 10/2017 (prescribed at [facility] ED) as well as ceftriaxone [...] Comment: diluted w/ normal saline lot number [id number] expires 02/27/2023 2Result Comment: Received in [place] Medications amitriptyline 10 mg oral tablet 20 mg, 2, tablet, By Mouth, Daily at bedtime, New medication to prevent migraines. Causes sleepiness - take before bed ., # 30 tablet, Refills 0, Tot. Refills 0, Maintenance, 09/04/21 12:35:00 EDT, Route to Pharmacy Electronically, [facility]... Start Date: 09/04/21 Status: Ordered azelastine nasal 0.15% spray 2 sprays, Nares, Both, 2 times a day, PRN for allergy symptoms, # 30 mL, 5 Refills, Maintenance, 01/23/21 14:38:00 EST, [place], [facility], 2 sprays Nares, Both 2 times a day,PRN:for allergy symptoms, 175, cm, 02/25/20 12:28:00 EDT, He... Start Date: 01/23/21 Status: Ordered beclomethasone 0.042 mg/inh nasal spray 1 sprays, Nares, Both, 2 times a day, in each nostril, # 25 Gm, 5 Refills, Maintenance, 12/21/19 14:09:00 EST, [facility], d/c fluconasol, 1 sprays Nares, Both 2 times a day,Instr:ineach nostril, 175, cm, 07/04/19 15:37:00 EDT, [place]... Start Date: 12/21/19 Status: Ordered Biktarvy oral tablet 1 tablet, By Mouth, Daily, # 30 tablet, 11 Refills, Maintenance, 03/27/22 13:37:00 EDT, Tablet, [facility], Partial fill upon patient [...] constipation, 12/02/17 13:58:38, Route to Pharmacy Electronically, NCPDP_[id number], [facility] Start Date: 12/02/17 Status: [...] 5 Refills, Maintenance, 02/12/21 11:54:00 EDT, Tablet, [facility], Partial fill upon patient request if the prescription is for a schedu... Start Date: 02/12/21 Status: Ordered Flomax 0.4 mg oral capsule 0.4 mg, 1, capsule, By Mouth, Daily, To help kidney stone pass, # 30 capsule, Refills 1, Tot. Refills 1, Maintenance, 04/15/22 13:06:00 EDT, Route to Pharmacy Electronically, [facility], 175, cm, 11/19/21 10:53:00 EST, Height Start Date: 04/15/22 Status: Ordered ibuprofen 800 mg oral tablet 800 mg, 1, tablet, By Mouth, Daily, As needed for migraine and kidney stone pain. do not use daily,it will make migraine worse, # 30 tablet, Refills 2, Tot. Refills 2, Maintenance, 09/04/21 12:34:00EDT, Route to Pharmacy Electronically, [facility]... Start Date: 09/04/21 Status: Ordered Narcan 4 mg/0.1 mL nasal spray = 4 mg, Nares, Both, Once, In case of overdose: spray in nose, call 911, repeat every 2 mins as needed, # 2 each, 5 Refills, Soft Stop, 12/28/19 9:06:00 EST, [facility]/pharmacy #[id number], 175, cm, 07/04/19 15:37:00 [...] 14:05:00 EST, Aerosol, Route to Pharmacy Electronically, [id number]_[id number], [facility], 175, cm, 07/04/19 15:37:00 EDT, Height, 109.... Start Date: 12/27/19 Status: Ordered sucralfate 1 gm oral tablet 1 Gm, 1, tablet, By Mouth, 4 times a day, # 120 tablet, Refills 3, Tot. Refills 3, Maintenance, 12/19/21 13:28:00 EST, Route to Pharmacy Electronically, [facility], Partial fill uponpatient request if the prescription is for a schedu... Start Date: 12/19/21 Status: Ordered traZODone 150 mg oral tablet 1 tablet = 150 mg, By Mouth, Daily at bedtime, For sleep., # 30 tablet, 5 Refills, Maintenance, 09/04/21 12:32:00 EDT, Tablet, [facility], Partial fill upon patient request if the prescription is for a schedule II opioid drug., 175, c... Start Date: 09/04/21 Status: Ordered triamcinolone 0.1% topical cream 1 application, Topically, 2 times a day, apply a thin film to affected area in armpit, # 80 Gm, 2 Refills, Maintenance, 11/19/21 11:29:00 EST, [place], [facility], Partial fill upon patient request if the prescription is for a schedule... Start Date: 11/19/21 Status: Ordered Tylenol 325 mg oral tablet 650 mg, 2, tablet, By Mouth, Every 4 hours, PRN, # 120 tablet, Refills 0, Tot. Refills 0, Maintenance, for fever, 02/15/20 13:30:00 EDT, Route to Pharmacy Electronically, [facility]/pharmacy #[id number], 175, cm,07/04/19 15:37:00 EDT, Height, 109.9, kg, 07/01/19... Start Date: 02/15/20 Status: Ordered Zithromax 250 mg oral tablet 2 tablet = 500 mg, By Mouth, Once, # 2 tablet, 0 Refills, Soft Stop, 03/05/22 15:02:00 EDT, Tablet,[facility], Partial fill upon patient [...]
--- OUTSIDE RECORDS SUMMARY | 2023-07-22 17:11 | XMS_ITS | Continuity of Care Document ---
Author Name Unknown Organization [facility] Address [address] [place] [address]- Care Team Providers Care Senior Commissary Agent Name Role Phone Pearl Reyna MD Primary Care Physician Encounter [facility] Date(s): 06/22/20 - 07/22/[address] [address]- [facility] Allergies, Adverse Reactions, Alerts Substance Reaction Severity Status Rocephin 1 rash Resolved Complera allergic to the rilp irivine componant of Complera-tolerates truvada Active Ziagen HLA B5701 positive Active 1Not allergic. Tolerated cefpodoxime 10/2017 (prescribed at [facility] ED) as well as ceftriaxone IM [...] mL, 5 Refills, Maintenance, 06/20/20 8:33:00 EDT, [place], [facility], 2 sprays Nares, Both 2 times a day,PRN:for allergy symptoms, 175, cm, 02/25/20 12:28:00 EDT, Hei... Start Date: 06/20/20 Status: Ordered beclomethasone 0.042 mg/inh nasal spray 1 sprays, Nares, Both, 2 times a day, in each nostril, # 25 Gm, 5 Refills, Maintenance, 12/21/19 14:09:00 EST, [facility], d/c fluconasol, 1 sprays Nares, Both 2 times a day,Instr:ineach nostril, 175, cm, 07/04/19 15:37:00 EDT, Heigh... Start Date: 12/21/19 Status: Ordered Biktarvy oral tablet 1 tablet, By Mouth, Daily, # 30 tablet, 11 Refills, Maintenance, 12/21/19 14:09:00 EST, Tablet, [facility], 1 tablet By Mouth Daily, 175, cm, 07/04/19 15:37:00 EDT, Height, 109.9, kg, 07/01/19 10:09:00 EDT, Dry Weight Start Date: 12/21/19 Status: Ordered buPROPion 300 mg/24 hours (XL) oral tablet, extended release 1 tablet = 300 mg, By Mouth, Every 24 hours, # 30 tablet, 11 Refills, Maintenance, 12/21/19 14:10:00 EST, [facility], note dose change, 175, cm, 07/04/19 15:37:00 EDT, Height, 109.9,kg, 07/01/19 10:09:00 EDT, Dry Weight Start Date: 12/21/19 Status: Ordered Colace sodium 100 mg oral capsule 100 mg, 1, capsule, By Mouth, 2 times a day, PRN, # 60 capsule, Refills 3, Tot. Refills 3, Maintenance, for constipation, 12/02/17 13:58:38, Route to Pharmacy Electronically, [id number], [facility] Start Date: 12/02/17 Status: Ordered Flomax 0.4 mg oral capsule 0.4 mg, 1, capsule, By Mouth, Daily, To help kidney stone pass, # 15 capsule, Refills 0, Tot. Refills 0, Maintenance, 05/10/20 16:01:00 EDT, Route to Pharmacy Electronically, [facility], 175, cm, 02/25/20 12:28:00 EDT, Height, 109.9,... Start Date: 05/10/20 Status: Ordered Flonase 50 mcg/inh nasal spray 2 sprays, Nares, Both, Daily in AM, # 16 Gm, 5 Refills, Maintenance, 06/20/20 8:34:00 EDT, [place], [facility], 2 sprays Nares, Both Daily in AM,x14 days, 175, cm, 02/25/20 12:28:00 EDT, Height, 109.9, kg, 07/01/19 10:09:00 EDT, Dry Weight Start Date: 06/20/20 Stop Date: 09/12/20 Status: Ordered Flovent HFA 110 mcg/inh inhalation aerosol 2 puffs, Inhalation, 2 times a day, # 12 Gm, 0 Refills, Maintenance, 03/16/20 14:12:00 EDT, Aerosol, [facility], 175, cm, 02/25/20 12:28:00 EDT, Height, 109.9, kg, 07/01/19 10:09:00 EDT, Dry Weight Start Date: 03/16/20 Status: Ordered hydrOXYzine hydrochloride 25 mg oral tablet 1 tablet = 25 mg, By Mouth, 4 times a day, PRN for anxiety, # 40 tablet, 0 Refills, Maintenance, 02/15/20 13:29:00 EDT, Tablet, [facility]/pharmacy #[id number], 175, cm, 07/04/19 15:37:00 EDT, Height, 109.9, kg, 07/01/19 10:09:00 EDT, Dry Weight Start Date: 02/15/20 Status: Ordered ibuprofen 800 mg oral tablet 800 mg, 1, tablet, By Mouth, 2 times a day, not to exceed 3200 mg/day As needed for migraine and kiendye stone pain., # 30 tablet, Refills 2, Tot. Refills 2, Maintenance, 03/23/20 15:10:00 EDT, [facility], [facility]... Start Date: 03/23/20 Status: Ordered Narcan 4 mg/0.1 mL nasal spray = 4 mg, Nares, Both, Once, In case of overdose: spray in nose, call 911, repeat every 2 mins as needed, # 2 each, 5 Refills, Soft Stop, 12/28/19 9:06:00 EST, [facility]/pharmacy #[id number], 175, cm, 07/04/19 15:37:00 EDT, Height, 109.9, kg, 07/01/19 10:09:00 EDT,... Start Date: 12/28/19 Status: Ordered oxyCODONE 5 mg oral tablet 5 mg, 1, tablet, By Mouth, 3 times a day, PRN, for kidney stone [place] Pat Checked, # 15 tablet, Refills 0, Tot. Refills 0, Maintenance, as needed for pain, 05/10/20 16:04:00 EDT, Route to Pharmacy Electronically, [facility], Partial fi... Start Date: [...] 14:05:00 EST, Aerosol, Route to Pharmacy Electronically, [id number], [facility], 175, cm, 07/04/19 15:37:00 EDT, Height, 109.... Start Date: 12/27/19 Status: Ordered SUMAtriptan 25 mg oral tablet 1 tablet = 25 mg, By Mouth, Daily, PRN for migraine headache, may repeat dose after 2 hours up to amaximum of 2, # 9 tablet, 11 Refills, Maintenance, 12/21/19 14:11:00 EST, Tablet, [facility], 175, cm, 07/04/19 15:37:00 EDT, Height,... Start Date: 12/21/19 Status: Ordered Tylenol 325 mg oral tablet 650 mg, 2, tablet, By Mouth, Every 4 hours, PRN, # 120 tablet, Refills 0, Tot. Refills 0, Maintenance, for fever, 02/15/20 13:30:00 EDT, Route to Pharmacy Electronically, [facility]/pharmacy #[id number], 175, cm,07/04/19 15:37:00 EDT, Height, 109.9, kg, 07/01/19... Start Date: 02/15/20 Status: Ordered valacyclovir 1 gm oral tablet 1 tablet = 1 Gm, By Mouth, Daily, for 5 days, At first sign of outbreak: 1 tablet daily for 5 days.Pharmacy: please dispense #10, # 10 tablet, 11 Refills, Acute 08/19/20 8:34:00 EDT, 06/20/20 8:34:00 EDT, Tablet, [facility], 175,... Start Date: 06/20/20 Stop Date: 08/19/20 Status: Ordered ZyrTEC 10 mg oral tablet 1 tablet = 10 mg, By Mouth, Daily, as needed for seasonal allergies, # 30 tablet, 5 Refills, Maintenance, 12/21/19 14:10:00 EST, Tablet, [facility], 175, cm, 07/04/19 15:37:00 EDT, Height, [...] Response Smoking Status Current every day sm oker entered on: 11/09/17 Sex
--- OUTSIDE RECORDS SUMMARY | 2023-07-22 17:11 | XMS_ITS | Continuity of Care Document ---
Author Name Unknown Organization [facility] Address [address] [place] [address]- Care Team Providers Care Spinneret Cleaner Name Role Phone Pearl Reyna MD Primary Care Physician Encounter [place] Date(s): 03/16/20 - 03/23/[address] [address]- [facility] Encounter Diagnosis Smoking trying to quit(Discharge Diagnosis) - 03/16/20 Suspected COVID-19 virus infection(Discharge Diagnosis) - 03/16/20 Attending Physician: Kaleb Kelley MD Allergies, Adverse Reactions, Alerts Substance Reaction Severity Status Rocephin 1 rash Resolved Ziagen HLA B5701 positive Active Complera allergic to the rilp irivine componant of Complera-tolerates truvada Active 1Not allergic. Tolerated cefpodoxime 10/2017 (prescribed at [facility] ED) as well as ceftriaxone [...] mL, 5 Refills, Maintenance, 12/27/19 14:06:00 EST, [place], [facility], 2 sprays Nares, Both 2 times a day,PRN:for allergy symptoms, 175, cm, 07/04/19 15:37:00 EDT, He... Start Date: 12/27/19 Status: Ordered beclomethasone 0.042 mg/inh nasal spray 1 sprays, Nares, Both, 2 times a day, in each nostril, # 25 Gm, 5 Refills, Maintenance, 12/21/19 14:09:00 EST, [facility], d/c fluconasol, 1 sprays Nares, Both 2 times a day,Instr:ineach nostril, 175, cm, 07/04/19 15:37:00 EDT, Heigh... Start Date: 12/21/19 Status: Ordered Biktarvy oral tablet 1 tablet, By Mouth, Daily, # 30 tablet, 11 Refills, Maintenance, 12/21/19 14:09:00 EST, Tablet, [facility], 1 tablet By Mouth Daily, 175, cm, 07/04/19 15:37:00 EDT, Height, 109.9, kg, 07/01/19 10:09:00 EDT, Dry Weight Start Date: 12/21/19 Status: Ordered buPROPion 300 mg/24 hours (XL) oral tablet, extended release 1 tablet = 300 mg, By Mouth, Every 24 hours, # 30 tablet, 11 Refills, Maintenance, 12/21/19 14:10:00 EST, [facility], note dose change, 175, cm, 07/04/19 15:37:00 EDT, Height, 109.9,kg, 07/01/19 10:09:00 EDT, Dry Weight Start Date: 12/21/19 Status: Ordered Colace sodium 100 mg oral capsule 100 mg, 1, capsule, By Mouth, 2 times a day, PRN, # 60 capsule, Refills 3, Tot. Refills 3, Maintenance, for constipation, 12/02/17 13:58:38, Route to Pharmacy Electronically, NCPDP_[id number], [facility] Start Date: 12/02/17 Status: Ordered Flomax 0.4 mg oral capsule 0.4 mg, 1, capsule, By Mouth, Daily, # 15 capsule, Refills 0, Tot. Refills 0, Maintenance, 02/24/1918:22:00 EDT, Print Requisition Start Date: 02/24/19 Status: Ordered Flovent HFA 110 mcg/inh inhalation aerosol 2 puffs, Inhalation, 2 times a day, # 12 Gm, 0 Refills, Maintenance, 03/16/20 14:12:00 EDT, Aerosol, [facility], 175, cm, 02/25/20 12:28:00 EDT, Height, 109.9, kg, 07/01/19 10:09:00 EDT, Dry Weight Start Date: 03/16/20 Status: Ordered hydrOXYzine hydrochloride 25 mg oral tablet 1 tablet = 25 mg, By Mouth, 4 times a day, PRN for anxiety, # 40 tablet, 0 Refills, Maintenance, 02/15/20 13:29:00 EDT, Tablet, [facility]/pharmacy #[id number], 175, cm, 07/04/19 [...] Maintenance, 03/23/20 15:10:00 EDT, [facility], [facility]... Start Date: 03/23/20 Status: Ordered Narcan 4 mg/0.1 mL nasal spray = 4 mg, Nares, Both, Once, In case of overdose: spray in nose, call 911, repeat every 2 mins as needed, # 2 each, 5 Refills, Soft Stop, 12/28/19 9:06:00 EST, [facility]/pharmacy #[id number], 175, cm, 07/04/19 15:37:00 EDT, Height, 109.9, kg, 07/01/19 10:09:00 EDT,... Start Date: 12/28/19 Status: Ordered nicotine 14 mg/24 hr transdermal film, extended release 1 patch, Topically, Daily, for 30 days, # 30 patch, 3 Refills, Acute 07/14/20 14:12:00 EDT, 03/16/20 14:12:00 EDT, Patch, [facility], 1 patch Topically Daily,x30 days, 175, cm, 02/25/20 12:28:00 EDT, Height, 109.9, kg, 07/01/19 10:09:... Start Date: 03/16/20 Stop Date: 07/14/20 Status: Ordered ProAir HFA 90 mcg/inh inhalation aerosol with adapter 2, puffs, Inhalation, Every 4 hours, PRN, # 8.5 Gm, Refills 11, Tot. Refills 11, Maintenance, 12/27/19 14:05:00 EST, Aerosol, Route to Pharmacy Electronically, [facility]/NHRMCP_ID-[id number], [facility], 175, cm, 07/04/19 15:37:00 EDT, Height, 109.... Start Date: 12/27/19 Status: Ordered SUMAtriptan 25 mg oral tablet 1 tablet = 25 mg, By Mouth, Daily, PRN for migraine headache, may repeat dose after 2 hours up to amaximum of 2, # 9 tablet, 11 Refills, Maintenance, 12/21/19 14:11:00 EST, Tablet, [facility], 175, cm, 07/04/19 15:37:00 EDT, Height,... Start Date: 12/21/19 Status: Ordered Tylenol 325 mg oral tablet 650 mg, 2, tablet, By Mouth, Every 4 hours, PRN, # 120 tablet, Refills 0, Tot. Refills 0, Maintenance, for fever, 02/15/20 13:30:00 EDT, Route to Pharmacy Electronically, [facility]/pharmacy #[id number], 175, cm,07/04/19 15:37:00 EDT, Height, 109.9, kg, 07/01/19... Start Date: 02/15/20 Status: Ordered ZyrTEC 10 mg oral tablet 1 tablet = 10 mg, By Mouth, Daily, as needed for seasonal allergies, # 30 tablet, 5 Refills, Maintenance, 12/21/19 14:10:00 EST, Tablet, [facility], 175, cm, 07/04/19 15:37:00 [...] Diagnosis Diagnosis Type Effective Dates Health Status Cl inical Service Informant Smoking trying to quit Discharge Diagnosis 03/16/20 Suspected COVID-19 virus infection Discharge Diagnosis 03/16/20 Social History Social History Type Response Smoking Status Current every day mike malone entered on: 11/09/17 Sex
--- OUTSIDE RECORDS SUMMARY | 2023-07-22 17:11 | XMS_ITS | Continuity of Care Document ---
Author Name Unknown Organization [facility] Address [address] [place] [address]- Care Team Providers Care Estate Administrator Name Role Phone Pearl Reyna MD Primary Care Physician Encounter [facility] [place] [place] Date(s): 08/18/22 - 09/21/[address] [address]- Attending Physician: Pearl Reyna MD Admitting Physician: Pearl Reyna MD Allergies, Adverse Reactions, Alerts Substance Reaction Severity Status Rocephin 1 rash Resolved Ziagen HLA B5701 positive Active Complera allergic to the rilp irivine componant of Complera-tolerates truvada Active abacavir 2 Active 1Not allergic. Tolerated cefpodoxime 10/2017 (prescribed at [facility] ED) as well as ceftriaxone IM [...] vaccine 06/23/13 Given Hepatitis A Adult Vaccine 7/25/13 Given Not Given Vaccine Date Status Refusal Reason pneumococcal 23-valent vaccine 02/28/14 Not Given Patient Refuses pneumococcal 23-valent vaccine 01/24/14 Not Given Patient Refuses 1Result Comment: diluted w/ normal saline lot number [id number] expires 02/27/2023 2Result Comment: Received in [place] Medications amitriptyline 10 mg oral tablet 20 mg, 2, tablet, By Mouth, Daily at bedtime, New medication to prevent migraines. Causes sleepiness - take before bed ., # 30 tablet, Refills 0, Tot. Refills 0, Maintenance, 09/04/21 12:35:00 EDT, Route to Pharmacy Electronically, [facility]... Start Date: 09/04/21 Status: Ordered azelastine nasal 0.15% spray 2 sprays, Nares, Both, 2 times a day, PRN for allergy symptoms, # 30 mL, 5 Refills, Maintenance, 01/23/21 14:38:00 EST, [place], [facility], 2 sprays Nares, Both [...] 11 Refills, Maintenance, 03/27/22 13:37:00 EDT, Tablet, [facility], Partial fill upon patient request if the prescription is for a schedule IIopioid drug., 1 tablet By Mouth Daily, 175, cm, 12/... Start Date: 03/27/22 Status: Ordered Colace sodium 100 mg oral capsule 100 mg, 1, capsule, By Mouth, 2 times a day, PRN, # 60 capsule, Refills 3, Tot. Refills 3, Maintenance, for constipation, 12/02/17 13:58:38, Route to Pharmacy Electronically, NDPDP_[id number], [facility] Start Date: 12/02/17 Status: Ordered [...] 5 Refills, Maintenance, 02/12/21 11:54:00 EDT, Tablet, [facility], Partial fill upon patient request if the prescription is for a schedu... Start Date: 02/12/21 Status: Ordered Flomax 0.4 mg oral capsule 0.4 mg, 1, capsule, By Mouth, Daily, To help kidney stone pass, # 30 capsule, Refills 1, Tot. Refills 1, Maintenance, 04/15/22 13:06:00 EDT, Route to Pharmacy Electronically, [facility], 175, cm, 11/19/21 10:53:00 EST, Height Start Date: 04/15/22 Status: Ordered ibuprofen 800 mg oral tablet 800 mg, 1, tablet, By Mouth, Daily, As needed for migraine and kidney stone pain. do not use daily,it will make migraine worse, # 30 tablet, Refills 3, Tot. Refills 3, Maintenance, 05/23/22 17:46:00EDT, Route to Pharmacy Electronically, [facility]... Start Date: 05/23/22 Status: Ordered Narcan 4 mg/0.1 mL nasal spray = 4 mg, Nares, Both, Once, In case of overdose: spray in nose, call 911, repeat every 2 mins as needed, # 2 each, 5 Refills, Soft Stop, 12/28/19 9:06:00 EST, [facility]/pharmacy #[id number], 175, cm, 07/04/19 15:37:00 EDT, Height, 109.9, kg, 07/01/19 10:09:00 EDT,... Start Date: 12/28/19 Status: Ordered ondansetron 4 mg oral tablet 1 tablet = 4 mg, By Mouth, Daily, for 30 days, Take as needed for nausea associated with medications, # 30 tablet, 1 Refills, Acute 10/14/22 10:34:00 EST, 08/15/22 10:34:00 EDT, [facility], Partial fill upon patient request if the pre... Start Date: 08/15/22 Stop Date: 10/14/22 Status: Ordered pantoprazole 40 mg oral delayed [...] tablet, 0 Refills, Maintenance, 08/18/22 14:16:00 EDT, [facility]... Start Date: 08/18/22 Status: Ordered ProAir HFA 90 mcg/inh inhalation aerosol with adapter 2, puffs, Inhalation, Every 4 hours, PRN, # 8.5 Gm, Refills 11, Tot. Refills 11, Maintenance, 08/18/22 14:17:00 EDT, Aerosol, Route to Pharmacy Electronically, NCPDP_[id number], [facility], 175, cm, 11/19/21 10:53:00 EST, Height Start Date: 08/18/22 Status: Ordered sucralfate 1 gm oral tablet 1 Gm, 1, tablet, By Mouth, 4 times a day, # 120 tablet, Refills 3, Tot. Refills 3, Maintenance, 12/19/21 13:28:00 EST, Route to Pharmacy Electronically, [facility], Partial fill uponpatient request if the prescription is for a schedu... Start Date: 12/19/21 Status: Ordered traZODone 150 mg oral tablet 1 tablet = 150 mg, By Mouth, Daily at bedtime, For sleep., # 30 tablet, 11 Refills, Maintenance, 06/27/22 12:36:00 EDT, Tablet, [facility], Partial fill upon patient request if the prescription is for a schedule II opioid drug., 175,... Start Date: 06/27/22 Status: Ordered triamcinolone 0.1% topical cream 1 application, Topically, 2 times a day, apply a thin film to affected area in armpit, # 80 Gm, 2 Refills, Maintenance, 11/19/21 11:29:00 EST, [place], [facility], Partial fill upon patient request if the prescription is for a schedule... Start Date: 11/19/21 Status: Ordered Tylenol 325 mg oral tablet 650 mg, 2, tablet, By Mouth, Every 4 hours, PRN, # 120 tablet, Refills 0, Tot. Refills 0, Maintenance, for fever, 02/15/20 13:30:00 EDT, Route to Pharmacy Electronically, [facility]/pharmacy #[id number], 175, cm,07/04/19 15:37:00 EDT, Height, 109.9, kg, 07/01/19... Start Date: 02/15/20 Status: Ordered Zithromax 250 mg oral tablet 2 tablet = 500 mg, By Mouth, Once, # 2 tablet, 0 Refills, Soft Stop, 03/05/22 15:02:00 EDT, Tablet,[facility], Partial fill upon patient request [...] on: 11/09/17 Sex Patient Care team information Personnel Name: Pearl Reyna MD Address: Address: [address] [place] [address]
--- OUTSIDE RECORDS SUMMARY | 2023-07-22 17:12 | XMS_ITS | Continuity of Care Document ---
Author Name Unknown Organization [facility] Address [address] [place] [address]- Care Team Providers Care Buckle Strap Puncher Name Role Phone Pearl Reyna MD Primary Care Physician Encounter [facility] [place] Date(s): 11/17/19 - 01/27/[address] [address]- [facility] Attending Physician: Not on Staff, Attending MD Allergies, Adverse Reactions, Alerts Substance Reaction Severity Status Rocephin 1 rash Resolved Ziagen HLA B5701 positive Active Complera allergic to the rilp irivine componant of Complera-tolerates truvada Active 1Not allergic. Tolerated cefpodoxime 10/2017 (prescribed at [facility]) as well as ceftriaxone IM [...] mL, 5 Refills, Maintenance, 12/27/19 14:06:00 EST, [place], [facility], 2 sprays Nares, Both 2 times a day,PRN:for allergy symptoms, 175, cm, 07/04/19 15:37:00 EDT, He... Start Date: 12/27/19 Status: Ordered beclomethasone 0.042 mg/inh nasal spray 1 sprays, Nares, Both, 2 times a day, in each nostril, # 25 Gm, 5 Refills, Maintenance, 12/21/19 14:09:00 EST, [facility], d/c fluconasol, 1 sprays Nares, Both 2 times a day,Instr:ineach nostril, 175, cm, 07/04/19 15:37:00 EDT, Heigh... Start Date: 12/21/19 Status: Ordered Biktarvy oral tablet 1 tablet, By Mouth, Daily, # 30 tablet, 11 Refills, Maintenance, 12/21/19 14:09:00 EST, Tablet, [facility], 1 tablet By Mouth Daily, 175, cm, 07/04/19 15:37:00 EDT, Height, 109.9, kg, 07/01/19 10:09:00 EDT, Dry Weight Start Date: 12/21/19 Status: Ordered buPROPion 300 mg/24 hours (XL) oral tablet, extended release 1 tablet = 300 mg, By Mouth, Every 24 hours, # 30 tablet, 11 Refills, Maintenance, 12/21/19 14:10:00 EST, [facility], note dose change, 175, cm, 07/04/19 15:37:00 EDT, Height, 109.9,kg, 07/01/19 10:09:00 EDT, Dry Weight Start Date: 12/21/19 Status: Ordered Colace sodium 100 mg oral capsule 100 mg, 1, capsule, By Mouth, 2 times a day, PRN, # 60 capsule, Refills 3, Tot. Refills 3, Maintenance, for constipation, 12/02/17 13:58:38, Route to Pharmacy Electronically, NCPDP_[id number], [facility] Start Date: 12/02/17 Status: Ordered Flomax 0.4 mg oral capsule 0.4 mg, 1, capsule, By Mouth, Daily, # 15 capsule, Refills 0, Tot. Refills 0, Maintenance, 02/24/1918:22:00 EDT, Print Requisition Start Date: 02/24/19 Status: Ordered ibuprofen 800 mg oral tablet 800 mg, 1, tablet, By Mouth, 2 times a day, not to exceed 3200 mg/day As needed for migraine and kiendye stone pain., # 30 tablet, Refills 2, Tot. Refills 2, Maintenance, 12/21/19 14:10:00 EST, [facility] Electron[facility], [facility]... Start Date: 12/21/19 Status: Ordered Narcan 4 mg/0.1 mL nasal spray = 4 mg, Nares, Both, Once, In case of overdose: spray in nose, call 911, repeat every 2 mins as needed, # 2 each, 5 Refills, Soft Stop, 12/28/19 9:06:00 EST, [facility]/pharmacy #[id number], 175, cm, 07/04/19 15:37:00 EDT, Height, 109.9, kg, 07/01/19 10:09:00 EDT,... Start Date: 12/28/19 Status: Ordered ProAir HFA 90 mcg/inh inhalation aerosol with adapter 2, puffs, Inhalation, Every 4 hours, PRN, # 8.5 Gm, Refills 11, Tot. Refills 11, Maintenance, 12/27/19 14:05:00 EST, Aerosol, Route to Pharmacy Electronically, NCPDP_[id number], [facility], 175, cm, 07/04/19 15:37:00 EDT, Height, 109.... Start Date: 12/27/19 Status: Ordered SUMAtriptan 25 mg oral tablet 1 tablet = 25 mg, By Mouth, Daily, PRN for migraine headache, may repeat dose after 2 hours up to amaximum of 2, # 9 tablet, 11 Refills, Maintenance, 12/21/19 14:11:00 EST, Tablet, [facility], 175, cm, 07/04/19 15:37:00 EDT, Height,... Start Date: 12/21/19 Status: Ordered ZyrTEC 10 mg oral tablet 1 tablet = 10 mg, By Mouth, Daily, as needed for seasonal allergies, # 30 tablet, 5 Refills, Maintenance, 12/21/19 14:10:00 EST, Tablet, [facility], 175, cm, 07/04/19 15:37:00 EDT, [...]
--- OUTSIDE RECORDS SUMMARY | 2023-07-22 17:12 | XMS_ITS | Continuity of Care Document ---
Author Name Unknown Organization [facility] Address [address] [place] [address]- Care Team Providers Care Wheel Polisher Name Role Phone Pearl Reyna MD Primary Care Physician [facility] Date[facility]): 07/09/[facility] - 08/08/[address] [address]- Allergies, Adverse Reactions, Alerts Substance Reaction Severity Status Rocephin 1 rash Resolved Ziagen HLA B5701 positive Active Complera allergic to the rilp irivine componant of Complera-tolerates truvada Active 1Not allergic. Tolerated cefpodoxime 10/2017 (prescribed at [facility] ED) as well as ceftriaxone IM [...] Comment: diluted w/ normal saline lot number [id number] expires 02/27/2023 2Result Comment: Received in [place] Medications azelastine nasal 0.15% spray 2 sprays, Nares, Both, 2 times a day, PRN for allergy symptoms, # 30 mL, 5 Refills, Maintenance, 01/23/21 14:38:00 EST, [place], [facility], 2 sprays Nares, Both 2 times a day,PRN:for allergy symptoms, 175, cm, 02/25/20 12:28:00 EDT, He... Start Date: 01/23/21 Status: Ordered beclomethasone 0.042 mg/inh nasal spray 1 sprays, Nares, Both, 2 times a day, in each nostril, # 25 Gm, 5 Refills, Maintenance, 12/21/19 14:09:00 EST, [facility], d/c fluconasol, 1 sprays [...] tablet, 11 Refills, Maintenance, 12/21/19 14:10:00 EST, [facility], note dose change, 175, cm, 07/04/19 15:37:00 EDT, Height, 109.9,kg, 07/01/19 10:09:00 EDT, Dry Weight Start Date: 12/21/19 Status: Ordered Colace sodium 100 mg oral capsule 100 mg, 1, capsule, By Mouth, 2 times a day, PRN, # 60 capsule, Refills 3, Tot. Refills 3, Maintenance, for constipation, 12/02/17 13:58:38, Route to Pharmacy Electronically, NCPDP_[id number], [facility] Start Date: 12/02/17 Status: Ordered fexofenadine 180 mg oral tablet 1 tablet = 180 mg, By Mouth, Daily, Instead of cetirizine (Zyrtec). For allergies., # 30 tablet, 5 Refills, Maintenance, 02/12/21 11:54:00 EDT, Tablet, [facility], Partial fill upon patient request if the prescription is for a schedu... Start Date: 02/12/21 Status: Ordered Flonase 50 mcg/inh nasal spray 2 sprays, Nares, Both, Daily in AM, # 16 Gm, 5 Refills, Maintenance, 06/20/20 8:34:00 EDT, [place], [facility], 2 sprays Nares, Both Daily in AM,x14 days, 175, cm, 02/25/20 12:28:00 EDT, Height, 109.9, kg, 07/01/19 10:09:00 EDT, Dry Weight Start Date: 06/20/20 Stop Date: 09/12/20 Status: Ordered Flovent HFA 110 mcg/inh inhalation aerosol 2 puffs, Inhalation, 2 times a day, # 12 Gm, 0 Refills, Maintenance, 03/16/20 14:12:00 EDT, Aeros[place], [facility], 175, cm, 02/25/20 12:28:00 [...] Maintenance, 02/12/21 11:50:00EDT, Route to Pharmacy Electronically, [facility]... Start Date: 02/12/21 Status: Ordered Narcan 4 mg/0.1 mL nasal spray = 4 mg, Nares, Both, Once, In case of overdose: spray in nose, call 911, repeat every 2 mins as needed, # 2 each, 5 Refills, Soft Stop, 12/28/19 9:06:00 EST, [facility]/pharmacy #[id number], 175, cm, 07/04/19 15:37:00 EDT, [...] 14:05:00 EST, Aerosol, Route to Pharmacy Electronically, NCPDP_[id number], [facility], 175, cm, 07/04/19 15:37:00 EDT, Height, 109.... Start Date: 12/27/19 Status: Ordered traZODone 150 mg oral tablet 1 tablet = 150 mg, By Mouth, Daily at bedtime, For sleep. Dose increased 02/12/21, # 30 tablet, 5 Refills, Maintenance, 02/12/21 11:48:00 EDT, Tablet, [facility] [...]
--- OUTSIDE RECORDS SUMMARY | 2023-07-22 17:12 | XMS_ITS | Continuity of Care Document ---
Author Name Unknown Organization [facility] Address [address] [place] [address]- Care Team Providers Care Computer Numerical Control Grinder Name Role Phone Pearl Reyna MD Primary Care Physician [facility] Date[facility]): 10/30/21 - 11/29/[address] [address]- Allergies, Adverse Reactions, Alerts Substance Reaction Severity [...] Comment: diluted w/ normal saline lot number [id number] expires 02/27/2023 2Result Comment: Received in [place] Medications amitriptyline 10 mg oral tablet 20 mg, 2, tablet, By Mouth, Daily at bedtime, New medication to prevent migraines. Causes sleepiness - take before bed ., # 30 tablet, Refills 0, Tot. Refills 0, Maintenance, 09/04/21 12:35:00 EDT, Route to Pharmacy Electronically, [facility]... Start Date: 09/04/21 Status: Ordered azelastine nasal 0.15% spray 2 sprays, Nares, Both, 2 times a day, PRN for allergy symptoms, # 30 mL, 5 Refills, Maintenance, 01/23/21 14:38:00 EST, [place], [facility], 2 sprays Nares, Both 2 times a day,PRN:for allergy symptoms, 175, cm, 02/25/20 12:28:00 EDT, He... Start Date: 01/23/21 Status: Ordered beclomethasone 0.042 mg/inh nasal spray 1 sprays, Nares, Both, 2 times a day, in each nostril, # 25 Gm, 5 Refills, Maintenance, 12/21/19 14:09:00 EST, [facility], d/c fluconasol, 1 sprays [...] constipation, 12/02/17 13:58:38, Route to Pharmacy Electronically, NCPDP_[id number], [facility] Start [...] 5 Refills, Maintenance, 02/12/21 11:54:00 EDT, Tablet, [facility], Partial fill upon patient request if the prescription is for a schedu... Start Date: 02/12/21 Status: Ordered Flonase 50 mcg/inh nasal spray 2 sprays, Nares, Both, Daily in AM, # 16 Gm, 5 Refills, Maintenance, 06/20/20 8:34:00 EDT, [place], [facility], 2 sprays Nares, Both Daily in AM,x14 days, 175, cm, 02/25/20 12:28:00 EDT, Height, 109.9, kg, 07/01/19 10:09:00 EDT, Dry Weight Start Date: 06/20/20 Stop Date: 09/12/20 Status: Ordered Flovent HFA 110 mcg/inh inhalation aerosol 2 puffs, Inhalation, 2 times a day, # 12 Gm, 0 Refills, Maintenance, 03/16/20 14:12:00 EDT, Aerosol, [facility], 175, cm, 02/25/20 12:28:00 [...] Maintenance, 09/04/21 12:34:00EDT, Route to Pharmacy Electronically, [facility]... Start Date: 09/04/21 Status: Ordered Narcan 4 mg/0.1 mL nasal spray = 4 mg, Nares, Both, Once, In case of overdose: spray in nose, call 911, repeat every 2 mins as needed, # 2 each, 5 Refills, Soft Stop, 12/28/19 9:06:00 EST, [facility]/pharmacy #[id number], 175, cm, 07/04/19 15:37:00 [...] 14:05:00 EST, Aerosol, Route to Pharmacy Electronically, NCPDP_[id number], [facility], 175, cm, 07/04/19 15:37:00 EDT, Height, 109.... Start Date: 12/27/19 Status: Ordered traZODone 150 mg oral tablet 1 tablet = 150 mg, By Mouth, Daily at bedtime, For sleep., # 30 tablet, 5 Refills, Maintenance, 09/04/21 12:32:00 EDT, Tablet, [facility], Partial fill upon patient request if the prescription is for a schedule II opioid drug., 175, c... Start Date: 09/04/21 Status: Ordered triamcinolone 0.1% topical cream 1 application, Topically, 2 times a day, apply a thin film to affected area in armpit, # 80 Gm, 2 Refills, Maintenance, 11/19/21 11:29:00 EST, [place], [facility], Partial fill upon patient request if the prescription is for a schedule... Start Date: 11/19/21 Status: Ordered Tylenol 325 mg oral tablet 650 mg, 2, tablet, By Mouth, Every 4 hours, PRN, # 120 tablet, Refills 0, Tot. Refills 0, Maintenance, for fever, 02/15/20 13:30:00 EDT, Route to Pharmacy Electronically, [facility]/pharmacy #[id number], 175, cm,07/04/19 15:37:00 EDT, [...]
--- OUTSIDE RECORDS SUMMARY | 2023-07-22 17:12 | XMS_ITS | Continuity of Care Document ---
Author Name Unknown Organization [facility] Address [address] [place] [address]- Care Team Providers Care Mission Worker Name Role Phone Pearl Reyna MD Primary Care Physician [facility] Date[facility]): 11/12/21 - 12/12/[address] [address]- Allergies, Adverse Reactions, Alerts Substance Reaction Severity Status Rocephin 1 rash Resolved abacavir 2 Active Ziagen HLA B5701 positive Active Complera allergic to the rilp irivine componant of Complera-tolerates truvada Active 1Not allergic. Tolerated cefpodoxime 10/2017 (prescribed at [facility] ED) as well as ceftriaxone IM [...] Comment: diluted w/ normal saline lot number [id number] expires 02/27/2023 2Result Comment: Received in [place] Medications amitriptyline 10 mg oral tablet 20 mg, 2, tablet, By Mouth, Daily at bedtime, New medication to prevent migraines. Causes sleepiness - take before bed ., # 30 tablet, Refills 0, Tot. Refills 0, Maintenance, 09/04/21 12:35:00 EDT, Route to Pharmacy Electronically, [facility]... Start Date: 09/04/21 Status: Ordered azelastine nasal 0.15% spray 2 sprays, Nares, Both, 2 times a day, PRN for allergy symptoms, # 30 mL, 5 Refills, Maintenance, 01/23/21 14:38:00 EST, [place], [facility], 2 sprays Nares, Both 2 times a day,PRN:for allergy symptoms, 175, cm, 02/25/20 12:28:00 EDT, He... Start Date: 01/23/21 Status: Ordered beclomethasone 0.042 mg/inh nasal spray 1 sprays, Nares, Both, 2 times a day, in each nostril, # 25 Gm, 5 Refills, Maintenance, 12/21/19 14:09:00 EST, [facility], d/c fluconasol, 1 sprays Nares, [...] constipation, 12/02/17 13:58:38, Route to Pharmacy Electronically, NCPDP_[id number], [facility] Start Date: 12/02/17 [...] 5 Refills, Maintenance, 02/12/21 11:54:00 EDT, Tablet, [facility], Partial fill upon patient request if the prescription is for a schedu... Start Date: 02/12/21 Status: Ordered Flonase 50 mcg/inh nasal spray 2 sprays, Nares, Both, Daily in AM, # 16 Gm, 5 Refills, Maintenance, 06/20/20 8:34:00 EDT, [place], [facility], 2 sprays Nares, Both Daily in AM,x14 days, 175, cm, 02/25/20 12:28:00 EDT, Height, 109.9, kg, 07/01/19 10:09:00 EDT, Dry Weight Start Date: 06/20/20 Stop Date: 09/12/20 Status: Ordered Flovent HFA 110 mcg/inh inhalation aerosol 2 puffs, Inhalation, 2 times a day, # 12 Gm, 0 Refills, Maintenance, 03/16/20 14:12:00 EDT, [place], [facility], 175, cm, 02/25/20 12:28:00 [...] Maintenance, 09/04/21 12:34:00EDT, Route to Pharmacy Electronically, [facility]... Start Date: 09/04/21 Status: Ordered Narcan [...] 14:05:00 EST, Aerosol, Route to Pharmacy Electronically, NCPDP_[id number], [facility], 175, cm, 07/04/19 15:37:00 EDT, Height, 109.... Start Date: 12/27/19 Status: Ordered traZODone 150 mg oral tablet 1 tablet = 150 mg, By Mouth, Daily at bedtime, For sleep., # 30 tablet, 5 Refills, Maintenance, 09/04/21 12:32:00 EDT, Tablet, [facility], Partial fill upon patient request if the prescription is for a schedule II opioid drug., 175, c... Start Date: 09/04/21 Status: Ordered triamcinolone 0.1% topical cream 1 application, Topically, 2 times a day, apply a thin film to affected area in armpit, # 80 Gm, 2 Refills, Maintenance, 11/19/21 11:29:00 EST, [place], [facility], Partial fill upon patient [...]
--- OUTSIDE RECORDS SUMMARY | 2023-07-22 17:12 | XMS_ITS | Continuity of Care Document ---
Author Name Unknown Organization [facility] Address [address] [place] [address]- Care Team Providers Care Mission Analyst Name Role Phone Pearl Reyna MD Primary Care Physician [facility]): 11/25/21 - 12/25/[address] [address]- Allergies, Adverse Reactions, Alerts Substance Reaction Severity Status Complera allergic to the rilp irivine componant of Complera-tolerates truvada Active Rocephin 1 rash Resolved abacavir 2 Active Ziagen HLA B5701 positive Active 1Not allergic. Tolerated cefpodoxime 10/2017 (prescribed at [facility] ED) as well as ceftriaxone [...] Comment: diluted w/ normal saline lot number [id number] expires 02/27/2023 2Result Comment: Received in [place] Medications amitriptyline 10 mg oral tablet 20 mg, 2, tablet, By Mouth, Daily at bedtime, New medication to prevent migraines. Causes sleepiness - take before bed ., # 30 tablet, Refills 0, Tot. Refills 0, Maintenance, 09/04/21 12:35:00 EDT, Route to Pharmacy Electronically, [facility]... Start Date: 09/04/21 Status: Ordered azelastine nasal 0.15% spray 2 sprays, Nares, Both, 2 times a day, PRN for allergy symptoms, # 30 mL, 5 Refills, Maintenance, 01/23/21 14:38:00 EST, [place], [facility], 2 sprays Nares, Both 2 times a day,PRN:for allergy symptoms, 175, cm, 02/25/20 12:28:00 EDT, He... Start Date: 01/23/21 Status: Ordered beclomethasone 0.042 mg/inh nasal spray 1 sprays, Nares, Both, 2 times a day, in each nostril, # 25 Gm, 5 Refills, Maintenance, 12/21/19 14:09:00 EST, [facility], d/c fluconasol, 1 sprays [...] constipation, 12/02/17 13:58:38, Route to Pharmacy Electronically, NCPDP_[id number], [facility] Start Date: 12/02/17 Status: Ordered [...] 5 Refills, Maintenance, 02/12/21 11:54:00 EDT, Tablet, [facility], Partial fill upon patient request if the prescription is for a schedu... Start Date: 02/12/21 Status: Ordered Flonase 50 mcg/inh nasal spray 2 sprays, Nares, Both, Daily in AM, # 16 Gm, 5 Refills, Maintenance, 06/20/20 8:34:00 EDT, [place], [facility], 2 sprays Nares, Both Daily in AM,x14 days, 175, cm, 02/25/20 12:28:00 EDT, Height, 109.9, kg, 07/01/19 10:09:00 EDT, Dry Weight Start Date: 06/20/20 Stop Date: 09/12/20 Status: Ordered Flovent HFA 110 mcg/inh inhalation aerosol 2 puffs, Inhalation, 2 times a day, # 12 Gm, 0 Refills, Maintenance, 03/16/20 14:12:00 EDT, Aerosol, [facility], 175, cm, 02/25/20 12:28:00 [...] Maintenance, 09/04/21 12:34:00EDT, Route to Pharmacy Electronically, [facility]... Start Date: 09/04/21 Status: Ordered Narcan 4 mg/0.1 mL nasal spray = 4 mg, Nares, Both, Once, In case of overdose: spray in nose, call 911, repeat every 2 mins as needed, # 2 each, 5 Refills, Soft Stop, 12/28/19 9:06:00 EST, [facility]/pharmacy #[id number], 175, cm, 07/04/19 15:37:00 EDT, [...] 14:05:00 EST, Aerosol, Route to Pharmacy Electronically, NCPDP_[id number], [facility], 175, cm, 07/04/19 15:37:00 EDT, Height, 109.... Start Date: 12/27/19 Status: Ordered sucralfate 1 gm oral tablet 1 Gm, 1, tablet, By Mouth, 4 times a day, # 120 tablet, Refills 3, Tot. Refills 3, Maintenance, 12/19/21 13:28:00 EST, Route to Pharmacy Electronically, [facility], Partial fill uponpatient request if the prescription is for a schedu... Start Date: 12/19/21 Status: Ordered traZODone 150 mg oral tablet 1 tablet = 150 mg, By Mouth, Daily at bedtime, For sleep., # 30 tablet, 5 Refills, Maintenance, 09/04/21 12:32:00 EDT, Tablet, [facility], Partial fill upon patient request if the prescription is for a schedule II opioid drug., 175, c... Start Date: 09/04/21 Status: Ordered triamcinolone 0.1% topical cream 1 application, Topically, 2 times a day, apply a thin film to affected area in armpit, # 80 Gm, 2 Refills, Maintenance, 11/19/21 11:29:00 EST, [place], [facility], Partial fill upon patient request if the prescription is for a schedule... Start Date: 11/19/21 Status: Ordered Tylenol 325 mg oral tablet 650 mg, 2, tablet, By Mouth, Every 4 hours, PRN, # 120 tablet, Refills 0, Tot. Refills 0, Maintenance, for fever, 02/15/20 13:30:00 EDT, Route to Pharmacy Electronically, [facility]/pharmacy #[id number], 175, cm,07/04/19 15:37:00 EDT, Height, [...]
--- OUTSIDE RECORDS SUMMARY | 2023-07-22 17:12 | XMS_ITS | Continuity of Care Document ---
Author Name Unknown Organization [facility] Address [address] [place] [address]- Care Team Providers Care Candy Cooker Helper Name Role Phone Pearl Reyna MD Primary Care Physician [facility]): 07/09/21 - 08/08/[address] [address]- Allergies, Adverse Reactions, Alerts Substance Reaction Severity Status Rocephin 1 rash Resolved Ziagen HLA B5701 positive Active Complera allergic to the rilp irivine componant of Complera-tolerates truvada Active 1Not allergic. Tolerated cefpodoxime 10/2017 (prescribed at [facility] ED) as well as ceftriaxone IM [...] Comment: diluted w/ normal saline lot number [id number] expires 02/27/2023 2Result Comment: Received in [place] Medications azelastine nasal 0.15% spray 2 sprays, Nares, Both, 2 times a day, PRN for allergy symptoms, # 30 mL, 5 Refills, Maintenance, 01/23/21 14:38:00 EST, [place], [facility], 2 sprays Nares, [...] constipation, 12/02/17 13:58:38, Route to Pharmacy Electronically, NCPDP_[id number], [facility] Start Date: 12/02/17 Status: Ordered fexofenadine 180 mg oral tablet 1 tablet = 180 mg, By Mouth, Daily, Instead of cetirizine (Zyrtec). For allergies., # 30 tablet, 5 Refills, Maintenance, 02/12/21 11:54:00 EDT, Tablet, [facility], Partial fill upon patient request if the prescription is for a schedu... Start Date: 02/12/21 Status: Ordered Flonase 50 mcg/inh nasal spray 2 sprays, Nares, Both, Daily in AM, # 16 Gm, 5 Refills, Maintenance, 06/20/20 8:34:00 EDT, [place], [facility], 2 sprays Nares, Both Daily in AM,x14 days, 175, cm, 02/25/20 12:28:00 EDT, Height, 109.9, kg, 07/01/19 10:09:00 EDT, Dry Weight Start Date: 06/20/20 Stop Date: 09/12/20 Status: Ordered Flovent HFA 110 mcg/inh inhalation aerosol 2 puffs, Inhalation, 2 times a day, # 12 Gm, 0 Refills, Maintenance, 03/16/20 14:12:00 EDT, Aerosol, [facility], 175, cm, 02/25/20 [...] Maintenance, 02/12/21 11:50:00EDT, Route to Pharmacy Electronically, [facility]... Start Date: 02/12/21 Status: Ordered Narcan 4 mg/0.1 mL nasal spray = 4 mg, Nares, Both, Once, In case of overdose: spray in nose, call 911, repeat every 2 mins as needed, # 2 each, 5 Refills, Soft Stop, 12/28/19 9:06:00 EST, [facility]/pharmacy #[id number], 175, cm, 07/04/19 15:37:00 EDT, [...] 14:05:00 EST, Aerosol, Route to Pharmacy Electronically, NCPDP_[id number], [facility], 175, cm, 07/04/19 15:37:00 EDT, Height, 109.... Start Date: 12/27/19 Status: Ordered traZODone 150 mg oral tablet 1 tablet = 150 mg, By Mouth, Daily at bedtime, For sleep. Dose increased 02/12/21, # 30 tablet, 5 Refills, Maintenance, 02/12/21 11:48:00 EDT, Tablet, [facility], Partial fill upon [...]
--- OUTSIDE RECORDS SUMMARY | 2023-07-22 17:12 | XMS_ITS | Continuity of Care Document ---
Author Name Unknown Organization [facility] Address [address] [place] [id number]- Care Team Providers Care News Production Supervisor Name Role Phone Pearl Reyna MD Primary Care Physician [facility]): 10/16/22 - 11/15/[address] [address]- Allergies, Adverse Reactions, Alerts Substance Reaction Severity Status Rocephin 1 rash Resolved abacavir 2 Active Ziagen HLA B5701 positive Active Complera allergic to the rilp irivine componant of Complera-tolerates truvada Active 1Not allergic. Tolerated cefpodoxime 10/2017 (prescribed at [facility] ED) as well as ceftriaxone IM [...] Comment: diluted w/ normal saline lot number [id number] expires 02/27/2023 2Result Comment: Received in [place] Medications azelastine nasal 0.15% spray 2 sprays, Nares, Both, 2 times a day, PRN for allergy symptoms, # 30 mL, 5 Refills, Maintenance, 01/23/21 14:38:00 EST, [place], [facility], 2 sprays Nares, Both [...] 11 Refills, Maintenance, 03/27/22 13:37:00 EDT, Tablet, [facility], Partial fill upon patient request [...] 11:54:00 EDT, Tablet, [facility], Partial fill upon patient request if the prescription is for a schedu... Start Date: 02/12/21 Status: Ordered Flomax 0.4 mg oral capsule 0.4 mg, 1, capsule, By Mouth, Daily, To help kidney stone pass, # 30 capsule, Refills 1, Tot. Refills 1, Maintenance, 04/15/22 13:06:00 EDT, Route to Pharmacy Electronically, [facility], 175, cm, 11/19/21 10:53:00 [...] 5 Refills, Soft Stop, 12/28/19 9:06:00 EST, [facility]/pharmacy #[id number], 175, cm, 07/04/19 15:37:00 [...] 14:17:00 EDT, Aerosol, [id number], 175, cm, 11/19/21 10:53:00 EST, Height Start Date: 08/18/22 Status: Ordered sucralfate 1 gm oral tablet 1 Gm, 1, tablet, By Mouth, 4 times a day, # 120 tablet, Refills 3, Tot. Refills 3, Maintenance, 12/19/21 13:28:00 EST, Route to Pharmacy Electronically, [facility], Partial fill uponpatient request if the prescription is for a schedu... Start Date: 12/19/21 Status: Ordered traZODone 150 mg oral tablet 1 tablet = 150 mg, By Mouth, Daily at bedtime, For sleep., # 30 tablet, 0 Refills, Maintenance, 11/04/22 12:49:00 EST, Tablet, [facility]/pharmacy #[id number], Partial fill upon patient request if the prescription is for a schedule II opioid drug., 175, cm, ... Start Date: 11/04/22 Status: Ordered triamcinolone 0.1% topical cream 1 application, Topically, 2 times a day, apply a thin film to affected area in armpit, # 80 Gm, 2 Refills, Maintenance, 11/19/21 11:29:00 EST, [place], [facility], Partial fill upon patient request if the prescription is for a schedule... Start Date: 11/19/21 Status: Ordered Tylenol 325 mg oral tablet 650 mg, 2, tablet, By Mouth, Every 4 hours, PRN, # 120 tablet, Refills 0, Tot. Refills 0, Maintenance, for fever, 02/15/20 13:30:00 EDT, Route to Pharmacy Electronically, [facility]/pharmacy #[id number], 175, cm,07/04/19 15:37:00 EDT, Height, 109.9, kg, 07/01/19... Start Date: 02/15/20 Status: Ordered ZyrTEC-D 5 mg-120 mg oral tablet, extended release 1 tablet, By Mouth, Every 24 hours, # 30 tablet, 2 Refills, Maintenance, 10/15/22 9:16:00 EST, ER Tablet, [facility], Partial fill upon patient request [...] Type Response Smoking Status Current every day faisal entered on: 11/09/17 Sex Patient Care team information Care Team Personnel Name: Eleonora Pena RN Position: [facility] RN Member Role: Primary Care Nurse Name: Pearl Reyna MD Position: [facility] Primary Care Physician Member Role: PCP Address: Address: [address] [place] [address]- Care Team Related Persons Name: KAITLYN COVARRUBIAS Name: ASHLYN LONG Address: home [address] [place] [address] Name: NO, ONE AT THIS TIME Name: WADE SABILLON
--- OUTSIDE RECORDS SUMMARY | 2023-07-22 17:12 | XMS_ITS | Continuity of Care Document ---
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 Tolerated cefpodoxime 10/2017 (prescribed at [facility] ED) as well as ceftriaxone IM [...] mL, 5 Refills, Maintenance, 01/23/21 14:38:00 EST, [place], [facility], 2 sprays Nares, Both 2 times a day,PRN:for allergy symptoms, 175, cm, 02/25/20 12:28:00 EDT, He... Start Date: 01/23/21 Status: Ordered beclomethasone 0.042 mg/inh nasal spray 1 sprays, Nares, Both, 2 times a day, in each nostril, # 25 Gm, 5 Refills, Maintenance, 12/21/19 14:09:00 EST, [facility], d/c fluconasol, 1 sprays [...] tablet, 11 Refills, Maintenance, 12/21/19 14:10:00 EST, [facility], note dose change, 175, cm, 07/04/19 15:37:00 EDT, Height, 109.9,kg, 07/01/19 10:09:00 EDT, Dry Weight Start Date: 12/21/19 Status: Ordered Colace sodium 100 mg oral capsule 100 mg, 1, capsule, By Mouth, 2 times a day, PRN, # 60 capsule, Refills 3, Tot. Refills 3, Maintenance, for constipation, 12/02/17 13:58:38, Route to Pharmacy Electronically, NCPDP_[id number], [facility] Start Date: 12/02/17 Status: Ordered fexofenadine 180 mg oral tablet 1 tablet = 180 mg, By Mouth, Daily, Instead of cetirizine (Zyrtec). For allergies., # 30 tablet, 5 Refills, Maintenance, 02/12/21 11:54:00 EDT, Tablet, [facility], Partial fill upon patient request if the prescription is for a schedu... Start Date: 02/12/21 Status: Ordered Flonase 50 mcg/inh nasal spray 2 sprays, Nares, Both, Daily in AM, # 16 Gm, 5 Refills, Maintenance, 06/20/20 8:34:00 EDT, [place], [facility], 2 sprays Nares, Both Daily in AM,x14 days, 175, cm, 02/25/20 12:28:00 EDT, Height, 109.9, kg, 07/01/19 10:09:00 EDT, Dry Weight Start Date: 06/20/20 Stop Date: 09/12/20 Status: Ordered Flovent HFA 110 mcg/inh inhalation aerosol 2 puffs, Inhalation, 2 times a day, # 12 Gm, 0 Refills, Maintenance, 03/16/20 14:12:00 EDT, Aerosol, [facility], 175, cm, 02/25/20 12:28:00 [...] Maintenance, 02/12/21 11:50:00EDT, Route to Pharmacy Electronically, [facility]... Start Date: 02/12/21 Status: Ordered Narcan 4 mg/0.1 mL nasal spray = 4 mg, Nares, Both, Once, In case of overdose: spray in nose, call 911, repeat every 2 mins as needed, # 2 each, 5 Refills, Soft Stop, 12/28/19 9:06:00 EST, [facility]/pharmacy #[id number], 175, cm, 07/04/19 15:37:00 EDT, [...] 14:05:00 EST, Aerosol, [id number], 175, cm, 07/04/19 15:37:00 EDT, Height, 109.... Start Date: 12/27/19 Status: Ordered traZODone 150 mg oral tablet 1 tablet = 150 mg, By Mouth, Daily at bedtime, For sleep. Dose increased 02/12/21, # 30 tablet, 5 Refills, Maintenance, 02/12/21 11:48:00 EDT, Tablet, [facility], Partial fill upon patient request if the prescription is for a schedule... Start Date: 02/12/21 Status: Ordered Tylenol 325 mg oral tablet 650 mg, 2, tablet, By Mouth, Every 4 hours, PRN, # 120 tablet, Refills 0, Tot. Refills 0, Maintenance, for fever, 02/15/20 13:30:00 EDT, Route to Pharmacy Electronically, [facility]/pharmacy #[id number], 175, cm,07/04/19 15:37:00 EDT, Height, [...]
--- OUTSIDE RECORDS SUMMARY | 2023-07-22 17:12 | XMS_ITS | Continuity of Care Document ---
Author Name Unknown Organization [facility] Address [address] [place] [address]- Care Team Providers Care Information Security Manager Name Role Phone Pearl Reyna MD Primary Care Physician Encounter [facility] Date(s): 07/04/22 - 08/03/[address] [address]- Allergies, Adverse Reactions, Alerts Substance Reaction Severity Status Rocephin 1 rash Resolved abacavir 2 Active Ziagen HLA B5701 positive Active Complera allergic to the rilp irivine componant of Complera-tolerates truvada Active 1Not allergic. Tolerated cefpodoxime 10/2017 (prescribed at [facility] ED) as well as ceftriaxone IM [...] Comment: diluted w/ normal saline lot number [id number] expires 02/27/2023 2Result Comment: Received in [place] Medications amitriptyline 10 mg oral tablet 20 mg, 2, tablet, By Mouth, Daily at bedtime, New medication to prevent migraines. Causes sleepiness - take before bed ., # 30 tablet, Refills 0, Tot. Refills 0, Maintenance, 09/04/21 12:35:00 EDT, Route to Pharmacy Electronically, [facility]... Start Date: 09/04/21 Status: Ordered azelastine nasal 0.15% spray 2 sprays, Nares, Both, 2 times a day, PRN for allergy symptoms, # 30 mL, 5 Refills, Maintenance, 01/23/21 14:38:00 EST, [place], [facility], 2 sprays Nares, Both 2 times a day,PRN:for allergy symptoms, 175, cm, 02/25/20 12:28:00 EDT, He... Start Date: 01/23/21 Status: Ordered beclomethasone 0.042 mg/inh nasal spray 1 sprays, Nares, Both, 2 times a day, in each nostril, # 25 Gm, 5 Refills, Maintenance, 12/21/19 14:09:00 EST, [facility], d/c fluconasol, 1 sprays Nares, Both 2 times a day,Instr:ineach nostril, 175, cm, 07/04/19 15:37:00 EDT, [place]... Start Date: 12/21/19 Status: Ordered Biktarvy oral tablet 1 tablet, By Mouth, Daily, # 30 tablet, 11 Refills, Maintenance, 03/27/22 13:37:00 EDT, Tablet, [facility], Partial fill upon patient [...] constipation, 12/02/17 13:58:38, Route to Pharmacy Electronically, NCPDP_[id number], [facility] Start Date: 12/02/17 Status: Ordered [...] 5 Refills, Maintenance, 02/12/21 11:54:00 EDT, Tablet, [facility], Partial fill upon patient request if the prescription is for a schedu... Start Date: 02/12/21 Status: Ordered Flomax 0.4 mg oral capsule 0.4 mg, 1, capsule, By Mouth, Daily, To help kidney stone pass, # 30 capsule, Refills 1, Tot. Refills 1, Maintenance, 04/15/22 13:06:00 EDT, Route to Pharmacy Electronically, [facility], 175, cm, 11/19/21 10:53:00 EST, Height Start Date: 04/15/22 Status: Ordered ibuprofen 800 mg oral tablet 800 mg, 1, tablet, By Mouth, Daily, As needed for migraine and kidney stone pain. do not use daily,it will make migraine worse, # 30 tablet, Refills 3, Tot. Refills 3, Maintenance, 05/23/22 17:46:00EDT, Route to Pharmacy Electronically, [facility]... Start Date: 05/23/22 Status: Ordered Narcan 4 mg/0.1 mL nasal spray = 4 mg, Nares, Both, Once, In case of overdose: spray in nose, call 911, repeat every 2 mins as needed, # 2 each, 5 Refills, Soft Stop, 12/28/19 9:06:00 EST, [facility]/pharmacy #[id number], 175, cm, 07/04/19 15:37:00 EDT, Height, [...] 14:05:00 EST, Aerosol, Route to Pharmacy Electronically, ARPDP_[id number], [facility], 175, cm, 07/04/19 15:37:00 EDT, Height, 109.... Start Date: 12/27/19 Status: Ordered sucralfate 1 gm oral tablet 1 Gm, 1, tablet, By Mouth, 4 times a day, # 120 tablet, Refills 3, Tot. Refills 3, Maintenance, 12/19/21 13:28:00 EST, Route to Pharmacy Electronically, [facility], Partial fill uponpatient request if the prescription is for a schedu... Start Date: 12/19/21 Status: Ordered traZODone 150 mg oral tablet 1 tablet = 150 mg, By Mouth, Daily at bedtime, For sleep., # 30 tablet, 11 Refills, Maintenance, 06/27/22 12:36:00 EDT, Tablet, [facility], Partial fill upon patient request if the prescription is for a schedule II opioid drug., 175,... Start Date: 06/27/22 Status: Ordered triamcinolone 0.1% topical cream 1 application, Topically, 2 times a day, apply a thin film to affected area in armpit, # 80 Gm, 2 Refills, Maintenance, 11/19/21 11:29:00 EST, [place], [facility], Partial fill upon patient request if the prescription is for a schedule... Start Date: 11/19/21 Status: Ordered Tylenol 325 mg oral tablet 650 mg, 2, tablet, By Mouth, Every 4 hours, PRN, # 120 tablet, Refills 0, Tot. Refills 0, Maintenance, for fever, 02/15/20 13:30:00 EDT, Route to Pharmacy Electronically, [facility]/pharmacy #[id number], 175, cm,07/04/19 15:37:00 EDT, Height, 109.9, kg, 07/01/19... Start Date: 02/15/20 Status: Ordered Zithromax 250 mg oral tablet 2 tablet = 500 mg, By Mouth, Once, # 2 tablet, 0 Refills, Soft Stop, 03/05/22 15:02:00 EDT, Tablet,[facility], Partial fill upon [...] Team Personnel Name: Pearl Reyna MD Address: [address] [place] [address]
--- OUTSIDE RECORDS SUMMARY | 2023-07-22 17:12 | XMS_ITS | Continuity of Care Document ---
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 Tolerated cefpodoxime 10/2017 (prescribed at [facility] ED) as well as ceftriaxone [...] Comment: diluted w/ normal saline lot number [id number] expires 02/27/2023 2Result Comment: Received in [place] Medications amitriptyline 10 mg oral tablet 20 mg, 2, tablet, By Mouth, Daily at bedtime, New medication to prevent migraines. Causes sleepiness - take before bed ., # 30 tablet, Refills 0, Tot. Refills 0, Maintenance, 09/04/21 12:35:00 EDT, Route to Pharmacy Electronically, [facility]... Start Date: 09/04/21 Status: Ordered azelastine nasal 0.15% spray 2 sprays, Nares, Both, 2 times a day, PRN for allergy symptoms, # 30 mL, 5 Refills, Maintenance, 01/23/21 14:38:00 EST, [place], [facility], 2 sprays Nares, Both 2 times a day,PRN:for allergy symptoms, 175, cm, 02/25/20 12:28:00 EDT, He... Start Date: 01/23/21 Status: Ordered beclomethasone 0.042 mg/inh nasal spray 1 sprays, Nares, Both, 2 times a day, in each nostril, # 25 Gm, 5 Refills, Maintenance, 12/21/19 14:09:00 EST, [facility], d/c fluconasol, 1 sprays Nares, Both 2 times a day,Instr:ineach nostril, 175, cm, 07/04/19 15:37:00 EDT, [place]... Start Date: 12/21/19 Status: Ordered Biktarvy oral tablet 1 tablet, By Mouth, Daily, # 30 tablet, 11 Refills, Maintenance, 03/27/22 13:37:00 EDT, Tablet, [facility], Partial fill upon patient request if the prescription is for a schedule IIopioid drug., 1 tablet By Mouth Daily, 175, cm, 12/... Start Date: 03/27/22 Status: Ordered Colace sodium 100 mg oral capsule 100 mg, 1, capsule, By Mouth, 2 times a day, PRN, # 60 capsule, Refills 3, Tot. Refills 3, Maintenance, for constipation, 12/02/17 13:58:38, Route to Pharmacy Electronically, NCPDP_[id number], [facility] Start Date: 12/02/17 Status: Ordered diclofenac [...] 5 Refills, Maintenance, 02/12/21 11:54:00 EDT, Tablet, [facility], Partial fill upon patient request if the prescription is for a schedu... Start Date: 02/12/21 Status: Ordered Flomax 0.4 mg oral capsule 0.4 mg, 1, capsule, By Mouth, Daily, To help kidney stone pass, # 30 capsule, Refills 1, Tot. Refills 1, Maintenance, 04/15/22 13:06:00 EDT, Route to Pharmacy Electronically, [facility], 175, cm, 11/19/21 10:53:00 EST, Height Start Date: 04/15/22 Status: Ordered ibuprofen 800 mg oral tablet 800 mg, 1, tablet, By Mouth, Daily, As needed for migraine and kidney stone pain. do not use daily,it will make migraine worse, # 30 tablet, Refills 2, Tot. Refills 2, Maintenance, 09/04/21 12:34:00EDT, Route to Pharmacy Electronically, [facility] Start Date: 09/04/21 Status: Ordered Narcan 4 mg/0.1 mL nasal spray = 4 mg, Nares, Both, Once, In case of overdose: spray in nose, call 911, repeat every 2 mins as needed, # 2 each, 5 Refills, Soft Stop, 12/28/19 9:06:00 EST, [facility]/pharmacy #[id number], 175, cm, 07/04/19 15:37:00 EDT, [...] 14:05:00 EST, Aerosol, Route to Pharmacy Electronically, OHPDP_[id number], [facility], 175, cm, 07/04/19 15:37:00 EDT, Height, 109.... Start Date: 12/27/19 Status: Ordered sucralfate 1 gm oral tablet 1 Gm, 1, tablet, By Mouth, 4 times a day, # 120 tablet, Refills 3, Tot. Refills 3, Maintenance, 12/19/21 13:28:00 EST, Route to Pharmacy Electronically, [facility], Partial fill uponpatient request if the prescription is for a schedu... Start Date: 12/19/21 Status: Ordered traZODone 150 mg oral tablet 1 tablet = 150 mg, By Mouth, Daily at bedtime, For sleep., # 30 tablet, 5 Refills, Maintenance, 09/04/21 12:32:00 EDT, Tablet, [facility], Partial fill upon patient request if the prescription is for a schedule II opioid drug., 175, c... Start Date: 09/04/21 Status: Ordered triamcinolone 0.1% topical cream 1 application, Topically, 2 times a day, apply a thin film to affected area in armpit, # 80 Gm, 2 Refills, Maintenance, 11/19/21 11:29:00 EST, [place], [facility], Partial fill upon patient request if the prescription is for a schedule... Start Date: 11/19/21 Status: Ordered Tylenol 325 mg oral tablet 650 mg, 2, tablet, By Mouth, Every 4 hours, PRN, # 120 tablet, Refills 0, Tot. Refills 0, Maintenance, for fever, 02/15/20 13:30:00 EDT, Route to Pharmacy Electronically, [facility]/pharmacy #[id number], 175, cm,07/04/19 15:37:00 EDT, Height, 109.9, kg, 07/01/19... Start Date: 02/15/20 Status: Ordered Zithromax 250 mg oral tablet 2 tablet = 500 mg, By Mouth, Once, # 2 tablet, 0 Refills, Soft Stop, 03/05/22 15:02:00 EDT, Tablet,[facility], Partial fill upon patient request [...]
--- OUTSIDE RECORDS SUMMARY | 2023-07-22 17:12 | XMS_ITS | Continuity of Care Document ---
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 Tolerated cefpodoxime 10/2017 (prescribed at [facility] ED) as well as [...] mL, 5 Refills, Maintenance, 12/27/19 14:06:00 EST, [place], [facility], 2 sprays Nares, Both 2 times a day,PRN:for allergy symptoms, 175, cm, 07/04/19 15:37:00 EDT, He... Start Date: 12/27/19 Status: Ordered beclomethasone 0.042 mg/inh nasal spray 1 sprays, Nares, Both, 2 times a day, in each nostril, # 25 Gm, 5 Refills, Maintenance, 12/21/19 14:09:00 EST, [facility], d/c fluconasol, 1 sprays Nares, Both 2 times a day,Instr:ineach nostril, 175, cm, 07/04/19 15:37:00 EDT, Heigh... Start Date: 12/21/19 Status: Ordered Biktarvy oral tablet 1 tablet, By Mouth, Daily, # 30 tablet, 11 Refills, Maintenance, 12/21/19 14:09:00 EST, Tablet, [facility], 1 tablet By Mouth Daily, 175, cm, 07/04/19 15:37:00 EDT, Height, 109.9, kg, 07/01/19 10:09:00 EDT, Dry Weight Start Date: 12/21/19 Status: Ordered buPROPion 300 mg/24 hours (XL) oral tablet, extended release 1 tablet = 300 mg, By Mouth, Every 24 hours, # 30 tablet, 11 Refills, Maintenance, 12/21/19 14:10:00 EST, [facility], note dose change, 175, cm, 07/04/19 15:37:00 EDT, Height, 109.9,kg, 07/01/19 10:09:00 EDT, Dry Weight Start Date: 12/21/19 Status: Ordered Colace sodium 100 mg oral capsule 100 mg, 1, capsule, By Mouth, 2 times a day, PRN, # 60 capsule, Refills 3, Tot. Refills 3, Maintenance, for constipation, 12/02/17 13:58:38, Route to Pharmacy Electronically, NCPDP_[id number], [facility] Start Date: 12/02/17 Status: Ordered Flomax 0.4 mg oral capsule 0.4 mg, 1, capsule, By Mouth, Daily, # 15 capsule, Refills 0, Tot. Refills 0, Maintenance, 02/24/1918:22:00 EDT, Print Requisition Start Date: 02/24/19 Status: Ordered Flovent HFA 110 mcg/inh inhalation aerosol 2 puffs, Inhalation, 2 times a day, # 12 Gm, 0 Refills, Maintenance, 03/16/20 14:12:00 EDT, Aerosol, [facility], 175, cm, 02/25/20 12:28:00 EDT, Height, 109.9, kg, 07/01/19 10:09:00 EDT, Dry Weight Start Date: 03/16/20 Status: Ordered hydrOXYzine hydrochloride 25 mg oral tablet 1 tablet = 25 mg, By Mouth, 4 times a day, PRN for anxiety, # 40 tablet, 0 Refills, Maintenance, 02/15/20 13:29:00 EDT, Tablet, [facility]/pharmacy #[id number], 175, cm, 07/04/19 15:37:00 [...] Maintenance, 03/23/20 15:10:00 EDT, Routeto Pharmacy Electronically, [facility]... Start Date: 03/23/20 Status: Ordered Narcan 4 mg/0.1 mL nasal spray = 4 mg, Nares, Both, Once, In case of overdose: spray in nose, call 911, repeat every 2 mins as needed, # 2 each, 5 Refills, Soft Stop, 12/28/19 9:06:00 EST, [facility]/pharmacy #[id number], 175, cm, 07/04/19 15:37:00 EDT, Height, 109.9, kg, 07/01/19 10:09:00 EDT,... Start Date: 12/28/19 Status: Ordered nicotine 14 mg/24 hr transdermal film, extended release 1 patch, Topically, Daily, for 30 days, # 30 patch, 3 Refills, Acute 07/14/20 14:12:00 EDT, 03/16/20 14:12:00 EDT, Patch, [facility], 1 patch Topically Daily,x30 days, 175, cm, 02/25/20 12:28:00 EDT, Height, 109.9, kg, 07/01/19 10:09:... Start Date: 03/16/20 Stop Date: 07/14/20 Status: Ordered ProAir HFA 90 mcg/inh inhalation aerosol with adapter 2, puffs, Inhalation, Every 4 hours, PRN, # 8.5 Gm, Refills 11, Tot. Refills 11, Maintenance, 12/27/19 14:05:00 EST, Aerosol, [id number], 175, cm, 07/04/19 15:37:00 EDT, Height, 109.... Start Date: 12/27/19 Status: Ordered SUMAtriptan 25 mg oral tablet 1 tablet = 25 mg, By Mouth, Daily, PRN for migraine headache, may repeat dose after 2 hours up to amaximum of 2, # 9 tablet, 11 Refills, Maintenance, 12/21/19 14:11:00 EST, Tablet, [facility], 175, cm, 07/04/19 15:37:00 EDT, Height,... Start Date: 12/21/19 Status: Ordered Tylenol 325 mg oral tablet 650 mg, 2, tablet, By Mouth, Every 4 hours, PRN, # 120 tablet, Refills 0, Tot. Refills 0, Maintenance, for fever, 02/15/20 13:30:00 EDT, Route to Pharmacy Electronically, [facility]/pharmacy #[id number], 175, cm,07/04/19 15:37:00 EDT, Height, 109.9, kg, 07/01/19... Start Date: 02/15/20 Status: Ordered ZyrTEC 10 mg oral tablet 1 tablet = 10 mg, By Mouth, Daily, as needed for seasonal allergies, # 30 tablet, 5 Refills, Maintenance, 12/21/19 14:10:00 EST, Tablet, [facility], 175, cm, 07/04/19 15:37:00 EDT, [...]
--- OUTSIDE RECORDS SUMMARY | 2023-07-22 17:12 | XMS_ITS | Continuity of Care Document ---
Author Name Unknown Organization [facility] Address [address] [place] [address]- Care Team Providers Care Quote Clerk Name Role Phone Pearl Reyna MD Primary Care Physician Encounter [facility] Date(s): 03/12/22 - 05/08/[address] [address]- Attending Physician: Pearl Reyna MD Admitting Physician: [...] Comment: diluted w/ normal saline lot number [id number] expires 02/27/2023 2Result Comment: Received in [place] Medications amitriptyline 10 mg oral tablet 20 mg, 2, tablet, By Mouth, Daily at bedtime, New medication to prevent migraines. Causes sleepiness - take before bed ., # 30 tablet, Refills 0, Tot. Refills 0, Maintenance, 09/04/21 12:35:00 EDT, Route to Pharmacy Electronically, [facility]... Start Date: 09/04/21 Status: Ordered azelastine nasal 0.15% spray 2 sprays, Nares, Both, 2 times a day, PRN for allergy symptoms, # 30 mL, 5 Refills, Maintenance, 01/23/21 14:38:00 EST, [place], [facility], 2 sprays Nares, Both 2 times a day,PRN:for allergy symptoms, 175, cm, 02/25/20 12:28:00 EDT, He... Start Date: 01/23/21 Status: Ordered beclomethasone 0.042 mg/inh nasal spray 1 sprays, Nares, Both, 2 times a day, in each nostril, # 25 Gm, 5 Refills, Maintenance, 12/21/19 14:09:00 EST, [facility], d/c fluconasol, 1 sprays Nares, Both 2 times a day,Instr:ineach nostril, 175, cm, 07/04/19 15:37:00 EDT, He[place]... Start Date: 12/21/19 Status: Ordered Biktarvy oral tablet 1 tablet, By Mouth, Daily, # 30 tablet, 11 Refills, Maintenance, 03/27/22 13:37:00 EDT, Tablet, [facility], Partial fill upon patient request if the prescription is for a schedule IIopioid drug., 1 tablet By Mouth Daily, 175, cm, 12/... Start Date: 03/27/22 Status: Ordered Colace sodium 100 mg oral capsule 100 mg, 1, capsule, By Mouth, 2 times a day, PRN, # 60 capsule, Refills 3, Tot. Refills 3, Maintenance, for constipation, 12/02/17 13:58:38, Route to Pharmacy Electronically, [id number], [facility] Start Date: 12/02/17 [...] 5 Refills, Maintenance, 02/12/21 11:54:00 EDT, Tablet, [facility], Partial fill upon patient request if the prescription is for a schedu... Start Date: 02/12/21 Status: Ordered Flomax 0.4 mg oral capsule 0.4 mg, 1, capsule, By Mouth, Daily, To help kidney stone pass, # 30 capsule, Refills 1, Tot. Refills 1, Maintenance, 04/15/22 13:06:00 EDT, Route to Pharmacy Electronically, [facility], 175, cm, 11/19/21 10:53:00 EST, Height Start Date: 04/15/22 Status: Ordered ibuprofen 800 mg oral tablet 800 mg, 1, tablet, By Mouth, Daily, As needed for migraine and kidney stone pain. do not use daily,it will make migraine worse, # 30 tablet, Refills 2, Tot. Refills 2, Maintenance, 09/04/21 12:34:00EDT, Route to Pharmacy Electronically, [facility]... Start Date: 09/04/21 Status: Ordered Narcan 4 mg/0.1 mL nasal spray = 4 mg, Nares, Both, Once, In case of overdose: spray in nose, call 911, repeat every 2 mins as needed, # 2 each, 5 Refills, Soft Stop, 12/28/19 9:06:00 EST, [facility]/pharmacy #[id number], 175, cm, 07/04/19 15:37:00 [...] 14:05:00 EST, Aerosol, Route to Pharmacy Electronically, [id number], [facility], 175, cm, 07/04/19 15:37:00 EDT, Height, 109.... Start Date: 12/27/19 Status: Ordered sucralfate 1 gm oral tablet 1 Gm, 1, tablet, By Mouth, 4 times a day, # 120 tablet, Refills 3, Tot. Refills 3, Maintenance, 12/19/21 13:28:00 EST, Route to Pharmacy Electronically, [facility], Partial fill uponpatient request if the prescription is for a schedu... Start Date: 12/19/21 Status: Ordered traZODone 150 mg oral tablet 1 tablet = 150 mg, By Mouth, Daily at bedtime, For sleep., # 30 tablet, 5 Refills, Maintenance, 09/04/21 12:32:00 EDT, Tablet, [facility], Partial fill upon patient request if the prescription is for a schedule II opioid drug., 175, c... Start Date: 09/04/21 Status: Ordered triamcinolone 0.1% topical cream 1 application, Topically, 2 times a day, apply a thin film to affected area in armpit, # 80 Gm, 2 Refills, Maintenance, 11/19/21 11:29:00 EST, [place], [facility], Partial fill upon [...] 0 Refills, Soft Stop, 03/05/22 15:02:00 EDT, Tablet,[facility], Partial fill upon [...]
--- OUTSIDE RECORDS SUMMARY | 2023-07-22 17:12 | XMS_ITS | Continuity of Care Document ---
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 Tolerated cefpodoxime 10/2017 (prescribed at [facility] ED) as well as ceftriaxone [...] Comment: diluted w/ normal saline lot number [id number] expires 02/27/2023 2Result Comment: Received in [place] Medications azelastine nasal 0.15% spray 2 sprays, Nares, Both, 2 times a day, PRN for allergy symptoms, # 30 mL, 5 Refills, Maintenance, 01/23/21 14:38:00 EST, [place], [facility], 2 sprays Nares, Both [...] 5 Refills, Maintenance, 02/12/21 11:54:00 EDT, Tablet, [facility], Partial fill upon patient request if the prescription is for a schedu... Start Date: 02/12/21 Status: Ordered Flomax 0.4 mg oral capsule 0.4 mg, 1, capsule, By Mouth, Daily, To help kidney stone pass, # 30 capsule, Refills 1, Tot. Refills 1, Maintenance, 12/25/22 12:52:00 EST, Route to Pharmacy Electronically, [facility], 175, cm, 12/25/22 12:08:00 [...] 5 Refills, Soft Stop, 12/28/19 9:06:00 EST, [facility]/pharmacy #[id number], 175, cm, 07/04/19 15:37:00 EDT, [...] 14:17:00 EDT, Aerosol, Route to Pharmacy Electronically, NCPDP_[id number], [facility], 175, cm, 11/19/21 10:53:00 EST, Height Start Date: 08/18/22 Status: Ordered sucralfate 1 gm oral tablet 1 Gm, 1, tablet, By Mouth, 4 times a day, # 120 tablet, Refills 3, Tot. Refills 3, Maintenance, 12/19/21 13:28:00 EST, Route to Pharmacy Electronically, [facility], Partial fill uponpatient request if the prescription is for a schedu... Start Date: 12/19/21 Status: Ordered traZODone 150 mg oral tablet 1 tablet = 150 mg, By Mouth, Daily at bedtime, For sleep., # 30 tablet, 0 Refills, Maintenance, 11/04/22 12:49:00 EST, Tablet, [facility]/pharmacy #[id number], Partial fill upon patient request if the prescription is for a schedule II opioid drug., 175, cm, ... Start Date: 11/04/22 Status: Ordered triamcinolone 0.1% topical cream 1 application, Topically, 2 times a day, apply a thin film to affected area in armpit, # 80 Gm, 2 Refills, Maintenance, 11/19/21 11:29:00 EST, [place], [facility], Partial fill upon patient request if the prescription is for a schedule... Start Date: 11/19/21 Status: Ordered Tylenol 325 mg oral tablet 650 mg, 2, tablet, By Mouth, Every 4 hours, PRN, # 120 tablet, Refills 0, Tot. Refills 0, Maintenance, for fever, 02/15/20 13:30:00 EDT, Route to Pharmacy Electronically, [facility]/pharmacy #[id number], 175, cm,07/04/19 15:37:00 EDT, Height, 109.9, kg, 07/01/19... Start Date: 02/15/20 Status: Ordered ZyrTEC-D 5 mg-120 mg oral tablet, extended release 1 tablet, By Mouth, Every 24 hours, # 30 tablet, 2 Refills, Maintenance, 10/15/22 9:16:00 EST, ER Tablet, [facility], Partial fill [...] Team Personnel Name: Pearl Reyna MD Position: [facility] Primary Care Physician Member Role: PCP Address: Address: [address] [place] [address]- Care Team Related Persons Name: KAITLYN COVARRUBIAS Name: ASHLYN LONG Address: home [address] [place] [address] Name: NO, ONE AT THIS TIME Name: WADE SABILLON
--- OUTSIDE RECORDS SUMMARY | 2023-07-22 17:12 | XMS_ITS | Continuity of Care Document ---
Author Name Unknown Organization [facility] Address [address] [place] [address]- Care Team Providers Care Chain Sales Representative Name Role Phone Pearl Reyna MD Primary Care Physician [place] [facility] [place](s): 12/06/20 - 01/05/[address] [address]- Attending Physician: John Clark Admitting Physician: AdmJohn valero Referring Physician: AdmtrJohn Allergies, Adverse Reactions, Alerts Substance Reaction Severity Status Complera allergic to the rilp irivine componant of Complera-tolerates truvada Active Rocephin 1 rash Resolved Ziagen HLA B5701 positive Active 1Not allergic. Tolerated cefpodoxime 10/2017 (prescribed at [facility] ED) as well as ceftriaxone IM [...] mL, 5 Refills, Maintenance, 06/20/20 8:33:00 EDT, [place], [facility], 2 [...] Daily, # 30 tablet, 11 Refills, Maintenance, 12/06/20 13:38:00 EST, Tablet, [facility], 1 tablet By Mouth Daily, 175, cm, 02/25/20 12:28:00 EDT, Height, 109.9, kg, 07/01/19 10:09:00 EDT, Dry Weight Start Date: 12/06/20 Status: Ordered buPROPion 300 mg/24 hours (XL) oral tablet, extended release 1 tablet = 300 mg, By Mouth, Every 24 hours, # 30 tablet, 11 Refills, Maintenance, 12/21/19 14:10:00 EST, [facility], note dose change, 175, cm, 07/04/19 15:37:00 EDT, Height, 109.9,kg, 07/01/19 10:09:00 EDT, Dry Weight Start Date: 12/21/19 Status: Ordered Colace sodium 100 mg oral capsule 100 mg, 1, capsule, By Mouth, 2 times a day, PRN, # 60 capsule, Refills 3, Tot. Refills 3, Maintenance, for constipation, 12/02/17 13:58:38, Route to Pharmacy Electronically, NCPDP_[id number], [facility] Start Date: 12/02/17 Status: Ordered Flomax 0.4 mg oral capsule 0.4 mg, 1, capsule, By Mouth, Daily, To help kidney stone pass, # 15 capsule, Refills 0, Tot. Refills 0, Maintenance, 05/10/20 16:01:00 EDT, Route to Pharmacy Electronically, [facility], 175, cm, 02/25/20 12:28:00 EDT, Height, 109.9,... Start Date: 05/10/20 Status: Ordered Flonase 50 mcg/inh nasal spray 2 sprays, Nares, Both, Daily in AM, # 16 Gm, 5 Refills, Maintenance, 06/20/20 8:34:00 EDT, [place], [facility], 2 sprays Nares, Both Daily in AM,x14 days, 175, cm, 02/25/20 12:28:00 EDT, Height, 109.9, kg, 07/01/19 10:09:00 EDT, Dry Weight Start Date: 06/20/20 Stop Date: 09/12/20 Status: Ordered Flovent HFA 110 mcg/inh inhalation aerosol 2 puffs, Inhalation, 2 times a day, # 12 Gm, 0 Refills, Maintenance, 03/16/20 14:12:00 EDT, Aeros[place], [facility], 175, cm, 02/25/20 12:28:00 EDT, Height, 109.9, kg, 07/01/19 10:09:00 EDT, Dry Weight Start Date: 03/16/20 Status: Ordered hydrOXYzine hydrochloride 25 mg oral tablet 1 tablet = 25 mg, By Mouth, 4 times a day, PRN for anxiety, # 40 tablet, 0 Refills, Maintenance, 02/15/20 13:29:00 EDT, Tablet, [facility]/pharmacy #[id number], 175, cm, 07/04/19 15:37:00 EDT, Height, 109.9, kg, 07/01/19 10:09:00 EDT, Dry Weight Start Date: 02/15/20 Status: Ordered ibuprofen 800 mg oral tablet 800 mg, 1, tablet, By Mouth, 2 times a day, not to exceed 2400 mg/day As needed for migraine and kidney stone pain., # 30 tablet, Refills 2, Tot. Refills 2, Maintenance, 11/20/20 13:45:00 EST, Route to Pharmacy Electronically, [facility]... Start Date: 11/20/20 Status: Ordered Narcan 4 mg/0.1 mL nasal spray = 4 mg, Nares, Both, Once, In case of overdose: spray in nose, call 911, repeat every 2 mins as needed, # 2 each, 5 Refills, Soft Stop, 12/28/19 9:06:00 EST, [facility]/pharmacy #[id number], 175, cm, 07/04/19 15:37:00 [...] 14:05:00 EST, Aerosol, Route to Pharmacy Electronically, NCPDP_[id number], [facility], 175, cm, 07/04/19 15:37:00 EDT, Height, 109.... Start Date: 12/27/19 Status: Ordered SUMAtriptan 25 mg oral tablet 1 tablet = 25 mg, By Mouth, Daily, PRN for migraine headache, may repeat dose after 2 hours up to amaximum of 2, # 9 tablet, 11 Refills, Maintenance, 12/21/19 14:11:00 EST, Tablet, [facility], 175, cm, 07/04/19 15:37:00 EDT, Height,... Start Date: 12/21/19 Status: Ordered traZODone 50 mg oral tablet 50 mg, 1, tablet, By Mouth, Daily at bedtime, as needed for insomnia; if too sedating, take 1/2 tablet, # 30 tablet, Refills 3, Tot. Refills 3, Maintenance, 12/06/20 13:11:00 EST, Route to Pharmacy Electronically, [facility], Partial... Start Date: 12/06/20 Status: Ordered Tylenol 325 mg oral tablet 650 mg, 2, tablet, By Mouth, Every 4 hours, PRN, # 120 tablet, Refills 0, Tot. Refills 0, Maintenance, for fever, 02/15/20 13:30:00 EDT, Route to Pharmacy Electronically, [facility]/pharmacy #[id number], 175, cm,07/04/19 15:37:00 EDT, Height, 109.9, kg, 07/01/19... 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
--- OUTSIDE RECORDS SUMMARY | 2023-07-22 17:12 | XMS_ITS | Continuity of Care Document ---
Author Name Unknown Organization [facility] Address [address] [place] [address]- Care Team Providers Care Exhaust Equipment Operator Name Role Phone Pearl Reyna MD Primary Care Physician Encounter [facility] Date(s): 06/27/22 - 07/27/[address] [address]- Allergies, Adverse Reactions, Alerts Substance Reaction Severity Status Rocephin 1 rash Resolved abacavir 2 Active Ziagen HLA B5701 positive Active Complera allergic to the rilp irivine componant of Complera-tolerates truvada Active 1Not allergic. Tolerated cefpodoxime 10/2017 (prescribed at [facility]) as well as ceftriaxone IM [...] Comment: diluted w/ normal saline lot number [id number] expires 02/27/2023 2Result Comment: Received in [place] Medications amitriptyline 10 mg oral tablet 20 mg, 2, tablet, By Mouth, Daily at bedtime, New medication to prevent migraines. Causes sleepiness - take before bed ., # 30 tablet, Refills 0, Tot. Refills 0, Maintenance, 09/04/21 12:35:00 EDT, Route to Pharmacy Electronically, [facility]... Start Date: 09/04/21 Status: Ordered azelastine nasal 0.15% spray 2 sprays, Nares, Both, 2 times a day, PRN for allergy symptoms, # 30 mL, 5 Refills, Maintenance, 01/23/21 14:38:00 EST, [place], [facility], 2 sprays Nares, Both 2 times a day,PRN:for allergy symptoms, 175, cm, 02/25/20 12:28:00 EDT, He... Start Date: 01/23/21 Status: Ordered beclomethasone 0.042 mg/inh nasal spray 1 sprays, Nares, Both, 2 times a day, in each nostril, # 25 Gm, 5 Refills, Maintenance, 12/21/19 14:09:00 EST, [facility], d/c fluconasol, 1 sprays Nares, Both 2 times a day,Instr:ineach nostril, 175, cm, 07/04/19 15:37:00 EDT, [place]... Start Date: 12/21/19 Status: Ordered Biktarvy oral tablet 1 tablet, By Mouth, Daily, # 30 tablet, 11 Refills, Maintenance, 03/27/22 13:37:00 EDT, Tablet, [facility], Partial fill upon patient request if the prescription is for a schedule IIopioid drug., 1 tablet By Mouth Daily, 175, cm, 12/... Start Date: 03/27/22 Status: Ordered Colace sodium 100 mg oral capsule 100 mg, 1, capsule, By Mouth, 2 times a day, PRN, # 60 capsule, Refills 3, Tot. Refills 3, Maintenance, for constipation, 12/02/17 13:58:38, Route to Pharmacy Electronically, NCPDP_[id number], [facility] Start Date: 12/02/17 Status: Ordered [...] 5 Refills, Maintenance, 02/12/21 11:54:00 EDT, Tablet, [facility], Partial fill upon patient request if the prescription is for a schedu... Start Date: 02/12/21 Status: Ordered Flomax 0.4 mg oral capsule 0.4 mg, 1, capsule, By Mouth, Daily, To help kidney stone pass, # 30 capsule, Refills 1, Tot. Refills 1, Maintenance, 04/15/22 13:06:00 EDT, Route to Pharmacy Electronically, [facility], 175, cm, 11/19/21 10:53:00 EST, Height Start Date: 04/15/22 Status: Ordered ibuprofen 800 mg oral tablet 800 mg, 1, tablet, By Mouth, Daily, As needed for migraine and kidney stone pain. do not use daily,it will make migraine worse, # 30 tablet, Refills 3, Tot. Refills 3, Maintenance, 05/23/22 17:46:00EDT, Route to Pharmacy Electronically, [facility]... Start Date: 05/23/22 Status: Ordered Narcan [...] 14:05:00 EST, Aerosol, Route to Pharmacy Electronically, UTPDP_[id number], [facility], 175, cm, 07/04/19 15:37:00 EDT, Height, 109.... Start Date: 12/27/19 Status: Ordered sucralfate 1 gm oral tablet 1 Gm, 1, tablet, By Mouth, 4 times a day, # 120 tablet, Refills 3, Tot. Refills 3, Maintenance, 12/19/21 13:28:00 EST, Route to Pharmacy Electronically, [facility], Partial fill uponpatient request if the prescription is for a schedu... Start Date: 12/19/21 Status: Ordered traZODone 150 mg oral tablet 1 tablet = 150 mg, By Mouth, Daily at bedtime, For sleep., # 30 tablet, 11 Refills, Maintenance, 06/27/22 12:36:00 EDT, Tablet, [facility], Partial fill upon patient request if the prescription is for a schedule II opioid drug., 175,... Start Date: 06/27/22 Status: Ordered triamcinolone 0.1% topical cream 1 application, Topically, 2 times a day, apply a thin film to affected area in armpit, # 80 Gm, 2 Refills, Maintenance, 11/19/21 11:29:00 EST, [place], [facility], Partial fill upon patient request if the prescription is for a schedule... Start Date: 11/19/21 Status: Ordered Tylenol 325 mg oral tablet 650 mg, 2, tablet, By Mouth, Every 4 hours, PRN, # 120 tablet, Refills 0, Tot. Refills 0, Maintenance, for fever, 02/15/20 13:30:00 EDT, Route to Pharmacy Electronically, [facility]/pharmacy #[id number], 175, cm,07/04/19 15:37:00 EDT, Height, 109.9, kg, 07/01/19... Start Date: 02/15/20 Status: Ordered Zithromax 250 mg oral tablet 2 tablet = 500 mg, By Mouth, Once, # 2 tablet, 0 Refills, Soft Stop, 03/05/22 15:02:00 EDT, Tablet,[facility], Partial fill upon patient request [...] Team Personnel Name: Pearl Reyna MD Address: [address] [place] [address]
--- OUTSIDE RECORDS SUMMARY | 2023-07-22 17:12 | XMS_ITS | Continuity of Care Document ---
Author Name Unknown Organization [facility] Address [address] [place] [address]- Care Team Providers Care Candy Cooker Helper Name Role Phone Pearl Reyna MD Primary Care Physician Encounter [place] Date(s): 07/04/22 - 08/03/[address] [address]- Allergies, Adverse Reactions, Alerts Substance Reaction Severity Status Rocephin 1 rash Resolved abacavir 2 Active Ziagen HLA B5701 positive Active Complera allergic to the rilp irivine componant of Complera-tolerates truvada Active 1Not allergic. Tolerated cefpodoxime 10/2017 (prescribed at [facility]) as well as ceftriaxone [...] Comment: diluted w/ normal saline lot number [id number] expires 02/27/2023 2Result Comment: Received in [place] Medications amitriptyline 10 mg oral tablet 20 mg, 2, tablet, By Mouth, Daily at bedtime, New medication to prevent migraines. Causes sleepiness - take before bed ., # 30 tablet, Refills 0, Tot. Refills 0, Maintenance, 09/04/21 12:35:00 EDT, Route to Pharmacy Electronically, [facility]... Start Date: 09/04/21 Status: Ordered azelastine nasal 0.15% spray 2 sprays, Nares, Both, 2 times a day, PRN for allergy symptoms, # 30 mL, 5 Refills, Maintenance, 01/23/21 14:38:00 EST, [place], [facility], 2 sprays Nares, Both 2 times a day,PRN:for allergy symptoms, 175, cm, 02/25/20 12:28:00 EDT, He... Start Date: 01/23/21 Status: Ordered beclomethasone 0.042 mg/inh nasal spray 1 sprays, Nares, Both, 2 times a day, in each nostril, # 25 Gm, 5 Refills, Maintenance, 12/21/19 14:09:00 EST, [facility], d/c fluconasol, 1 sprays Nares, Both 2 times a day,Instr:ineach nostril, 175, cm, 07/04/19 15:37:00 EDT, [place]... Start Date: 12/21/19 Status: Ordered Biktarvy oral tablet 1 tablet, By Mouth, Daily, # 30 tablet, 11 Refills, Maintenance, 03/27/22 13:37:00 EDT, Tablet, [facility], Partial fill upon patient request if the prescription is for a schedule IIopioid drug., 1 tablet By Mouth Daily, 175, cm, 12/... Start Date: 03/27/22 Status: Ordered Colace sodium 100 mg oral capsule 100 mg, 1, capsule, By Mouth, 2 times a day, PRN, # 60 capsule, Refills 3, Tot. Refills 3, Maintenance, for constipation, 12/02/17 13:58:38, Route to Pharmacy Electronically, NCPDP_[id number], [facility] Start Date: 12/02/17 Status: Ordered [...] 5 Refills, Maintenance, 02/12/21 11:54:00 EDT, Tablet, [facility], Partial fill upon patient request if the prescription is for a schedu... Start Date: 02/12/21 Status: Ordered Flomax 0.4 mg oral capsule 0.4 mg, 1, capsule, By Mouth, Daily, To help kidney stone pass, # 30 capsule, Refills 1, Tot. Refills 1, Maintenance, 04/15/22 13:06:00 EDT, Route to Pharmacy Electronically, [facility], 175, cm, 11/19/21 10:53:00 EST, Height Start Date: 04/15/22 Status: Ordered ibuprofen 800 mg oral tablet 800 mg, 1, tablet, By Mouth, Daily, As needed for migraine and kidney stone pain. do not use daily,it will make migraine worse, # 30 tablet, Refills 3, Tot. Refills 3, Maintenance, 05/23/22 17:46:00EDT, Route to Pharmacy Electronically, [facility]... Start Date: 05/23/22 Status: Ordered [...] 14:05:00 EST, Aerosol, Route to Pharmacy Electronically, [id number]_[id number], [facility], 175, cm, 07/04/19 15:37:00 EDT, Height, 109.... Start Date: 12/27/19 Status: Ordered sucralfate 1 gm oral tablet 1 Gm, 1, tablet, By Mouth, 4 times a day, # 120 tablet, Refills 3, Tot. Refills 3, Maintenance, 12/19/21 13:28:00 EST, Route to Pharmacy Electronically, [facility], Partial fill uponpatient request if the prescription is for a schedu... Start Date: 12/19/21 Status: Ordered traZODone 150 mg oral tablet 1 tablet = 150 mg, By Mouth, Daily at bedtime, For sleep., # 30 tablet, 11 Refills, Maintenance, 06/27/22 12:36:00 EDT, Tablet, [facility], Partial fill upon patient request if the prescription is for a schedule II opioid drug., 175,... Start Date: 06/27/22 Status: Ordered triamcinolone 0.1% topical cream 1 application, Topically, 2 times a day, apply a thin film to affected area in armpit, # 80 Gm, 2 Refills, Maintenance, 11/19/21 11:29:00 EST, Cream, [facility], Partial fill upon [...] 0 Refills, Soft Stop, 03/05/22 15:02:00 EDT, Tablet,[facility], Partial fill upon [...] Team Personnel Name: Pearl Reyna MD Address: [address] [place] [address]
--- OUTSIDE RECORDS SUMMARY | 2023-07-22 17:12 | XMS_ITS | Continuity of Care Document ---
Author Name Unknown Organization [facility] Address [address] [place] [address]- Care Team Providers Care Television Technician Name Role Phone Pearl Reyna MD Primary Care Physician Encounter [facility] [place] [facility] [id number] Date(s): 11/04/22 - 12/04/[address] [address]- Attending Physician: John Clark Admitting Physician: John Clark Referring Physician: AdmtrJohn Allergies, Adverse Reactions, Alerts Substance Reaction Severity Status abacavir 1 Active Complera allergic to the rilp irivine componant of Complera-tolerates truvada Active Rocephin 2 rash Resolved Ziagen HLA B5701 positive Active 1positive HLA B5701 2Not allergic. Tolerated cefpodoxime 10/2017 (prescribed at [facility] ED) as well as ceftriaxone [...] Comment: diluted w/ normal saline lot number [id number] expires 02/27/2023 2Result Comment: Received in [place] Medications azelastine nasal 0.15% spray 2 sprays, Nares, Both, 2 times a day, PRN for allergy symptoms, # 30 mL, 5 Refills, Maintenance, 01/23/21 14:38:00 EST, [place], [facility], 2 sprays Nares, Both 2 times a day,PRN:for allergy symptoms, 175, cm, 02/25/20 12:28:00 EDT, He... Start Date: 01/23/21 Status: Ordered beclomethasone 0.042 mg/inh nasal spray 1 sprays, Nares, Both, 2 times a day, in each nostril, # 25 Gm, 5 Refills, Maintenance, 12/21/19 14:09:00 EST, [facility], d/c fluconasol, 1 sprays Nares, Both 2 times a day,Instr:ineach nostril, 175, cm, 07/04/19 15:37:00 EDT, Heigh... Start Date: 12/21/19 Status: Ordered Biktarvy oral tablet 1 tablet, By Mouth, Daily, # 30 tablet, 11 Refills, Maintenance, 03/27/22 13:37:00 EDT, Tablet, [facility], Partial fill upon patient request if [...] 5 Refills, Maintenance, 02/12/21 11:54:00 EDT, Tablet, [facility], Partial fill upon patient request if the prescription is for a schedu... Start Date: 02/12/21 Status: Ordered Flomax 0.4 mg oral capsule 0.4 mg, 1, capsule, By Mouth, Daily, To help kidney stone pass, # 30 capsule, Refills 1, Tot. Refills 1, Maintenance, 04/15/22 13:06:00 EDT, Route to Pharmacy Electronically, [facility], 175, cm, 11/19/21 10:53:00 [...] 14:17:00 EDT, Aerosol, [id number], 175, cm, 11/19/21 10:53:00 EST, Height Start Date: 08/18/22 Status: Ordered sucralfate 1 gm oral tablet 1 Gm, 1, tablet, By Mouth, 4 times a day, # 120 tablet, Refills 3, Tot. Refills 3, Maintenance, 12/19/21 13:28:00 EST, Route to Pharmacy Electronically, [facility], Partial fill uponpatient request if the prescription is for a schedu... Start Date: 12/19/21 Status: Ordered traZODone 150 mg oral tablet 1 tablet = 150 mg, By Mouth, Daily at bedtime, For sleep., # 30 tablet, 0 Refills, Maintenance, 11/04/22 12:49:00 EST, Tablet, [facility]/pharmacy #[id number], Partial fill upon patient request if the prescription is for a schedule II opioid drug., 175, cm, 11/19/... Start Date: 11/04/22 Status: Ordered triamcinolone 0.1% topical cream 1 application, Topically, 2 times a day, apply a thin film to affected area in armpit, # 80 Gm, 2 Refills, Maintenance, 11/19/21 11:29:00 EST, Cream, [facility], Partial fill upon patient request if the prescription is for a schedule... Start Date: 11/19/21 Status: Ordered Tylenol 325 mg oral tablet 650 mg, 2, tablet, By Mouth, Every 4 hours, PRN, # 120 tablet, Refills 0, Tot. Refills 0, Maintenance, for fever, 02/15/20 13:30:00 EDT, Route to Pharmacy Electronically, [facility]/pharmacy #[id number], 175, cm,07/04/19 15:37:00 EDT, Height, 109.9, kg, 07/01/19... Start Date: 02/15/20 Status: Ordered ZyrTEC-D 5 mg-120 mg oral tablet, extended release 1 tablet, By Mouth, Every 24 hours, # 30 tablet, 2 Refills, Maintenance, 10/15/22 9:16:00 EST, ER Tablet, [facility], Partial fill upon patient [...] day sm oker entered on: 11/09/17 Sex Note * Event Display: Non Lab Results Authored Date: * Event Display: Non Lab Results Authored Date: * Event Display: Laboratory Result Scanned Authored Date: Patient Care team information Care Team Personnel Name: Eleonora Pena RN Position: [facility] RN Member Role: Primary Care Nurse Name: Pearl Reyna MD Position: [facility] Primary Care Physician Member Role: PCP Address: Address: [address] [place] [address]- Care Team Related Persons Name: KAITLYN COVARRUBIAS Name: ASHLYN LONG Address: home [address] [place] [address] Name: NO, ONE AT THIS TIME Name: WADE SABILLON
--- OUTSIDE RECORDS SUMMARY | 2023-07-22 17:12 | XMS_ITS | Continuity of Care Document ---
Author Name Unknown Organization [facility] Address [address] [place] [address]- Care Team Providers Care Solar Lab Technician Name Role Phone Pearl Reyna MD Primary Care Physician Encounter [facility] Date(s): 02/12/21 - 03/14/[address] [address]- Attending Physician: AdmJohn valero Admitting Physician: AdmtrJohn Referring Physician: Admtr, John Allergies, Adverse Reactions, Alerts Substance Reaction Severity Status Rocephin 1 rash Resolved Ziagen HLA B5701 positive Active Complera allergic to the rilp irivine componant of Complera-tolerates truvada Active 1Not allergic. Tolerated cefpodoxime 10/2017 (pres[place] [...] mL, 5 Refills, Maintenance, 01/23/21 14:38:00 EST, [place], [facility], 2 sprays Nares, Both [...] tablet, 11 Refills, Maintenance, 12/21/19 14:10:00 EST, [facility], note dose change, 175, cm, 07/04/19 15:37:00 EDT, Height, 109.9,kg, 07/01/19 10:09:00 EDT, Dry Weight Start Date: 12/21/19 Status: Ordered Colace sodium 100 mg oral capsule 100 mg, 1, capsule, By Mouth, 2 times a day, PRN, # 60 capsule, Refills 3, Tot. Refills 3, Maintenance, for constipation, 12/02/17 13:58:38, Route to Pharmacy Electronically, NCPDP_[id number], [facility] Start Date: [...] Gm, 5 Refills, Maintenance, 06/20/20 8:34:00 EDT, [place], [facility], 2 sprays Nares, Both Daily in AM,x14 days, 175, cm, 02/25/20 12:28:00 EDT, Height, 109.9, kg, 07/01/19 10:09:00 EDT, Dry Weight Start Date: 06/20/20 Stop Date: 09/12/20 Status: Ordered Flovent HFA 110 mcg/inh inhalation aerosol 2 puffs, Inhalation, 2 times a day, # 12 Gm, 0 Refills, Maintenance, 03/16/20 14:12:00 EDT, Aerosol, [facility], 175, cm, 02/25/20 12:28:00 [...] Maintenance, 02/12/21 11:50:00EDT, Route to Pharmacy Electronically, [facility]... Start Date: 02/12/21 Status: Ordered Narcan 4 mg/0.1 mL nasal spray = 4 mg, Nares, Both, Once, In case of overdose: spray in nose, call 911, repeat every 2 mins as needed, # 2 each, 5 Refills, Soft Stop, 12/28/19 9:06:00 EST, [facility]/pharmacy #[id number], 175, cm, 07/04/19 15:37:00 EDT, Height, [...] EST, Aerosol, [id number], 175, cm, 07/04/19 15:37:00 EDT, Height, 109.... Start Date: 12/27/19 Status: Ordered traZODone 150 mg oral tablet 1 tablet = 150 mg, By Mouth, Daily at bedtime, For sleep. Dose increased 02/12/21, # 30 tablet, 5 Refills, Maintenance, 02/12/21 11:48:00 EDT, Tablet, [facility], Partial fill upon patient request if the prescription is for a schedule... Start Date: 02/12/21 Status: Ordered Tylenol 325 mg oral tablet 650 mg, 2, tablet, By Mouth, Every 4 hours, PRN, # 120 tablet, Refills 0, Tot. Refills 0, Maintenance, for fever, 02/15/20 13:30:00 EDT, Route to Pharmacy Electronically, [facility]/pharmacy #[id number], 175, cm,07/04/19 15:37:00 EDT, Height, 109.9, [...]
--- OUTSIDE RECORDS SUMMARY | 2023-07-22 17:12 | XMS_ITS | Continuity of Care Document ---
Author Name Unknown Organization [facility] Address [address] [place] [address]- Care Team Providers Care Industrial Arts Teacher Name Role Phone Pearl Reyna MD Primary Care Physician Encounter [facility] [place] Date(s): 01/02/23 - 02/01/[address] [address]- Allergies, Adverse Reactions, Alerts Substance Reaction Severity Status Rocephin 1 rash Resolved abacavir 2 Active Ziagen HLA B5701 positive Active Complera allergic to the rilp irivine componant of Complera-tolerates truvada Active 1Not allergic. Tolerated cefpodoxime 10/2017 (prescribed at [facility] ED) as well as ceftriaxone IM (administered [...] Comment: diluted w/ normal saline lot number [id number] expires 02/27/2023 2Result Comment: Received in [place] Medications azelastine nasal 0.15% spray 2 sprays, Nares, Both, 2 times a day, PRN for allergy symptoms, # 30 mL, 5 Refills, Maintenance, 01/23/21 14:38:00 EST, [place], [facility], 2 sprays Nares, Both [...] 11 Refills, Maintenance, 03/27/22 13:37:00 EDT, Tablet, [facility], Partial fill upon patient request [...] 5 Refills, Maintenance, 02/12/21 11:54:00 EDT, Tablet, [facility], Partial fill upon patient request if the prescription is for a schedu... Start Date: 02/12/21 Status: Ordered Flomax 0.4 mg oral capsule 0.4 mg, 1, capsule, By Mouth, Daily, To help kidney stone pass, # 30 capsule, Refills 1, Tot. Refills 1, Maintenance, 12/25/22 12:52:00 EST, Route to Pharmacy Electronically, [facility], 175, cm, 12/25/22 12:08:00 [...] 14:17:00 EDT, Aerosol, Route to Pharmacy Electronically, NCPDP_[id number], [facility], 175, cm, 11/19/21 10:53:00 EST, Height Start Date: 08/18/22 Status: Ordered sucralfate 1 gm oral tablet 1 Gm, 1, tablet, By Mouth, 4 times a day, # 120 tablet, Refills 3, Tot. Refills 3, Maintenance, 12/19/21 13:28:00 EST, Route to Pharmacy Electronically, [facility], Partial fill uponpatient request if the prescription is for a schedu... Start Date: 12/19/21 Status: Ordered traZODone 150 mg oral tablet 1 tablet = 150 mg, By Mouth, Daily at bedtime, For sleep., # 30 tablet, 0 Refills, Maintenance, 11/04/22 12:49:00 EST, Tablet, [facility]/pharmacy #[id number], Partial fill upon patient request if the prescription is for a schedule II opioid drug., 175, cm, ... Start Date: 11/04/22 Status: Ordered triamcinolone 0.1% topical cream 1 application, Topically, 2 times a day, apply a thin film to affected area in armpit, # 80 Gm, 2 Refills, Maintenance, 11/19/21 11:29:00 EST, Cream, [facility], Partial fill upon patient request [...] Refills, Maintenance, 10/15/22 9:16:00 EST, ER Tablet, [facility], Partial fill upon patient request [...] Type Response Smoking Status Current every day okaelxa entered on: 11/09/17 Sex Patient Care team information Care Team Personnel Name: Pearl Reyna MD Position: [facility] Primary Care Physician Member Role: PCP Address: Address: [address] [place] [address]- Care Team Related Persons Name: KAITLYN COVARRUBIAS Name: ASHLYN LONG Address: home [address] [place] [address] Name: NO, ONE AT THIS TIME Name: WADE SABILLON
--- OUTSIDE RECORDS SUMMARY | 2023-07-22 17:12 | XMS_ITS | Continuity of Care Document ---
Author Name Unknown Organization [facility] Address [address] [place] [address]- Care Team Providers Care Oncology Nurse Navigator Name Role Phone Pearl Reyna MD Primary Care Physician Encounter [facility] Date(s): 03/11/22 - 04/10/[address] [address]- Allergies, Adverse Reactions, Alerts Substance Reaction Severity [...] Comment: diluted w/ normal saline lot number [id number] expires 02/27/2023 2Result Comment: Received in [place] Medications amitriptyline 10 mg oral tablet 20 mg, 2, tablet, By Mouth, Daily at bedtime, New medication to prevent migraines. Causes sleepiness - take before bed ., # 30 tablet, Refills 0, Tot. Refills 0, Maintenance, 09/04/21 12:35:00 EDT, Route to Pharmacy Electronically, [facility]... Start Date: 09/04/21 Status: Ordered azelastine nasal 0.15% spray 2 sprays, Nares, Both, 2 times a day, PRN for allergy symptoms, # 30 mL, 5 Refills, Maintenance, 01/23/21 14:38:00 EST, [place], [facility], 2 sprays Nares, Both 2 times a day,PRN:for allergy symptoms, 175, cm, 02/25/20 12:28:00 EDT, He... Start Date: 01/23/21 Status: Ordered beclomethasone 0.042 mg/inh nasal spray 1 sprays, Nares, Both, 2 times a day, in each nostril, # 25 Gm, 5 Refills, Maintenance, 12/21/19 14:09:00 EST, [facility], d/c fluconasol, 1 sprays Nares, Both 2 times a day,Instr:ineach nostril, 175, cm, 07/04/19 15:37:00 EDT, [place]... Start Date: 12/21/19 Status: Ordered Biktarvy oral tablet 1 tablet, By Mouth, Daily, # 30 tablet, 11 Refills, Maintenance, 03/27/22 13:37:00 EDT, Tablet, [facility], Partial fill upon patient request if the prescription is for a schedule IIopioid drug., 1 tablet By Mouth Daily, 175, cm, 12/... Start Date: 03/27/22 Status: Ordered Colace sodium 100 mg oral capsule 100 mg, 1, capsule, By Mouth, 2 times a day, PRN, # 60 capsule, Refills 3, Tot. Refills 3, Maintenance, for constipation, 12/02/17 13:58:38, Route to Pharmacy Electronically, MDPDP_[id number], [facility] Start Date: 12/02/17 Status: [...] 02/12/21 11:54:00 EDT, Tablet, [facility], Partial fill upon patient request if the prescription is for a schedu... Start Date: 02/12/21 Status: Ordered ibuprofen 800 mg oral tablet 800 mg, 1, tablet, By Mouth, Daily, As needed for migraine and kidney stone pain. do not use daily,it will make migraine worse, # 30 tablet, Refills 2, Tot. Refills 2, Maintenance, 09/04/21 12:34:00EDT, Route to Pharmacy Electronically, [facility] Start Date: 09/04/21 Status: Ordered Narcan 4 mg/0.1 mL nasal spray = 4 mg, Nares, Both, Once, In case of overdose: spray in nose, call 911, repeat every 2 mins as needed, # 2 each, 5 Refills, Soft Stop, 12/28/19 9:06:00 EST, [facility]/pharmacy #[id number], 175, cm, 07/04/19 15:37:00 [...] 14:05:00 EST, Aerosol, [id number], 175, cm, 07/04/19 15:37:00 EDT, Height, 109.... Start Date: 12/27/19 Status: Ordered sucralfate 1 gm oral tablet 1 Gm, 1, tablet, By Mouth, 4 times a day, # 120 tablet, Refills 3, Tot. Refills 3, Maintenance, 12/19/21 13:28:00 EST, Route to Pharmacy Electronically, [facility], Partial fill uponpatient request if the prescription is for a schedu... Start Date: 12/19/21 Status: Ordered traZODone 150 mg oral tablet 1 tablet = 150 mg, By Mouth, Daily at bedtime, For sleep., # 30 tablet, 5 Refills, Maintenance, 09/04/21 12:32:00 EDT, Tablet, [facility], Partial fill upon patient request if the prescription is for a schedule II opioid drug., 175, c... Start Date: 09/04/21 Status: Ordered triamcinolone 0.1% topical cream 1 application, Topically, 2 times a day, apply a thin film to affected area in armpit, # 80 Gm, 2 Refills, Maintenance, 11/19/21 11:29:00 EST, [place], [facility], Partial fill upon patient request if the prescription is for a schedule... Start Date: 11/19/21 Status: Ordered Tylenol 325 mg oral tablet 650 mg, 2, tablet, By Mouth, Every 4 hours, PRN, # 120 tablet, Refills 0, Tot. Refills 0, Maintenance, for fever, 02/15/20 13:30:00 EDT, Route to Pharmacy Electronically, [facility]/pharmacy #[id number], 175, cm,07/04/19 15:37:00 EDT, Height, 109.9, kg, 07/01/19... Start Date: 02/15/20 Status: Ordered Zithromax 250 mg oral tablet 2 tablet = 500 mg, By Mouth, Once, # 2 tablet, 0 Refills, Soft Stop, 03/05/22 15:02:00 EDT, Tablet,[facility], Partial fill upon patient [...]
--- OUTSIDE RECORDS SUMMARY | 2023-07-22 17:12 | XMS_ITS | Continuity of Care Document ---
Author Name Unknown Organization [facility] Address [address] [place] [address]- Care Team Providers Care Label Designer Name Role Phone Pearl Reyna MD Primary Care Physician Encounter [facility] [place] [id number] Date(s): 05/26/22 - 06/25/[address] [address]- Attending Physician: John Clark Admitting Physician: John Clark Referring Physician: AdmJohn valero Allergies, Adverse Reactions, Alerts Substance Reaction Severity Status Rocephin 1 rash Resolved abacavir 2 Active Complera allergic to the rilp irivine componant of Complera-tolerates truvada Active Ziagen HLA B5701 positive Active 1Not allergic. Tolerated cefpodoxime 10/2017 (prescribed at [facility] ED) as well as [...] Comment: diluted w/ normal saline lot number [id number] expires 02/27/2023 2Result Comment: Received in [place] Medications amitriptyline 10 mg oral tablet 20 mg, 2, tablet, By Mouth, Daily at bedtime, New medication to prevent migraines. Causes sleepiness - take before bed ., # 30 tablet, Refills 0, Tot. Refills 0, Maintenance, 09/04/21 12:35:00 EDT, Route to Pharmacy Electronically, [facility]... Start Date: 09/04/21 Status: Ordered azelastine nasal 0.15% spray 2 sprays, Nares, Both, 2 times a day, PRN for allergy symptoms, # 30 mL, 5 Refills, Maintenance, 01/23/21 14:38:00 EST, [place], [facility], 2 sprays Nares, Both 2 times a day,PRN:for allergy symptoms, 175, cm, 02/25/20 12:28:00 EDT, He... Start Date: 01/23/21 Status: Ordered beclomethasone 0.042 mg/inh nasal spray 1 sprays, Nares, Both, 2 times a day, in each nostril, # 25 Gm, 5 Refills, Maintenance, 12/21/19 14:09:00 EST, [facility], d/c fluconasol, 1 sprays Nares, Both 2 times a day,Instr:ineach nostril, 175, cm, 07/04/19 15:37:00 EDT, Heigh... Start Date: 12/21/19 Status: Ordered Biktarvy oral tablet 1 tablet, By Mouth, Daily, # 30 tablet, 11 Refills, Maintenance, 03/27/22 13:37:00 EDT, Tablet, [facility], Partial fill upon patient [...] constipation, 12/02/17 13:58:38, Route to Pharmacy Electronically, ORPDP_[id number], [facility] Start Date: 12/02/17 Status: Ordered [...] 5 Refills, Maintenance, 02/12/21 11:54:00 EDT, Tablet, [facility], Partial fill upon patient request if the prescription is for a schedu... Start Date: 02/12/21 Status: Ordered Flomax 0.4 mg oral capsule 0.4 mg, 1, capsule, By Mouth, Daily, To help kidney stone pass, # 30 capsule, Refills 1, Tot. Refills 1, Maintenance, 04/15/22 13:06:00 EDT, Route to Pharmacy Electronically, [facility], 175, cm, 11/19/21 10:53:00 EST, [place] Start Date: 04/15/22 Status: Ordered ibuprofen 800 mg oral tablet 800 mg, 1, tablet, By Mouth, Daily, As needed for migraine and kidney stone pain. do not use daily,it will make migraine worse, # 30 tablet, Refills 3, Tot. Refills 3, Maintenance, 05/23/22 17:46:00EDT, Route to Pharmacy Electronically, [facility]... Start Date: 05/23/22 Status: Ordered Narcan 4 mg/0.1 mL nasal spray = 4 mg, Nares, Both, Once, In case of overdose: spray in nose, call 911, repeat every 2 mins as needed, # 2 each, 5 Refills, Soft Stop, 12/28/19 9:06:00 EST, [facility]/pharmacy #[id number], 175, cm, 07/04/19 15:37:00 EDT, [...] 14:05:00 EST, Aerosol, [facility] to [facility] Electronically, [id number], 175, cm, 07/04/19 15:37:00 EDT, Height, 109.... Start Date: 12/27/19 Status: Ordered sucralfate 1 gm oral tablet 1 Gm, 1, tablet, By Mouth, 4 times a day, # 120 tablet, Refills 3, Tot. Refills 3, Maintenance, 12/19/21 13:28:00 EST, Route to Pharmacy Electronically, [facility], Partial fill uponpatient request if the prescription is for a schedu... Start Date: 12/19/21 Status: Ordered traZODone 150 mg oral tablet 1 tablet = 150 mg, By Mouth, Daily at bedtime, For sleep., # 30 tablet, 11 Refills, Maintenance, 05/23/22 17:45:00 EDT, Tablet, [facility], Partial fill upon patient request if the prescription is for a schedule II opioid drug., 175,... Start Date: 05/23/22 Status: Ordered triamcinolone 0.1% topical cream 1 [...] 13:30:00 EDT, Route to Pharmacy Electronically, [facility]/pharmacy #[id number], 175, cm,07/04/19 15:37:00 EDT, Height, 109.9, kg, 07/01/19... Start Date: 02/15/20 Status: Ordered Zithromax 250 mg oral tablet 2 tablet = 500 mg, By Mouth, Once, # 2 tablet, 0 Refills, Soft Stop, 03/05/22 15:02:00 EDT, Tablet,[facility], Partial fill upon patient [...]
--- OUTSIDE RECORDS SUMMARY | 2023-07-22 17:13 | XMS_ITS | Continuity of Care Document ---
Author Name Unknown Organization [facility] Address [address] [place] [id number]- Care Team Providers Care Label Designer Name Role Phone Pearl Reyna MD Primary Care Physician [facility] Date([facility]): 03/31/23 - 04/30/[address] [address]- Allergies, Adverse Reactions, Alerts Substance Reaction Severity Status Rocephin 1 rash Resolved abacavir 2 Active Ziagen HLA B5701 positive Active Complera allergic to the rilp irivine componant of Complera-tolerates truvada Active 1Not allergic. Tolerated cefpodoxime 10/2017 (prescribed at [facility]) as well as ceftriaxone IM [...] Comment: diluted w/ normal saline lot number [id number] expires 02/27/2023 2Result Comment: Received in [place] Medications albuterol 0.083% inhalation solution 3 mL = 2.5 mg, Neb, Every 6 hours, PRN as needed for wheezing, # 90 mL, 6 Refills, Maintenance, 02/09/23 11:31:00 EDT, Solution, [facility], Partial fill upon patient request if the prescription is for a schedule II opioid drug., 175,... Start Date: 02/09/23 Status: Ordered azelastine nasal 0.15% spray 2 sprays, Nares, Both, 2 times a day, PRN for allergy symptoms, # 30 mL, 5 Refills, Maintenance, 01/23/21 14:38:00 EST, [place], [facility], 2 sprays Nares, Both 2 times a day,PRN:for allergy symptoms, 175, cm, 02/25/20 12:28:00 EDT, He... Start Date: 01/23/21 Status: Ordered beclomethasone 0.042 mg/inh nasal spray 1 sprays, Nares, Both, 2 times a day, in each nostril, # 25 Gm, 5 Refills, Maintenance, 12/21/19 14:09:00 EST, [facility], d/c fluconasol, 1 sprays Nares, Both 2 times a day,Instr:ineach nostril, 175, cm, 07/04/19 15:37:00 EDT, Heigh... Start Date: 12/21/19 Status: Ordered Biktarvy oral tablet 1 tablet, By Mouth, Daily, # 30 tablet, 5 Refills, Maintenance, 04/23/23 9:23:00 EDT, Tablet, [facility], 1 tablet By Mouth Daily, 175, cm, 04/23/23 9:01:00 EDT, Height Start Date: 04/23/23 Status: Ordered diclofenac sodium 75 mg oral [...] 04/23/23 9:29:00 EDT, Route to Pharmacy Electronically, [facility], 175, cm, 04/23/23 9:01:00 EDT, Height Start Date: 04/23/23 Status: Ordered fexofenadine 180 mg oral tablet 1 tablet = 180 mg, By Mouth, Daily, Instead of cetirizine (Zyrtec). For allergies., # 30 tablet, 5 Refills, Maintenance, 02/12/21 11:54:00 EDT, Tablet, [facility], Partial fill upon patient request if the prescription is for a schedu... Start Date: 02/12/21 Status: Ordered Flomax 0.4 mg oral capsule 0.4 mg, 1, capsule, By Mouth, Daily, To help kidney stone pass, # 30 capsule, Refills 1, Tot. Refills 1, Maintenance, 12/25/22 12:52:00 EST, Route to Pharmacy Electronically, [facility], 175, cm, 12/25/22 12:08:00 EST, Height [...] Refills 0, Maintenance, J45. 41 Fax to [place] [facility], 02/11/23 14:58:00 EDT, Supply Start Date: 02/11/23 [...] 14:17:00 EDT, Aerosol, Route to Pharmacy Electronically, NCPDP_[id number], [facility], 175, cm, 11/19/21 10:53:00 EST, Height Start Date: 08/18/22 Status: Ordered sucralfate 1 gm oral tablet 1 Gm, 1, tablet, By Mouth, 4 times a day, # 120 tablet, Refills 3, Tot. Refills 3, Maintenance, 12/19/21 13:28:00 EST, Route to Pharmacy Electronically, [facility], Partial fill uponpatient request if the prescription is for a schedu... Start Date: 12/19/21 Status: Ordered traZODone 150 mg oral tablet 1 tablet = 150 mg, By Mouth, Daily at bedtime, For sleep., # 30 tablet, 3 Refills, Maintenance, 04/23/23 9:24:00 EDT, Tablet, [facility], Partial fill upon patient request if the prescription is for a schedule II opioid drug., 175, cm... Start Date: 04/23/23 Status: Ordered triamcinolone 0.1% topical cream 1 application, Topically, 2 times a day, apply a thin film to affected area in armpit, # 80 Gm, 2 Refills, Maintenance, 11/19/21 11:29:00 EST, Cream, [facility], Partial fill upon patient request if the prescription is for a schedule... Start Date: 11/19/21 Status: Ordered Tylenol 325 mg oral tablet 650 mg, 2, tablet, By Mouth, Every 4 hours, PRN, # 120 tablet, Refills 0, Tot. Refills 0, Maintenance, for fever, 02/15/20 13:30:00 EDT, Route to Pharmacy Electronically, [facility]/pharmacy #[id number], 175, cm,07/04/19 15:37:00 EDT, Height, 109.9, kg, 07/01/19... Start Date: 02/15/20 Status: Ordered ZyrTEC-D 5 mg-120 mg oral tablet, extended release 1 tablet, By Mouth, Every 24 hours, # 30 tablet, 2 Refills, Maintenance, 10/15/22 9:16:00 EST, ER Tablet, [facility], Partial fill upon patient [...] Primary Care Member Role: PCP Address: Address: [address] [place] [address]- Care Team Related Persons Name: KAITLYN COVARRUBIAS Name: ASHLYN LONG Address: home [address] [place] [address] Name: NO, ONE AT THIS TIME Name: WADE SABILLON
--- OUTSIDE RECORDS SUMMARY | 2023-07-22 17:13 | XMS_ITS | Continuity of Care Document ---
Author Name Unknown Organization [facility] Address [address] [place] [address]- Care Team Providers Care Refrigerator Tester Name Role Phone Pearl Reyna MD Primary Care Physician [facility]counter [facility] Date(s): 05/27/23 - 06/26/[address] [address]- Allergies, Adverse Reactions, Alerts Substance Reaction Severity Status Rocephin 1 rash Resolved abacavir 2 Active Ziagen HLA B5701 positive Active Complera allergic to the rilp irivine componant of Complera-tolerates truvada Active 1Not allergic. Tolerated cefpodoxime 10/2017 (prescribed at [facility] ED) as well as ceftriaxone [...] Comment: diluted w/ normal saline lot number [id number] expires 02/27/2023 2Result Comment: Received in [place] Medications albuterol 0.083% inhalation solution 3 mL = 2.5 mg, Neb, Every 6 hours, PRN as needed for wheezing, # 90 mL, 6 Refills, Maintenance, 02/09/23 11:31:00 EDT, Solution, [facility], Partial fill upon patient request if the prescription is for a schedule II opioid drug., 175,... Start Date: 02/09/23 Status: Ordered azelastine nasal 0.15% spray 2 sprays, Nares, Both, 2 times a day, PRN for allergy symptoms, # 30 mL, 5 Refills, Maintenance, 01/23/21 14:38:00 EST, [place], [facility], 2 sprays Nares, Both 2 times a day,PRN:for allergy symptoms, 175, cm, 02/25/20 12:28:00 EDT, He... Start Date: 01/23/21 Status: Ordered beclomethasone 0.042 mg/inh nasal spray 1 sprays, Nares, Both, 2 times a day, in each nostril, # 25 Gm, 5 Refills, Maintenance, 12/21/19 14:09:00 EST, [facility], d/c fluconasol, 1 sprays Nares, Both 2 times a day,Instr:ineach nostril, 175, cm, 07/04/19 15:37:00 EDT, [place]... Start Date: 12/21/19 Status: Ordered Biktarvy oral tablet 1 tablet, By Mouth, Daily, # 30 tablet, 5 Refills, Maintenance, 04/23/23 9:23:00 EDT, Tablet, [facility], 1 tablet By Mouth Daily, 175, cm, 04/23/23 9:01:00 EDT, Height Start Date: 04/23/23 Status: Ordered clonazePAM 0.5 mg oral tablet See Instructions, 1-2 tablets by mouth daily as needed for anxiety/ panic. Dispense: #45 per 30d. ALEE Parikh Checked, appropriate, # 45 tablet, 2 Refills, Maintenance, 05/08/23 16:32:00 EDT, Tablet, [facility], Partial fill upon patien... Start Date: [...] 04/23/23 9:29:00 EDT, Route to Pharmacy Electronically, [facility], 175, cm, 04/23/23 9:01:00 EDT, Height Start Date: 04/23/23 Status: Ordered fexofenadine 180 mg oral tablet 1 tablet = 180 mg, By Mouth, Daily, Instead of cetirizine (Zyrtec). For allergies., # 30 tablet, 5 Refills, Maintenance, 02/12/21 11:54:00 EDT, Tablet, [facility], Partial fill upon patient request if the prescription is for a schedu... Start Date: 02/12/21 Status: Ordered Flomax 0.4 mg oral capsule 0.4 mg, 1, capsule, By Mouth, Daily, To help kidney stone pass, # 30 capsule, Refills 1, Tot. Refills 1, Maintenance, 05/08/23 16:34:00 EDT, Route to Pharmacy Electronically, [facility], 175, cm, 04/23/23 9:43:00 EDT, Height [...] Refills 0, Maintenance, J45. 41 Fax to [facility], 02/11/23 14:58:00 EDT, Supply Start Date: 02/11/23 [...] 14:17:00 EDT, Aerosol, Route to Pharmacy Electronically, [id number], [facility], 175, cm, 11/19/21 10:53:00 EST, Height Start Date: 08/18/22 Status: Ordered sucralfate 1 gm oral tablet 1 Gm, 1, tablet, By Mouth, 4 times a day, # 120 tablet, Refills 3, Tot. Refills 3, Maintenance, 12/19/21 13:28:00 EST, Route to Pharmacy Electronically, [facility], Partial fill uponpatient request if the prescription is for a schedu... Start Date: 12/19/21 Status: Ordered traZODone 150 mg oral tablet 1 tablet = 150 mg, By Mouth, Daily at bedtime, For sleep., # 30 tablet, 3 Refills, Maintenance, 04/23/23 9:24:00 EDT, Tablet, [facility], Partial fill upon patient request if the prescription is for a schedule II opioid drug., 175, cm... Start Date: 04/23/23 Status: Ordered triamcinolone 0.1% topical cream 1 application, Topically, 2 times a day, apply a thin film to affected area in armpit, # 80 Gm, 2 Refills, Maintenance, 11/19/21 11:29:00 EST, Cream, [facility], Partial fill upon [...] Refills, Maintenance, 10/15/22 9:16:00 EST, ER Tablet, [facility], Partial fill upon [...] Primary Care Member Role: PCP Address: Address: [address] [place] [address]- Care Team Related Persons Name: KAITLYN COVARRUBIAS Name: ASHLYN LONG Address: home [address] [place] [address] Name: NO, ONE AT THIS TIME Name: WADE SABILLON
--- OUTSIDE RECORDS SUMMARY | 2023-07-22 17:13 | XMS_ITS | Continuity of Care Document ---
Author Name Unknown Organization [facility] Address [address] [place] [address]- Care Team Providers Care Die Equipment Operator Name Role Phone Pearl Reyna MD Primary Care Physician [facility]counter [facility] Date[facility]s): 10/28/21 - 11/29/[address] [address]- Attending Physician: Not on Staff, Attending MD Allergies, Adverse Reactions, Alerts Substance Reaction Severity Status Rocephin 1 rash Resolved Complera allergic to the rilp irivine componant of Complera-tolerates truvada Active Ziagen HLA B5701 positive Active abacavir 2 Active 1Not allergic. Tolerated [...] Comment: diluted w/ normal saline lot number [id number] expires 02/27/2023 2Result Comment: Received in [place] Medications amitriptyline 10 mg oral tablet 20 mg, 2, tablet, By Mouth, Daily at bedtime, New medication to prevent migraines. Causes sleepiness - take before bed ., # 30 tablet, Refills 0, Tot. Refills 0, Maintenance, 09/04/21 12:35:00 EDT, Route to Pharmacy Electronically, [facility]... Start Date: 09/04/21 Status: Ordered azelastine nasal 0.15% spray 2 sprays, Nares, Both, 2 times a day, PRN for allergy symptoms, # 30 mL, 5 Refills, Maintenance, 01/23/21 14:38:00 EST, [place], [facility], 2 sprays Nares, Both 2 times a day,PRN:for allergy symptoms, 175, cm, 02/25/20 12:28:00 EDT, He... Start Date: 01/23/21 Status: Ordered beclomethasone 0.042 mg/inh nasal spray 1 sprays, Nares, Both, 2 times a day, in each nostril, # 25 Gm, 5 Refills, Maintenance, 12/21/19 14:09:00 EST, [facility], d/c fluconasol, 1 sprays [...] constipation, 12/02/17 13:58:38, Route to Pharmacy Electronically, NCPDP_[id number], [facility] Start Date: [...] 5 Refills, Maintenance, 02/12/21 11:54:00 EDT, Tablet, [facility], Partial fill upon patient request if the prescription is for a schedu... Start Date: 02/12/21 Status: Ordered Flonase 50 mcg/inh nasal spray 2 sprays, Nares, Both, Daily in AM, # 16 Gm, 5 Refills, Maintenance, 06/20/20 8:34:00 EDT, [place], [facility], 2 sprays Nares, Both Daily in AM,x14 days, 175, cm, 02/25/20 12:28:00 EDT, Height, 109.9, kg, 07/01/19 10:09:00 EDT, Dry Weight Start Date: 06/20/20 Stop Date: 09/12/20 Status: Ordered Flovent HFA 110 mcg/inh inhalation aerosol 2 puffs, Inhalation, 2 times a day, # 12 Gm, 0 Refills, Maintenance, 03/16/20 14:12:00 EDT, Aerosol, [facility], 175, cm, 02/25/20 12:28:00 [...] Maintenance, 09/04/21 12:34:00EDT, Route to Pharmacy Electronically, [facility]... Start Date: 09/04/21 Status: Ordered [...] 14:05:00 EST, Aerosol, Route to Pharmacy Electronically, NCPDP_[id number], [facility], 175, cm, 07/04/19 15:37:00 EDT, Height, 109.... Start Date: 12/27/19 Status: Ordered traZODone 150 mg oral tablet 1 tablet = 150 mg, By Mouth, Daily at bedtime, For sleep., # 30 tablet, 5 Refills, Maintenance, 09/04/21 12:32:00 EDT, Tablet, [facility], Partial fill upon patient request if the prescription is for a schedule II opioid drug., 175, c... Start Date: 09/04/21 Status: Ordered triamcinolone 0.1% topical cream 1 application, Topically, 2 times a day, apply a thin film to affected area in armpit, # 80 Gm, 2 Refills, Maintenance, 11/19/21 11:29:00 EST, Cream, [facility], Partial fill upon patient request if the prescription is for a schedule... Start Date: 11/19/21 Status: Ordered Tylenol 325 mg oral tablet 650 mg, 2, tablet, By Mouth, Every 4 hours, PRN, # 120 tablet, Refills 0, Tot. Refills 0, Maintenance, for fever, 02/15/20 13:30:00 EDT, Route to Pharmacy Electronically, [facility]/pharmacy #[id number], 175, cm,07/04/19 15:37:00 [...]
--- OUTSIDE RECORDS SUMMARY | 2023-07-22 17:13 | XMS_ITS | Continuity of Care Document ---
Author Name Unknown Organization [facility] Address [address] [place] [address]- Care Team Providers Care Polymer Tester Name Role Phone Pearl Reyna MD Primary Care Physician Encounter [facility] Date(s): 03/10/22 - 04/10/[address] [address]- Attending Physician: Not on Staff, Attending MD Referring Physician: Pearl Reyna MD Allergies, Adverse Reactions, Alerts Substance Reaction Severity Status Rocephin 1 rash Resolved abacavir 2 Active Ziagen HLA B5701 positive Active Complera allergic to the rilp irivine componant of Complera-tolerates truvada Active 1Not allergic. Tolerated cefpodoxime 10/2017 (prescribed at [facility]) as well as ceftriaxone IM [...] Comment: diluted w/ normal saline lot number [id number] expires 02/27/2023 2Result Comment: Received in [place] Medications amitriptyline 10 mg oral tablet 20 mg, 2, tablet, By Mouth, Daily at bedtime, New medication to prevent migraines. Causes sleepiness - take before bed ., # 30 tablet, Refills 0, Tot. Refills 0, Maintenance, 09/04/21 12:35:00 EDT, Route to Pharmacy Electronically, [facility]... Start Date: 09/04/21 Status: Ordered azelastine nasal 0.15% spray 2 sprays, Nares, Both, 2 times a day, PRN for allergy symptoms, # 30 mL, 5 Refills, Maintenance, 01/23/21 14:38:00 EST, [place], [facility], 2 sprays Nares, Both 2 times a day,PRN:for allergy symptoms, 175, cm, 02/25/20 12:28:00 EDT, He... Start Date: 01/23/21 Status: Ordered beclomethasone 0.042 mg/inh nasal spray 1 sprays, Nares, Both, 2 times a day, in each nostril, # 25 Gm, 5 Refills, Maintenance, 12/21/19 14:09:00 EST, [facility], d/c fluconasol, 1 sprays Nares, Both 2 times a day,Instr:ineach nostril, 175, cm, 07/04/19 15:37:00 EDT, [place]... Start Date: 12/21/19 Status: Ordered Biktarvy oral tablet 1 tablet, By Mouth, Daily, # 30 tablet, 11 Refills, Maintenance, 03/27/22 13:37:00 EDT, Tablet, [facility], Partial fill upon patient [...] constipation, 12/02/17 13:58:38, Route to Pharmacy Electronically, [id number], [facility] Start Date: 12/02/17 [...] Maintenance, 09/04/21 12:34:00EDT, Route to Pharmacy Electronically, [facility]... Start Date: 09/04/21 Status: Ordered [...] 14:05:00 EST, Aerosol, Route to Pharmacy Electronically, [id number], [facility], 175, cm, 07/04/19 15:37:00 EDT, Height, 109.... Start Date: 12/27/19 Status: Ordered sucralfate 1 gm oral tablet 1 Gm, 1, tablet, By Mouth, 4 times a day, # 120 tablet, Refills 3, Tot. Refills 3, Maintenance, 12/19/21 13:28:00 EST, Route to Pharmacy Electronically, [facility], Partial fill uponpatient request if the prescription is for a schedu... Start Date: 12/19/21 Status: Ordered traZODone 150 mg oral tablet 1 tablet = 150 mg, By Mouth, Daily at bedtime, For sleep., # 30 tablet, 5 Refills, Maintenance, 09/04/21 12:32:00 EDT, Tablet, [facility], Partial fill upon patient request if the prescription is for a schedule II opioid drug., 175, c... Start Date: 09/04/21 Status: Ordered triamcinolone 0.1% topical cream 1 application, Topically, 2 times a day, apply a thin film to affected area in armpit, # 80 Gm, 2 Refills, Maintenance, 11/19/21 11:29:00 EST, Cream, [facility], Partial fill upon patient [...] 0 Refills, Soft Stop, 03/05/22 15:02:00 EDT, Tablet,[facility], Partial fill upon [...]
--- OUTSIDE RECORDS SUMMARY | 2023-07-22 17:13 | XMS_ITS | Continuity of Care Document ---
Author Name Unknown Organization [facility] Address [address] [place] [address]- Care Team Providers Care Cvicu Nurse Name Role Phone Pearl Reyna MD Primary Care Physician Encounter [facility] Date(s): 11/20/20 - 12/20/[address] [address]- Encounter Diagnosis Exposure to COVID-19 virus(Discharge Diagnosis) - 11/22/20 Allergies, Adverse Reactions, Alerts Substance Reaction Severity Status Rocephin 1 rash Resolved Ziagen HLA B5701 positive Active Complera allergic to the rilp irivine componant of Complera-tolerates truvada Active 1Not allergic. Tolerated cefpodoxime 10/2017 (prescribed at [facility] ED) as well as ceftriaxone [...] mL, 5 Refills, Maintenance, 06/20/20 8:33:00 EDT, [place], [facility], 2 sprays Nares, Both 2 times a day,PRN:for allergy symptoms, 175, cm, 02/25/20 12:28:00 EDT, Hei... Start Date: 06/20/20 Status: Ordered beclomethasone 0.042 mg/inh nasal spray 1 sprays, Nares, Both, 2 times a day, in each nostril, # 25 Gm, 5 Refills, Maintenance, 12/21/19 14:09:00 EST, [facility], d/c fluconasol, 1 sprays Nares, Both 2 times a day,Instr:ineach nostril, 175, cm, 07/04/19 15:37:00 EDT, Heigh... Start Date: 12/21/19 Status: Ordered Biktarvy oral tablet 1 tablet, By Mouth, Daily, # 30 tablet, 11 Refills, Maintenance, 12/06/20 13:38:00 EST, Tablet, [facility], 1 tablet By Mouth Daily, 175, cm, 02/25/20 12:28:00 EDT, Height, 109.9, kg, 07/01/19 10:09:00 EDT, Dry Weight Start Date: 12/06/20 Status: Ordered buPROPion 300 mg/24 hours (XL) oral tablet, extended release 1 tablet = 300 mg, By Mouth, Every 24 hours, # 30 tablet, 11 Refills, Maintenance, 12/21/19 14:10:00 EST, [facility], note dose change, 175, cm, 07/04/19 15:37:00 EDT, Height, 109.9,kg, 07/01/19 10:09:00 EDT, Dry Weight Start Date: 12/21/19 Status: Ordered Colace sodium 100 mg oral capsule 100 mg, 1, capsule, By Mouth, 2 times a day, PRN, # 60 capsule, Refills 3, Tot. Refills 3, Maintenance, for constipation, 12/02/17 13:58:38, Route to Pharmacy Electronically, NCPDP_[id number], [facility] Start Date: 12/02/17 Status: Ordered Flomax 0.4 mg oral capsule 0.4 mg, 1, capsule, By Mouth, Daily, To help kidney stone pass, # 15 capsule, Refills 0, Tot. Refills 0, Maintenance, 05/10/20 16:01:00 EDT, Route to Pharmacy Electronically, [facility], 175, cm, 02/25/20 12:28:00 EDT, Height, 109.9,... Start Date: 05/10/20 Status: Ordered Flonase 50 mcg/inh nasal spray 2 sprays, Nares, Both, Daily in AM, # 16 Gm, 5 Refills, Maintenance, 06/20/20 8:34:00 EDT, [place], [facility], 2 sprays Nares, Both Daily in AM,x14 days, 175, cm, 02/25/20 12:28:00 EDT, Height, 109.9, kg, 07/01/19 10:09:00 EDT, Dry Weight Start Date: 06/20/20 Stop Date: 09/12/20 Status: Ordered Flovent HFA 110 mcg/inh inhalation aerosol 2 puffs, Inhalation, 2 times a day, # 12 Gm, 0 Refills, Maintenance, 03/16/20 14:12:00 EDT, Aeros[place], [facility], 175, cm, 02/25/20 12:28:00 EDT, Height, 109.9, kg, 07/01/19 10:09:00 EDT, Dry Weight Start Date: 03/16/20 Status: Ordered hydrOXYzine hydrochloride 25 mg oral tablet 1 tablet = 25 mg, By Mouth, 4 times a day, PRN for anxiety, # 40 tablet, 0 Refills, Maintenance, 02/15/20 13:29:00 EDT, Tablet, [facility]/pharmacy #[id number], 175, cm, 07/04/19 15:37:00 [...] 11/20/20 13:45:00 EST, Route to Pharmacy Electronically, [facility]... Start Date: 11/20/20 Status: Ordered Narcan 4 mg/0.1 mL nasal spray = 4 mg, Nares, Both, Once, In case of overdose: spray in nose, call 911, repeat every 2 mins as needed, # 2 each, 5 Refills, Soft Stop, 12/28/19 9:06:00 EST, [facility]/pharmacy #[id number], 175, cm, 07/04/19 15:37:00 [...] 14:05:00 EST, Aerosol, Route to Pharmacy Electronically, NCPDP_[id number], [facility], 175, cm, 07/04/19 15:37:00 EDT, Height, 109.... Start Date: 12/27/19 Status: Ordered SUMAtriptan 25 mg oral tablet 1 tablet = 25 mg, By Mouth, Daily, PRN for migraine headache, may repeat dose after 2 hours up to amaximum of 2, # 9 tablet, 11 Refills, Maintenance, 12/21/19 14:11:00 EST, Tablet, [facility], 175, cm, 07/04/19 15:37:00 EDT, Height,... Start Date: 12/21/19 Status: Ordered traZODone 50 mg oral tablet 50 mg, 1, tablet, By Mouth, Daily at bedtime, as needed for insomnia; if too sedating, take 1/2 tablet, # 30 tablet, Refills 3, Tot. Refills 3, Maintenance, 12/06/20 13:11:00 EST, Route to Pharmacy Electronically, [facility], Partial... Start Date: 12/06/20 Status: Ordered Tylenol 325 mg oral tablet 650 mg, 2, tablet, By Mouth, Every 4 hours, PRN, # 120 tablet, Refills 0, Tot. Refills 0, Maintenance, for fever, 02/15/20 13:30:00 EDT, Route to Pharmacy Electronically, [facility]/pharmacy #[id number], 175, cm,07/04/19 15:37:00 EDT, Height, 109.9, kg, 07/01/19... Start Date: 02/15/20 Status: Ordered ZyrTEC 10 mg oral tablet 1 tablet = 10 mg, By Mouth, Daily, as needed for seasonal allergies, # 30 tablet, 5 Refills, Maintenance, 12/21/19 14:10:00 EST, Tablet, [facility], 175, cm, 07/04/19 15:37:00 EDT, Height, [...] Dates Health Status Cl inical Service Informant Exposure to COVID-19 virus Discharge Diagnosis 11/22/20 Social History Social History Type Response Smoking Status Current every day mike malone entered on: 11/09/17 Sex
--- OUTSIDE RECORDS SUMMARY | 2023-07-22 17:13 | XMS_ITS | Continuity of Care Document ---
Author Name Unknown Organization [facility] Address [address] [place] [address]- Care Team Providers Care School Custodian Name Role Phone Maribell REEDER, Pearl Primary Care Physician Encounter [facility] Date(s): 08/13/21 - 09/12/21 [facility] [address] [place] [address]- Attending Physician: John Clark Admitting Physician: AdmJohn [...] Comment: diluted w/ normal saline lot number [id number] expires 02/27/2023 2Result Comment: Received in [place] Medications amitriptyline 10 mg oral tablet 20 mg, 2, tablet, By Mouth, Daily at bedtime, New medication to prevent migraines. Causes sleepiness - take before bed ., # 30 tablet, Refills 0, Tot. Refills 0, Maintenance, 09/04/21 12:35:00 EDT, Route to Pharmacy Electronically, [facility]... Start Date: 09/04/21 Status: Ordered azelastine nasal 0.15% spray 2 sprays, Nares, Both, 2 times a day, PRN for allergy symptoms, # 30 mL, 5 Refills, Maintenance, 01/23/21 14:38:00 EST, [place], [facility], 2 sprays Nares, Both 2 times a day,PRN:for allergy symptoms, 175, cm, 02/25/20 12:28:00 EDT, He... Start Date: 01/23/21 Status: Ordered beclomethasone 0.042 mg/inh nasal spray 1 sprays, Nares, Both, 2 times a day, in each nostril, # 25 Gm, 5 Refills, Maintenance, 12/21/19 14:09:00 EST, [facility], d/c fluconasol, 1 sprays [...] tablet, 11 Refills, Maintenance, 12/21/19 14:10:00 EST, [facility], note dose change, 175, cm, 07/04/19 15:37:00 EDT, Height, 109.9,kg, 07/01/19 10:09:00 EDT, Dry Weight Start Date: 12/21/19 Status: Ordered Colace sodium 100 mg oral capsule 100 mg, 1, capsule, By Mouth, 2 times a day, PRN, # 60 capsule, Refills 3, Tot. Refills 3, Maintenance, for constipation, 12/02/17 13:58:38, Route to Pharmacy Electronically, NCPDP_[id number], [facility] Start Date: 12/02/17 Status: [...] 5 Refills, Maintenance, 02/12/21 11:54:00 EDT, Tablet, [facility], Partial fill upon patient request if the prescription is for a schedu... Start Date: 02/12/21 Status: Ordered Flonase 50 mcg/inh nasal spray 2 sprays, Nares, Both, Daily in AM, # 16 Gm, 5 Refills, Maintenance, 06/20/20 8:34:00 EDT, [place], [facility], 2 sprays Nares, Both Daily in AM,x14 days, 175, cm, 02/25/20 12:28:00 EDT, Height, 109.9, kg, 07/01/19 10:09:00 EDT, Dry Weight Start Date: 06/20/20 Stop Date: 09/12/20 Status: Ordered Flovent HFA 110 mcg/inh inhalation aerosol 2 puffs, Inhalation, 2 times a day, # 12 Gm, 0 Refills, Maintenance, 03/16/20 14:12:00 EDT, Aeros[place], [facility], 175, cm, 02/25/20 12:28:00 [...] 14:05:00 EST, Aerosol, Route to Pharmacy Electronically, NCPDP_[id number], [facility], 175, cm, [...] EDT, Route to Pharmacy Electronically, [facility]/pharmacy #[id number], 175, cm,07/04/19 15:37:00 EDT, Height, 109.9, kg, 07/01/19... 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 Chronic rhinitis(Confirmed) Active Pseudoseizures(Confirmed) Active Epigastric pain(Confirmed) Active Insomnia(Confirmed) Active Kidney stones, mixed calcium oxalate(Confirmed) Active Overweight(Confirmed) Active Care Management [facility], Tristan Albarran (Confirmed) Active Post traumatic stress disord er (PTSD)(Confirmed) Active Urethritis(Confirmed) 2 Active 1per histology 01/30/2015 2persistent urethritis sx without e/o inflammation (UA repeatedly negative) or infection (GC/CT repeatedly negative; negative trich, negative mycoplasma genitalium) Social History Social History Type Response Smoking Status Current every day mike malone entered on: 11/09/17 Sex
--- OUTSIDE RECORDS SUMMARY | 2023-07-22 17:13 | XMS_ITS | Continuity of Care Document ---
Author Name Unknown Organization [facility] Address [address] [place] [address]- Care Team Providers Care Wheelchair Van Driver Name Role Phone Pearl Reyna MD Primary Care Physician Encounter [facility] Date(s): 09/13/21 - 10/13/[address] [address]- Allergies, Adverse Reactions, Alerts Substance Reaction Severity [...] Comment: diluted w/ normal saline lot number [id number] expires 02/27/2023 2Result Comment: Received in [place] Medications amitriptyline 10 mg oral tablet 20 mg, 2, tablet, By Mouth, Daily at bedtime, New medication to prevent migraines. Causes sleepiness - take before bed ., # 30 tablet, Refills 0, Tot. Refills 0, Maintenance, 09/04/21 12:35:00 EDT, Route to Pharmacy Electronically, [facility]... Start Date: 09/04/21 Status: Ordered azelastine nasal 0.15% spray 2 sprays, Nares, Both, 2 times a day, PRN for allergy symptoms, # 30 mL, 5 Refills, Maintenance, 01/23/21 14:38:00 EST, [place], [facility], 2 sprays Nares, Both 2 times a day,PRN:for allergy symptoms, 175, cm, 02/25/20 12:28:00 EDT, He... Start Date: 01/23/21 Status: Ordered beclomethasone 0.042 mg/inh nasal spray 1 sprays, Nares, Both, 2 times a day, in each nostril, # 25 Gm, 5 Refills, Maintenance, 12/21/19 14:09:00 EST, [facility], d/c fluconasol, 1 sprays Nares, [...] constipation, 12/02/17 13:58:38, Route to Pharmacy Electronically, NCPDP_[id number], [facility] Start Date: 12/02/17 Status: Ordered [...] 02/12/21 11:54:00 EDT, Tablet, [facility], Partial fill upon patient request if the prescription is for a schedu... Start Date: 02/12/21 Status: Ordered Flonase 50 mcg/inh nasal spray 2 sprays, Nares, Both, Daily in AM, # 16 Gm, 5 Refills, Maintenance, 06/20/20 8:34:00 EDT, [place], [facility], 2 sprays Nares, Both Daily in AM,x14 days, 175, cm, 02/25/20 12:28:00 EDT, Height, 109.9, kg, 07/01/19 10:09:00 EDT, Dry Weight Start Date: 06/20/20 Stop Date: 09/12/20 Status: Ordered Flovent HFA 110 mcg/inh inhalation aerosol 2 puffs, Inhalation, 2 times a day, # 12 Gm, 0 Refills, Maintenance, 03/16/20 14:12:00 EDT, Aeros[place], [facility], 175, cm, 02/25/20 12:28:00 EDT, Height, 109.9, kg, 07/01/19 10:09:00 EDT, Dry Weight Start Date: 03/16/20 Status: Ordered ibuprofen 800 mg oral tablet 800 mg, 1, tablet, By Mouth, Daily, As needed for migraine and kidney stone pain. do not use daily,it will make migraine worse, # 30 tablet, Refills 2, Tot. Refills 2, Maintenance, 09/04/21 12:34:00EDT, Route to Pharmacy Electronically, [facility]... Start Date: 09/04/21 Status: Ordered Narcan 4 mg/0.1 mL nasal spray = 4 mg, Nares, Both, Once, In case of overdose: spray in nose, call 911, repeat every 2 mins as needed, # 2 each, 5 Refills, Soft Stop, 12/28/19 9:06:00 EST, [facility]/pharmacy #[id number], 175, cm, 07/04/19 15:37:00 EDT, Height, [...] 14:05:00 EST, Aerosol, Route to Pharmacy Electronically, UTPDP_[id number], [facility], 175, cm, 07/04/19 15:37:00 EDT, Height, 109.... Start Date: 12/27/19 Status: Ordered traZODone 150 mg oral tablet 1 tablet = 150 mg, By Mouth, Daily at bedtime, For sleep., # 30 tablet, 5 Refills, Maintenance, 09/04/21 12:32:00 EDT, Tablet, [facility], Partial fill upon patient request if the prescription is for a schedule II opioid drug., 175, c... Start Date: 09/04/21 Status: Ordered Tylenol 325 mg oral tablet 650 mg, 2, tablet, By Mouth, Every 4 hours, PRN, # 120 tablet, Refills 0, Tot. Refills 0, Maintenance, for fever, 02/15/20 13:30:00 EDT, Route to Pharmacy Electronically, [facility]/pharmacy #[id number], 175, cm,07/04/19 15:37:00 EDT, Height, 109.9, [...]
--- OUTSIDE RECORDS SUMMARY | 2023-07-22 17:13 | XMS_ITS | Continuity of Care Document ---
Author Name Unknown Organization [facility] Address [address] [place] [address]- Care Team Providers Care Middle School Assistant Principal Name Role Phone Pearl Reyna MD Primary Care Physician Encounter [facility] R [id number] Date(s): 04/22/22 - 05/22/[address] [address]- Attending Physician: John Clark Admitting Physician: John Clark Referring Physician: John Clark Allergies, Adverse Reactions, Alerts Substance Reaction Severity Status Complera allergic to the rilp irivine componant of Complera-tolerates truvada Active Rocephin 1 rash Resolved abacavir 2 Active Ziagen HLA B5701 positive Active 1Not allergic. Tolerated cefpodoxime 10/2017 (prescribed at [facility] ED) as well as [...] Comment: diluted w/ normal saline lot number [id number] expires 02/27/2023 2Result Comment: Received in [place] Medications amitriptyline 10 mg oral tablet 20 mg, 2, tablet, By Mouth, Daily at bedtime, New medication to prevent migraines. Causes sleepiness - take before bed ., # 30 tablet, Refills 0, Tot. Refills 0, Maintenance, 09/04/21 12:35:00 EDT, Route to Pharmacy Electronically, [facility]... Start Date: 09/04/21 Status: Ordered azelastine nasal 0.15% spray 2 sprays, Nares, Both, 2 times a day, PRN for allergy symptoms, # 30 mL, 5 Refills, Maintenance, 01/23/21 14:38:00 EST, [place], [facility], 2 sprays Nares, Both [...] constipation, 12/02/17 13:58:38, Route to Pharmacy Electronically, MAPDP_[id number], [facility] Start Date: 12/02/17 Status: [...] 5 Refills, Maintenance, 02/12/21 11:54:00 EDT, Tablet, [facility], Partial fill upon patient request if the prescription is for a schedu... Start Date: 02/12/21 Status: Ordered Flomax 0.4 mg oral capsule 0.4 mg, 1, capsule, By Mouth, Daily, To help kidney stone pass, # 30 capsule, Refills 1, Tot. Refills 1, Maintenance, 04/15/22 13:06:00 EDT, Route to Pharmacy Electronically, [facility], 175, cm, 11/19/21 10:53:00 EST, Height Start Date: 04/15/22 Status: Ordered ibuprofen 800 mg oral tablet 800 mg, 1, tablet, By Mouth, Daily, As needed for migraine and kidney stone pain. do not use daily,it will make migraine worse, # 30 tablet, Refills 2, Tot. Refills 2, Maintenance, 09/04/21 12:34:00EDT, Route to Pharmacy Electronically, [facility]... Start Date: 09/04/21 Status: Ordered Narcan 4 mg/0.1 mL nasal spray = 4 mg, Nares, Both, Once, In case of overdose: spray in nose, call 911, repeat every 2 mins as needed, # 2 each, 5 Refills, Soft Stop, 12/28/19 9:06:00 EST, [facility]/pharmacy #[id number], 175, cm, 07/04/19 15:37:00 EDT, [...] 14:05:00 EST, Aerosol, Route to Pharm[facility] Electronically, [id number], [facility], 175, cm, 07/04/19 15:37:00 EDT, Height, 109.... Start Date: 12/27/19 Status: Ordered sucralfate 1 gm oral tablet 1 Gm, 1, tablet, By Mouth, 4 times a day, # 120 tablet, Refills 3, Tot. Refills 3, Maintenance, 12/19/21 13:28:00 EST, Route to Pharmacy Electronically, [facility], Partial fill uponpatient request if the prescription is for a schedu... Start Date: 12/19/21 Status: Ordered traZODone 150 mg oral tablet 1 tablet = 150 mg, By Mouth, Daily at bedtime, For sleep., # 30 tablet, 5 Refills, Maintenance, 09/04/21 12:32:00 EDT, Tablet, [facility], Partial fill [...] 13:30:00 EDT, Route to Pharmacy Electronically, [facility]/pharmacy #[id number], 175, cm,07/04/19 15:37:00 EDT, Height, 109.9, kg, 07/01/19... Start Date: 02/15/20 Status: Ordered Zithromax 250 mg oral tablet 2 tablet = 500 mg, By Mouth, Once, # 2 tablet, 0 Refills, Soft Stop, 03/05/22 15:02:00 EDT, Tablet,[facility], Partial fill upon patient request [...]
--- OUTSIDE RECORDS SUMMARY | 2023-07-22 17:13 | XMS_ITS | Continuity of Care Document ---
Author Name Unknown Organization [facility] Address [address] [place] [address]- Care Team Providers Care Center Maker Hand Name Role Phone Pearl Reyna MD Primary Care Physician Encounter [facility] Date(s): 11/07/21 - 12/08/[address] [address]- Attending Physician: Not on Staff, Attending MD Allergies, Adverse Reactions, Alerts Substance Reaction Severity Status Rocephin 1 rash Resolved abacavir 2 Active Ziagen HLA B5701 positive Active Complera allergic to the rilp irivine componant of Complera-tolerates truvada Active 1Not allergic. Tolerated cefpodoxime 10/2017 (prescribed at [facility] ED) as well as ceftriaxone IM (administered [...] Comment: diluted w/ normal saline lot number [id number] expires 02/27/2023 2Result Comment: Received in [place] Medications amitriptyline 10 mg oral tablet 20 mg, 2, tablet, By Mouth, Daily at bedtime, New medication to prevent migraines. Causes sleepiness - take before bed ., # 30 tablet, Refills 0, Tot. Refills 0, Maintenance, 09/04/21 12:35:00 EDT, Route to Pharmacy Electronically, [facility]... Start Date: 09/04/21 Status: Ordered azelastine nasal 0.15% spray 2 sprays, Nares, Both, 2 times a day, PRN for allergy symptoms, # 30 mL, 5 Refills, Maintenance, 01/23/21 14:38:00 EST, [place], [facility], 2 sprays Nares, Both 2 times a day,PRN:for allergy symptoms, 175, cm, 02/25/20 12:28:00 EDT, He... Start Date: 01/23/21 Status: Ordered beclomethasone 0.042 mg/inh nasal spray 1 sprays, Nares, Both, 2 times a day, in each nostril, # 25 Gm, 5 Refills, Maintenance, 12/21/19 14:09:00 EST, [facility], d/c fluconasol, 1 sprays Nares, [...] constipation, 12/02/17 13:58:38, Route to Pharmacy Electronically, NCPDP_[id number], [facility] Start Date: 12/02/17 Status: [...] 5 Refills, Maintenance, 02/12/21 11:54:00 EDT, Tablet, [facility], Partial fill upon patient request if the prescription is for a schedu... Start Date: 02/12/21 Status: Ordered Flonase 50 mcg/inh nasal spray 2 sprays, Nares, Both, Daily in AM, # 16 Gm, 5 Refills, Maintenance, 06/20/20 8:34:00 EDT, [place], [facility], 2 sprays Nares, Both Daily in AM,x14 days, 175, cm, 02/25/20 12:28:00 EDT, Height, 109.9, kg, 07/01/19 10:09:00 EDT, Dry Weight Start Date: 06/20/20 Stop Date: 09/12/20 Status: Ordered Flovent HFA 110 mcg/inh inhalation aerosol 2 puffs, Inhalation, 2 times a day, # 12 Gm, 0 Refills, Maintenance, 03/16/20 14:12:00 EDT, Aeros[place], [facility], 175, cm, 02/25/20 12:28:00 EDT, Height, 109.9, kg, 07/01/19 10:09:00 EDT, Dry Weight Start Date: 03/16/20 Status: Ordered ibuprofen 800 mg oral tablet 800 mg, 1, tablet, By Mouth, Daily, As needed for migraine and kidney stone pain. do not use daily,it will make migraine worse, # 30 tablet, Refills 2, Tot. Refills 2, Maintenance, 09/04/21 12:34:00EDT, Route to Pharmacy Electronically, [facility]... Start Date: 09/04/21 Status: Ordered [...] 14:05:00 EST, Aerosol, Route to Pharmacy Electronically, NCPDP_[id number], [facility], 175, cm, 07/04/19 15:37:00 EDT, Height, 109.... Start Date: 12/27/19 Status: Ordered traZODone 150 mg oral tablet 1 tablet = 150 mg, By Mouth, Daily at bedtime, For sleep., # 30 tablet, 5 Refills, Maintenance, 09/04/21 12:32:00 EDT, Tablet, [facility], Partial fill upon patient request if the prescription is for a schedule II opioid drug., 175, c... Start Date: 09/04/21 Status: Ordered triamcinolone 0.1% topical cream 1 application, Topically, 2 times a day, apply a thin film to affected area in armpit, # 80 Gm, 2 Refills, Maintenance, 11/19/21 11:29:00 EST, [place], [facility], Partial fill upon patient request [...]
--- OUTSIDE RECORDS SUMMARY | 2023-07-22 17:13 | XMS_ITS | Continuity of Care Document ---
Author Name Unknown Organization [facility] Address [address] [place] [address]- Care Team Providers Care Wireless Network Engineer Name Role Phone Pearl Reyna MD Primary Care Physician Encounter [facility] [id number] Date(s): 12/19/21 - 01/18/[address] [address]- Attending Physician: John Clark Admitting Physician: John Clark Referring Physician: AdmtrJohn Allergies, Adverse Reactions, Alerts Substance Reaction Severity Status Rocephin 1 rash Resolved abacavir 2 Active Ziagen HLA B5701 positive Active Complera allergic to the rilp irivine componant of Complera-tolerates truvada Active 1Not allergic. Tolerated cefpodoxime 10/2017 (prescribed at [facility] ED) as well as ceftriaxone IM [...] Comment: diluted w/ normal saline lot number [id number] expires 02/27/2023 2Result Comment: Received in [place] Medications amitriptyline 10 mg oral tablet 20 mg, 2, tablet, By Mouth, Daily at bedtime, New medication to prevent migraines. Causes sleepiness - take before bed ., # 30 tablet, Refills 0, Tot. Refills 0, Maintenance, 09/04/21 12:35:00 EDT, Route to Pharmacy Electronically, [facility]... Start Date: 09/04/21 Status: Ordered azelastine nasal 0.15% spray 2 sprays, Nares, Both, 2 times a day, PRN for allergy symptoms, # 30 mL, 5 Refills, Maintenance, 01/23/21 14:38:00 EST, [place], [facility], 2 sprays Nares, Both 2 times a day,PRN:for allergy symptoms, 175, cm, 02/25/20 12:28:00 EDT, He... Start Date: 01/23/21 Status: Ordered beclomethasone 0.042 mg/inh nasal spray 1 sprays, Nares, Both, 2 times a day, in each nostril, # 25 Gm, 5 Refills, Maintenance, 12/21/19 14:09:00 EST, [facility], d/c fluconasol, 1 sprays Nares, Both [...] constipation, 12/02/17 13:58:38, Route to Pharmacy Electronically, NCPDP_[id number], [facility] Start Date: 12/02/17 Status: [...] 5 Refills, Maintenance, 02/12/21 11:54:00 EDT, Tablet, [facility], Partial fill upon patient request if the prescription is for a schedu... Start Date: 02/12/21 Status: Ordered Flonase 50 mcg/inh nasal spray 2 sprays, Nares, Both, Daily in AM, # 16 Gm, 5 Refills, Maintenance, 06/20/20 8:34:00 EDT, [place], [facility], 2 sprays Nares, Both Daily in AM,x14 days, 175, cm, 02/25/20 12:28:00 EDT, Height, 109.9, kg, 07/01/19 10:09:00 EDT, Dry Weight Start Date: 06/20/20 Stop Date: 09/12/20 Status: Ordered Flovent HFA 110 mcg/inh inhalation aerosol 2 puffs, Inhalation, 2 times a day, # 12 Gm, 0 Refills, Maintenance, 03/16/20 14:12:00 EDT, [place], [facility], 175, cm, 02/25/20 12:28:00 EDT, Height, [...] 14:05:00 EST, Aerosol, Route to Pharmacy Electronically, NCPDP_[id number], [facility], 175, cm, 07/04/19 15:37:00 EDT, Height, 109.... Start Date: 12/27/19 Status: Ordered sucralfate 1 gm oral tablet 1 Gm, 1, tablet, By Mouth, 4 times a day, # 120 tablet, Refills 3, Tot. Refills 3, Maintenance, 12/19/21 13:28:00 EST, Route to Pharmacy Electronically, [facility], Partial fill uponpatient request if the prescription is for a schedu... Start Date: 12/19/21 Status: Ordered traZODone 150 mg oral tablet 1 tablet = 150 mg, By Mouth, Daily at bedtime, For sleep., # 30 tablet, 5 Refills, Maintenance, 09/04/21 12:32:00 EDT, Tablet, [facility], Partial fill upon patient request if the prescription is for a schedule II opioid drug., 175, c... Start Date: 09/04/21 Status: Ordered triamcinolone 0.1% topical cream 1 application, Topically, 2 times a day, apply a thin film to affected area in armpit, # 80 Gm, 2 Refills, Maintenance, 11/19/21 11:29:00 EST, [place], [facility], Partial fill upon patient request if the prescription is for a schedule... Start Date: 11/19/21 Status: Ordered Tylenol 325 mg oral tablet 650 mg, 2, tablet, By Mouth, Every 4 hours, PRN, # 120 tablet, Refills 0, Tot. Refills 0, Maintenance, for fever, 02/15/20 13:30:00 EDT, Route to Pharmacy Electronically, [facility]/pharmacy #[id number], 175, cm,07/04/19 15:37:00 EDT, Height, [...]
--- OUTSIDE RECORDS SUMMARY | 2023-07-22 17:13 | XMS_ITS | Continuity of Care Document ---
Author Name Unknown Organization [facility] Address [address] [place] [address]- Care Team Providers Care Administration Manager Name Role Phone Pearl Reyna MD Primary Care Physician Encounter [facility] Date(s): 08/15/22 - 09/14/[address] [address]- Allergies, Adverse Reactions, Alerts Substance Reaction Severity [...] Comment: diluted w/ normal saline lot number [id number] expires 02/27/2023 2Result Comment: Received in [place] Medications amitriptyline 10 mg oral tablet 20 mg, 2, tablet, By Mouth, Daily at bedtime, New medication to prevent migraines. Causes sleepiness - take before bed ., # 30 tablet, Refills 0, Tot. Refills 0, Maintenance, 09/04/21 12:35:00 EDT, Route to Pharmacy Electronically, [facility] Start Date: 09/04/21 Status: Ordered azelastine nasal 0.15% spray 2 sprays, Nares, Both, 2 times a day, PRN for allergy symptoms, # 30 mL, 5 Refills, Maintenance, 01/23/21 14:38:00 EST, [place], [facility], 2 sprays Nares, Both 2 times a day,PRN:for allergy symptoms, 175, cm, 02/25/20 12:28:00 EDT, He... Start Date: 01/23/21 Status: Ordered beclomethasone 0.042 mg/inh nasal spray 1 sprays, Nares, Both, 2 times a day, in each nostril, # 25 Gm, 5 Refills, Maintenance, 12/21/19 14:09:00 EST, [facility], d/c fluconasol, 1 sprays Nares, Both 2 times a day,Instr:ineach nostril, 175, cm, 07/04/19 15:37:00 EDT, [place]... Start Date: 12/21/19 Status: Ordered Biktarvy oral tablet 1 tablet, By Mouth, Daily, # 30 tablet, 11 Refills, Maintenance, 03/27/22 13:37:00 EDT, Tablet, [facility], Partial fill upon patient request if the prescription is for a schedule IIopioid drug., 1 tablet By Mouth Daily, 175, cm, 12/... Start Date: 03/27/22 Status: Ordered Colace sodium 100 mg oral capsule 100 mg, 1, capsule, By Mouth, 2 times a day, PRN, # 60 capsule, Refills 3, Tot. Refills 3, Maintenance, for constipation, 12/02/17 13:58:38, Route to Pharmacy Electronically, NCPDP_[id number], [facility] Start Date: 12/02/17 Status: Ordered diclofenac [...] 5 Refills, Maintenance, 02/12/21 11:54:00 EDT, Tablet, [facility], Partial fill upon patient request if the prescription is for a schedu... Start Date: 02/12/21 Status: Ordered Flomax 0.4 mg oral capsule 0.4 mg, 1, capsule, By Mouth, Daily, To help kidney stone pass, # 30 capsule, Refills 1, Tot. Refills 1, Maintenance, 04/15/22 13:06:00 EDT, Route to Pharmacy Electronically, [facility], 175, cm, 11/19/21 10:53:00 EST, Height Start Date: 04/15/22 Status: Ordered ibuprofen 800 mg oral tablet 800 mg, 1, tablet, By Mouth, Daily, As needed for migraine and kidney stone pain. do not use daily,it will make migraine worse, # 30 tablet, Refills 3, Tot. Refills 3, Maintenance, 05/23/22 17:46:00EDT, Route to Pharmacy Electronically, [facility] Start Date: 05/23/22 Status: Ordered Narcan 4 mg/0.1 mL nasal spray = 4 mg, Nares, Both, Once, In case of overdose: spray in nose, call 911, repeat every 2 mins as needed, # 2 each, 5 Refills, Soft Stop, 12/28/19 9:06:00 EST, [facility]/pharmacy #[id number], 175, cm, 07/04/19 15:37:00 EDT, Height, 109.9, kg, 07/01/19 10:09:00 EDT,... Start Date: 12/28/19 Status: Ordered ondansetron 4 mg oral tablet 1 tablet = 4 mg, By Mouth, Daily, for 30 days, Take as needed for nausea associated with medications, # 30 tablet, 1 Refills, Acute 10/14/22 10:34:00 EST, 08/15/22 10:34:00 EDT, [facility], Partial fill upon patient request [...] tablet, 0 Refills, Maintenance, 08/18/22 14:16:00 EDT, [facility]... Start Date: 08/18/22 Status: Ordered ProAir HFA 90 mcg/inh inhalation aerosol with adapter 2, puffs, Inhalation, Every 4 hours, PRN, # 8.5 Gm, Refills 11, Tot. Refills 11, Maintenance, 08/18/22 14:17:00 EDT, Aerosol, Route to Pharmacy Electronically, NCPDP_[id number], [facility], 175, cm, 11/19/21 10:53:00 EST, Height Start Date: 08/18/22 Status: Ordered sucralfate 1 gm oral tablet 1 Gm, 1, tablet, By Mouth, 4 times a day, # 120 tablet, Refills 3, Tot. Refills 3, Maintenance, 12/19/21 13:28:00 EST, Route to Pharmacy Electronically, [facility], Partial fill uponpatient request if the prescription is for a schedu... Start Date: 12/19/21 Status: Ordered traZODone 150 mg oral tablet 1 tablet = 150 mg, By Mouth, Daily at bedtime, For sleep., # 30 tablet, 11 Refills, Maintenance, 06/27/22 12:36:00 EDT, Tablet, [facility], Partial fill upon patient request if the prescription is for a schedule II opioid drug., 175,... Start Date: 06/27/22 Status: Ordered triamcinolone 0.1% topical cream 1 application, Topically, 2 times a day, apply a thin film to affected area in armpit, # 80 Gm, 2 Refills, Maintenance, 11/19/21 11:29:00 EST, Cream, [facility], Partial fill upon patient request if the prescription is for a schedule... Start Date: 11/19/21 Status: Ordered Tylenol 325 mg oral tablet 650 mg, 2, tablet, By Mouth, Every 4 hours, PRN, # 120 tablet, Refills 0, Tot. Refills 0, Maintenance, for fever, 02/15/20 13:30:00 EDT, Route to Pharmacy Electronically, [facility]/pharmacy #[id number], 175, cm,07/04/19 15:37:00 EDT, Height, 109.9, kg, 07/01/19... Start Date: 02/15/20 Status: Ordered Zithromax 250 mg oral tablet 2 tablet = 500 mg, By Mouth, Once, # 2 tablet, 0 Refills, Soft Stop, 03/05/22 15:02:00 EDT, Tablet,[facility], Partial fill upon patient request if [...] Personnel Name: Pearl Reyna MD Address: Address: [address] [place] [address]
--- OUTSIDE RECORDS SUMMARY | 2023-07-22 17:13 | XMS_ITS | Continuity of Care Document ---
Author Name Unknown Organization [facility] Address [address] [place] [id number]- Care Team Providers Care Home Appliances Mechanic Name Role Phone Pearl Reyna MD Primary Care Physician Encounter [facility] Date(s): 12/29/19 - 12/29/[address] [address]- [facility] Attending Physician: Pearl Reyna MD Allergies, Adverse Reactions, Alerts Substance Reaction Severity Status Rocephin 1 rash Resolved Ziagen HLA B5701 positive Active Complera allergic to the rilp irivine componant of Complera-tolerates truvada Active 1Not allergic. Tolerated cefpodoxime 10/2017 (prescribed at [facility] ED) as well as ceftriaxone IM [...] mL, 5 Refills, Maintenance, 12/27/19 14:06:00 EST, [place], [facility], 2 sprays Nares, Both 2 times a day,PRN:for allergy symptoms, 175, cm, 08/05/19 15:37:00 EDT, He... Start Date: 12/27/19 Status: Ordered beclomethasone 0.042 mg/inh nasal spray 1 sprays, Nares, Both, 2 times a day, in each nostril, # 25 Gm, 5 Refills, Maintenance, 12/21/19 14:09:00 EST, [facility], d/c fluconasol, 1 sprays Nares, Both 2 times a day,Instr:ineach nostril, 175, cm, 07/04/19 15:37:00 EDT, [place]... Start Date: 12/21/19 Status: Ordered Biktarvy oral tablet 1 tablet, By Mouth, Daily, # 30 tablet, 11 Refills, Maintenance, 12/21/19 14:09:00 EST, Tablet, [facility], 1 tablet By Mouth Daily, 175, cm, 07/04/19 15:37:00 EDT, Height, 109.9, kg, 07/01/19 10:09:00 EDT, Dry Weight Start Date: 12/21/19 Status: Ordered buPROPion 300 mg/24 hours (XL) oral tablet, extended release 1 tablet = 300 mg, By Mouth, Every 24 hours, # 30 tablet, 11 Refills, Maintenance, 12/21/19 14:10:00 EST, [facility], note dose change, 175, cm, 07/04/19 15:37:00 EDT, Height, 109.9,kg, 07/01/19 10:09:00 EDT, Dry Weight Start Date: 12/21/19 Status: Ordered Colace sodium 100 mg oral capsule 100 mg, 1, capsule, By Mouth, 2 times a day, PRN, # 60 capsule, Refills 3, Tot. Refills 3, Maintenance, for constipation, 12/02/17 13:58:38, Route to Pharmacy Electronically, NCPDP_[id number], [facility] Start Date: [...] Maintenance, 12/21/19 14:10:00 EST, [facility], [facility]... Start Date: 12/21/19 Status: Ordered Narcan 4 mg/0.1 mL nasal spray = 4 mg, Nares, Both, Once, In case of overdose: spray in nose, call 911, repeat every 2 mins as needed, # 2 each, 5 Refills, Soft Stop, 12/28/19 9:06:00 EST, [facility]/pharmacy #[id number], 175, cm, 07/04/19 15:37:00 EDT, Height, 109.9, kg, 07/01/19 10:09:00 EDT,... Start Date: 12/28/19 Status: Ordered ProAir HFA 90 mcg/inh inhalation aerosol with adapter 2, puffs, Inhalation, Every 4 hours, PRN, # 8.5 Gm, Refills 11, Tot. Refills 11, Maintenance, 12/27/19 14:05:00 EST, Aerosol, Route to Pharmacy Electronically, NCPDP_[id number], [facility], 175, cm, 07/04/19 15:37:00 EDT, Height, 109.... Start Date: 12/27/19 Status: Ordered SUMAtriptan 25 mg oral tablet 1 tablet = 25 mg, By Mouth, Daily, PRN for migraine headache, may repeat dose after 2 hours up to amaximum of 2, # 9 tablet, 11 Refills, Maintenance, 12/21/19 14:11:00 EST, Tablet, [facility], 175, cm, 07/04/19 15:37:00 EDT, Height,... Start Date: 12/21/19 Status: Ordered ZyrTEC 10 mg oral tablet 1 tablet = 10 mg, By Mouth, Daily, as needed for seasonal allergies, # 30 tablet, 5 Refills, Maintenance, 12/21/19 14:10:00 EST, Tablet, [facility], 175, cm, 07/04/19 15:37:00 EDT, [...]
--- OUTSIDE RECORDS SUMMARY | 2023-07-22 17:13 | XMS_ITS | Continuity of Care Document ---
Author Name Unknown Organization [facility] Address [address] [place] [address]- Care Team Providers Care Dried Yeast Supervisor Name Role Phone Pearl Reyna MD Primary Care Physician [place] [facility] Date(s): 08/16/21 - 09/18/[address] [address]- Attending Physician: Not on Staff, Attending MD Referring Physician: Pearl Reyna MD Allergies, Adverse Reactions, Alerts Substance Reaction Severity Status Rocephin 1 rash Resolved abacavir 2 Active Ziagen HLA B5701 positive Active Complera allergic to the rilp irivine componant of Complera-tolerates truvada Active 1Not allergic. Tolerated cefpodoxime 10/2017 (prescribed at [facility] ED) as well as ceftriaxone [...] Comment: diluted w/ normal saline lot number [id number] expires 02/27/2023 2Result Comment: Received in [place] Medications amitriptyline 10 mg oral tablet 20 mg, 2, tablet, By Mouth, Daily at bedtime, New medication to prevent migraines. Causes sleepiness - take before bed ., # 30 tablet, Refills 0, Tot. Refills 0, Maintenance, 09/04/21 12:35:00 EDT, Route to Pharmacy Electronically, [facility]... Start Date: 09/04/21 Status: Ordered azelastine nasal 0.15% spray 2 sprays, Nares, Both, 2 times a day, PRN for allergy symptoms, # 30 mL, 5 Refills, Maintenance, 01/23/21 14:38:00 EST, [place], [facility], 2 sprays Nares, Both 2 times a day,PRN:for allergy symptoms, 175, cm, 02/25/20 12:28:00 EDT, He... Start Date: 01/23/21 Status: Ordered beclomethasone 0.042 mg/inh nasal spray 1 sprays, Nares, Both, 2 times a day, in each nostril, # 25 Gm, 5 Refills, Maintenance, 12/21/19 14:09:00 EST, [facility], d/c fluconasol, 1 sprays Nares, [...] tablet, 11 Refills, Maintenance, 12/21/19 14:10:00 EST, [facility], note dose change, 175, cm, 07/04/19 15:37:00 EDT, Height, 109.9,kg, 07/01/19 10:09:00 EDT, Dry Weight Start Date: 12/21/19 Status: Ordered Colace sodium 100 mg oral capsule 100 mg, 1, capsule, By Mouth, 2 times a day, PRN, # 60 capsule, Refills 3, Tot. Refills 3, Maintenance, for constipation, 12/02/17 13:58:38, Route to Pharmacy Electronically, ILPDP_[id number], [facility] Start Date: 12/02/17 Status: [...] 5 Refills, Maintenance, 02/12/21 11:54:00 EDT, Tablet, [facility], Partial fill upon patient request if the prescription is for a schedu... Start Date: 02/12/21 Status: Ordered Flonase 50 mcg/inh nasal spray 2 sprays, Nares, Both, Daily in AM, # 16 Gm, 5 Refills, Maintenance, 06/20/20 8:34:00 EDT, [place], [facility], 2 sprays Nares, Both Daily in AM,x14 days, 175, cm, 02/25/20 12:28:00 EDT, Height, 109.9, kg, 07/01/19 10:09:00 EDT, Dry Weight Start Date: 06/20/20 Stop Date: 09/12/20 Status: Ordered Flovent HFA 110 mcg/inh inhalation aerosol 2 puffs, Inhalation, 2 times a day, # 12 Gm, 0 Refills, Maintenance, 03/16/20 14:12:00 EDT, Aerosol, [facility], 175, cm, 02/25/20 12:28:00 EDT, Height, 109.9, kg, 07/01/19 10:09:00 EDT, Dry Weight Start Date: 03/16/20 Status: Ordered ibuprofen 800 mg oral tablet 800 mg, 1, tablet, By Mouth, Daily, As needed for migraine and kidney stone pain. do not use daily,it will make migraine worse, # 30 tablet, Refills 2, Tot. Refills 2, Maintenance, 09/04/21 12:34:00EDT, Route to Pharmacy Electronically, [facility]... Start Date: 09/04/21 Status: [...] 14:05:00 EST, Aerosol, Route to Pharmacy Electronically, NCPDP_[id number], [facility], 175, cm, 07/04/19 15:37:00 EDT, Height, 109.... Start Date: 12/27/19 Status: Ordered traZODone 150 mg oral tablet 1 tablet = 150 mg, By Mouth, Daily at bedtime, For sleep., # 30 tablet, 5 Refills, Maintenance, 09/04/21 12:32:00 EDT, Tablet, [facility], Partial fill upon patient request if the prescription is for a schedule II opioid drug., 175, c... Start Date: 09/04/21 Status: Ordered Tylenol 325 mg oral tablet 650 mg, 2, tablet, By Mouth, Every 4 hours, PRN, # 120 tablet, Refills 0, Tot. Refills 0, Maintenance, for fever, 02/15/20 13:30:00 EDT, Route to Pharmacy Electronically, [facility]/pharmacy #[id number], 175, cm,07/04/19 15:37:00 EDT, Height, 109.9, kg, 07/01/19... 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 Chronic rhinitis(Confirmed) Active Pseudoseizures(Confirmed) Active Epigastric pain(Confirmed) Active Insomnia(Confirmed) Active Kidney stones, mixed calcium oxalate(Confirmed) Active Overweight(Confirmed) Active Care Management [facility], Tristan Albarran (Confirmed) Active Post traumatic stress disord er (PTSD)(Confirmed) Active Urethritis(Confirmed) 2 Active 1per histology 01/30/2015 2persistent urethritis sx without e/o inflammation (UA repeatedly negative) or infection (GC/CT repeatedly negative; negative trich, negative mycoplasma genitalium) Social History Social History Type Response Smoking Status Current every day mike malone entered on: 11/09/17 Sex
--- OUTSIDE RECORDS SUMMARY | 2023-07-22 17:13 | XMS_ITS | Continuity of Care Document ---
Author Name Unknown Organization [facility] Address [address] [place] [address]- Care Team Providers Care Scorer Helper Name Role Phone Pearl Reyna MD Primary Care Physician Encounter [facility] Date(s): 05/06/23 - 06/05/[address] [address]- Allergies, Adverse Reactions, Alerts Substance Reaction Severity Status Rocephin 1 rash Resolved abacavir 2 Active Ziagen HLA B5701 positive Active Complera allergic to the rilp irivine componant of Complera-tolerates truvada Active 1Not allergic. Tolerated cefpodoxime 10/2017 (prescribed at [facility] ED) as well as ceftriaxone IM [...] Comment: diluted w/ normal saline lot number [id number] expires 02/27/2023 2Result Comment: Received in [place] Medications albuterol 0.083% inhalation solution 3 mL = 2.5 mg, Neb, Every 6 hours, PRN as needed for wheezing, # 90 mL, 6 Refills, Maintenance, 02/09/23 11:31:00 EDT, [place], [facility], Partial fill upon patient request if the prescription is for a schedule II opioid drug., 175,... Start Date: 02/09/23 Status: Ordered azelastine nasal 0.15% spray 2 sprays, Nares, Both, 2 times a day, PRN for allergy symptoms, # 30 mL, 5 Refills, Maintenance, 01/23/21 14:38:00 EST, [place], [facility], 2 sprays Nares, Both 2 times a day,PRN:for allergy symptoms, 175, cm, 02/25/20 12:28:00 EDT, He... Start Date: 01/23/21 Status: Ordered beclomethasone 0.042 mg/inh nasal spray 1 sprays, Nares, Both, 2 times a day, in each nostril, # 25 Gm, 5 Refills, Maintenance, 12/21/19 14:09:00 EST, [facility], d/c fluconasol, 1 sprays Nares, Both 2 times a day,Instr:ineach nostril, 175, cm, 07/04/19 15:37:00 EDT, Heigh... Start Date: 12/21/19 Status: Ordered Biktarvy oral tablet 1 tablet, By Mouth, Daily, # 30 tablet, 5 Refills, Maintenance, 04/23/23 9:23:00 EDT, Tablet, [facility], 1 tablet By Mouth Daily, 175, cm, 04/23/23 9:01:00 EDT, Height Start Date: 04/23/23 Status: Ordered clonazePAM 0.5 mg oral tablet See Instructions, 1-2 tablets by mouth daily as needed for anxiety/ panic. Dispense: #45 per 30d. ALEE Parikh Checked, appropriate, # 45 tablet, 2 Refills, Maintenance, 05/08/23 16:32:00 EDT, Tablet, [facility], Partial fill upon patien... Start [...] 04/23/23 9:29:00 EDT, Route to Pharmacy Electronically, [facility], 175, cm, 04/23/23 9:01:00 EDT, Height Start Date: 04/23/23 Status: Ordered fexofenadine 180 mg oral tablet 1 tablet = 180 mg, By Mouth, Daily, Instead of cetirizine (Zyrtec). For allergies., # 30 tablet, 5 Refills, Maintenance, 02/12/21 11:54:00 EDT, Tablet, [facility], Partial fill upon patient request if the prescription is for a schedu... Start Date: 02/12/21 Status: Ordered Flomax 0.4 mg oral capsule 0.4 mg, 1, capsule, By Mouth, Daily, To help kidney stone pass, # 30 capsule, Refills 1, Tot. Refills 1, Maintenance, 05/08/23 16:34:00 EDT, Route to Pharmacy Electronically, [facility], 175, cm, 04/23/23 9:43:00 EDT, [...] 5 Refills, Soft Stop, 12/28/19 9:06:00 EST, [facility]/pharmacy #[id number], 175, cm, 07/04/19 15:37:00 EDT, Height, 109.9, kg, 07/01/19 10:09:00 EDT,... Start Date: 12/28/19 Status: Ordered Nebulizer machine Nebulizer machine, See Instructions, # 1 each, Refills 0, Tot. Refills 0, Maintenance, J45. 41 Fax to [employer], 02/11/23 14:58:00 EDT, Supply Start Date: 02/11/23 [...] 14:17:00 EDT, Aerosol, Route to Pharmacy Electronically, NCPDP_[id number], [facility], 175, cm, 11/19/21 10:53:00 EST, Height Start Date: 08/18/22 Status: Ordered sucralfate 1 gm oral tablet 1 Gm, 1, tablet, By Mouth, 4 times a day, # 120 tablet, Refills 3, Tot. Refills 3, Maintenance, 12/19/21 13:28:00 EST, Route to Pharmacy Electronically, [facility], Partial fill uponpatient request if the prescription is for a schedu... Start Date: 12/19/21 Status: Ordered traZODone 150 mg oral tablet 1 tablet = 150 mg, By Mouth, Daily at bedtime, For sleep., # 30 tablet, 3 Refills, Maintenance, 04/23/23 9:24:00 EDT, Tablet, [facility], Partial fill upon patient request if the prescription is for a schedule II opioid drug., 175, cm... Start Date: 04/23/23 Status: Ordered triamcinolone 0.1% topical cream 1 application, Topically, 2 times a day, apply a thin film to affected area in armpit, # 80 Gm, 2 Refills, Maintenance, 11/19/21 11:29:00 EST, Cream, [facility], Partial fill upon patient request if the prescription is for a schedule... Start Date: 11/19/21 Status: Ordered Tylenol 325 mg oral tablet 650 mg, 2, tablet, By Mouth, Every 4 hours, PRN, # 120 tablet, Refills 0, Tot. Refills 0, Maintenance, for fever, 02/15/20 13:30:00 EDT, Route to Pharmacy Electronically, [facility]/pharmacy #[id number], 175, cm,07/04/19 15:37:00 EDT, Height, 109.9, kg, 07/01/19... Start Date: 02/15/20 Status: Ordered ZyrTEC-D 5 mg-120 mg oral tablet, extended release 1 tablet, By Mouth, Every 24 hours, # 30 tablet, 2 Refills, Maintenance, 10/15/22 9:16:00 EST, ER Tablet, [facility], Partial fill upon [...] Primary Care Member Role: PCP Address: Address: [address] [place] [address]- Care Team Related Persons Name: KAITLYN COVARRUBIAS Name: ASHLYN LONG Address: home [address] [place] [address] Name: NO, ONE AT THIS TIME Name: WADE SABILLON
--- OUTSIDE RECORDS SUMMARY | 2023-07-22 17:13 | XMS_ITS | Continuity of Care Document ---
Author Name Unknown Organization [facility] Address [address] [place] [address]- Care Team Providers Care Group Rooms Coordinator Name Role Phone Pearl Reyna MD Primary Care Physician Encounter [facility] Date(s): 08/13/21 - 09/12/[address] [address]- Allergies, Adverse Reactions, Alerts Substance Reaction Severity [...] Comment: diluted w/ normal saline lot number [id number] expires 02/27/2023 2Result Comment: Received in [place] Medications amitriptyline 10 mg oral tablet 20 mg, 2, tablet, By Mouth, Daily at bedtime, New medication to prevent migraines. Causes sleepiness - take before bed ., # 30 tablet, Refills 0, Tot. Refills 0, Maintenance, 09/04/21 12:35:00 EDT, Route to Pharmacy Electronically, [facility]... Start Date: 09/04/21 Status: Ordered azelastine nasal 0.15% spray 2 sprays, Nares, Both, 2 times a day, PRN for allergy symptoms, # 30 mL, 5 Refills, Maintenance, 01/23/21 14:38:00 EST, [place], [facility], 2 [...] tablet, 11 Refills, Maintenance, 12/21/19 14:10:00 EST, [facility], note dose change, 175, cm, 07/04/19 15:37:00 EDT, Height, 109.9,kg, 07/01/19 10:09:00 EDT, Dry Weight Start Date: 12/21/19 Status: Ordered Colace sodium 100 mg oral capsule 100 mg, 1, capsule, By Mouth, 2 times a day, PRN, # 60 capsule, Refills 3, Tot. Refills 3, Maintenance, for constipation, 12/02/17 13:58:38, Route to Pharmacy Electronically, NCPDP_[id number], [facility] Start Date: 12/02/17 Status: [...] 5 Refills, Maintenance, 02/12/21 11:54:00 EDT, Tablet, [facility], Partial fill upon patient request if the prescription is for a schedu... Start Date: 02/12/21 Status: Ordered Flonase 50 mcg/inh nasal spray 2 sprays, Nares, Both, Daily in AM, # 16 Gm, 5 Refills, Maintenance, 06/20/20 8:34:00 EDT, [place], [facility], 2 [...] 09/04/21 12:34:00EDT, Route to Pharmacy Electronically, [facility] Start Date: 09/04/21 Status: Ordered Narcan 4 [...] 14:05:00 EST, Aerosol, [id number], 175, cm, 07/04/19 15:37:00 EDT, Height, 109.... Start Date: 12/27/19 Status: Ordered traZODone 150 mg oral tablet 1 tablet = 150 mg, By Mouth, Daily at bedtime, For sleep., # 30 tablet, 5 Refills, Maintenance, 09/04/21 12:32:00 EDT, Tablet, [facility], Partial fill upon patient [...] calcium oxalate(Confirmed) Active Overweight(Confirmed) Active Care Management [facility], Tristan Albarran (Confirmed) Active Post traumatic stress disord er (PTSD)(Confirmed) Active Urethritis(Confirmed) 2 Active 1per histology 01/30/2015 2persistent urethritis sx without e/o inflammation (UA repeatedly negative) or infection (GC/CT repeatedly negative; negative trich, negative mycoplasma genitalium) Social History Social History Type Response Smoking Status Current every day mike malone entered on: 11/09/17 Sex
--- OUTSIDE RECORDS SUMMARY | 2023-07-22 17:13 | XMS_ITS | Continuity of Care Document ---
Author Name Unknown Organization [facility] Address [address] [place] [address]- Care Team Providers Care Siphon Operator Name Role Phone Pearl Reyna MD Primary Care Physician Encounter [facility] Date(s): 04/02/22 - 05/02/[address] [address]- Allergies, Adverse Reactions, Alerts Substance Reaction Severity Status abacavir 1 Active Ziagen HLA B5701 positive Active Complera allergic to the rilp irivine componant of Complera-tolerates truvada Active Rocephin 2 rash Resolved 1positive HLA B5701 2Not allergic. Tolerated [facility] ([facility] Comment: diluted w/ normal saline lot number [id number] expires 02/27/2023 2Result Comment: Received in [place] Medications amitriptyline 10 mg oral tablet 20 mg, 2, tablet, By Mouth, Daily at bedtime, New medication to prevent migraines. Causes sleepiness - take before bed ., # 30 tablet, Refills 0, Tot. Refills 0, Maintenance, 09/04/21 12:35:00 EDT, Route to Pharmacy Electronically, [facility]... Start Date: 09/04/21 Status: Ordered azelastine nasal 0.15% spray 2 sprays, Nares, Both, 2 times a day, PRN for allergy symptoms, # 30 mL, 5 Refills, Maintenance, 01/23/21 14:38:00 EST, [place], [facility], 2 sprays Nares, Both 2 times a day,PRN:for allergy symptoms, 175, cm, 02/25/20 12:28:00 EDT, He... Start Date: 01/23/21 Status: Ordered beclomethasone 0.042 mg/inh nasal spray 1 sprays, Nares, Both, 2 times a day, in each nostril, # 25 Gm, 5 Refills, Maintenance, 12/21/19 14:09:00 EST, [facility], d/c fluconasol, 1 sprays Nares, Both 2 times a day,Instr:ineach nostril, 175, cm, 07/04/19 15:37:00 EDT, [place]... Start Date: 12/21/19 Status: Ordered Biktarvy oral tablet 1 tablet, By Mouth, Daily, # 30 tablet, 11 Refills, Maintenance, 03/27/22 13:37:00 EDT, Tablet, [facility], Partial fill upon patient request if the prescription is for a schedule IIopioid drug., 1 tablet By Mouth Daily, 175, cm, 12/... Start Date: 03/27/22 Status: Ordered Colace sodium 100 mg oral capsule 100 mg, 1, capsule, By Mouth, 2 times a day, PRN, # 60 capsule, Refills 3, Tot. Refills 3, Maintenance, for constipation, 12/02/17 13:58:38, Route to Pharmacy Electronically, [id number], [facility] Start Date: 12/02/17 Status: Ordered [...] 5 Refills, Maintenance, 02/12/21 11:54:00 EDT, Tablet, [facility], Partial fill upon patient request if the prescription is for a schedu... Start Date: 02/12/21 Status: Ordered Flomax 0.4 mg oral capsule 0.4 mg, 1, capsule, By Mouth, Daily, To help kidney stone pass, # 30 capsule, Refills 1, Tot. Refills 1, Maintenance, 04/15/22 13:06:00 EDT, Route to Pharmacy Electronically, [facility], 175, cm, 11/19/21 10:53:00 EST, Height Start Date: 04/15/22 Status: Ordered ibuprofen 800 mg oral tablet 800 mg, 1, tablet, By Mouth, Daily, As needed for migraine and kidney stone pain. do not use daily,it will make migraine worse, # 30 tablet, Refills 2, Tot. Refills 2, Maintenance, 09/04/21 12:34:00EDT, Route to Pharmacy Electronically, [facility]... Start Date: 09/04/21 Status: Ordered [...] 14:05:00 EST, Aerosol, Route to Pharmacy Electronically, [id number], [facility], 175, cm, 07/04/19 15:37:00 EDT, Height, 109.... Start Date: 12/27/19 Status: Ordered sucralfate 1 gm oral tablet 1 Gm, 1, tablet, By Mouth, 4 times a day, # 120 tablet, Refills 3, Tot. Refills 3, Maintenance, 12/19/21 13:28:00 EST, Route to Pharmacy Electronically, [facility], Partial fill uponpatient request if the prescription is for a schedu... Start Date: 12/19/21 Status: Ordered traZODone 150 mg oral tablet 1 tablet = 150 mg, By Mouth, Daily at bedtime, For sleep., # 30 tablet, 5 Refills, Maintenance, 09/04/21 12:32:00 EDT, Tablet, [facility], Partial fill upon patient request if the prescription is for a schedule II opioid drug., 175, c... Start Date: 09/04/21 Status: Ordered triamcinolone 0.1% topical cream 1 application, Topically, 2 times a day, apply a thin film to affected area in armpit, # 80 Gm, 2 Refills, Maintenance, 11/19/21 11:29:00 EST, [place], [facility], Partial fill upon patient request if the prescription is for a schedule... Start Date: 11/19/21 Status: Ordered Tylenol 325 mg oral tablet 650 mg, 2, tablet, By Mouth, Every 4 hours, PRN, # 120 tablet, Refills 0, Tot. Refills 0, Maintenance, for fever, 02/15/20 13:30:00 EDT, Route to Pharmacy Electronically, [facility]/pharmacy #[id number], 175, cm,07/04/19 15:37:00 EDT, Height, 109.9, kg, 07/01/19... Start Date: 02/15/20 Status: Ordered Zithromax 250 mg oral tablet 2 tablet = 500 mg, By Mouth, Once, # 2 tablet, 0 Refills, Soft Stop, 03/05/22 15:02:00 EDT, Tablet,[facility], Partial fill [...]
--- OUTSIDE RECORDS SUMMARY | 2023-07-22 17:13 | XMS_ITS | Continuity of Care Document ---
Author Name Unknown Organization [facility] Address [address] [place] [address]- Care Team Providers Care Dog Licenser Name Role Phone Pearl Reyna MD Primary Care Physician Encounter [facility] Date(s): 03/27/21 - 05/04/[address] [address]- Attending Physician: Jassi Rodney MD Admitting Physician: Jassi Rodney MD Allergies, Adverse Reactions, Alerts Substance Reaction Severity Status Rocephin 1 rash Resolved Ziagen HLA B5701 positive Active Complera allergic to the rilp irivine componant of Complera-tolerates truvada Active 1Not allergic. Tolerated cefpodoxime 10/2017 (prescribed at [facility] ED) as well as ceftriaxone [...] mL, 5 Refills, Maintenance, 01/23/21 14:38:00 EST, [place], [facility], 2 sprays Nares, Both 2 times a day,PRN:for allergy symptoms, 175, cm, 02/25/20 12:28:00 EDT, He... Start Date: 01/23/21 Status: Ordered beclomethasone 0.042 mg/inh nasal spray 1 sprays, Nares, Both, 2 times a day, in each nostril, # 25 Gm, 5 Refills, Maintenance, 12/21/19 14:09:00 EST, [facility], d/c fluconasol, 1 sprays Nares, [...] tablet, 11 Refills, Maintenance, 12/21/19 14:10:00 EST, [facility], note dose change, 175, cm, 07/04/19 15:37:00 EDT, Height, 109.9,kg, 07/01/19 10:09:00 EDT, Dry Weight Start Date: 12/21/19 Status: Ordered Colace sodium 100 mg oral capsule 100 mg, 1, capsule, By Mouth, 2 times a day, PRN, # 60 capsule, Refills 3, Tot. Refills 3, Maintenance, for constipation, 12/02/17 13:58:38, Route to Pharmacy Electronically, NCPDP_[id number], [facility] Start Date: 12/02/17 Status: Ordered fexofenadine 180 mg oral tablet 1 tablet = 180 mg, By Mouth, Daily, Instead of cetirizine (Zyrtec). For allergies., # 30 tablet, 5 Refills, Maintenance, 02/12/21 11:54:00 EDT, Tablet, [facility], Partial fill upon patient request if the prescription is for a schedu... Start Date: 02/12/21 Status: Ordered Flonase 50 mcg/inh nasal spray 2 sprays, Nares, Both, Daily in AM, # 16 Gm, 5 Refills, Maintenance, 06/20/20 8:34:00 EDT, [place], [facility], 2 sprays Nares, Both Daily in AM,x14 days, 175, cm, 02/25/20 12:28:00 EDT, Height, 109.9, kg, 07/01/19 10:09:00 EDT, Dry Weight Start Date: 06/20/20 Stop Date: 09/12/20 Status: Ordered Flovent HFA 110 mcg/inh inhalation aerosol 2 puffs, Inhalation, 2 times a day, # 12 Gm, 0 Refills, Maintenance, 03/16/20 14:12:00 EDT, Aeros[place], [facility], 175, cm, 02/25/20 12:28:00 EDT, Height, 109.9, kg, 07/01/19 10:09:00 EDT, Dry Weight Start Date: 03/16/20 Status: Ordered ibuprofen 800 mg oral tablet 800 mg, 1, tablet, By Mouth, Daily, As needed for migraine and kidney stone pain. do not use daily,it will make migraine worse, # 30 tablet, Refills 5, Tot. Refills 5, Maintenance, 02/12/21 11:50:00EDT, Route to Pharmacy Electronically, [facility]... Start Date: 02/12/21 Status: Ordered Narcan 4 mg/0.1 mL nasal spray = 4 mg, Nares, Both, Once, In case of overdose: spray in nose, call 911, repeat every 2 mins as needed, # 2 each, 5 Refills, Soft Stop, 12/28/19 9:06:00 EST, [facility]/pharmacy #[id number], 175, cm, 07/04/19 15:37:00 [...] 14:05:00 EST, Aerosol, [id number], 175, cm, 07/04/19 15:37:00 EDT, Height, 109.... Start Date: 12/27/19 Status: Ordered traZODone 150 mg oral tablet 1 tablet = 150 mg, By Mouth, Daily at bedtime, For sleep. Dose increased 02/12/21, # 30 tablet, 5 Refills, Maintenance, 02/12/21 11:48:00 EDT, Tablet, [facility], Partial fill upon patient request if the prescription is for a schedule... Start Date: 02/12/21 Status: Ordered Tylenol 325 mg oral tablet 650 mg, 2, tablet, By Mouth, Every 4 hours, PRN, # 120 tablet, Refills 0, Tot. Refills 0, Maintenance, for fever, 02/15/20 13:30:00 EDT, Route to Pharmacy Electronically, [facility]/pharmacy #[id number], 175, cm,07/04/19 15:37:00 EDT, [...]
--- OUTSIDE RECORDS SUMMARY | 2023-07-22 17:13 | XMS_ITS | Continuity of Care Document ---
Author Name Unknown Organization [facility] Address [address] [place] [id number]- Care Team Providers Care City Carrier Name Role Phone Pearl Reyna MD Primary Care Physician Encounter [facility] Date(s): 03/10/22 - 04/09/[address] [address]- Allergies, Adverse Reactions, Alerts Substance Reaction Severity Status Complera allergic to the rilp irivine componant of Complera-tolerates truvada Active Rocephin 1 rash Resolved abacavir 2 Active Ziagen HLA B5701 positive Active 1Not allergic. Tolerated cefpodoxime 10/2017 (prescribed at [facility] ED) as well as ceftriaxone IM [...] Comment: diluted w/ normal saline lot number [id number] expires 02/27/2023 2Result Comment: Received in [place] Medications amitriptyline 10 mg oral tablet 20 mg, 2, tablet, By Mouth, Daily at bedtime, New medication to prevent migraines. Causes sleepiness - take before bed ., # 30 tablet, Refills 0, Tot. Refills 0, Maintenance, 09/04/21 12:35:00 EDT, Route to Pharmacy Electronically, [facility]... Start Date: 09/04/21 Status: Ordered azelastine nasal 0.15% spray 2 sprays, Nares, Both, 2 times a day, PRN for allergy symptoms, # 30 mL, 5 Refills, Maintenance, 01/23/21 14:38:00 EST, [place], [facility], 2 sprays Nares, Both 2 times [...] constipation, 12/02/17 13:58:38, Route to Pharmacy Electronically, NCPDP_[id number], [facility] Start Date: 12/02/17 [...] 5 Refills, Maintenance, 02/12/21 11:54:00 EDT, Tablet, [facility], Partial fill upon [...] Maintenance, 09/04/21 12:34:00EDT, Route to Pharmacy Electronically, [facility]... Start Date: 09/04/21 Status: Ordered [...] 14:05:00 EST, Aerosol, [id number], 175, cm, 07/04/19 15:37:00 EDT, Height, [...] 5 Refills, Maintenance, 09/04/21 12:32:00 EDT, Tablet, [facility], Partial fill [...] [facility]/pharm[facility] #[id number], 175, cm,07/04/19 15:37:00 EDT, Height, 109.9, kg, 07/01/19... Start Date: 02/15/20 Status: Ordered Zithromax 250 mg oral tablet 2 tablet = 500 mg, By Mouth, Once, # 2 tablet, 0 Refills, Soft Stop, 03/05/22 15:02:00 EDT, Tablet,[facility], Partial fill upon [...]
--- OUTSIDE RECORDS SUMMARY | 2023-07-22 17:13 | XMS_ITS | Continuity of Care Document ---
Author Name Unknown Organization [facility] Address [address] [place] [address]- Care Team Providers Care Motorcycle Subassembler Name Role Phone Pearl Reyna MD Primary Care Physician Encounter [facility] Date(s): 07/08/21 - 08/17/[address] [address]- Attending Physician: Pearl Reyna MD Admitting Physician: Pearl Reyna MD Allergies, Adverse Reactions, Alerts Substance Reaction Severity Status Complera allergic to the rilp irivine componant of Complera-tolerates truvada Active Rocephin 1 rash Resolved Ziagen HLA B5701 positive Active 1Not allergic. Tolerated cefpodoxime 10/2017 (prescribed at [facility] ED) as well as ceftriaxone IM [...] Comment: diluted w/ normal saline lot number [id number] expires 02/27/2023 2Result Comment: Received in [place] Medications azelastine nasal 0.15% spray 2 sprays, Nares, Both, 2 times a day, PRN for allergy symptoms, # 30 mL, 5 Refills, Maintenance, 01/23/21 14:38:00 EST, [place], [facility], 2 sprays Nares, Both 2 times a day,PRN:for allergy symptoms, 175, cm, 02/25/20 12:28:00 EDT, He... Start Date: 01/23/21 Status: Ordered beclomethasone 0.042 mg/inh nasal spray 1 sprays, Nares, Both, 2 times a day, in each nostril, # 25 Gm, 5 Refills, Maintenance, 12/21/19 14:09:00 EST, [facility], d/c fluconasol, 1 sprays Nares, [...] tablet, 11 Refills, Maintenance, 12/21/19 14:10:00 EST, [facility], note dose change, 175, cm, 07/04/19 15:37:00 EDT, Height, 109.9,kg, 07/01/19 10:09:00 EDT, Dry Weight Start Date: 12/21/19 Status: Ordered Colace sodium 100 mg oral capsule 100 mg, 1, capsule, By Mouth, 2 times a day, PRN, # 60 capsule, Refills 3, Tot. Refills 3, Maintenance, for constipation, 12/02/17 13:58:38, [id number] Start Date: 12/02/17 [...] 11:54:00 EDT, Tablet, [facility], Partial fill upon patient request if the prescription is for a schedu... Start Date: 02/12/21 Status: Ordered Flonase 50 mcg/inh nasal spray 2 sprays, Nares, Both, Daily in AM, # 16 Gm, 5 Refills, Maintenance, 06/20/20 8:34:00 EDT, [place], [facility], 2 sprays Nares, Both Daily in AM,x14 days, 175, cm, 02/25/20 12:28:00 EDT, Height, 109.9, kg, 07/01/19 10:09:00 EDT, Dry Weight Start Date: 06/20/20 Stop Date: 09/12/20 Status: Ordered Flovent HFA 110 mcg/inh inhalation aerosol 2 puffs, Inhalation, 2 times a day, # 12 Gm, 0 Refills, Maintenance, 03/16/20 14:12:00 EDT, Aeros[place], [facility], 175, cm, 02/25/20 12:28:00 EDT, Height, 109.9, kg, 07/01/19 10:09:00 EDT, Dry Weight Start Date: 03/16/20 Status: Ordered ibuprofen 800 mg oral tablet 800 mg, 1, tablet, By Mouth, Daily, As needed for migraine and kidney stone pain. do not use daily,it will make migraine worse, # 30 tablet, Refills 5, Tot. Refills 5, Maintenance, 02/12/21 11:50:00EDT, Route to Pharmacy Electronically, [facility]... Start Date: 02/12/21 Status: [...] 14:05:00 EST, Aerosol, Route to Pharmacy Electronically, NCPDP_[id number], [facility], 175, cm, 07/04/19 15:37:00 EDT, Height, 109.... Start Date: 12/27/19 Status: Ordered traZODone 150 mg oral tablet 1 tablet = 150 mg, By Mouth, Daily at bedtime, For sleep. Dose increased 02/12/21, # 30 tablet, 5 Refills, Maintenance, 02/12/21 11:48:00 EDT, Tablet, [facility], Partial fill upon patient request if the prescription is for a schedule... Start Date: 02/12/21 Status: Ordered Tylenol 325 mg oral tablet 650 mg, 2, tablet, By Mouth, Every 4 hours, PRN, # 120 tablet, Refills 0, Tot. Refills 0, Maintenance, for fever, 02/15/20 13:30:00 EDT, Route to Pharmacy Electronically, [facility]/pharmacy #[id number], 175, cm,07/04/19 15:37:00 EDT, Height, [...]
--- OUTSIDE RECORDS SUMMARY | 2023-07-22 17:13 | XMS_ITS | Continuity of Care Document ---
Author Name Unknown Organization [facility] Address [address] [place] [address]- Care Team Providers Care Track Greaser Name Role Phone Pearl Reyna MD Primary Care Physician Encounter [facility] Date(s): 08/19/21 - 10/04/[address] [address]- Attending Physician: Pearl Reyna MD Admitting Physician: Pearl Reyna MD Allergies, Adverse Reactions, Alerts Substance Reaction Severity Status Rocephin 1 rash Resolved abacavir 2 Active Complera allergic to the rilp irivine componant of Complera-tolerates truvada Active Ziagen HLA B5701 positive Active 1Not allergic. Tolerated cefpodoxime 10/2017 (prescribed at [facility]) as well as ceftriaxone IM [...] Comment: diluted w/ normal saline lot number [id number] expires 02/27/2023 2Result Comment: Received in [place] Medications amitriptyline 10 mg oral tablet 20 mg, 2, tablet, By Mouth, Daily at bedtime, New medication to prevent migraines. Causes sleepiness - take before bed ., # 30 tablet, Refills 0, Tot. Refills 0, Maintenance, 09/04/21 12:35:00 EDT, Route to Pharmacy Electronically, [facility]... Start Date: 09/04/21 Status: Ordered azelastine nasal 0.15% spray 2 sprays, Nares, Both, 2 times a day, PRN for allergy symptoms, # 30 mL, 5 Refills, Maintenance, 01/23/21 14:38:00 EST, [place], [facility], 2 sprays Nares, Both 2 times a day,PRN:for allergy symptoms, 175, cm, 02/25/20 12:28:00 EDT, He... Start Date: 01/23/21 Status: Ordered beclomethasone 0.042 mg/inh nasal spray 1 sprays, Nares, Both, 2 times a day, in each nostril, # 25 Gm, 5 Refills, Maintenance, 12/21/19 14:09:00 EST, [facility], d/c fluconasol, 1 sprays [...] constipation, 12/02/17 13:58:38, Route to Pharmacy Electronically, MOPDP_[id number], [facility] Start Date: 12/02/17 Status: Ordered [...] 5 Refills, Maintenance, 02/12/21 11:54:00 EDT, Tablet, [facility], Partial fill upon patient request if the prescription is for a schedu... Start Date: 02/12/21 Status: Ordered Flonase 50 mcg/inh nasal spray 2 sprays, Nares, Both, Daily in AM, # 16 Gm, 5 Refills, Maintenance, 06/20/20 8:34:00 EDT, [place], [facility], 2 sprays Nares, Both Daily in AM,x14 days, 175, cm, 02/25/20 12:28:00 EDT, Height, 109.9, kg, 07/01/19 10:09:00 EDT, Dry Weight Start Date: 06/20/20 Stop Date: 09/12/20 Status: Ordered Flovent HFA 110 mcg/inh inhalation aerosol 2 puffs, Inhalation, 2 times a day, # 12 Gm, 0 Refills, Maintenance, 03/16/20 14:12:00 EDT, Aeros[place], [facility], 175, cm, 02/25/20 12:28:00 [...] Maintenance, 09/04/21 12:34:00EDT, Route to Pharmacy Electronically, [facility] Start Date: 09/04/21 Status: Ordered Narcan 4 mg/0.1 mL nasal spray = 4 mg, Nares, Both, Once, In case of overdose: spray in nose, call 911, repeat every 2 mins as needed, # 2 each, 5 Refills, Soft Stop, 12/28/19 9:06:00 EST, [facility]/pharmacy #[id number], 175, cm, 07/04/19 [...] 14:05:00 EST, Aerosol, Route to Pharmacy Electronically, NCPDP_[id number], [facility], 175, cm, 07/04/19 15:37:00 EDT, Height, 109.... Start Date: 12/27/19 Status: Ordered traZODone 150 mg oral tablet 1 tablet = 150 mg, By Mouth, Daily at bedtime, For sleep., # 30 tablet, 5 Refills, Maintenance, 09/04/21 12:32:00 EDT, Tablet, [facility], Partial fill upon patient [...]
--- OUTSIDE RECORDS SUMMARY | 2023-07-22 17:13 | XMS_ITS | Continuity of Care Document ---
Author Name Unknown Organization [facility] Address [address] [place] [address]- Care Team Providers Care Cashier Credit Name Role Phone Pearl Reyna MD Primary Care Physician Encounter [facility] Date(s): 04/14/22 - 05/14/[address] [address]- Allergies, Adverse Reactions, Alerts Substance Reaction Severity [...] Comment: diluted w/ normal saline lot number [id number] expires 02/27/2023 2Result Comment: Received in [place] Medications amitriptyline 10 mg oral tablet 20 mg, 2, tablet, By Mouth, Daily at bedtime, New medication to prevent migraines. Causes sleepiness - take before bed ., # 30 tablet, Refills 0, Tot. Refills 0, Maintenance, 09/04/21 12:35:00 EDT, Route to Pharmacy Electronically, [facility]... Start Date: 09/04/21 Status: Ordered azelastine nasal 0.15% spray 2 sprays, Nares, Both, 2 times a day, PRN for allergy symptoms, # 30 mL, 5 Refills, Maintenance, 01/23/21 14:38:00 EST, [place], [facility], 2 sprays Nares, Both 2 times a day,PRN:for allergy symptoms, 175, cm, 02/25/20 12:28:00 EDT, He... Start Date: 01/23/21 Status: Ordered beclomethasone 0.042 mg/inh nasal spray 1 sprays, Nares, Both, 2 times a day, in each nostril, # 25 Gm, 5 Refills, Maintenance, 12/21/19 14:09:00 EST, [facility], d/c fluconasol, 1 sprays Nares, Both 2 times a day,Instr:ineach nostril, 175, cm, 07/04/19 15:37:00 EDT, [place]... Start Date: 12/21/19 Status: Ordered Biktarvy oral tablet 1 tablet, By Mouth, Daily, # 30 tablet, 11 Refills, Maintenance, 03/27/22 13:37:00 EDT, Tablet, [facility], Partial fill upon patient request if the prescription is for a schedule IIopioid drug., 1 tablet By Mouth Daily, 175, cm, 12/... Start Date: 03/27/22 Status: Ordered Colace sodium 100 mg oral capsule 100 mg, 1, capsule, By Mouth, 2 times a day, PRN, # 60 capsule, Refills 3, Tot. Refills 3, Maintenance, for constipation, 12/02/17 13:58:38, Route to Pharmacy Electronically, NCPDP_[id number], [facility] Start Date: 12/02/17 Status: Ordered [...] Refills, Maintenance, 02/12/21 11:54:00 EDT, Tablet, [facility], Partial fill upon patient request if the prescription is for a schedu... Start Date: 02/12/21 Status: Ordered Flomax 0.4 mg oral capsule 0.4 mg, 1, capsule, By Mouth, Daily, To help kidney stone pass, # 30 capsule, Refills 1, Tot. Refills 1, Maintenance, 04/15/22 13:06:00 EDT, Route to Pharmacy Electronically, [facility], 175, cm, 11/19/21 10:53:00 EST, [...] 14:05:00 EST, Aerosol, Route to Pharmacy Electronically, [facility]P_[id number], [facility], 175, cm, 07/04/19 15:37:00 EDT, Height, 109.... Start Date: 12/27/19 Status: Ordered sucralfate 1 gm oral tablet 1 Gm, 1, tablet, By Mouth, 4 times a day, # 120 tablet, Refills 3, Tot. Refills 3, Maintenance, 12/19/21 13:28:00 EST, Route to Pharmacy Electronically, [facility], Partial fill uponpatient request if the prescription is for a schedu... Start Date: 12/19/21 Status: Ordered traZODone 150 mg oral tablet 1 tablet = 150 mg, By Mouth, Daily at bedtime, For sleep., # 30 tablet, 5 Refills, Maintenance, 09/04/21 12:32:00 EDT, Tablet, [facility], Partial fill upon patient request if the prescription is for a schedule II opioid drug., 175, c... Start Date: 09/04/21 Status: Ordered triamcinolone 0.1% topical cream 1 application, Topically, 2 times a day, apply a thin film to affected area in armpit, # 80 Gm, 2 Refills, Maintenance, 11/19/21 11:29:00 EST, [place], [facility], Partial fill upon patient request if the prescription is for a schedule... Start Date: 11/19/21 Status: Ordered Tylenol 325 mg oral tablet 650 mg, 2, tablet, By Mouth, Every 4 hours, PRN, # 120 tablet, Refills 0, Tot. Refills 0, Maintenance, for fever, 02/15/20 13:30:00 EDT, Route to Pharmacy Electronically, [facility]/pharmacy #[id number], 175, cm,07/04/19 15:37:00 EDT, [...]
--- OUTSIDE RECORDS SUMMARY | 2023-07-22 17:13 | XMS_ITS | Continuity of Care Document ---
Author Name Unknown Organization [facility] Address [address] [place] [address]- Care Team Providers Care Aircraft Cleaner Name Role Phone Maribell REEDER, Pearl Primary Care Physician [place] [facility] [place]/23 [facility] [address] [place] [address]- Attending Physician: Not on Staff, Attending MD Allergies, Adverse Reactions, Alerts Substance Reaction Severity Status Rocephin 1 rash Resolved Complera allergic to the rilp irivine componant of Complera-tolerates truvada Active abacavir 2 Active Ziagen HLA B5701 positive Active 1Not allergic. Tolerated cefpodoxime 10/2017 (prescribed at [facility] ED) as well as ceftriaxone IM [...] Comment: diluted w/ normal saline lot number [id number] expires 02/27/2023 2Result Comment: Received in [place] Medications albuterol 0.083% inhalation solution 3 mL = 2.5 mg, Neb, Every 6 hours, PRN as needed for wheezing, # 90 mL, 6 Refills, Maintenance, 02/09/23 11:31:00 EDT, Solution, [facility], Partial fill upon patient request if the prescription is for a schedule II opioid drug., 175,... Start Date: 02/09/23 Status: Ordered azelastine nasal 0.15% spray 2 sprays, Nares, Both, 2 times a day, PRN for allergy symptoms, # 30 mL, 5 Refills, Maintenance, 01/23/21 14:38:00 EST, [place], [facility], 2 sprays Nares, Both 2 times a day,PRN:for allergy symptoms, 175, cm, 02/25/20 12:28:00 EDT, He... Start Date: 01/23/21 Status: Ordered beclomethasone 0.042 mg/inh nasal spray 1 sprays, Nares, Both, 2 times a day, in each nostril, # 25 Gm, 5 Refills, Maintenance, 12/21/19 14:09:00 EST, [facility], d/c fluconasol, 1 sprays Nares, [...] 5 Refills, Maintenance, 02/12/21 11:54:00 EDT, Tablet, [facility], Partial fill upon patient request if the prescription is for a schedu... Start Date: 02/12/21 Status: Ordered Flomax 0.4 mg oral capsule 0.4 mg, 1, capsule, By Mouth, Daily, To help kidney stone pass, # 30 capsule, Refills 1, Tot. Refills 1, Maintenance, 12/25/22 12:52:00 EST, Route to Pharmacy Electronically, [facility], 175, cm, 12/25/22 12:08:00 [...] Refills 0, Maintenance, J45. 41 Fax to [facility], 02/11/23 14:58:00 EDT, Supply Start Date: 02/11/23 [...] 14:17:00 EDT, Aerosol, Route to Pharmacy Electronically, [id number], [facility], 175, cm, 11/19/21 10:53:00 EST, [...] 0 Refills, Maintenance, 11/04/22 12:49:00 EST, Tablet, [facility]/pharmacy #[id number], Partial fill upon patient [...] 02/15/20 13:30:00 EDT, Route to Pharmacy Electronically, [facility]/pharmacy #[id number], 175, cm,07/04/19 15:37:00 EDT, Height, 109.9, kg, 07/01/19... Start Date: 02/15/20 Status: Ordered ZyrTEC-D 5 mg-120 mg oral tablet, extended release 1 tablet, By Mouth, Every 24 hours, # 30 tablet, 2 Refills, Maintenance, 10/15/22 9:16:00 EST, ER Tablet, [facility], Partial fill upon [...] Team Personnel Name: Pearl Reyna MD Position: [facility] Primary Care Physician Member Role: PCP Address: Address: [address] [place] [address]- Care Team Related Persons Name: KAITLYN COVARRUBIAS Name: ASHLYN LONG Address: home [address] [place] [address] Name: NO, ONE AT THIS TIME Name: WADE SABILLON
--- OUTSIDE RECORDS SUMMARY | 2023-07-22 17:14 | XMS_ITS | Continuity of Care Document ---
Author Name Unknown Organization [facility] Address [address] [place] [id number]- Care Team Providers Care Analytics Consultant Name Role Phone Pearl Reyna MD Primary Care Physician Encounter [facility] Date(s): 03/04/22 - 04/03/[address] [address]- Allergies, Adverse Reactions, Alerts Substance Reaction Severity Status Rocephin 1 rash Resolved abacavir 2 Active Ziagen HLA B5701 positive Active Complera allergic to the rilp irivine componant of Complera-tolerates truvada Active 1Not allergic. Tolerated cefpodoxime 10/2017 (prescribed at [facility]) as well as ceftriaxone IM [...] Comment: diluted w/ normal saline lot number [id number] expires 02/27/2023 2Result Comment: Received in [place] Medications amitriptyline 10 mg oral tablet 20 mg, 2, tablet, By Mouth, Daily at bedtime, New medication to prevent migraines. Causes sleepiness - take before bed ., # 30 tablet, Refills 0, Tot. Refills 0, Maintenance, 09/04/21 12:35:00 EDT, Route to Pharmacy Electronically, [facility]... Start Date: 09/04/21 Status: Ordered azelastine nasal 0.15% spray 2 sprays, Nares, Both, 2 times a day, PRN for allergy symptoms, # 30 mL, 5 Refills, Maintenance, 01/23/21 14:38:00 EST, [place], [facility], 2 sprays Nares, Both 2 times a day,PRN:for allergy symptoms, 175, cm, 02/25/20 12:28:00 EDT, He... Start Date: 01/23/21 Status: Ordered beclomethasone 0.042 mg/inh nasal spray 1 sprays, Nares, Both, 2 times a day, in each nostril, # 25 Gm, 5 Refills, Maintenance, 12/21/19 14:09:00 EST, [facility], d/c fluconasol, 1 sprays Nares, Both 2 times a day,Instr:ineach nostril, 175, cm, 07/04/19 15:37:00 EDT, Heigh... Start Date: 12/21/19 Status: Ordered Biktarvy oral tablet 1 tablet, By Mouth, Daily, # 30 tablet, 11 Refills, Maintenance, 03/27/22 13:37:00 EDT, Tablet, [facility], Partial fill upon patient request if the prescription is for a schedule IIopioid drug., 1 tablet By Mouth Daily, 175, cm, 12/... Start Date: 03/27/22 Status: Ordered Colace sodium 100 mg oral capsule 100 mg, 1, capsule, By Mouth, 2 times a day, PRN, # 60 capsule, Refills 3, Tot. Refills 3, Maintenance, for constipation, 12/02/17 13:58:38, [id number] Start Date: 12/02/17 Status: [...] 5 Refills, Maintenance, 02/12/21 11:54:00 EDT, Tablet, [facility], Partial fill upon patient request if the prescription is for a schedu... Start Date: 02/12/21 Status: Ordered Flovent HFA 110 mcg/inh inhalation aerosol 2 puffs, Inhalation, 2 times a day, # 12 Gm, 0 Refills, Maintenance, 03/16/20 14:12:00 EDT, Aerosol, [facility], 175, cm, 02/25/20 12:28:00 EDT, Height, 109.9, kg, 07/01/19 10:09:00 EDT, Dry Weight Start Date: 03/16/20 Status: Ordered ibuprofen 800 mg oral tablet 800 mg, 1, tablet, By Mouth, Daily, As needed for migraine and kidney stone pain. do not use daily,it will make migraine worse, # 30 tablet, Refills 2, Tot. Refills 2, Maintenance, 09/04/21 12:34:00EDT, Route to Pharmacy Electronically, [facility]... Start Date: 09/04/21 Status: Ordered Narcan 4 mg/0.1 mL nasal spray = 4 mg, Nares, Both, Once, In case of overdose: spray in nose, call 911, repeat every 2 mins as needed, # 2 each, 5 Refills, Soft Stop, 12/28/19 9:06:00 EST, [facility]/pharmacy #[id number], 175, cm, 07/04/19 15:37:00 EDT, Height, [...] 14:05:00 EST, Aerosol, Route to Pharmacy Electronically, [id number], [facility], 175, cm, 07/04/19 15:37:00 EDT, Height, 109.... Start Date: 12/27/19 Status: Ordered sucralfate 1 gm oral tablet 1 Gm, 1, tablet, By Mouth, 4 times a day, # 120 tablet, Refills 3, Tot. Refills 3, Maintenance, 12/19/21 13:28:00 EST, Route to Pharmacy Electronically, [facility], Partial fill uponpatient request if the prescription is for a schedu... Start Date: 12/19/21 Status: Ordered traZODone 150 mg oral tablet 1 tablet = 150 mg, By Mouth, Daily at bedtime, For sleep., # 30 tablet, 5 Refills, Maintenance, 09/04/21 12:32:00 EDT, Tablet, [facility], Partial fill upon patient request if the prescription is for a schedule II opioid drug., 175, c... Start Date: 09/04/21 Status: Ordered triamcinolone 0.1% topical cream 1 application, Topically, 2 times a day, apply a thin film to affected area in armpit, # 80 Gm, 2 Refills, Maintenance, 11/19/21 11:29:00 EST, Cream, [facility], Partial fill upon patient request if the prescription is for a schedule... Start Date: 11/19/21 Status: Ordered Tylenol 325 mg oral tablet 650 mg, 2, tablet, By Mouth, Every 4 hours, PRN, # 120 tablet, Refills 0, Tot. Refills 0, Maintenance, for fever, 02/15/20 13:30:00 EDT, Route to Pharmacy Electronically, [facility]/pharmacy #[id number], 175, cm,07/04/19 15:37:00 EDT, Height, 109.9, kg, 07/01/19... Start Date: 02/15/20 Status: Ordered Zithromax 250 mg oral tablet 2 tablet = 500 mg, By Mouth, Once, # 2 tablet, 0 Refills, Soft Stop, 03/05/22 15:02:00 EDT, Tablet,[facility], Partial fill upon patient [...]
[2023-07-22 17:23] LABS: MANUAL DIFF FLAG NO
[2023-07-22 17:29] LABS: Basophils Absolute Auto 0.1 X10*3/uL (0.0-0.2); Basophils Percent Auto 0.7 % (0-2); Eosinophils Absolute Auto 0.1 X10*3/uL (0.0-0.4); Eosinophils Percent Auto 0.5 % (0-4); Hemoglobin 15.3 g/dl (14.0-18.0); Imm Gran Abs Auto 0.04 X10*3/uL (0.00-0.03); Imm Gran Pct Auto 0.3 % (0.0-0.4); Lymphocytes Absolute Auto 2.8 X10*3/uL (1.2-4.9); Lymphocytes Percent Auto 23.7 % (20-40); Mean Corpuscular Hemoglobin 30.1 pg (27.0-33.0); Mean Corpuscular Volume 88.4 fL (80.0-98.0); Monocytes Absolute Auto 0.7 X10*3/uL (0.1-1.2); Monocytes Percent Auto 5.9 % (2-11); Neutrophils Absolute Auto 8.2 x10*3/uL (2.0-8.3); Neutrophils Percent Auto 68.9 % (45-73); Platelet Count 450 X10*3/uL (160-400); Red Blood Count 5.09 X10*6/uL (4.60-5.80); Red Cell Distribution Width 13.2 % (11.0-16.0); White Blood Count 11.8 X10*3/uL (4.8-10.8)
[2023-07-22 17:34] LABS: Prothrombin Time 12.2 SEC (11.1-13.3)
[2023-07-22 17:36] LABS: Partial Thromboplastin Time 31.3 SEC (26.0-36.4)
[2023-07-22 17:43] LABS: Alanine Aminotransferase 38 U/L (0-40); Albumin Level 4.4 g/dL (3.5-5.0); Alkaline Phosphatase 75 U/L (39-117); Anion Gap 14 (12-20); Aspartate Amino Transferase 18 U/L (5-37); Bilirubin Direct 0.1 mg/dL (0.0-0.5); Bilirubin Total 0.3 mg/dL (0.0-1.0); Blood Urea Nitrogen 9 mg/dL (9-16); Calcium 10.3 mg/dL (8.4-10.2); Carbon Dioxide 18 mmol/L (22-29); Chloride 110 mmol/L (96-108); Creatinine Clr Calc Pharmacy 173.5; Estimated Glomerular Filt Rate > 60; Glucose Random 121 mg/dL (60-115); Magnesium 1.9 mg/dL (1.6-2.6); Sodium 138 mmol/L (135-145); Total Protein 8.5 g/dL (6.5-8.0)
[2023-07-22 17:58] LABS: Appearance Urine Clear; Color Urine Yellow; Glucose Urine UA Negative (Negative); Leukocyte Esterase Urine Negative (Negative); Nitrite Urine Negative (Negative); PH 5.5 (5.0-9.0); UMIC TRIGGER UACC YES; Urine Blood Trace (Negative); Urine Ketones Trace mg/dL (Negative); Urine Protein 100 (2+) mg/dL (Neg-Trace)
[2023-07-22 18:04] LABS: Bacteria Urine None Seen (None Seen); Squamous Epithelial Cell Urine 0-2 /HPF (0-2); WBC Urine 0-5 /HPF (0-5)
[2023-07-22] MEDS: ondansetron HCL 4 MG/2 ML VIAL IVPUSH (20:15)
[2023-07-22] MEDS: Morphine Sulfate 4 MG/ML CARTRIDGE IVPUSH (20:15)
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
== END 2023-07-22 22:00 | disposition home or self-care (01) ==
PROVIDERS: Physician Assistant; Emergency Provider Emergency Medicine; PCP Internal Medicine
DX: S30.1XXA Contusion of abdominal wall, initial encounter (principal); S09.90XA Unspecified injury of head, initial encounter; R51.9 Headache, unspecified; M54.2 Cervicalgia; R10.30 Lower abdominal pain, unspecified; R07.81 Pleurodynia; V43.52XA Car driver injured in collision with other type car in traffic accident, initial encounter; Y93.9 Activity, unspecified; Y92.410 Unspecified street and highway as the place of occurrence of the external cause; Y99.9 Unspecified external cause status; Z79.899 Other long term (current) drug therapy
CPT/HCPCS: 36415; 70450; 71260; 72125; 74177; 80048; 80076; 81001; 83735; 85025; 85610; 85730; 96374; 96375; 99283; 99284; J2270; J2405